=== PATIENT | female | born 1960 | race Caucasian/White ===

== ENCOUNTER 2019-06-15 11:02 | Emergency (ER) | payer MEDICARE, MEDICAID, SELFPAY ==
[2019-06-15 11:06] VITALS: BP 144/98; PULSE 116; RESP 18; TEMP 36.5; O2SAT 94
--- NOTE | 2019-06-15 11:15 | ED.GENADUL_ITS ---
Discharge Plan Disposition Patient Disposition: HOME Condition: Good Discharge Details Chief Complaint: DentalOral Clinical Impression: Abscess, dental Primary Care Provider: Kingston Salgado ED Provider: Guerita Keys Home Meds and New Rx's Prescriptions: New clindamycin HCl 150 mg capsule 150 mg PO TID 7 Days Qty: 21 RF: 0 Continued nicotine (polacrilex) 4 mg gum 4 mg BC Q2H Qty: 100 RF: 4 albuterol sulfate [ProAir HFA] 90 mcg/actuation HFA aerosol inhaler 2 puff Inhalation Q4H PRN Qty: 3 RF: 4 fluticasone propionate 50 mcg/actuation spray,suspension 2 spray NS DAILY Qty: 1 RF: 3 Symbicort 160-4.5 mcg/actuation HFA aerosol inhaler 2 puff Inhalation BID Qty: 1 RF: 3 lisinopril 40 mg tablet 40 mg PO DAILY Qty: 90 RF: 4 furosemide 40 mg tablet 40 mg PO DAILY Qty: 90 RF: 4 amlodipine 10 mg tablet 10 mg PO DAILY Qty: 90 RF: 3 multivitamin [Multi-Day] 1 EACH tablet 1 ea PO DAILY RF: 0 Bipap RF: 0 amoxicillin 500 MG tablet 2 g PO ONCE Qty: 4 RF: 4 clotrimazole-betamethasone [Lotrisone] 45 GM cream 1 gary Topical BID PRNQty: 45 RF: 1 aspirin [Aspir-81] 81 MG tablet,delayed release (DR/EC) 81 mg PO DAILY Qty: 90 RF: 3 ibuprofen 800 mg tablet 800 mg PO BID prn Qty: 180 RF: 3 nystatin (bulk) 500 million unit powder See Rx Instructions Topical QID PRNRF: 2 bupropion HCl 150 mg tablet sustained-release 12 hr 150 mg PO DAILY Qty: 90 RF: 4 pantoprazole [Protonix] 40 mg tablet,delayed release (DR/EC) 40 mg PO DAILY Qty: 90 RF: 4 zolpidem [Ambien] 10 mg tablet 10 mg PO HS PRN (Reason: insomnia) Qty: 30 RF: 1 oxycodone-acetaminophen 5-325 mg tablet 1 tab PO Q8H MDD 2 tabs PRN (Reason: pain) Qty: 60 RF: 0 Discharge Instructions Instructions: Dental Abscess (ED) Additional Instructions: Encourage hydration. Use Tylenol and/or ibuprofen as needed for discomfort. Please take the clindamycin as prescribed. Even if symptoms improve, please take the entire course. While on the antibiotic, please take a probiotic. Abscess was drained today and a dental block was performed. If you develop fever/chills, increased swelling or other new/worsening symptoms please seek care urgently once again. Otherwise, please keep your dental appointment tomorrow. Referrals: Kingston Salgado MD [Primary Care Provider] - Discharge Data Discharge Date/Time-TO BE ENTERED AT DEPARTURE: 06/15/19 12:07 Medical Decision Making Patient is a pleasant 58-year-old female presents today with chief complaint of left upper dental pain that began 1 week ago and is progressive and increasing. She awoke this morning to note swelling to the left side of her cheek. She has contacted a dentist and has appointment tomorrow for evaluation. Should contact her dentist today who advised that she come to the ER to be evaluated. She d enies any fevers or chills. There is no biotics. Patient does have a left total knee replacement and reports that she does take amoxicillin prior to her dental appointments. Denies any known trauma. Patient is noted to have pain, area of fluctuance consistent with abscess at the number 11. Tooth. She is afebrile, nontoxic-appearing. Has poor dentition throughout. States she has not seen a dentist in many years. No pain along the lingual side of the dentition or gumline. Oropharynx is otherwise without significant abnormality. Patient I discussed treatment options. In particular, we discussed I&D of the abscess followed by subsequent oral antibiotics. Patient also questioning a block. We discussed risk/benefits of these procedures in depth as well as expected procedural steps. She voices understanding and wished to proceed. Please see procedure note. Patient tolerated this well. Large amount of thick purulent discharge was expressed from the abscess. Patient was initially noted to be tachycardic at 116, it is 114 time of discharge. This is baseline for the patient on chart review. Patient is feeling much improved after block and drainage of the abscess. Will be given her first dose of clindamycin here. I did advise that she go on a probiotic while on the clindamycin. She has an appointment with her dentist tomorrow for definitive care. Patient was given return precautions. All of her questions and concerns were addressed and she is in agreement this plan. HPI General Mode of arrival: ambulatory . Date/Time Provider Initiated Documentation: 06/15/19 11:06 . Limitations to Documentation: no limitations . Information obtained by: patient and RN notes reviewed . History of Present Illness 58 year old F presents to the emergency department with the chief complaint of left upper dental pain, described as severe, with intensity rated at 8. Quality is described as burning, and is localized to the mouth. Patient reports no radiation. Patient started experiencing this week(s) (1, progressively worsening. Swelling started today) and it has been constant. No relieving factors improve symptom(s), No exacerbating factors reported . Patient notes no other symptoms.; denies fever/chills, headaches, loss of appetite, nausea/vomiting and rash. Patient did receive the following treatments prior to arrival, none Related Data Home Medications Medication Instructions Recorded Confirmed multivitamin [Multi-Day] 1 ea PO DAILY 09/02/12 06/15/19 Bipap 06/29/14 05/05/19 amoxicillin 2 g PO ONCE #4 tab 01/29/15 06/15/19 clotrimazole-betamethasone 1 gary TOPICAL BID PRN #45 gm 05/10/15 06/15/19 [Lotrisone] aspirin [Aspir-81] 81 mg PO DAILY #90 tab-cap 07/10/16 06/15/19 nicotine (polacrilex) 4 mg gum 4 mg BC Q2H #100 each 03/29/18 06/15/19 ibuprofen 800 mg tablet 800 mg PO BID prn #180 tab-cap 06/20/18 06/15/19 albuterol sulfate 90 mcg/actuation 2 puff INHALATION Q4H PRN #3 07/07/18 06/15/19 aerosol inhaler inhaler fluticasone propionate 50 2 spray NS DAILY #1 gm 07/07/18 06/15/19 mcg/actuation nasal spray,suspension furosemide 40 mg tablet 40 mg PO DAILY #90 tab-cap 10/06/18 06/15/19 amlodipine 10 mg tablet 10 mg PO DAILY #90 tab-cap 01/06/19 06/15/19 nystatin (bulk) 500 million unit See Rx Instructions TOPICAL QID 01/06/19 06/15/19 powder PRN g bupropion HCl 150 mg tablet,12 hr 150 mg PO DAILY #90 tab-cap 09/05/19 01/02/20 sustained-release budesonide-formoterol HFA 160 2 puff INHALATION BID #1 inhaler 03/31/19 06/15/19 mcg-4.5 mcg/actuation aerosol inhaler lisinopril 40 mg tablet 40 mg PO DAILY #90 tab 03/31/19 06/15/19 pantoprazole 40 mg tablet,delayed 40 mg PO DAILY #90 tab-cap 04/24/19 06/15/19 release zolpidem 10 mg tablet 10 mg PO HS PRN #30 tab 04/24/19 06/15/19 oxycodone-acetaminophen 5 mg-325 1 tab PO Q8H PRN #60 tab MDD 2 tabs 05/19/19 06/15/19 mg tablet clindamycin HCl 150 mg PO TID 7 Days #21 cap 06/15/19 Previous Rx's Medication Instructions Recorded nicotine (polacrilex) 4 mg gum 4 mg BC Q2H #100 each 03/29/18 ibuprofen 800 mg tablet 800 mg PO BID prn #180 tab-cap 06/20/18 albuterol sulfate 90 mcg/actuation 2 puff INHALATION Q4H PRN #3 07/07/18 aerosol inhaler inhaler fluticasone propionate 50 2 spray NS DAILY #1 gm 07/07/18 mcg/actuation nasal spray,suspension furosemide 40 mg tablet 40 mg PO DAILY #90 tab-cap 10/06/18 amlodipine 10 mg tablet 10 mg PO DAILY #90 tab-cap 01/06/19 bupropion HCl 150 mg tablet,12 hr 150 mg PO DAILY #90 tab-cap 02/16/19 sustained-release budesonide-formoterol HFA 160 2 puff INHALATION BID #1 inhaler 03/31/19 mcg-4.5 mcg/actuation aerosol inhaler lisinopril 40 mg tablet 40 mg PO DAILY #90 tab 03/31/19 pantoprazole 40 mg tablet,delayed 40 mg PO DAILY #90 tab-cap 04/24/19 release zolpidem 10 mg tablet 10 mg PO HS PRN #30 tab 04/24/19 oxycodone-acetaminophen 5 mg-325 1 tab PO Q8H PRN #60 tab MDD 2 tabs 05/19/19 mg tablet clindamycin HCl 150 mg PO TID 7 Days #21 cap 06/15/19 Allergies Allergy/AdvReac Type Severity Reaction Status Date / Time citalopram AdvReac INSOMNIA; Verified 06/15/19 11:13 DIZZINESS General Stated Complaint: DentalOral DAISHA: 4 Review of Systems Constitutional Constitutional: Reports as per HPI, Denies chills, Denies fatigue, Denies fever(s), Denies headache(s) and Denies poor appetite Eyes Eyes: Denies change in vision and Denies irritation ENT Ears, Nose, Mouth, and Throat: Reports as per HPI, Reports dental pain, Denies dysphagia, Denies dizziness, Denies dry mouth, Denies ear discharge, Denies otalgia, Reports facial pain, Denies headache(s), Denies hoarseness, Denies lip swelling, Denies nasal congestion, Denies odynophagia and Denies sore throat Cardiovascular Cardiovascular: Reports as per HPI and Denies chest pain Respiratory Respiratory: Reports as per HPI and Denies cough Gastrointestinal Gastrointestinal: Reports as per HPI, Denies dysphagia, Denies nausea, Denies odynophagia and Denies vomiting Integumentary/Breasts Skin/Breast: Reports as per HPI, Denies erythema, Denies rash and Denies skin pain Neurologic Neurologic: Reports as per HPI, Denies dizziness and Denies headache(s) Endocrine Endocrine: Denies fatigue Allergic/Immunologic Allergic/Immunologic: Denies lip swelling [facility] Medical History Chronic obstructive lung disease (Chronic) ongoing tobacco use Depressive disorder (Chronic) Essential hypertension (Chronic 05/10/13) Excessive bleeding in premenopausal period (Resolved 05/13/95) GERD (gastroesophageal reflux disease) (Chronic 02/02/14) Hyperlipidemia (Chronic 06/29/14) Midline low back pain without sciatica (Chronic 05/10/15) Obesity (Chronic) Obstructive sleep apnea syndrome (Chronic) BiPAP Osteoarthritis of knee (Chronic) both knees (s/p left TKR) Poor dentition (Chronic 10/26/14) Smoker (Chronic 09/29/16) 1ppd Venous insufficiency (chronic) (peripheral) (Chronic 12/29/16) Surgical History Arthroplasty of knee (~2006) left section Cholecystectomy (~1986) Endometrial Biopsy (~1995) History of bilateral ligation of fallopian tubes (Inactive) History of section (Inactive) History of open reduction and internal fixation (ORIF) procedure (Inactive) History of umbilical hernia repair (Inactive) Ligation of fallopian tube (~1993) Repair of umbilical hernia (~07/2009) Replacement of total knee joint (~2007) left Status post cholecystectomy (Inactive) Status post total knee replacement (Inactive) wrist repair (~1988) RIGHT WRIST PINS & RODS Social History Smoking/Tobacco Use Status: Current every day Tobacco Type: cigarettes Smoking packs per day: 1.5 Smoking cigarettes per day: 30.0 Alcohol Intake: current Alcohol Intake frequency: a few times a month Alcohol type: hard liquor Drug use: Never Substance use type: prescription drug Household members: none Pets and animals: No Duration: < 15 minutes/day Frequency: 1-2 times per week Jessica/Sikhism: Yarsani Agree to transfusion: No Do you feel safe at home: Yes Do you feel safe in your relationship?: Yes Exam Const General: cooperative, healthy appearing, comfortable, no acute distress, well developed and well groomed Nutritional Appearance: well nourished and obese Orientation: alert and awake [facility] Head: normal to inspection, normocephalic and atraumatic Ears: hearing grossly normal bilaterally, external ears normal and TM's normal bilaterally General nose exam: external nose normal and nares normal Face and sinus: sinuses nontender and face asymmetric (swelling left cheek) Mouth: lip normal, tongue normal, oropharynx normal, moist mucous membranes, no audible dysphonia, no trismus and No restricted motion Teeth and gingiva: caries, poor dentition and other (area of 1.5 cm abscess left upper dentition at the #11 tooth) Throat: posterior oropharynx normal, tonsils normal and uvula midline Eyes General: appearance normal, both eyes and all related structures Neck Neck: normal visual inspection, full ROM, no lymphadenopathy, supple and no anterior neck swelling Resp Effort & Inspection: normal respiratory effort, able to speak in complete sentences and no respiratory distress Auscultation: clear to auscultation bilaterally, no rales, no rhonchi and no wheezes Cardio Rate: regular rate Rhythm: regular rhythm Heart Sounds: S1 normal and S2 normal Skin General skin exam: no rashes or lesions noted Trauma: no lacerations or abrasions Neuro General: alert and awake Cognition: normal cognition Speech: speech normal Gait: normal gait Psych Appearance: grossly normal and well kempt Mental Status: mental status grossly normal Speech and Movement: speech and movement normal Course Vital Signs Vital signs: Vital Signs Temperature 36.5 C 06/15/19 11:06 Pulse 116 H 06/15/19 11:06 Respiratory Rate 18 06/15/19 11:06 Blood Pressure 144/98 H 06/15/19 11:06 Pulse Oximetry 94 L 06/15/19 11:06 Temperature 36.5 C 06/15/19 11:06 Temperature Source Temporal Artery Scan 06/15/19 11:06 Pulse 116 H 06/15/19 11:06 Respiratory Rate 18 06/15/19 11:06 Respiratory Effort Pursed Lip 06/15/19 11:12 Blood Pressure 144/98 H 06/15/19 11:06 Blood Pressure Position Sitting 06/15/19 11:06 Pulse Oximetry 94 L 06/15/19 11:06 Oxygen Delivery Method Room Air 06/15/19 11:06 Oxygen Flow Rate 0 06/15/19 11:06 Pain Level 8 06/15/19 11:14 Procedures Abscess I/D Side (if applicable): Left (upper dental) Sedation/analgesia: None Local Anesthetic: Lidocaine 1% and Bupivicaine 0.5% Amount of anesthesia used (mL): 1 Technique: Incised with #11 Blade Amount of fluid expressed (mL): 4 Irrigation: No Packing used?: None Complications: Other (none)
[2019-06-15] MEDS: Benzocaine 20% Gel 30 GM JAR MM (11:20)
[2019-06-15] MEDS: Bupivacaine 0.5% Pres-Free 30 ML VIAL IJ (11:20)
[2019-06-15] MEDS: Lidocaine 1% Multi-Dose 50 ML VIAL IJ (11:20)
[2019-06-15 12:08] VITALS: BP 144/98; PULSE 116; RESP 18; TEMP 36.5; O2SAT 94
[2019-06-15] MEDS: Clindamycin 150 MG CAP 450 MG PO (12:09)
== END 2019-06-15 12:07 | disposition home or self-care (01) ==
PROVIDERS: Emergency Provider Physician Assistant; PCP Family Medicine
DX: K04.7 Periapical abscess without sinus (principal); I10 Essential (primary) hypertension; J44.9 Chronic obstructive pulmonary disease, unspecified; F17.210 Nicotine dependence, cigarettes, uncomplicated
CPT/HCPCS: 10060; 99283

== ENCOUNTER 2020-04-12 14:11 | Outpatient (REF) | payer MEDICARE, MEDICAID, SELFPAY ==
[2020-04-12 19:42] LABS: ALT 29 U/L (14-59); AST 16 U/L (15-37); Albumin 3.9 g/dL (3.4-5.0); Alkaline Phosphatase 115 U/L (46-116); Anion Gap 10.5 mmol/L (3-11); BUN 10 mg/dL (7-18); Bilirubin, Total 0.5 mg/dL (0.2-1.0); CO2 28.5 mmol/L (21.0-32.0); CREATININE 0.75 mg/dL (0.55-1.02); Calcium 9.2 mg/dL (8.5-10.1); Calculated LDL 154 mg/dL (<100); Chloride 99 mmol/L (98-107); Cholesterol 254 mg/dL (<200); Glucose 118 mg/dL (74-106); HDL Cholesterol 53 mg/dL (40-60); Potassium 3.6 mmol/L (3.5-5.1); Sodium 138 mmol/L (136-145); Total Protein 7.8 g/dL (6.4-8.2); Triglyceride 237 mg/dL (<150)
[2020-04-12 20:35] LABS: Hemoglobin A1C 5.8 % (<5.7)
== END 2020-04-12 14:31 ==
LOC: NCHCN 14:11
PROVIDERS: PCP Nurse Practitioner Family; Visit Provider Nurse Practitioner Family
DX: E78.5 Hyperlipidemia, unspecified (principal); R73.01 Impaired fasting glucose; I10 Essential (primary) hypertension
CPT/HCPCS: 80053; 80061; 83036

== ENCOUNTER 2020-04-15 14:40 | Outpatient (CLI) | payer MEDICARE, MEDICAID, SELFPAY ==
--- NOTE | 2020-04-15 14:00 | DI.RAD_ITS ---
EXAM: XR KNEE RT 4V AP,LAT,ARIELLE,PAT CLINICAL HISTORY: f/u R knee pain, OA. TECHNIQUE: 2D digital imaging was performed. COMPARISON: CR LUMBAR SPINE AP, LAT from 07/15/2016 FINDINGS: Moderately severe degenerative changes are seen in the right knee characterized by joint space narrow ing and periarticular spurring. The findings are most marked in the medial femoral tibial joint. No acute fracture or dislocation. The soft tissues are unremarkable. No joint effusion. IMPRESSION: Moderately severe degenerative changes of the right knee. DATA REPOSITORY: RADIATION DOSE DELIVERED:
== END 2020-04-15 15:00 ==
PROVIDERS: PCP Nurse Practitioner Family; Referring Provider Nurse Practitioner Family; Visit Provider Student in an Organized Health Care Education/Training Program
DX: M17.11 Unilateral primary osteoarthritis, right knee (principal); F17.210 Nicotine dependence, cigarettes, uncomplicated; E66.9 Obesity, unspecified; I10 Essential (primary) hypertension
CPT/HCPCS: 20610; 99203; 99214; 73564; J1040

== ENCOUNTER 2020-05-08 00:16 | Outpatient (CLI) | payer MEDICARE, MEDICAID, SELFPAY ==
--- NOTE | 2020-05-08 15:15 | DI.MAMMO_ITS ---
EXAM: MG MAMMO SCREENING CLINICAL HISTORY: screening,Z12.39 TECHNIQUE: Mammograms were interpreted according to the usual protocol including computer analysis w [employer] CAD system, tomosynthesis and C-view imaging. COMPARISON: FINDINGS: The breasts are of moderate density with fairly symmetrical distribution of fibroglandular tissue. N o dominant mass or clumped microcalcification is identified in either breast. The current examinatio n is compared with previous examinations including October 2017 and there has been no gross interval castelan ge in appearance in comparison with the prior studies. IMPRESSION: No specific evidence of malignancy at this time. Routine screening examinations are suggested at yea rly intervals in this age group according to the ACS ACR guidelines. BI-RADS Category 1 - Negative Breast Density - Category B - Scattered areas of fibroglandular density
== END 2020-05-08 00:36 ==
PROVIDERS: PCP Nurse Practitioner Family; Visit Provider Nurse Practitioner Family
DX: Z12.31 Encounter for screening mammogram for malignant neoplasm of breast (principal)
CPT/HCPCS: 77063; 77067

== ENCOUNTER 2020-06-18 17:05 | Outpatient (REF) | payer MEDICARE, MEDICAID, SELFPAY ==
[2020-06-18 21:33] LABS: Bilirubin Negative (Negative); Blood Negative (Negative); Clarity Clear (Clear); Glucose Negative (Negative); Ketones Negative (Negative); Leukocyte Esterase Small (Negative); Nitrite Negative (Negative); Specific Gravity 1.025 (1.005-1.025); Urobilinogen 0.2 EU/dL (Up TO 0.2); pH 5.5 (5-8)
[2020-06-18 22:02] LABS: Bacteria Few HPF (Negative); C & S Indicated? C&S Done As Ordered; Casts Negative LPF (Negative); Crystals Negative HPF (Negative); Epithelial Cells Few HPF (Negative); Mucus Negative (Negative); RBC Negative HPF (0-2)
[2020-06-20 15:27] LABS: HSV 1 DNA Result Negative (Negative); HSV 2 DNA Result Positive (Negative)
== END 2020-06-18 17:25 ==
LOC: LBN 17:05
PROVIDERS: PCP Nurse Practitioner Family; Visit Provider Nurse Practitioner Family
DX: N39.0 Urinary tract infection, site not specified (principal); N90.89 Other specified noninflammatory disorders of vulva and perineum
CPT/HCPCS: 87529; 81003; 81015; 87086

== ENCOUNTER 2020-07-24 21:33 | Outpatient (REF) | payer MEDICARE, MEDICAID, SELFPAY ==
[2020-07-27 14:22] LABS: 2-Hydroxy Ethyl Flurazepam Not Detected ng/mL (Cutoff: 10); 6-monoacetylmorphine Not Detected ng/mL (Cutoff: 25); Alpha-Hydroxy Midazolam Not Detected ng/mL (Cutoff: 10); Alpha-Hydroxy Triazolam Not Detected ng/mL (Cutoff: 10); Alpha-Hydroxyalprazolam Not Detected ng/mL (Cutoff: 10); Alpha-OH-alprazolam Glucuronid Not Detected ng/mL (Cutoff: 50); Alprazolam Not Detected ng/mL (Cutoff: 10); Amphetamines Negative ng/mL (Cutoff: 500); Barbiturates Negative ng/mL (Cutoff: 200); Buprenorphine Not Detected ng/mL (Cutoff: 5); Chlordiazepoxide Not Detected ng/mL (Cutoff: 10); Clobazam Not Detected ng/mL (Cutoff: 10); Clonazepam Not Detected ng/mL (Cutoff: 10); Cocaine Negative ng/mL (Cutoff: 150); Codeine Not Detected ng/mL (Cutoff: 25); Comment Normal; Creatinine, U 36.6 mg/dL; Diazepam Not Detected ng/mL (Cutoff: 10); Dihydrocodeine Not Detected ng/mL (Cutoff: 25); EDDP Not Detected ng/mL (Cutoff: 25); Fentanyl Not Detected ng/mL (Cutoff: 2); Flurazepam Not Detected ng/mL (Cutoff: 10); Hydrocodone Not Detected ng/mL (Cutoff: 25); Hydromorphone Not Detected ng/mL (Cutoff: 25); Hydromorphone-3-beta-glucuroni Not Detected ng/mL (Cutoff: 100); Lorazepam Not Detected ng/mL (Cutoff: 10); Lorazepam Glucuronide Not Detected ng/mL (Cutoff: 50); Meperidine Not Detected ng/mL (Cutoff: 25); Methadone Not Detected ng/mL (Cutoff: 25); Midazolam Not Detected ng/mL (Cutoff: 10); Morphine Not Detected ng/mL (Cutoff: 25); N-Desmethylclobazam Not Detected ng/mL (Cutoff: 200); N-desmethyltapentadol Not Detected ng/mL (Cutoff: 50); Naloxone Not Detected ng/mL (Cutoff: 25); Norbuprenorphine Not Detected ng/mL (Cutoff: 5); Norfentanyl Not Detected ng/mL (Cutoff: 2); Norhydrocodone Not Detected ng/mL (Cutoff: 25); Normeperidine Not Detected ng/mL (Cutoff: 25); Noroxycodone Present ng/mL (Cutoff: 25); Noroxymorphone Not Detected ng/mL (Cutoff: 25); O-desmethyltramadol Not Detected ng/mL (Cutoff: 25); Oxazepam Glucuronide Not Detected ng/mL (Cutoff: 50); Phencyclidine Negative ng/mL (Cutoff: 25); Prazepam Not Detected ng/mL (Cutoff: 10); Propoxyphene Not Detected ng/mL (Cutoff: 25); Specific Gravity 1.011; Tapentadol Not Detected ng/mL (Cutoff: 25); Temazepam Not Detected ng/mL (Cutoff: 10); Temazepam Glucuronide Not Detected ng/mL (Cutoff: 50); Tetrahydrocannabinol Negative ng/mL (Cutoff: 50); Tramadol Not Detected ng/mL (Cutoff: 25); Triazolam Not Detected ng/mL (Cutoff: 10); Zolpidem Phenyl-4-Carboxy acid Present ng/mL (Cutoff: 10); pH 5.8
== END 2020-07-24 21:34 | disposition home or self-care (01) ==
LOC: NCHCN 21:33
PROVIDERS: PCP Nurse Practitioner Family; Visit Provider Nurse Practitioner Family
DX: M47.816 Spondylosis without myelopathy or radiculopathy, lumbar region (principal); Z79.891 Long term (current) use of opiate analgesic
CPT/HCPCS: 80307; 80347; 80364

== ENCOUNTER → 2020-08-19 13:12 | Outpatient (BNVA) | payer MEDICARE, MEDICAID, SELFPAY | PROVIDERS: PCP Nurse Practitioner Family; Referring Provider Nurse Practitioner Family; Visit Provider Physician Assistant | DX: M17.11 Unilateral primary osteoarthritis, right knee (principal) | CPT/HCPCS: 20610; J1040 ==

== ENCOUNTER 2020-10-21 13:20 | Outpatient (REF) | payer MEDICARE, MEDICAID, SELFPAY ==
[2020-10-24 12:21] LABS: 2-Hydroxy Ethyl Flurazepam Not Detected ng/mL (Cutoff: 10); 3,4-methylenedioxyamphetamine Not Detected ng/mL (Cutoff: 100); 3,4-methylenedioxyethylampheta Not Detected ng/mL (Cutoff: 100); 3,4-methylenedioxymethamphetam Not Detected ng/mL (Cutoff: 100); 6-monoacetylmorphine Not Detected ng/mL (Cutoff: 25); Alpha-Hydroxy Midazolam Not Detected ng/mL (Cutoff: 10); Alpha-Hydroxy Triazolam Not Detected ng/mL (Cutoff: 10); Alpha-Hydroxyalprazolam Not Detected ng/mL (Cutoff: 10); Alpha-OH-alprazolam Glucuronid Not Detected ng/mL (Cutoff: 50); Alprazolam Not Detected ng/mL (Cutoff: 10); Amphetamine Not Detected ng/mL (Cutoff: 100); Barbiturates Negative ng/mL (Cutoff: 200); Buprenorphine Not Detected ng/mL (Cutoff: 5); Chlordiazepoxide Not Detected ng/mL (Cutoff: 10); Clobazam Not Detected ng/mL (Cutoff: 10); Clonazepam Not Detected ng/mL (Cutoff: 10); Cocaine Negative ng/mL (Cutoff: 150); Codeine Not Detected ng/mL (Cutoff: 25); Comment Normal; Creatinine, U 20.7 mg/dL; Diazepam Not Detected ng/mL (Cutoff: 10); Dihydrocodeine Not Detected ng/mL (Cutoff: 25); EDDP Not Detected ng/mL (Cutoff: 25); Ephedrine Not Detected ng/mL (Cutoff: 100); Fentanyl Not Detected ng/mL (Cutoff: 2); Flurazepam Not Detected ng/mL (Cutoff: 10); Hydrocodone Present ng/mL (Cutoff: 25); Hydromorphone Not Detected ng/mL (Cutoff: 25); Hydromorphone-3-beta-glucuroni Not Detected ng/mL (Cutoff: 100); Lorazepam Not Detected ng/mL (Cutoff: 10); Lorazepam Glucuronide Not Detected ng/mL (Cutoff: 50); Meperidine Not Detected ng/mL (Cutoff: 25); Methadone Not Detected ng/mL (Cutoff: 25); Methamphetamine Not Detected ng/mL (Cutoff: 100); Methylphenidate Not Detected ng/mL (Cutoff: 20); Midazolam Not Detected ng/mL (Cutoff: 10); Morphine Not Detected ng/mL (Cutoff: 25); N-Desmethylclobazam Not Detected ng/mL (Cutoff: 200); N-desmethyltapentadol Not Detected ng/mL (Cutoff: 50); Naloxone Not Detected ng/mL (Cutoff: 25); Norbuprenorphine Not Detected ng/mL (Cutoff: 5); Norfentanyl Not Detected ng/mL (Cutoff: 2); Norhydrocodone Not Detected ng/mL (Cutoff: 25); Normeperidine Not Detected ng/mL (Cutoff: 25); Noroxycodone Present ng/mL (Cutoff: 25); Noroxymorphone Not Detected ng/mL (Cutoff: 25); O-desmethyltramadol Not Detected ng/mL (Cutoff: 25); Oxazepam Glucuronide Not Detected ng/mL (Cutoff: 50); Phencyclidine (PCP) Not Detected ng/mL (Cutoff: 20); Phentermine Not Detected ng/mL (Cutoff: 100); Prazepam Not Detected ng/mL (Cutoff: 10); Propoxyphene Not Detected ng/mL (Cutoff: 25); Pseudoephedrine Not Detected ng/mL (Cutoff: 100); Ritalinic Acid Not Detected ng/mL (Cutoff: 100); Tapentadol Not Detected ng/mL (Cutoff: 25); Temazepam Not Detected ng/mL (Cutoff: 10); Temazepam Glucuronide Not Detected ng/mL (Cutoff: 50); Tetrahydrocannabinol Negative ng/mL (Cutoff: 50); Tramadol Not Detected ng/mL (Cutoff: 25); Triazolam Not Detected ng/mL (Cutoff: 10); Zolpidem Phenyl-4-Carboxy acid Present ng/mL (Cutoff: 10); pH 5.7
== END 2020-10-21 13:21 | disposition home or self-care (01) ==
LOC: LBN 13:20
PROVIDERS: PCP Nurse Practitioner Family; Visit Provider Nurse Practitioner Family
DX: M47.816 Spondylosis without myelopathy or radiculopathy, lumbar region (principal); Z79.891 Long term (current) use of opiate analgesic
CPT/HCPCS: 80307; 80347; 80364

== ENCOUNTER → 2020-11-25 14:11 | Outpatient (BNVA) | payer MEDICARE, MEDICAID, SELFPAY | PROVIDERS: PCP Nurse Practitioner Family; Referring Provider Nurse Practitioner Family; Visit Provider Student in an Organized Health Care Education/Training Program | DX: M17.11 Unilateral primary osteoarthritis, right knee (principal); M25.561 Pain in right knee; G89.29 Other chronic pain; I10 Essential (primary) hypertension; J44.9 Chronic obstructive pulmonary disease, unspecified; F17.210 Nicotine dependence, cigarettes, uncomplicated; M21.161 Varus deformity, not elsewhere classified, right knee | CPT/HCPCS: 20610; J1040 ==

== ENCOUNTER 2021-06-24 17:59 | Outpatient (REF) | payer MEDICARE, MEDICAID, SELFPAY ==
[2021-06-26 15:47] LABS: COVID-19 RT-PCR UVMMC Result Positive (Negative)
== END 2021-06-24 18:00 | disposition home or self-care (01) ==
LOC: LBN 17:59
PROVIDERS: PCP Nurse Practitioner Family; Visit Provider Physician Assistant
DX: Z20.822 Contact with and (suspected) exposure to COVID-19 (principal)
CPT/HCPCS: U0003; U0005

== ENCOUNTER 2022-01-02 01:47 | Outpatient (CLI) | payer MEDICARE, MEDICAID, SELFPAY ==
[2022-01-02] MEDS: Albuterol HFA 18 GM 200 PUFF INH IH (16:13)
[2022-01-02] MEDS: Inhaler, Assist Device 1 EACH MC (16:14)
--- NOTE | 2022-01-06 14:21 | W.PFT ---
Date of service: 01/02/22 Time of Service: 15:07 Pulmonary Function Test Result Requesting Provider Cristhian Myers Indications: COPD Interpretation Spirometry: There is severe airflow limitation. There is no significant bronchodilator response. The spirometry has a restrictive pattern. Lung Volumes: Lung volumes are normal. Diffusion Capacity: The diffusion is very low. Airway Pressure: Increased airways resistance. Impression Severe airflow limitation with pseudo-restriction from obesity. A low diffusion and increased airways resistance. In the correct clinical context this may represent COPD with emphysema. Clinical Correlation therefore is recommended.
== END 2022-01-02 01:48 | disposition home or self-care (01) ==
LOC: RT 01:47
PROVIDERS: PCP Nurse Practitioner Family; Visit Provider Family Medicine
DX: J44.9 Chronic obstructive pulmonary disease, unspecified (principal); R94.2 Abnormal results of pulmonary function studies; R06.09 Other forms of dyspnea; R05.8 Other specified cough; F17.210 Nicotine dependence, cigarettes, uncomplicated; Z86.16 Personal history of COVID-19
CPT/HCPCS: 94060; 94726; 94729

== ENCOUNTER → 2022-06-03 14:16 | Outpatient (CLI) | payer MEDICARE, MEDICAID, SELFPAY ==
--- NOTE | 2022-06-03 13:45 | DI.RAD_ITS ---
Exam(s) XR FOOT RT COMPLETE EXAM: XR FOOT RT COMPLETE CLINICAL HISTORY: right foot pain, M79.671. TECHNIQUE: 2D digital imaging was performed. COMPARISON: No exams were available for comparison FINDINGS: 3 views There is no evidence of acute fracture nor diastasis of the Lisfranc joint. Bipartite medial sesamoi d is noted subjacent to the great toe metatarsal head. No obvious degenerative changes evident at th e metatarsophalangeal joint of the great toe. Large inferior calcaneal spur is noted. Also accessor y ossicle dorsal to the proximal navicular. Os trigonum noted. IMPRESSION: DATA REPOSITORY: RADIATION DOSE DELIVERED:
== END ==
PROVIDERS: PCP Nurse Practitioner Family; Visit Provider Nurse Practitioner Family
DX: M79.671 Pain in right foot (principal); M77.31 Calcaneal spur, right foot
CPT/HCPCS: 73630

== ENCOUNTER 2022-10-05 19:14 | Inpatient (IN) | payer MEDICARE, MEDICAID, SELFPAY ==
[2022-10-05] VITALS (11 sets, daily range): BP systolic 135–158; BP diastolic 80–83; PULSE 95–112; RESP 17–31; TEMP 36.3–37.3; O2SAT 78–93
--- NOTE | 2022-10-05 19:15 | RT.EKG_ITS ---
APPROVED REPORT Exam: Resting ECG Reason for Exam: Patient Location: E HR:96 bpm ECG Measurements Heart Rate 96 AXIS DE 199 P 66 QRSd 106 QRS -28 QT 368 T 44 QTc 466 Conclusion Sinus rhythm...normal P axis, V-rate 60- 99 Borderline prolonged DE interval...DE >197, V-rate 91-120. Sinus. No STEMI. I have reviewed and interpreted ECG and agree with software generated interpretation.
--- NOTE | 2022-10-05 19:30 | DI.RAD_ITS ---
Exam(s) XR PORTABLE CHEST AP EXAM: XR PORTABLE CHEST AP CLINICAL HISTORY: cough, SOB TECHNIQUE: 2D digital imaging was performed of the chest. One image was obtained. An AP view was ob tained. COMPARISON: CR CHEST 2 VIEWS PA,LAT from 05/12/2013 FINDINGS: MEDIASTINUM: Normal. HEART: Mild cardiomegaly. PULMONARY VASCULATURE: Normal. LUNGS: No focal consolidation. PLEURAL SPACE: No pleural effusion or pneumothorax. BONE:Within normal limits for the patient's age. OTHER FINDINGS:Normal. IMPRESSION: No acute pulmonary findings. DATA REPOSITORY: RADIATION DOSE DELIVERED:
--- NOTE | 2022-10-05 19:33 | W.ED.GENAD ---
Discharge Plan Disposition Patient Disposition: Admit to [facility] Discharge Details Chief Complaint: SOB Clinical Impression: Pulmonary embolism, Hypoxemia, Hypomagnesemia, Hypokalemia, COPD exacerbation Primary Care Provider: Cristhian Myers ED Provider: Guerita Keys Selden Meds and New Rx's Prescriptions: No Action clotrimazole-betamethasone 1-0.05 % cream 1 applic Topical BID PRN (Reason: rash) Qty: 45 3RF Rx Instructions: apply under breasts for itching/rash ibuprofen 600 mg tablet 600 mg PO TID PRN (Reason: pain) Qty: 180 3RF nystatin 100,000 unit/gram powder 1 applic topical TID PRN (Reason: rash) Qty: 60 4RF multivitamin [Multi-Day] 1 EACH tablet 1 ea PO DAILY aspirin [Aspir-81] 81 MG tablet,delayed release (DR/EC) 81 mg PO DAILY Qty: 90 (DME) Medial Offloader Brace See Rx Instructions .ROUTE .MEDSUPPLY Qty: 1 0RF Rx Instructions: Please apply to RIGHT knee for medial OA and valgus instability. Due to morbid obesity a custom brace is required. albuterol sulfate 2.5 mg /3 mL (0.083 %) solution for nebulization 2.5 mg inhalation QID PRN (Reason: shortness of breath or wheezing) Qty: 90 1RF lisinopril 40 mg tablet 40 mg PO DAILY Qty: 90 4RF amoxicillin 500 mg tablet 2,000 mg PO ONCE Qty: 4 0RF Rx Instructions: TAKE 4 500MG TABS 30-60 MIN. PRIOR TO DENTAL WORK zolpidem [Ambien] 10 mg tablet 10 mg PO HS PRN (Reason: insomnia) Qty: 90 2RF metoprolol succinate 50 mg tablet extended release 24 hr 50 mg PO DAILY Qty: 90 3RF pantoprazole [Protonix] 40 mg tablet,delayed release (DR/EC) 40 mg PO DAILY Qty: 90 4RF Rx Instructions: 1 TAB DAILY budesonide-formoterol [Symbicort] 160-4.5 mcg/actuation HFA aerosol inhaler 2 puff Inhalation BID Qty: 1 3RF fluticasone propionate 50 mcg/actuation spray,suspension 2 spray NS DAILY Qty: 1 3RF Rx Instructions: 2 sprays each nostril once/day simvastatin 20 mg tablet 20 mg PO DAILY Qty: 90 3RF furosemide 40 mg tablet 40 mg PO DAILY Qty: 90 4RF acetaminophen 500 mg tablet 500 mg PO BID Qty: 60 3RF amlodipine 10 mg tablet 10 mg PO DAILY Qty: 90 4RF magnesium oxide 400 mg magnesium capsule 400 mg PO DAILY Qty: 90 4RF bupropion HCl 150 mg tablet sustained-release 12 hr 150 mg PO DAILY Qty: 90 4RF Medical Decision Making Patient is a pleasant 61-year-old female with past medical history pertinent for obesity, hypertension, hyperlipidemia, ARIES, COPD, depression, GERD, active smoker, venous insufficiency, presenting today with chief complaint of cough, shortness of breath. States that she had a cough for the past few weeks and the shortness of breath is progressively been increasing. She does report that she initially had some right-sided chest discomfort COVID today with cough but this is since subsided. She denies any fevers or chills. Denies any other upper respiratory infections symptoms. Denies any GI symptoms. No recent travel. States that she smokes 1 pack/day, no change in this since the onset of her symptoms. On exam, patient appears better than expected in regard to her respiratory needs. Her initial oxygen was 78% on room air but has been speaking in full sentences. She found well to nasal cannula and oxygen is currently in the mid 90s. No crepitus. She does have wheezing, some diminished lung sounds. She does have 1+ lower extremity pitting edema bilaterally which patient reports is chronic. No calf tenderness with palpation. Abdomen is obese but nontender. 2+ distal pulses in all extremities. Concern for COPD exacerbation, possible pneumonia, possible PE, CHF exacerbation. less likely to be ACS however this sounds very much be respiratory driven she not having any symptoms to suggest aortic dissection, symptoms are not consistent with GI mediated source. Will give DuoNeb, steroids. Patient is on furosemide and we will begin her on IV dosing at the same.. Labs reviewed. No leukocytosis. H&H are stable. D-dimer is elevated at 1000, will move forward with a CTA. Potassium is slightly low, replenish this as well as magnesium here. FINDINGS: Lungs:? Question peribronchial thickening. No consolidation. Pleural spaces: Unremarkable. No pleural effusion. No pneumothorax. Heart/Mediastinum:? Mild cardiomegaly. Bones/joints: Unremarkable. IMPRESSION: Question peribronchial thickening FINDINGS: Limited due to streak and motion artifact Pulmonary arteries:? Small pulmonary emboli in the right middle and lower lobe segmental branches suspected.? No large central pulmonary emboli Aorta: No aortic aneurysm. No aortic dissection. Lungs:? Minimal subsegmental atelectasis versus scarring greater on the right No consolidation. No masses. Pleural spaces: Unremarkable. No pneumothorax. No pleural effusion. Heart:? Mild cardiomegaly with RV-LV ratio 1-1. No pericardial effusion. Lymph nodes:? Prominent right hilar lymph nodes. Bones/joints: Unremarkable. No acute fracture. Soft tissues: Unremarkable. Prior cholecystectomy. Hepatomegaly IMPRESSION: Small right pumlonary suspected. Small right-sided pulmonary infarctions can not be completely excluded.? Mild cardiomegaly/possible mild cardiac strain Discussed these findings with the patient. Discussed risk and benefits of anticoagulation. Also discussed anticoagulation choice further with hospitalist. We will begin on Lovenox and give first dose here. Hospitalist agrees to admission for pulmonary embolism and oxygen dependence. Patient has received DuoNeb, steroids, Lasix, Lovenox. Daughter has brought her CPAP machine. Patient has nicotine patch on. HPI General Date/Time Provider Initiated Documentation: 10/05/22 19:25. Limitations to Documentation: no limitations. Information obtained by: patient, family, RN/MD (called by urgent care prior to arrival) and RN notes reviewed. History of Present Illness 61 year old F presents to the emergency department with the chief complaint of cough, shortness of breath, described as moderate (O2 very low at home in the 70s, has still been smoking, normal ADLS) and similar to prior episodes, Quality is described as other (denies any pain currently), and is localized to the chest. Patient started experiencing this week(s) (daughter reports cough for weeks) and it has been constant. Immobilization improves symptom(s), Movement worsens symptoms (coughing) . Patient notes cough, malaise and shortness of breath; denies chest pain, diaphoresis, fever/chills, loss of appetite, nausea/vomiting, rash and syncope. Patient did receive the following treatments prior to arrival, other (neb at urgent care) Related Data Home Medications Medication Instructions Recorded Confirmed multivitamin (Multi-Day tablet) 1 ea PO DAILY 09/02/12 10/05/22 aspirin 81 mg tablet,delayed 81 mg PO DAILY #90 tab-caps 07/10/16 10/05/22 release (Aspir-) nystatin 100,000 unit/gram topical 1 applic topical TID PRN rash #60 04/14/20 10/05/22 powder grams clotrimazole-betamethasone 1 1 applic topical BID PRN rash #45 11/27/20 10/05/22 %-0.05 % topical cream grams Medial Offloader Brace #1 ea 12/02/20 10/05/22 albuterol sulfate 2.5 mg/3 mL 2.5 mg (3 mL) inhalation QID PRN 06/27/21 10/05/22 (0.083 %) solution for nebulization shortness of breath or wheezing #90 mL lisinopril 40 mg tablet 40 mg PO DAILY #90 tabs 08/22/21 10/05/22 amoxicillin 500 mg tablet 2,000 mg PO ONCE #4 tabs 12/11/21 10/05/22 zolpidem 10 mg tablet (Ambien) 10 mg PO HS PRN insomnia #90 tabs 01/12/22 10/05/22 metoprolol succinate 50 mg 50 mg PO DAILY #90 tabs 02/18/22 10/05/22 tablet,extended release 24 hr pantoprazole 40 mg tablet,delayed 40 mg PO DAILY #90 tab-caps 05/20/22 10/05/22 release (Protonix) budesonide-formoterol HFA 160 2 puff inhalation BID ##1 05/29/22 10/05/22 mcg-4.5 mcg/actuation aerosol inhaler (Symbicort) fluticasone propionate 50 2 spray NS DAILY #1 g 05/29/22 10/05/22 mcg/actuation nasal spray,suspension ibuprofen 600 mg tablet 600 mg PO TID PRN pain #180 tabs 06/04/22 10/05/22 simvastatin 20 mg tablet 20 mg PO DAILY #90 tabs 07/15/22 10/05/22 furosemide 40 mg tablet 40 mg PO DAILY #90 tab-caps 08/13/22 10/05/22 acetaminophen 500 mg tablet 500 mg PO BID #60 tabs 08/19/22 10/05/22 amlodipine 10 mg tablet 10 mg PO DAILY #90 tab-caps 08/26/22 10/05/22 magnesium oxide 400 mg PO DAILY #90 caps 09/24/22 10/05/22 bupropion HCl 150 mg tablet,12 hr 150 mg PO DAILY #90 tab-caps 09/30/22 10/05/22 sustained-release Previous Rx's Medication Instructions Recorded nystatin 100,000 unit/gram topical 1 applic topical TID PRN rash #60 04/14/20 powder grams clotrimazole-betamethasone 1 1 applic topical BID PRN rash #45 11/27/20 %-0.05 % topical cream grams Medial Offloader Brace #1 ea 12/02/20 albuterol sulfate 2.5 mg/3 mL 2.5 mg (3 mL) inhalation QID PRN 06/27/21 (0.083 %) solution for nebulization shortness of breath or wheezing #90 mL lisinopril 40 mg tablet 40 mg PO DAILY #90 tabs 08/22/21 amoxicillin 500 mg tablet 2,000 mg PO ONCE #4 tabs 12/11/21 zolpidem 10 mg tablet (Ambien) 10 mg PO HS PRN insomnia #90 tabs 01/12/22 metoprolol succinate 50 mg 50 mg PO DAILY #90 tabs 02/18/22 tablet,extended release 24 hr pantoprazole 40 mg tablet,delayed 40 mg PO DAILY #90 tab-caps 05/20/22 release (Protonix) budesonide-formoterol HFA 160 2 puff inhalation BID ##1 05/29/22 mcg-4.5 mcg/actuation aerosol inhaler (Symbicort) fluticasone propionate 50 2 spray NS DAILY #1 g 05/29/22 mcg/actuation nasal spray,suspension ibuprofen 600 mg tablet 600 mg PO TID PRN pain #180 tabs 06/04/22 simvastatin 20 mg tablet 20 mg PO DAILY #90 tabs 07/15/22 furosemide 40 mg tablet 40 mg PO DAILY #90 tab-caps 08/13/22 acetaminophen 500 mg tablet 500 mg PO BID #60 tabs 08/19/22 amlodipine 10 mg tablet 10 mg PO DAILY #90 tab-caps 08/26/22 magnesium oxide 400 mg PO DAILY #90 caps 09/24/22 bupropion HCl 150 mg tablet,12 hr 150 mg PO DAILY #90 tab-caps 09/30/22 sustained-release Allergies Allergy/AdvReac Type Severity Reaction Status Date / Time citalopram AdvReac INSOMNIA; Verified 10/05/22 18:00 DIZZINESS General Stated Complaint: SOB DAISHA: 2 Review of Systems Constitutional Constitutional: Reports as per HPI, Denies chills, Denies fever(s), Denies headache(s) and Denies poor appetite ENT Ears, Nose, Mouth, and Throat: Denies dizziness and Denies headache(s) Cardiovascular Cardiovascular: Reports as per HPI, Reports dyspnea and Reports dyspnea on exertion Respiratory Respiratory: Reports as per HPI, Denies chest congestion, Denies cough, Denies pain on inspiration, Denies pain with cough, Reports dyspnea, Reports dyspnea on exertion and Reports wheezing Gastrointestinal Gastrointestinal: Reports as per HPI, Denies abdominal pain, Denies diarrhea, Denies nausea and Denies vomiting Integumentary/Breasts Skin/Breast: Reports as per HPI and Denies rash Neurologic Neurologic: Reports as per HPI, Denies dizziness and Denies headache(s) Allergic/Immunologic Allergic/Immunologic: Reports wheezing 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 (Acute) Right knee pain (Acute) Chronic back pain (Chronic) Essential hypertension (Chronic) Hyperlipidemia (Chronic) Obstructive sleep apnea syndrome (Chronic) BiPAP Chronic obstructive lung disease (Chronic) Depressive disorder (Chronic) GERD (gastroesophageal reflux disease) (Chronic) Cigarette smoker (Chronic) Insomnia (Chronic) Osteoarthritis of right knee (Acute) Steroid injection: 08/19/2020; 04/15/2020 Venous insufficiency (chronic) (peripheral) (Chronic) Surgical History History of bilateral tubal ligation Hx of umbilical hernia repair S/P section S/P cholecystectomy S/P ORIF (open reduction internal fixation) fracture Right wrist Status post total knee replacement, left Family History Mother Essential hypertension Heart disease Hyperlipidemia Myocardial infarction Emphysema lung Stroke Skin cancer (melanoma) Father , 50 of [place] Essential hypertension Heart disease Hyperlipidemia Myocardial infarction Stroke Sister Essential hypertension Sister Emphysema lung Sister Hyperlipidemia Brother Essential hypertension Depression Emphysema lung Asthma Liver cancer Son , 30 from [place] Sleep apnea Myocardial infarction Daughter Sleep apnea Asthma Maternal Grandfather Lung cancer Maternal Grandmother Colon cancer Hypertension Heart disease Paternal Grandfather Parkinson's disease Paternal Grandmother Uterine cancer Social History Smoking/Tobacco Use Status: Current every day Tobacco Type: cigarettes Smoking packs per day: 1 Smoking cigarettes per day: 20.0 Years smoked: 39 Smoking pack-years: 39.00 Smoking risk assessment performed?: Yes Alcohol Intake: current Alcohol Intake frequency: a few times a month Alcohol type: hard liquor Drug use: Never Caregiver/Support person: Yes Household members: family and friend(s) Communication Needs: None Do you need help understanding health information?: Rarely Pets and animals: Yes Pets and animals: cat(s) Sexually active: Yes Do you think of yourself as: straight/heterosexual Current gender identity: female What is your relationship status?: refused to answer How often do you talk on the phone with friends or family?: twice per week How often do you get together with friends or relatives?: once per week How often do you attend presybeterian or orthodoxy services?: decline to answer Do you belong to any clubs or organized social groups?: no Panel score (0-1 are the most socially isolated patients): 1 What type of physical activity do you participate in: none Frequency: does not exercise Jessica/Rastafarian: None Agree to transfusion: No Seatbelt use: always Helmet use: Yes Helmet use: always Drive intox or ride w/intox bulk driver: No Do you feel safe at home: Yes Do you feel safe in your relationship?: Yes Exam Const General: cooperative, comfortable, no acute distress, well developed and ill appearing acutely Nutritional Appearance: well nourished and obese Orientation: alert, awake and oriented x3 HENMT Head: normal to inspection Ears: hearing grossly normal bilaterally Mouth: moist mucous membranes Chest Chest: normal inspection of the chest, normal palpation of entire chest wall and no crepitus Resp Effort & Inspection: normal respiratory effort (on 5L NC), able to speak in complete sentences and no respiratory distress Auscultation: crackles on the right at the base, diminished lung sounds bilaterally in the upper lung olvera, no rales, no rhonchi and wheezes expiratory wheezes Cardio Rate: regular rate Rhythm: regular rhythm Heart Sounds: S1 normal and S2 normal GI Inspection: normal to inspection, no edema, non-distended and obesity Palpation: soft, no hepatosplenomegaly, not firm, no guarding, not rigid and nontender Auscultation: normal bowel sounds Skin General skin exam: no rashes or lesions noted (chronic darkened skin BLE) Trauma: no lacerations or abrasions Neuro General: patient alert, patient awake and patient oriented x3 Cognition: normal cognition Speech: speech normal Gait: normal gait Extrem General: normal to inspection, capillary refill normal, no calf tenderness, normal gait and edema Laterality: bilateral (1+ pitting edema) Psych Appearance: grossly normal and well kempt Mental Status: mental status grossly normal Speech and Movement: speech and movement normal Course Vital Signs Vital signs: Vital Signs Temperature 36.3 C L 10/05/22 19:16 Pulse 100 H 10/05/22 19:16 Respiratory Rate 20 10/05/22 19:16 Blood Pressure 158/80 H 10/05/22 19:16 Pulse Oximetry 78 L 10/05/22 19:16 Temperature 36.3 C L 10/05/22 19:16 Pulse 100 H 10/05/22 19:16 Respiratory Rate 20 10/05/22 19:16 Blood Pressure 158/80 H 10/05/22 19:16 Pulse Oximetry 78 L 10/05/22 19:16 Oxygen Delivery Method Room Air 10/05/22 19:16 Oxygen Flow Rate 0 10/05/22 19:16 Pain Level 5 10/05/22 19:16
[2022-10-05] MEDS: Furosemide 40 MG/4 ML VIAL IVP (19:45)
[2022-10-05] MEDS: methylPREDNISolone SUCC 125 MG VIAL IM (19:46)
[2022-10-05] MEDS: Albuterol/Ipratropium 3 ML UPD VIAL UPD (19:46)
[2022-10-05 19:49] LABS: Abs Immature Grans 0.04 10^3/uL (0.0-0.06); Absolute Basophil Count 0.04 10^3/uL (0.0-0.2); Absolute Eosinophil Count 0.05 10^3/uL (0.0-0.7); Absolute Lymphocyte Count 2.02 10^3/uL (1.2-3.4); Absolute Monocyte Count 0.56 10^3/uL (0.1-0.8); Absolute Neutrophil Count 4.31 10^3/uL (1.2-6.7); Basophils % 0.6; Eosinophils % 0.7; HCT 47.9 % (36.0-46.0); HGB 15.5 g/dL (11.2-15.7); Immature Grans % 0.6; Lymphocytes % 28.8; MCH 31.2 pg (27.0-33.0); MCHC 32.4 % (32.0-36.0); MCV 96 fL (80-95); MPV 10.4 fL (8.0-11.0); Neutrophils % 61.3; Platelet Count 208 10^3/uL (130-400); RBC 4.97 10^6/uL (3.93-5.22); RDW 14.5 % (11.7-14.6); RDW-SD 51.1 fL; WBC 7.02 10^3/uL (4.4-10.8)
[2022-10-05 20:11] LABS: ALT 16 U/L (14-59); AST 14 U/L (15-37); Albumin 3.4 g/dL (3.4-5.0); Alkaline Phosphatase 115 U/L (46-116); Anion Gap 4.8 mmol/L (3-11); BUN 7 mg/dL (7-18); Bilirubin, Total 0.5 mg/dL (0.2-1.0); CO2 34.2 mmol/L (21.0-32.0); CREATININE 0.8 mg/dL (0.55-1.02); Calcium 8.5 mg/dL (8.5-10.1); Chloride 102 mmol/L (98-107); Estimated GFR 84.82 (mL/min/1.73m2); Glucose 139 mg/dL (74-106); Magnesium 1.3 mg/dL (1.8-2.4); NT-proBNP 287 pg/mL (<300); Potassium 3.3 mmol/L (3.5-5.1); Sodium 141 mmol/L (136-145); Total Protein 7.9 g/dL (6.4-8.2); Troponin I < 50 ng/L (<or=60)
[2022-10-05 20:20] LABS: BE (Venous) 9 mmol/L (-2-3); HCO3 (Venous) 33 mmol/L (23-28); O2 Sat (Venous) 92 %; TCO2 (Venous) 29 mmol/L (24-29); pCO2 (Venous) 49 mmHg (41-51); pH (Venous) 7.43 (7.31-7.41); pO2 (Venous) 62 mmHg
[2022-10-05 20:21] LABS: D-Dimer 1069 ng/mlFEU (<500)
[2022-10-05 20:24] LABS: COVID-19 PCR Negative (Negative); Influenza A PCR Negative (Negative); Influenza B PCR Negative (Negative); RSV PCR Negative (Negative)
--- NOTE | 2022-10-05 20:27 | DI.VRAD_ITS ---
PROCEDURE INFORMATION: Exam: XR Chest Exam date and time: 10/05/2022 7:59 PM Age: 61 years old Clinical indication: Cough and shortness of breath TECHNIQUE: Imaging protocol: Radiologic exam of the chest. Views: 1 view. COMPARISON: No relevant prior studies available. FINDINGS: Lungs: Question peribronchial thickening. No consolidation. Pleural spaces: Unremarkable. No pleural effusion. No pneumothorax. Heart/Mediastinum: Mild cardiomegaly. Bones/joints: Unremarkable. IMPRESSION: Question peribronchial thickening No focal consolidation Cardiomegaly Dictated and Authenticated by: Christian Garrett MD. Ordering:ABY Dexter MD
[2022-10-05 20:28] LABS: Source Nasopharynx
--- NOTE | 2022-10-05 20:30 | DI.CT_ITS ---
Exam(s) CT CHEST PE CTA EXAM: CT CHEST PE CTA CLINICAL HISTORY: SOB, cough, elevated dimer. TECHNIQUE: Imaging Protocol: Axial CT angiography was performed with multi-slice acquisition and mu lti-planar and/or 3D reconstructions. CONTRAST MATERIAL: Intravenous: Omnipaque 350 contrast volume:100 mL COMPARISON: CR,XR XR PORTABLE CHEST AP from 10/05/2022 FINDINGS: The examination is limited due to patient motion artifact. Tracheobronchial tree: Patent where visualized. Pulmonary parenchyma: There are small infiltrate seen in the posterior aspect of the right middle lob e in the lower lobes bilaterally. No architectural distortion. Pulmonary Arteries: Examination for the pulmonary arteries is limited by patient motion artifact. Ev aluation of the segmental and subsegmental pulmonary arteries is therefore limited. There are questi on of filling defects in branches of the subsegmental pulmonary arteries in the right middle and righ t lower lobes. No large pulmonary emboli are seen. Mediastinum and Kika: No dominant adenopathy or fluid collection. The esophagus is unremarkable. Visualized thyroid gland: Unremarkable. Pleura: No effusion or pneumothorax. Heart: Mild cardiomegaly. Mild coronary artery calcification. No pericardial effusion. The RV to L V ratio is still less than 1. Aorta: Thoracic aorta non-dilated. No evidence of dissection. Atherosclerosis. Upper abdomen: Status post cholecystectomy. Soft tissues: Unremarkable. Bones: Within normal limits for the patient's age. IMPRESSION: 1. Examination is limited by patient motion artifact. 2. Question of filling defects seen in peripheral pulmonary artery branches to the right middle and r ight lower lobes. 3. No large central pulmonary embolus. 4. Infiltrate seen in the right middle lobe and the lower lobes bilaterally. These may represent are as of atelectasis. Pulmonary infarcts cannot be entirely excluded. RADIATION DOSE DELIVERED: 849.93mGy.cm Total DLP DATA REPOSITORY: All CT scans at this facility are submitted to the National Radiology Data Registry (NRDR) Dose Index Registry (DIR) with the [employer] ([employer]). RADIATION OPTIMIZATION: All CT scans at this facility use at least one of these dose optimization te chniques: automated exposure control; mA and/or kV adjustment per patient size (includes targeted exa ms where dose is matched to clinical indication); or iterative reconstruction.
[2022-10-05] MEDS: Omnipaque 350 MG/ML 100 ML BTL IJ (20:48)
[2022-10-05] MEDS: Normal Saline Flush 10 ML SYR IVP (20:48)
[2022-10-05] MEDS: Normal Saline - Diluent 50 ML VIAL IJ (20:49)
[2022-10-05] MEDS: Nicotine 21 MG/24 HR PATCH TD (20:51)
--- NOTE | 2022-10-05 21:19 | DI.VRAD_ITS ---
Addendum created by Christian Garrett MD on 10/05/2022 9:30:09 PM EDT: THIS REPORT CONTAINS FINDINGS THAT MAY BE CRITICAL TO PATIENT CARE. The findings were verbally communicated via telephone conference with MARCIO SALOMON at 9:29 PM EDT on 10/05/2022. The findings were acknowledged and understood. Initial report created on 10/05/2022 9:19:18 PM EDT: PROCEDURE INFORMATION: Exam: CTA Chest With Contrast Exam date and time: 10/05/2022 8:52 PM Age: 61 years old Clinical indication: Abnormal findings; Abnormal diagnostic tests; Elevated d-dimer; Cough and shortness of breath; Prior surgery; Surgery date: 6+ months; Surgery type: Cholecystectomy; Patient HX: SOB, cough, elevated dimer TECHNIQUE: Imaging protocol: Computed tomographic angiography of the chest with contrast. 3D rendering (Not supervised by radiologist): MIP and/or 3D reconstructed images were created by the technologist. Radiation optimization: All CT scans at this facility use at least one of these dose optimization techniques: automated exposure control; mA and/or kV adjustment per patient size (includes targeted exams where dose is matched to clinical indication); or iterative reconstruction. Contrast material: OMNIPAQUE 350; Contrast volume: 100 ml; Contrast route: INTRAVENOUS (IV); COMPARISON: CR XR PORTABLE CHEST AP 10/05/2022 7:59 PM FINDINGS: Limited due to streak and motion artifact Pulmonary arteries: Small pulmonary emboli in the right middle and lower lobe segmental branches suspected. No large central pulmonary emboli Aorta: No aortic aneurysm. No aortic dissection. Lungs: Minimal subsegmental atelectasis versus scarring greater on the right No consolidation. No masses. Pleural spaces: Unremarkable. No pneumothorax. No pleural effusion. Heart: Mild cardiomegaly with RV-LV ratio 1-1. No pericardial effusion. Lymph nodes: Prominent right hilar lymph nodes. Bones/joints: Unremarkable. No acute fracture. Soft tissues: Unremarkable. Prior cholecystectomy. Hepatomegaly IMPRESSION: Small right pumlonary suspected. Small right-sided pulmonary infarctions can not be completely excluded. Mild cardiomegaly/possible mild cardiac strain Dictated and Authenticated by: Christian Garrett MD. Ordering:ABY Dexter MD
--- NOTE | 2022-10-05 21:54 | NUR.NOTE ---
Nursing Note: Patient desat to mid 80s while transferring to commode. Increased O2 to 6L, sats recovered to low 90's with rest. Patient in NAD.
[2022-10-05] MEDS: Acetaminophen 325 MG TAB 650 MG PO (22:05)
[2022-10-05 22:07] LABS: PTT Activated 25.8 sec (21.5-31.9); Prothrombin Time 10.3 sec (9.3-11.0)
--- NOTE | 2022-10-05 22:15 | RT.EKG_ITS ---
APPROVED REPORT Exam: Resting ECG Reason for Exam: PE Patient Location: E HR:96 bpm ECG Measurements Heart Rate 96 AXIS NC 206 P 67 QRSd 109 QRS -30 QT 366 T 32 QTc 463 Conclusion Sinus rhythm...normal P axis, V-rate 60- 99 Prolonged NC interval...NC >205, V-rate 91-120 Left axis deviation...QRS axis (-30,-90) Consider anterior infarct...Q >30mS in V2-V5. Sinus. No STEMI. I have reviewed and interpreted ECG and agree with software generated interpretation.
--- NOTE | 2022-10-05 22:22 | HPE_ITS ---
Date of service: 10/05/22 Time of Service: 22:22 Assessment and Plan Assessment and plan (1) Pulmonary embolism and infarction: Start date: 10/05/22 Status: Acute Assessment and plan: This is a 61-year-old obese lady with sleep apnea and chronic peripheral edema presenting with right middle and lower pulmonary circulation subsegmental pulmonary emboli with question of infarction. Patient does have acute hypoxemia with this acute process and has been having respiratory symptoms over the last 5 days with hypoxemia worsening. She will be pretreated with Lovenox 135 mg twice daily and converted to Eliquis if appropriate which needs to be reviewed with h er obesity and efficacy of the usual dosing. Pharmacy can review this. Venous Dopplers of the lower extremities to rule out DVT as a source and echocardiogram to follow-up possible RV strain. She is a full code. (2) Hypoxemia: Start date: 10/05/22 Status: Acute Assessment and plan: Associated with acute pulmonary emboli but also possibly secondary to worsened COPD the patient to be placed on oxygen supplementation and adjusted as needed. Doxycycline IV and patient did receive 1 dose of Solu-Medrol which could be continued if she has significant bronchospasm when reevaluated in the morning. For now I will hold on steroid treatment. Maximize respiratory treatments. Patient was not usually on home oxygen. (3) Chronic obstructive lung disease: Status: Chronic Assessment and plan: Slightly exacerbated with question of bronchitis the patient placed on IV doxycycline which can be converted to oral doxycycline prior to discharge. Consider pulse steroids but for now patient will be observed on her 1 dose of high-dose Solu-Medrol given in the ED. Maximize respiratory treatments. Qualifiers: COPD type: emphysema Emphysema type: panlobular Qualified Code(s): J43.1 - Panlobular emphysema (4) Venous insufficiency (chronic) (peripheral): Status: Chronic Assessment and plan: Chronic swelling lower extremity with possible source of DVT causing PE. Venous Dopplers in the morning. Continue furosemide and potassium/magnesium supplementation. (5) Hypokalemia: Start date: 10/05/22 Status: Acute Assessment and plan: Patient is chronically on Lasix at home as well as lisinopril and is usually not on potassium supplementation. Treat acute hypokalemia orally with magnesium supplement as well. This may need to be a long-term supplement but could be treated by PCP. (6) Hypomagnesemia: Start date: 10/05/22 Status: Acute Assessment and plan: Replete with IV magnesium sulfate with the patient chronically on oral magnesium as an outpatient. (7) Obstructive sleep apnea syndrome: Status: Chronic Assessment and plan: Slightly exacerbated with continuation of aggressive nebulizer treatments and respiratory care. Patient now is on oxygen which may not be chronic. Treat for bronchitis. (8) Essential hypertension: Status: Chronic Assessment and plan: Continue and adjust outpatient medical therapy with monitoring. History of Present Illness History of Present Illness Chief Complaint: Dyspnea with cough and new onset hypoxemia Narrative: This is a 61-year-old female patient who began to have symptoms 5 days ago with decreased oxygen by her home pulse oximeter, cough with slight production of yellow sputum and increased wheezing. She is chronically on inhalers and is a chronic smoker. She denies any pleuritic chest pain was having some difficulty with breathing with her symptoms. She had no chest pain associate with shortness of breath. She did have slight increase in her edema though is close to her baseline. Her left leg is slightly more swollen than right. She denies any calf pain. She continued having symptoms though they worsened and when she was seen by her PCP on the day of admission she was found to have pulse oximeter measurements in the low 80% range and was sent to the ED for evaluation. Evaluation did reveal right pulmonary emboli with question of infarction and a clinical picture was that of slight COPD exacerbation and bronchitis. She was initiated on Lovenox in the ED at 135 mg subcu twice daily for treatment of her acute PE with new onset hypoxemia. There was a question of RV strain and she would need further evaluation with venous Dopplers of her lower extremities and echocardiogram which will be ordered for the morning. Her troponins were negative. She is morbidly obese and is on treatment for sleep apnea. She has never been a low on oxygen. She denies any fever. She has had no GI or other cardiovascular complaints. She has no complaints. The patient is fairly sedentary at home. She is a full code. Review of Systems Narrative: 13 point review of systems otherwise unrevealing or stable. 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 (Acute) Right knee pain (Acute) Chronic back pain (Chronic) Essential hypertension (Chronic) Hyperlipidemia (Chronic) Obstructive sleep apnea syndrome (Chronic) BiPAP Chronic obstructive lung disease (Chronic) Depressive disorder (Chronic) GERD (gastroesophageal reflux disease) (Chronic) Cigarette smoker (Chronic) Insomnia (Chronic) Osteoarthritis of right knee (Acute) Steroid injection: 08/19/2020; 04/15/2020 Venous insufficiency (chronic) (peripheral) (Chronic) Surgical History History of bilateral tubal ligation Hx of umbilical hernia repair S/P section S/P cholecystectomy S/P ORIF (open reduction internal fixation) fracture Right wrist Status post total knee replacement, left Family History Mother Essential hypertension Heart disease Hyperlipidemia Myocardial infarction Emphysema lung Stroke Skin cancer (melanoma) Father , 50 of [place] Essential hypertension Heart disease Hyperlipidemia Myocardial infarction Stroke Sister Essential hypertension Sister Emphysema lung Sister Hyperlipidemia Brother Essential hypertension Depression Emphysema lung Asthma Liver cancer Son , 30 from PR Sleep apnea Myocardial infarction Daughter Sleep apnea Asthma Maternal Grandfather Lung cancer Maternal Grandmother Colon cancer Hypertension Heart disease Paternal Grandfather Parkinson's disease Paternal Grandmother Uterine cancer Social History Smoking/Tobacco Use Status: Current every day Tobacco Type: cigarettes Smoking packs per day: 1 Smoking cigarettes per day: 20.0 Years smoked: 39 Smoking pack- years: 39.00 Smoking risk assessment performed?: Yes Alcohol Intake: current Alcohol Intake frequency: a few times a month Alcohol type: hard liquor Drug use: Never Caregiver/Support person: Yes Household members: family and friend(s) Communication Needs: None Do you need help understanding health information?: Rarely Pets and animals: Yes Pets and animals: cat(s) Sexually active: Yes Do you think of yourself as: straight/heterosexual Current gender identity: female What is your relationship status?: refused to answer How often do you talk on the phone with friends or family?: twice per week How often do you get together with friends or relatives?: once per week How often do you attend zoroastrianism or jewish services?: decline to answer Do you belong to any clubs or organized social groups?: no Panel score (0-1 are the most socially isolated patients): 1 What type of physical activity do you participate in: none Frequency: does not exercise Jessica/Yazdanism: None Agree to transfusion: No Seatbelt use: always Helmet use: Yes Helmet use: always Drive intox or ride w/intox horse and wagon driver: No Do you feel safe at home: Yes Do you feel safe in your relationship?: Yes Meds Allergies and Home Medications Allergies Allergy/AdvReac Type Severity Reaction Status Date / Time citalopram AdvReac INSOMNIA; Verified 10/05/22 18:00 DIZZINESS Home Medications Medication Instructions Recorded Confirmed Type multivitamin (Multi-Day tablet) 1 ea PO DAILY 09/02/12 10/05/22 History aspirin 81 mg tablet,delayed 81 mg PO DAILY #90 tab-caps 07/10/16 10/05/22 History release (Aspir-) nystatin 100,000 unit/gram topical 1 applic topical TID PRN rash #60 04/14/20 10/05/22 Rx powder grams clotrimazole-betamethasone 1 1 applic topical BID PRN rash #45 11/27/20 10/05/22 Rx %-0.05 % topical cream grams Medial Offloader Brace #1 ea 12/02/20 10/05/22 Rx albuterol sulfate 2.5 mg/3 mL 2.5 mg (3 mL) inhalation QID PRN 06/27/21 10/05/22 Rx (0.083 %) solution for nebulization shortness of breath or wheezing #90 mL lisinopril 40 mg tablet 40 mg PO DAILY #90 tabs 08/22/21 10/05/22 Rx amoxicillin 500 mg tablet 2,000 mg PO ONCE #4 tabs 12/11/21 10/05/22 Rx zolpidem 10 mg tablet (Ambien) 10 mg PO HS PRN insomnia #90 tabs 01/12/22 10/05/22 Rx metoprolol succinate 50 mg 50 mg PO DAILY #90 tabs 02/18/22 10/05/22 Rx tablet,extended release 24 hr pantoprazole 40 mg tablet,delayed 40 mg PO DAILY #90 tab-caps 05/20/22 10/05/22 Rx release (Protonix) budesonide-formoterol HFA 160 2 puff inhalation BID ##1 05/29/22 10/05/22 Rx mcg-4.5 mcg/actuation aerosol inhaler (Symbicort) fluticasone propionate 50 2 spray NS DAILY #1 g 05/29/22 10/05/22 Rx mcg/actuation nasal spray,suspension ibuprofen 600 mg tablet 600 mg PO TID PRN pain #180 tabs 06/04/22 10/05/22 Rx simvastatin 20 mg tablet 20 mg PO DAILY #90 tabs 07/15/22 10/05/22 Rx furosemide 40 mg tablet 40 mg PO DAILY #90 tab-caps 08/13/22 10/05/22 Rx acetaminophen 500 mg tablet 500 mg PO BID #60 tabs 08/19/22 10/05/22 Rx amlodipine 10 mg tablet 10 mg PO DAILY #90 tab-caps 08/26/22 10/05/22 Rx magnesium oxide 400 mg PO DAILY #90 caps 09/24/22 10/05/22 Rx bupropion HCl 150 mg tablet,12 hr 150 mg PO DAILY #90 tab-caps 09/30/22 10/05/22 Rx sustained-release Exam Narrative Exam Narrative: General: Patient appears older than stated age, morbidly obese and short stature, abnormal movements of her face but no overt extraparametal symptoms or focal tic, in no acute distress. She is alert and oriented x3. She does have slightly pressured speech. HEENT: Normocephalic, coarsened facial features with abnormal movements as mentioned. Eyes with pupils equal and react to light symmetrically, extraocular movement intact and sclera anicteric. Oropharynx with dry mucosa and poor dentition. Neck: Supple without JVD. Back: Kyphotic without CVA tenderness. Lungs: Bronchovesicular breath sounds with coarse rhonchi diffusely especially with expiration and no focal rales but coarse crackles diffusely without focalizing. Expiratory wheeze with forced exhalation and cough. Breast: Exam deferred. Heart: Regular rate and rhythm with no murmurs gallops appreciated. Abdomen: Obese contour, with large pannus overhanging her pubic area. Soft and nontender to palpation with no palpable hepatosplenomegaly. Bowel sounds positive all quadrants. Genitalia/rectal: Exam deferred. Extremities: 2+ edema left and 1+ edema right with negative Homans' sign bilaterally. No cyanosis or clubbing. Good capillary refill. Skin: Pale, warm and dry. Neuro: Cranial nerves II through XII grossly intact, facial tic or abnormal movements as mentioned otherwise no tremor. No focal motor deficits. Psych: Slightly anxious with pressured speech, mood normal. No abnormal thought processes. Remote and recent memory intact. Results Imaging Imaging Studies: Exam: CTA Chest With Contrast Exam date and time: 10/05/2022 8:52 PM Age: 61 years old Clinical indication: Abnormal findings; Abnormal diagnostic tests; Elevated d-dimer; Cough and shortness of breath; Prior surgery; Surgery date: 6+ months; Surgery type: Cholecystectomy; Patient HX: SOB, cough, elevated dimer TECHNIQUE: Imaging protocol: Computed tomographic angiography of the chest with contrast. 3D rendering (Not supervised by radiologist): MIP and/or 3D reconstructed images were created by the technologist. Radiation optimization: All CT scans at this facility use at least one of these dose optimization techniques: automated exposure control; mA and/or kV adjustment per patient size (includes targeted exams where dose is matched to clinical indication); or iterative reconstruction. Contrast material: OMNIPAQUE 350; Contrast volume: 100 ml; Contrast route: INTRAVENOUS (IV);? COMPARISON: CR XR PORTABLE CHEST AP 10/05/2022 7:59 PM FINDINGS: Limited due to streak and motion artifact Pulmonary arteries:? Small pulmonary emboli in the right middle and lower lobe segmental branches suspected.? No large central pulmonary emboli Aorta: No aortic aneurysm. No aortic dissection. Lungs:? Minimal subsegmental atelectasis versus scarring greater on the right No consolidation. No masses. Pleural spaces: Unremarkable. No pneumothorax. No pleural effusion. Heart:? Mild cardiomegaly with RV-LV ratio 1-1. No pericardial effusion. Lymph nodes:? Prominent right hilar lymph nodes. Bones/joints: Unremarkable. No acute fracture. Soft tissues: Unremarkable. Prior cholecystectomy. Hepatomegaly IMPRESSION: Small right pumlonary emboli in the right middle and lower lobe segmental branches suspected. Small right-sided pulmonary infarctions can not be completely excluded.? Mild cardiomegaly/possible mild cardiac strain Exam: XR Chest Exam date and time: 10/05/2022 7:59 PM Age: 61 years old Clinical indication: Cough and shortness of breath TECHNIQUE: Imaging protocol: Radiologic exam of the chest. Views: 1 view. COMPARISON: No relevant prior studies available. FINDINGS: Lungs:? Question peribronchial thickening. No consolidation. Pleural spaces: Unremarkable. No pleural effusion. No pneumothorax. Heart/Mediastinum:? Mild cardiomegaly. Bones/joints: Unremarkable. IMPRESSION: Question peribronchial thickening No focal consolidation Cardiomegaly Labs 10/05/22 19:38 10/05/22 19:38 Labs: Laboratory Results - last 24 hr 10/05/22 10/05/22 10/05/22 19:24 19:38 19:38 WBC RBC Hgb Hct MCV MCH MCHC RDW Plt Count MPV Immature Gran % Neutrophils % Lymphocytes % Monocytes % Eosinophils % Basophils % Nucleated RBC % Absolute Neutrophils Absolute Lymphocytes Absolute Monocytes Absolute Eosinophils Absolute Basophils PT 10.3 INR 1.0 APTT 25.8 D-Dimer VBG pH VBG pCO2 VBG pO2 VBG HCO3 VBG Total CO2 VBG O2 Saturation VBG Base Excess Sodium 141 Potassium 3.3 L Chloride 102 Carbon Dioxide 34.2 H Anion Gap 4.8 BUN 7 Creatinine 0.8 Est GFR (CKD-EPI 2020) 84.82 Glucose 139 H Calcium 8.5 Magnesium 1.3 L Total Bilirubin 0.5 AST 14 L ALT 16 Alkaline Phosphatase 115 Troponin I < 50 NT-Pro-B Natriuret Pep 287 Total Protein 7.9 Albumin 3.4 COVID-19 Source Nasopharynx SARS-CoV-2 (PCR) Negative Influenza Type A (PCR) Negative Influenza Type B (PCR) Negative RSV (PCR) Negative 10/05/22 10/05/22 10/05/22 19:38 19:38 20:16 WBC 7.02 RBC 4.97 Hgb 15.5 Hct 47.9 H MCV 96 H MCH 31.2 MCHC 32.4 RDW 14.5 Plt Count 208 MPV 10.4 Immature Gran % 0.6 Neutrophils % 61.3 Lymphocytes % 28.8 Monocytes % 8.0 Eosinophils % 0.7 Basophils % 0.6 Nucleated RBC % 0.0 Absolute Neutrophils 4.31 Absolute Lymphocytes 2.02 Absolute Monocytes 0.56 Absolute Eosinophils 0.05 Absolute Basophils 0.04 PT INR APTT D-Dimer 1069 H VBG pH 7.43 H VBG pCO2 49 VBG pO2 62 VBG HCO3 33 H VBG Total CO2 29 VBG O2 Saturation 92 VBG Base Excess 9 H Sodium Potassium Chloride Carbon Dioxide Anion Gap BUN Creatinine Est GFR (CKD-EPI 2020) Glucose Calcium Magnesium Total Bilirubin AST ALT Alkaline Phosphatase Troponin I NT-Pro-B Natriuret Pep Total Protein Albumin COVID-19 Source SARS-CoV-2 (PCR) Influenza Type A (PCR) Influenza Type B (PCR) RSV (PCR) Last Vital Signs Temp 36.3 C L 10/05/22 19:16 Pulse 100 H 10/05/22 19:16 Resp 18 10/05/22 22:10 BP 158/80 H 10/05/22 19:16 Pulse Ox 92 10/05/22 22:10 Time Spent Time spent with Patient: >75 minutes Time was spent: preparing to see the patient(eg.review tests), obtaining and/or reviewing separately otained hiistory, ordering medications,tests, procedures, referring, communicating with other health long term care phlebotomist, indepentently interpreting results, counseling the patient and care coordination
[2022-10-05 22:49] LABS: Troponin I < 50 ng/L (<or=60)
[2022-10-06] VITALS (16 sets, daily range): BP systolic 128–167; BP diastolic 74–89; PULSE 77–99; RESP 2–22; TEMP 36.1–36.9; O2SAT 89–94
[2022-10-06] MEDS: Potassium Chloride 20 MEQ TABCR 40 MEQ PO (01:13)
[2022-10-06] MEDS: Zolpidem 10 MG TAB PO ×2 (01:14→22:01)
[2022-10-06] MEDS: MAGNESIUM SULFATE 4 GM/100 ML BAG IVPB (01:16)
[2022-10-06] MEDS: Albuterol/Ipratropium 3 ML UPD VIAL UPD ×4 (01:35→21:09)
[2022-10-06] MEDS: DOXYCYCLINE 100 MG in Normal Saline 100 ML IVPB ×2 (02:58→14:27)
[2022-10-06 06:34] LABS: HCT 44.8 % (36.0-46.0); HGB 14.7 g/dL (11.2-15.7); MCH 31.5 pg (27.0-33.0); MCHC 32.8 % (32.0-36.0); MCV 96 fL (80-95); MPV 10.2 fL (8.0-11.0); Platelet Count 183 10^3/uL (130-400); RBC 4.66 10^6/uL (3.93-5.22); RDW 14.3 % (11.7-14.6); RDW-SD 50.3 fL
--- NOTE | 2022-10-06 06:38 | NUR.NOTE ---
Pt admitted to the unit @2323 via wheel chair on 6 L O2 NC; O2 sat was 92%. Pt is AAOX4 and appear SOB, rhonchi and wheezes noted on auscultation, HRR on telemetry and VSS. Pt ambulates with walker and SBA. Weaned O2 to 4 L and pt maintained sats >88%. Pt used CPAP brought in from home during the night, report rested well. Pt is currently in bed resting, and uses call velez appropriately - please see flowchart for further details.Nursing Note:
[2022-10-06 06:50] LABS: Bilirubin Negative (Negative); Blood Negative (Negative); Clarity Clear (Clear); Glucose 100 mg/dL (Negative); Ketones 15 mg/dL (Negative); Leukocyte Esterase Negative (Negative); Nitrite Negative (Negative); pH 6.5 (5-8)
[2022-10-06 06:56] LABS: RBC 0-2 HPF (0-2); WBC 0-2 HPF (0-5)
[2022-10-06 06:57] LABS: Bacteria Few HPF (Negative); C & S Indicated? No/Sq. Contamination; Casts Negative LPF (Negative); Crystals Negative HPF (Negative); Epithelial Cells Moderate HPF (Negative); Mucus Moderate (Negative)
[2022-10-06 07:00] LABS: TSH (W/Ref FT4) 0.32 uIU/mL (0.36-3.74)
[2022-10-06 07:01] LABS: ALT 13 U/L (14-59); AST 11 U/L (15-37); Albumin 3.1 g/dL (3.4-5.0); Alkaline Phosphatase 104 U/L (46-116); Anion Gap 6.5 mmol/L (3-11); BUN 9 mg/dL (7-18); Bilirubin, Total 0.4 mg/dL (0.2-1.0); CO2 31.5 mmol/L (21.0-32.0); CREATININE 0.7 mg/dL (0.55-1.02); Calcium 8.5 mg/dL (8.5-10.1); Chloride 103 mmol/L (98-107); Estimated GFR 99.57 (mL/min/1.73m2); Glucose 227 mg/dL (74-106); Magnesium 2.4 mg/dL (1.8-2.4); Potassium 3.8 mmol/L (3.5-5.1); Sodium 141 mmol/L (136-145); Total Protein 7.3 g/dL (6.4-8.2)
[2022-10-06 07:21] LABS: FREE T4 1.12 ng/dL (0.76-1.46)
[2022-10-06] MEDS: buPROPion-CR 150 MG TABCR PO (07:40)
[2022-10-06] MEDS: Potassium Chloride 20 MEQ TABCR PO ×2 (07:40→19:26)
[2022-10-06] MEDS: Multivitamin TAB 1 TAB PO (07:40)
[2022-10-06] MEDS: Magnesium Oxide 400 MG TAB PO (07:40)
[2022-10-06] MEDS: Furosemide 40 MG TAB PO (07:40)
[2022-10-06] MEDS: Ibuprofen 600 MG TAB PO (07:40)
[2022-10-06] MEDS: amLODIPine 10 MG TAB PO (07:40)
[2022-10-06] MEDS: Pantoprazole 40 MG TABCR PO (07:41)
[2022-10-06] MEDS: Aspirin E.C. 81 MG TABEC PO (07:41)
[2022-10-06] MEDS: Metoprolol CR 50 MG TABCR PO (07:41)
[2022-10-06] MEDS: Lisinopril 20 MG TAB 40 MG PO (07:41)
--- NOTE | 2022-10-06 08:00 | DI.US_ITS ---
APPROVED REPORT EXAM: Comprehensive 2D, Doppler, and color-flow Echocardiogram Patient Location: In-Patient Room/Bed: 214 [employer] Schools: Austin Castro RDMS, RVT Indications: PE with RV strain Other Information Study Quality: Fair. Technically limited study due to body habitus. Conclusion Technically difficult study Left ventricle is grossly normal in size wall thickness and systolic function. Estimated ejection fr action is 60% Right ventricle is grossly normal in size and function Both atria are mildly dilated There is no structural or hemodynamically significant valvular disease Right ventricular systolic pressure could not be estimated Wall motion Left Ventricle The left ventricle is normal size. The overall left ventricular systolic function appears normal. Th ere is normal left ventricular wall thickness. There is normal LV segmental wall motion. There is no ventricular septal defect visualized. LVEF is 60%. Right Ventricle Right ventricle is grossly normal in size. Right ventricular systolic function is grossly normal. U nable to assess PA pressure. Atria Left atrium is mildly dilated. Right atrium is mildly dilated. The interatrial septum is intact with no evidence for an atrial septal defect. Aortic Valve The aortic valve is not well visualized due to body habitus. Number of aortic valve leaflets could no t be assessed. There is no aortic valvular stenosis. No aortic regurgitation is present. Mitral Valve The mitral valve is normal in structure. No evidence of mitral valve stenosis. Trace mitral regurgita tion. Tricuspid Valve The tricuspid valve is normal in structure. There is no tricuspid valve stenosis. Trace to mild tricu spid regurgitation. Pulmonic Valve Pulmonic valve is not well visualized. There is no pulmonic valvular stenosis. There is no pulmonic valvular regurgitation. Great Vessels The aortic root is normal in size. The pulmonary artery is normal. The ascending aorta is normal in s ize. Aortic arch is not visualized. The IVC is normal in size and collapses >50% with inspiration. Pericardium There is no pericardial effusion. 2D Dimensions IVSD d PLAX 0.77 cm F: 0.6-1.0 LV Vol A2C d MOD 114.4 mL LVPW d PLAX 0.79 cm F: 0.6 - 1.0 LV Vol A4C d MOD 96.5 mL LVID d PLAX 4.87 cm F: 3.8 - 5.2 LA vol/ BSA A4C s A-L 14.7 mL/m2 LVDs 3.05 cm F: 2.2 - 3.5 LA Area A4C s MOD 14.29 cm2 Ao Root d 2.90 cm F: 2.7 - 3.3 LV EF A4C MOD 56.0 % Ao Asc Diam d 3.08 cm F: 2.3 - 3.1 LV EF A2C MOD 58.9 % LV EF Teichholz 66.0 % LV EF Biplane MOD 57.1 % LVEF (Correa's) 57.11 % F: 54 - 74 SV 61.83 mL LV Volume 78.00 mL F: 46 - 106 SV Index 27.26 mL/m2 LV Volume Index 34.36 mL/m2 F: 29 - 61 LV Vol Biplane MOD 108.3 mL FS 36.35 % M-Mode TAPSE 2.33 cm (M/F) >1.7 LV Diastology E/A Ratio 0.8 MV E Vmax 1.04 (0.4-1.3 m/s) MV A Vmax 1.25 (0.4-1.3 m/s) MV E/A Ratio 0.81 Aortic Valve LVOT Area 3.21 cm2 AoV Area Vmax 1.89 cm2 LVOT Vmax 1.35 m/s AoV Area/ BSA (Vmax) 0.83 cm2/m2 LVOT Mean Umair. 0.95 m/s AJ Mean Umair. 1.90 cm2 LVOT Peak Grad 7.3 mmHg AJ Mean Umair. Index 0.84 cm2/m2 LVOT Mean Grad 4.2 mmHg LVOT VTI 0.328 m LVOT Diam s 2.00 cm AoV Vmax 2.30 m/s Velocity Ratio 0.59 AoV Mean Umair. 1.62 m/s AoV Peak Grad 21.1 mmHg LVOT SV 105.47 mL AoV Mean Grad 11.0 mmHg AoV VTI 0.409 m AoV Area VTI 2.58 cm2 AoV Area/ BSA (VTI) 1.14 cm/m2 Mitral Valve MV DT 198 (160-240 msec) MV PHT 57 msec MV Area PHT 3.83 cm2 MV VTI 0.339 m MV Area VTI 3.11 (4.0-6.0 cm2) Pulmonary Valve PV Vmax 1.10 (0.5-1.5 m/s) RVOT Peak Gr. 3.57 mmHg PV Peak Grad 4.8 mmHg RVOT Mean Gr. 2.05 mmHg PV Mean Grad 2.8 mmHg RVOT VTI 0.173 m PV VTI 0.206 m RVOT Vmax 0.95 m/s
--- NOTE | 2022-10-06 08:00 | DI.US_ITS ---
Exam(s) US EXTREMITY VENOUS BI EXAM: US EXTREMITY VENOUS BI CLINICAL HISTORY: PE. TECHNIQUE: Bilateral lower extremity venous ultrasound performed using grayscale, color-flow, and sp ectral Doppler analysis. COMPARISON: No exams were available for comparison FINDINGS: The right common femoral, femoral and popliteal veins demonstrate normal compressibility, augmentatio n, and color Doppler. The posterior tibial veins are patent. The saphenofemoral junctions are unremar kable. There is no evidence of a Colin's cyst. The soft tissues are unremarkable. The left common femoral, femoral and popliteal veins demonstrate normal compressibility, augmentation , and color Doppler. The posterior tibial veins are patent. The saphenofemoral junctions are unremark able. There is no evidence of a Colin's cyst. The soft tissues are unremarkable. IMPRESSION: 1. No evidence of a right lower extremity DVT. 2. No evidence of a left lower extremity DVT. DATA REPOSITORY:
[2022-10-06] MEDS: Budesonide/Formoterol 160/4.5 6 GM 60 PUFF INH IH ×2 (08:31→21:08)
[2022-10-06] MEDS: Fluticasone NASAL SPRAY 16 GM BTL NS (09:19)
[2022-10-06] MEDS: Nicotine 21 MG/24 HR PATCH TD (09:19)
[2022-10-06 09:27] LABS: Lab Add On Test DONE
[2022-10-06 10:01] LABS: Hemoglobin A1C 6.4 % (<5.7)
[2022-10-06] MEDS: Acetaminophen 325 MG TAB PO ×2 (10:29→15:53)
--- NOTE | 2022-10-06 11:56 | PDOC.CMIN ---
- If Service Date Differs Date of service: 10/06/22 Time of Service: 11:56 Care Management Initial Assess REASON FOR HOSPITALIZATION:: Right Pulmonary emboli, hypoxemia PAST MEDICAL HISTORY/PAST SURGICAL HISTORY:: All Active Problems. Pulmonary embolism (Chronic). Hypoxemia (Acute). Hypomagnesemia (Acute). Hypokalemia (Acute). COPD exacerbation (Acute). Hypomagnesemia (Acute). Hypokalemia (Acute). Pulmonary embolism and infarction (Acute). Hypoxemia (Acute). Acute dyspnea (Acute). Nail dystrophy (Acute). Right foot pain (Acute). 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 Right knee pain (Acute). Chronic back pain (Chronic). Essential hypertension (Chronic). Hyperlipidemia (Chronic). Obstructive sleep apnea syndrome (Chronic). BiPAP. Chronic obstructive lung disease (Chronic). Depressive disorder (Chronic). GERD (gastroesophageal reflux disease) (Chronic). Cigarette smoker (Chronic). Insomnia (Chronic). Osteoarthritis of right knee (Acute). Steroid injection: 08/19/2020; 04/15/2020. Venous insufficiency (chronic) (peripheral) (Chronic). Surgical History. History of bilateral tubal ligation. Hx of umbilical hernia repair. S/P section. S/P cholecystectomy. S/P ORIF (open reduction internal fixation) fracture. Right wrist. Status post total knee replacement, left PREVIOUS FUNCTIONAL STATUS/SOCIAL/FAMILY SUPPORTS:: Deepa lives in [place]. Her mother, Josie, and her daughter, Hilda, are listed as supports. She is independent at baseline. CURRENT FUNCTIONAL STATUS:: Deepa was sitting up in her bed when CM met with her. Her mother and daughter were in the room visiting. She stated that she is currently staying with her daughter, who helps to care for her. She reported that she has support through the moderate needs program, and Elenita Galloway is her classification case manager in the community. She is currently on 4LO2, and does not use O2 at baseline, only a CPAP. She stated that she is supposed to have an echo today, and already had an u/s of her lower extremities. She is receiving IV antibiotics and lovenox. CM will continue to follow. ADVANCE DIRECTIVES:: [facility] on file, daughter, Hilda, listed as agent. Has patient been provided with info about the portal/API?: Yes Did the patient sign up for the portal?: No CODE STATUS:: Full Code INSURANCE COVERAGE / FINANCIAL ISSUES:: [facility] CURRENT HOME/COMMUNITY SERVICES/EQUIPMENT:: Moderate needs, Elenita Galloway-classification case managerweb development manager PHYSICIAN:: Cristhian Myers POTENTIAL DISCHARGE NEEDS:: Evaluations for further needs, follow up appointments. PATIENT/FAMILY EDUCATION NEEDS:: Review discharge instructions and limitations, discussion of self care needs including ask me three. ANTICIPATED BARRIERS TO DISCHARGE:: None identified. TRANSPORTATION:: Via private vehicle with family. PLAN:: Anticipate Deepa will return home once medically cleared. Her family will drive her home via private vehicle. She will follow up with her PCP and discharge plan of care. CM will continue to follow.
--- NOTE | 2022-10-06 12:31 | W.PM.PROGNOT ---
Date of Service Date of service: 10/06/22 Time of Service: 12:31 Assessment and Plan Assessment and plan (1) Pulmonary embolism and infarction: Status: Acute Assessment and plan: Lovenox 135 mg twice daily and convert to Eliquis if appropriate which needs to be reviewed with her obesity and efficacy of the usual dosing. Pharmacy can review this. Venous Dopplers of the lower extremities to rule out DVT as a source are negative Echocardiogram to follow-up possible RV strain. She is a full code. (2) Hypoxemia: Status: Acute Assessment and plan: Associated with acute pulmonary emboli Possibly secondary to worsened COPD Oxygen supplementation Doxycycline IV Patient did receive 1 dose of Solu-Medrol which should be continued if she has significant bronchospasm Maximize respiratory treatments Patient was not usually on home oxygen. (3) Chronic obstructive lung disease: Status: Chronic Assessment and plan: Slightly exacerbated with question of bronchitis IV doxycycline which can be converted to oral doxycycline prior to discharge Consider pulse steroids Maximize respiratory treatments. Qualifiers: COPD type: emphysema Emphysema type: panlobular Qualified Code(s): J43.1 - Panlobular emphysema (4) Venous insufficiency (chronic) (peripheral): Status: Chronic Assessment and plan: Chronic swelling lower extremity Venous Dopplers negative Continue furosemide and potassium/magnesium supplementation. (5) Hypokalemia: Start date: 10/05/22 Status: Acute Assessment and plan: Patient is chronically on Lasix at home as well as lisinopril and is usually not on potassium supplementation. Treat acute hypokalemia orally with magnesium supplement as well. This may need to be a long-term supplement but could be treated by PCP. (6) Hypomagnesemia: Status: Acute Assessment and plan: Replete with IV magnesium sulfate with the patient chronically on oral magnesium as an outpatient. (7) Obstructive sleep apnea syndrome: Status: Chronic Assessment and plan: Slightly exacerbated with continuation of aggressive nebulizer treatments and respiratory care. Patient now is on oxygen which may not be chronic. Treat for bronchitis. (8) Essential hypertension: Status: Chronic Assessment and plan: Continue and adjust outpatient medical therapy with monitoring. (9) Discharge planning issues: Status: Acute Assessment and plan: Home when stable; no services discussed with Dr Bauer Subjective Subjective Patient reports: no new complaints, tolerating a regular diet, voiding w/o difficulty, bowel movement and afebrile; denies flatus, diarrhea, nausea or shortness of breath Interval history since last seen: Awake, alert, sitting on the side of the bed with 2 lpm oxygen via NC with SPO2 90% at rest. Speaking in full sentences. Exam Narrative Exam Narrative: General: Patient appears older than stated age, morbidly obese and short stature, abnormal movements of her face but no overt extraparametal symptoms or focal tic, in no acute distress. She is alert and oriented x3. She does have slightly pressured speech. HEENT: Normocephalic, coarsened facial features with abnormal movements as mentioned. Eyes with pupils equal and react to light symmetrically, extraocular movement intact and sclera anicteric. Oropharynx with dry mucosa and poor dentition. Neck: Supple without JVD. Back: Kyphotic without CVA tenderness. Lungs: Bronchovesicular breath sounds with coarse rhonchi diffusely especially with expiration and no focal rales but coarse crackles diffusely without focalizing. Expiratory wheeze with forced exhalation and cough. Breast: Exam deferred. Heart: Regular rate and rhythm with no murmurs gallops appreciated. Abdomen: Obese contour, with large pannus overhanging her pubic area. Soft and nontender to palpation with no palpable hepatosplenomegaly. Bowel sounds positive all quadrants. Genitalia/rectal: Exam deferred. Extremities: 2+ edema left and 1+ edema right with negative Homans' sign bilaterally. No cyanosis or clubbing. Good capillary refill. Skin: Pale, warm and dry. Neuro: Cranial nerves II through XII grossly intact, facial tic or abnormal movements as mentioned otherwise no tremor. No focal motor deficits. Psych: Slightly anxious with pressured speech, mood normal. No abnormal thought processes. Remote and recent memory intact. Objective Last Vital Signs Temp 36.5 C 10/06/22 11:24 Pulse 88 10/06/22 11:24 Resp 20 10/06/22 11:24 BP 142/84 H 10/06/22 11:24 Pulse Ox 92 10/06/22 11:24 Laboratory Results - last 24 hr 10/05/22 10/05/22 10/05/22 06:14 19:24 19:38 WBC RBC Hgb Hct MCV MCH MCHC RDW Plt Count MPV Immature Gran % Neutrophils % Lymphocytes % Monocytes % Eosinophils % Basophils % Nucleated RBC % Absolute Neutrophils Absolute Lymphocytes Absolute Monocytes Absolute Eosinophils Absolute Basophils PT 10.3 INR 1.0 APTT 25.8 D-Dimer VBG pH VBG pCO2 VBG pO2 VBG HCO3 VBG Total CO2 VBG O2 Saturation VBG Base Excess Sodium Potassium Chloride Carbon Dioxide Anion Gap BUN Creatinine Est GFR (CKD-EPI 2020) Glucose Hemoglobin A1c Calcium Magnesium Total Bilirubin AST ALT Alkaline Phosphatase Troponin I NT-Pro-B Natriuret Pep Total Protein Albumin TSH 0.32 L Free T4 1.12 Urine Color Urine Clarity Urine pH Ur Specific [place] Urine Protein Urine Ketones Urine Blood Urine Nitrite Urine Bilirubin Urine Urobilinogen Ur Leukocyte Esterase Urine RBC Urine WBC Ur Epithelial Cells Urine Crystals Urine Bacteria Urine Casts Urine Mucus Ur Culture Indicated? Urine Glucose COVID-19 Source Nasopharynx SARS-CoV-2 (PCR) Negative Influenza Type A (PCR) Negative Influenza Type B (PCR) Negative RSV (PCR) Negative Add-On Test Request 10/05/22 10/05/22 10/05/22 19:38 19:38 19:38 WBC 7.02 RBC 4.97 Hgb 15.5 Hct 47.9 H MCV 96 H MCH 31.2 MCHC 32.4 RDW 14.5 Plt Count 208 MPV 10.4 Immature Gran % 0.6 Neutrophils % 61.3 Lymphocytes % 28.8 Monocytes % 8.0 Eosinophils % 0.7 Basophils % 0.6 Nucleated RBC % 0.0 Absolute Neutrophils 4.31 Absolute Lymphocytes 2.02 Absolute Monocytes 0.56 Absolute Eosinophils 0.05 Absolute Basophils 0.04 PT INR APTT D-Dimer 1069 H VBG pH VBG pCO2 VBG pO2 VBG HCO3 VBG Total CO2 VBG O2 Saturation VBG Base Excess Sodium 141 Potassium 3.3 L Chloride 102 Carbon Dioxide 34.2 H Anion Gap 4.8 BUN 7 Creatinine 0.8 Est GFR (CKD-EPI 2020) 84.82 Glucose 139 H Hemoglobin A1c Calcium 8.5 Magnesium 1.3 L Total Bilirubin 0.5 AST 14 L ALT 16 Alkaline Phosphatase 115 Troponin I < 50 NT-Pro-B Natriuret Pep 287 Total Protein 7.9 Albumin 3.4 TSH Free T4 Urine Color Urine Clarity Urine pH Ur Specific [place] Urine Protein Urine Ketones Urine Blood Urine Nitrite Urine Bilirubin Urine Urobilinogen Ur Leukocyte Esterase Urine RBC Urine WBC Ur Epithelial Cells Urine Crystals Urine Bacteria Urine Casts Urine Mucus Ur Culture Indicated? Urine Glucose COVID-19 Source SARS-CoV-2 (PCR) Influenza Type A (PCR) Influenza Type B (PCR) RSV (PCR) Add-On Test Request 10/05/22 10/05/22 10/06/22 20:16 22:26 06:13 WBC RBC Hgb Hct MCV MCH MCHC RDW Plt Count MPV Immature Gran % Neutrophils % Lymphocytes % Monocytes % Eosinophils % Basophils % Nucleated RBC % Absolute Neutrophils Absolute Lymphocytes Absolute Monocytes Absolute Eosinophils Absolute Basophils PT INR APTT D-Dimer VBG pH 7.43 H VBG pCO2 49 VBG pO2 62 VBG HCO3 33 H VBG Total CO2 29 VBG O2 Saturation 92 VBG Base Excess 9 H Sodium Potassium Chloride Carbon Dioxide Anion Gap BUN Creatinine Est GFR (CKD-EPI 2020) Glucose Hemoglobin A1c Calcium Magnesium Total Bilirubin AST ALT Alkaline Phosphatase Troponin I < 50 NT-Pro-B Natriuret Pep Total Protein Albumin TSH Free T4 Urine Color Yellow Urine Clarity Clear Urine pH 6.5 Ur Specific [place] 1.020 Urine Protein 100 H Urine Ketones 15 H Urine Blood Negative Urine Nitrite Negative Urine Bilirubin Negative Urine Urobilinogen 1.0 H Ur Leukocyte Esterase Negative Urine RBC 0-2 Urine WBC 0-2 Ur Epithelial Cells Moderate Urine Crystals Negative Urine Bacteria Few Urine Casts Negative Urine Mucus Moderate Ur Culture Indicated? No/Sq. Contamination Urine Glucose 100 H COVID-19 Source SARS-CoV-2 (PCR) Influenza Type A (PCR) Influenza Type B (PCR) RSV (PCR) Add-On Test Request 10/06/22 10/06/22 10/06/22 06:14 06:14 06:14 WBC 6.20 RBC 4.66 Hgb 14.7 Hct 44.8 MCV 96 H MCH 31.5 MCHC 32.8 RDW 14.3 Plt Count 183 MPV 10.2 Immature Gran % Neutrophils % Lymphocytes % Monocytes % Eosinophils % Basophils % Nucleated RBC % Absolute Neutrophils Absolute Lymphocytes Absolute Monocytes Absolute Eosinophils Absolute Basophils PT INR APTT D-Dimer VBG pH VBG pCO2 VBG pO2 VBG HCO3 VBG Total CO2 VBG O2 Saturation VBG Base Excess Sodium 141 Potassium 3.8 Chloride 103 Carbon Dioxide 31.5 Anion Gap 6.5 BUN 9 Creatinine 0.7 Est GFR (CKD-EPI 2020) 99.57 Glucose 227 H Hemoglobin A1c Calcium 8.5 Magnesium 2.4 Total Bilirubin 0.4 AST 11 L ALT 13 L Alkaline Phosphatase 104 Troponin I NT-Pro-B Natriuret Pep Total Protein 7.3 Albumin 3.1 L TSH Free T4 Urine Color Urine Clarity Urine pH Ur Specific [place] Urine Protein Urine Ketones Urine Blood Urine Nitrite Urine Bilirubin Urine Urobilinogen Ur Leukocyte Esterase Urine RBC Urine WBC Ur Epithelial Cells Urine Crystals Urine Bacteria Urine Casts Urine Mucus Ur Culture Indicated? Urine Glucose COVID-19 Source SARS-CoV-2 (PCR) Influenza Type A (PCR) Influenza Type B (PCR) RSV (PCR) Add-On Test Request DONE 10/06/22 06:14 WBC RBC Hgb Hct MCV MCH MCHC RDW Plt Count MPV Immature Gran % Neutrophils % Lymphocytes % Monocytes % Eosinophils % Basophils % Nucleated RBC % Absolute Neutrophils Absolute Lymphocytes Absolute Monocytes Absolute Eosinophils Absolute Basophils PT INR APTT D-Dimer VBG pH VBG pCO2 VBG pO2 VBG HCO3 VBG Total CO2 VBG O2 Saturation VBG Base Excess Sodium Potassium Chloride Carbon Dioxide Anion Gap BUN Creatinine Est GFR (CKD-EPI 2020) Glucose Hemoglobin A1c 6.4 H Calcium Magnesium Total Bilirubin AST ALT Alkaline Phosphatase Troponin I NT-Pro-B Natriuret Pep Total Protein Albumin TSH Free T4 Urine Color Urine Clarity Urine pH Ur Specific [place] Urine Protein Urine Ketones Urine Blood Urine Nitrite Urine Bilirubin Urine Urobilinogen Ur Leukocyte Esterase Urine RBC Urine WBC Ur Epithelial Cells Urine Crystals Urine Bacteria Urine Casts Urine Mucus Ur Culture Indicated? Urine Glucose COVID-19 Source SARS-CoV-2 (PCR) Influenza Type A (PCR) Influenza Type B (PCR) RSV (PCR) Add-On Test Request Reviewed Pertinent PMH: Yes PAWSS Have you Been Recently Intoxicated or Drunk Within the Last 30 days?: No Have you Ever Experienced Previous Episodes of Alcohol Withdrawal?: No Have you ever Experienced Withdrawal Seizures?: No Have you ever Experienced Delirium Tremens(DT)s?: No Have you ever undergone Alcohol Rehabilitation Treatment (i.e, inpt ot outpatient treatment programs)?: No Have you ever Experienced Blackouts?: No Have you ever Combined Alcohol with other Downers within the last 90 days?: No Have you ever Combined Alcohol with any other Substance of Abuse during the last 90 days?: No Positive Blood Alcohol level on Presentation? [PCS.BAL]: No Evidence of Increased Autonomic Activity (i.e. HR>120, tremor, sweating, agitation, nausea)?: No Result: 0 Time Spent with Patient Time Spent with Patient: 25-34 minutes Time was spent: preparing to see the patient(eg.review tests), ordering medications,tests, procedures, referring, communicating with other health rn patient care, indepentently interpreting results, counseling the patient and care coordination
[2022-10-06] MEDS: Normal Saline 500 ML 30 ML IV (14:28)
[2022-10-06] MEDS: Normal Saline Flush 10 ML SYR IVP (14:28)
[2022-10-06] MEDS: Simvastatin 20 MG TAB PO (19:26)
[2022-10-06] MEDS: Mylanta Suspension 30 ML CUP PO (19:26)
[2022-10-07] VITALS (12 sets, daily range): BP systolic 123–155; BP diastolic 74–85; PULSE 77–114; RESP 4–24; TEMP 36.6–37.1; O2SAT 90–94
[2022-10-07] MEDS: DOXYCYCLINE 100 MG in Normal Saline 100 ML IVPB ×2 (02:53→14:19)
[2022-10-07] MEDS: Albuterol/Ipratropium 3 ML UPD VIAL UPD ×4 (02:54→20:01)
[2022-10-07 06:40] LABS: Abs Immature Grans 0.06 10^3/uL (0.0-0.06); Absolute Basophil Count 0.03 10^3/uL (0.0-0.2); Absolute Eosinophil Count 0.03 10^3/uL (0.0-0.7); Absolute Lymphocyte Count 2.66 10^3/uL (1.2-3.4); Absolute Monocyte Count 0.62 10^3/uL (0.1-0.8); Absolute Neutrophil Count 7.33 10^3/uL (1.2-6.7); Basophils % 0.3; Eosinophils % 0.3; HCT 42.7 % (36.0-46.0); HGB 13.5 g/dL (11.2-15.7); Immature Grans % 0.6; Lymphocytes % 24.8; MCH 30.8 pg (27.0-33.0); MCHC 31.6 % (32.0-36.0); MCV 97 fL (80-95); Monocytes % 5.8; Neutrophils % 68.2; Platelet Count 202 10^3/uL (130-400); RBC 4.39 10^6/uL (3.93-5.22); RDW 14.4 % (11.7-14.6); RDW-SD 51.6 fL; WBC 10.73 10^3/uL (4.4-10.8)
[2022-10-07 06:54] LABS: Anion Gap 4.8 mmol/L (3-11); BUN 10 mg/dL (7-18); CO2 35.2 mmol/L (21.0-32.0); CREATININE 0.5 mg/dL (0.55-1.02); Calcium 8.4 mg/dL (8.5-10.1); Chloride 103 mmol/L (98-107); Estimated GFR 107.98 (mL/min/1.73m2); Glucose 118 mg/dL (74-106); Magnesium 1.8 mg/dL (1.8-2.4); Potassium 3.9 mmol/L (3.5-5.1); Sodium 143 mmol/L (136-145)
[2022-10-07] MEDS: Budesonide/Formoterol 160/4.5 6 GM 60 PUFF INH IH ×2 (07:53→20:00)
[2022-10-07] MEDS: Nystatin POWDER 15 GM JAR TP (08:06)
[2022-10-07] MEDS: Fluticasone NASAL SPRAY 16 GM BTL NS (08:07)
[2022-10-07] MEDS: Magnesium Oxide 400 MG TAB PO (08:09)
[2022-10-07] MEDS: Metoprolol CR 50 MG TABCR PO (08:09)
[2022-10-07] MEDS: Furosemide 40 MG TAB PO (08:09)
[2022-10-07] MEDS: buPROPion-CR 150 MG TABCR PO (08:09)
[2022-10-07] MEDS: amLODIPine 10 MG TAB PO (08:09)
[2022-10-07] MEDS: Normal Saline Flush 10 ML SYR IVP (08:10)
[2022-10-07] MEDS: Lisinopril 20 MG TAB 40 MG PO (08:10)
[2022-10-07] MEDS: Multivitamin TAB 1 TAB PO (08:10)
[2022-10-07] MEDS: Aspirin E.C. 81 MG TABEC PO (08:10)
[2022-10-07] MEDS: Potassium Chloride 20 MEQ TABCR PO ×2 (08:10→20:00)
[2022-10-07] MEDS: Pantoprazole 40 MG TABCR PO (08:13)
[2022-10-07] MEDS: Nicotine 21 MG/24 HR PATCH TD (08:13)
--- NOTE | 2022-10-07 08:18 | RESPIRATORY ---
Patient uses a ResMed [id number] VAUTO with F [employer] P Simplus FFM size Small and settings of Imax 25/Antonio 13 PS 6. The DME is [facility] and no O2 bled in usually into device. RT spoke with patient and she stated last night O2 was bled-into device through NC underneath the FFM. RT questions morning nurse concerning this and RN reported she doesn't know what happened last night. RT to look into this more as bleeding in O2 under mask will cause a leak causing machine to not provide adequate pressures.
--- NOTE | 2022-10-07 11:00 | W.PM.PROGNOT ---
Date of Service Date of service: 10/07/22 Time of Service: 11:01 Assessment and Plan Assessment and plan (1) Pulmonary embolism and infarction: Status: Acute Assessment and plan: Lovenox 135 mg twice daily and convert to Eliquis if appropriate which needs to be reviewed with her obesity and efficacy of the usual dosing. Pharmacy can review this. Venous Dopplers of the lower extremities to rule out DVT as a source are negative Echocardiogram to follow-up possible RV strain - right ventricle is grossly normal in size and function She is a full code. (2) Hypoxemia: Status: Acute Assessment and plan: Associated with acute pulmonary emboli Possibly secondary to worsened COPD Oxygen supplementation Doxycycline IV Patient did receive 1 dose of Solu-Medrol which should be continued if she has significant bronchospasm Maximize respiratory treatments Patient was not usually on home oxygen. (3) Chronic obstructive lung disease: Status: Chronic Assessment and plan: Slightly exacerbated with question of bronchitis IV doxycycline which can be converted to oral doxycycline prior to discharge Consider pulse steroids Maximize respiratory treatments. Qualifiers: COPD type: emphysema Emphysema type: panlobular Qualified Code(s): J43.1 - Panlobular emphysema (4) Venous insufficiency (chronic) (peripheral): Status: Chronic Assessment and plan: Chronic swelling lower extremity Venous Dopplers negative Continue furosemide and potassium/magnesium supplementation. (5) Hypokalemia: Start date: 10/05/22 Status: Acute Assessment and plan: Patient is chronically on Lasix at home as well as lisinopril and is usually not on potassium supplementation. Treat acute hypokalemia orally with magnesium supplement as well. This may need to be a long-term supplement but could be treated by PCP. (6) Hypomagnesemia: Status: Acute Assessment and plan: Replete with IV magnesium sulfate with the patient chronically on oral magnesium as an outpatient. (7) Obstructive sleep apnea syndrome: Status: Chronic Assessment and plan: Slightly exacerbated with continuation of aggressive nebulizer treatments and respiratory care. Patient now is on oxygen which may not be chronic. Treat for bronchitis. (8) Essential hypertension: Status: Chronic Assessment and plan: Continue and adjust outpatient medical therapy with monitoring. (9) Discharge planning issues: Status: Acute Assessment and plan: Home when stable; no services discussed with Dr Tolliver Subjective Subjective Patient reports: no new complaints, tolerating a regular diet, voiding w/o difficulty, bowel movement, shortness of breath and afebrile; denies diarrhea, nausea or vomiting Interval history since last seen: Deepa reports feeling better today, Exam Narrative Exam Narrative: General: Patient appears older than stated age, morbidly obese and short stature, abnormal movements of her face but no overt extraparametal symptoms or focal tic, in no acute distress. She is alert and oriented x3. She does have slightly pressured speech, she looks to the right of me and not at me. HEENT: Normocephalic, coarsened facial features with abnormal movements as mentioned. Eyes with pupils equal and react to light symmetrically, extraocular movement intact and sclera anicteric. Oropharynx with dry mucosa and poor dentition. Neck: Supple without JVD. Back: Kyphotic without CVA tenderness. Lungs: Bronchovesicular breath sounds with coarse rhonchi diffusely especially with expiration and no focal rales but coarse crackles diffusely without focalizing. Expiratory wheeze with forced exhalation and cough. Breast: Exam deferred. Heart: Regular rate and rhythm with no murmurs gallops appreciated. Abdomen: Obese contour, with large pannus overhanging her pubic area. Soft and nontender to palpation with no palpable hepatosplenomegaly. Bowel sounds positive all quadrants. Genitalia/rectal: Exam deferred. Extremities: 2+ edema left and 1+ edema right with negative Homans' sign bilaterally. No cyanosis or clubbing. Good capillary refill. Skin: Pale, warm and dry. Neuro: Cranial nerves II through XII grossly intact, facial tic or abnormal movements as mentioned otherwise no tremor. No focal motor deficits. Psych: Slightly anxious with pressured speech, mood normal. No abnormal thought processes. Remote and recent memory intact. Objective Last Vital Signs Temp 36.6 C 10/07/22 07:45 Pulse 96 H 10/07/22 08:01 Resp 16 10/07/22 08:01 BP 133/85 10/07/22 07:45 Pulse Ox 91 L 10/07/22 08:17 Laboratory Results - last 24 hr 10/07/22 10/07/22 06:17 06:17 WBC 10.73 RBC 4.39 Hgb 13.5 Hct 42.7 MCV 97 H MCH 30.8 MCHC 31.6 L RDW 14.4 Plt Count 202 MPV 10.0 Immature Gran % 0.6 Neutrophils % 68.2 Lymphocytes % 24.8 Monocytes % 5.8 Eosinophils % 0.3 Basophils % 0.3 Nucleated RBC % 0.0 Absolute Neutrophils 7.33 H Absolute Lymphocytes 2.66 Absolute Monocytes 0.62 Absolute Eosinophils 0.03 Absolute Basophils 0.03 Sodium 143 Potassium 3.9 Chloride 103 Carbon Dioxide 35.2 H Anion Gap 4.8 BUN 10 Creatinine 0.5 L Est GFR (CKD-EPI 2020) 107.98 Glucose 118 H Calcium 8.4 L Magnesium 1.8 PAWSS Have you Been Recently Intoxicated or Drunk Within the Last 30 days?: No Have you Ever Experienced Previous Episodes of Alcohol Withdrawal?: No Have you ever Experienced Withdrawal Seizures?: No Have you ever Experienced Delirium Tremens(DT)s?: No Have you ever undergone Alcohol Rehabilitation Treatment (i.e, inpt ot outpatient treatment programs)?: No Have you ever Experienced Blackouts?: No Have you ever Combined Alcohol with other Downers within the last 90 days?: No Have you ever Combined Alcohol with any other Substance of Abuse during the last 90 days?: No Positive Blood Alcohol level on Presentation? [PCS.BAL]: No Evidence of Increased Autonomic Activity (i.e. HR>120, tremor, sweating, agitation, nausea)?: No Result: 0 Time Spent with Patient Time Spent with Patient: 25-34 minutes Time was spent: preparing to see the patient(eg.review tests), ordering medications,tests, procedures, referring, communicating with other health personal care service provider, indepentently interpreting results, counseling the patient and care coordination
--- NOTE | 2022-10-07 14:52 | CHAPLAIN ---
Deepa was up in the chair when I visited. She said she's feeling a bit better, and that she's had family checking in on her. I introduced myself, explained my role and offered support.
--- NOTE | 2022-10-07 14:56 | PDOC.CMPRO ---
- If Service Date Differs Date of service: 10/07/22 Time of Service: 14:56 Care Management Progress Note S/O: Deepa was sitting up in her chair when CM met with her. She stated that she is feeling good today, and is currently on 3LO2. She stated that she feels that she is improving, although she understands that the goal is for her to be weaned off the O2. She reported that the provider encouraged her to use the breathing treatments provided to her by RT. CM brought her a coloring book, colored pencils and a word search to help keep her occupied, as she is very anxious to return home. She stated that although she wants to be home, she does want to remain at [facility] until she is better, and she is motivated to engage with her treatment plan with a goal to discharge as soon as she is medically stable. CM will continue to follow. A: Deepa is a 61 year old female admitted to [facility] on 10/05/22 with right pulmonary emboli, hypoxemia. P: Anticipate Deepa will return home once medically cleared. She may benefit from RN Her family will drive her home via private vehicle. She will follow up with her PCP and discharge plan of care. CM will continue to follow.
[2022-10-07] MEDS: Acetaminophen 325 MG TAB PO ×2 (15:13→20:00)
[2022-10-07] MEDS: Simvastatin 20 MG TAB PO (20:00)
[2022-10-07] MEDS: Zolpidem 10 MG TAB PO (22:01)
[2022-10-08] VITALS (11 sets, daily range): BP systolic 106–149; BP diastolic 61–92; PULSE 76–94; RESP 4–22; TEMP 36.8–37.2; O2SAT 90–97
[2022-10-08] MEDS: Albuterol/Ipratropium 3 ML UPD VIAL UPD ×4 (01:35→19:51)
[2022-10-08] MEDS: DOXYCYCLINE 100 MG in Normal Saline 100 ML IVPB ×2 (01:35→14:31)
[2022-10-08] MEDS: Albuterol 2.5 MG/3 ML INH SOLN VIAL UPD (02:13)
[2022-10-08 07:01] LABS: Abs Immature Grans 0.05 10^3/uL (0.0-0.06); Absolute Basophil Count 0.04 10^3/uL (0.0-0.2); Absolute Eosinophil Count 0.07 10^3/uL (0.0-0.7); Absolute Lymphocyte Count 2.57 10^3/uL (1.2-3.4); Absolute Monocyte Count 0.68 10^3/uL (0.1-0.8); Absolute Neutrophil Count 5.17 10^3/uL (1.2-6.7); Basophils % 0.5; Eosinophils % 0.8; HCT 44.5 % (36.0-46.0); HGB 14.2 g/dL (11.2-15.7); Immature Grans % 0.6; MCH 30.5 pg (27.0-33.0); MCHC 31.9 % (32.0-36.0); MCV 96 fL (80-95); MPV 10.1 fL (8.0-11.0); Monocytes % 7.9; Neutrophils % 60.2; Platelet Count 219 10^3/uL (130-400); RBC 4.65 10^6/uL (3.93-5.22); RDW 14.3 % (11.7-14.6); RDW-SD 49.6 fL; WBC 8.58 10^3/uL (4.4-10.8)
[2022-10-08 07:08] LABS: BUN 9 mg/dL (7-18); CREATININE 0.7 mg/dL (0.55-1.02); Calcium 9.1 mg/dL (8.5-10.1); Chloride 101 mmol/L (98-107); Estimated GFR 99.57 (mL/min/1.73m2); Glucose 128 mg/dL (74-106); Magnesium 1.6 mg/dL (1.8-2.4); Potassium 4.1 mmol/L (3.5-5.1); Sodium 138 mmol/L (136-145)
[2022-10-08] MEDS: Budesonide/Formoterol 160/4.5 6 GM 60 PUFF INH IH ×2 (07:36→19:48)
[2022-10-08] MEDS: Normal Saline Flush 10 ML SYR IVP (08:08)
[2022-10-08] MEDS: Lisinopril 20 MG TAB 40 MG PO (08:09)
[2022-10-08] MEDS: Aspirin E.C. 81 MG TABEC PO (08:09)
[2022-10-08] MEDS: Potassium Chloride 20 MEQ TABCR PO ×2 (08:09→20:24)
[2022-10-08] MEDS: amLODIPine 10 MG TAB PO (08:09)
[2022-10-08] MEDS: Magnesium Oxide 400 MG TAB PO (08:10)
[2022-10-08] MEDS: Furosemide 40 MG TAB PO (08:10)
[2022-10-08] MEDS: Pantoprazole 40 MG TABCR PO (08:10)
[2022-10-08] MEDS: buPROPion-CR 150 MG TABCR PO (08:10)
[2022-10-08] MEDS: Multivitamin TAB 1 TAB PO (08:10)
[2022-10-08] MEDS: Metoprolol CR 50 MG TABCR PO (08:10)
[2022-10-08] MEDS: Nystatin POWDER 15 GM JAR TP (08:10)
[2022-10-08] MEDS: Fluticasone NASAL SPRAY 16 GM BTL NS (08:11)
[2022-10-08] MEDS: Nicotine 21 MG/24 HR PATCH TD (08:20)
[2022-10-08] MEDS: Acetaminophen 325 MG TAB PO ×2 (08:21→20:27)
--- NOTE | 2022-10-08 09:23 | PDOC.CMPRO ---
- If Service Date Differs Date of service: 10/08/22 Time of Service: 09:23 Care Management Progress Note S/O: Deepa was sitting up in bed when CM met with her. She was smiling and stated that she is feeling better. She informed CM that she believes she will need to stay in the hospital at least one more day because her oxygen isn't back to normal yet. Deepa does not have home oxygen at baseline. With 3L/min of nasal oxygen, she has only been able to maintain her oxygen saturation levels in the high 80s to low 90s. Otherwise, Deepa is afebrile and her vital signs are stable. She stated that she hopes to be able to discharge home tomorrow. While she would prefer not to need home oxygen she understands it may be necessary and will be in agreement. A: Deepa is a 61 year old female admitted to [facility] on 10/05/22 with right pulmonary emboli, hypoxemia. P: Anticipate Deepa will return home once medically cleared. It is possible she may need new home oxygen. Deepa may also benefit from HH RN. Her family will drive her home via private vehicle and she will follow up with her PCP and discharge plan of care. CM will continue to follow and assess for discharge planning concerns.
[2022-10-08] MEDS: MAGNESIUM SULFATE 2 GM/50 ML BAG IVPB (10:27)
--- NOTE | 2022-10-08 19:02 | NUR.NOTE ---
Nursing Note: pt and daughter were having some concerns about getting discharged tomorrow and were worried about home oxygen care. pt and daughter were both educated about basics of oxygen and lung dz processes. daughter is emotional about mothers care and both pt and daughter were requesting home health nurse mngt to assist with oxygen for home use. pt was educated on factors/steps that would help with any possible copd exacerbation.
[2022-10-08] MEDS: Simvastatin 20 MG TAB PO (20:24)
[2022-10-08] MEDS: Zolpidem 10 MG TAB PO (22:14)
[2022-10-09] VITALS (17 sets, daily range): BP systolic 113–153; BP diastolic 69–85; PULSE 70–111; RESP 1–20; TEMP 36.7–37.4; O2SAT 86–99
[2022-10-09] MEDS: Albuterol/Ipratropium 3 ML UPD VIAL UPD ×4 (01:31→19:43)
[2022-10-09] MEDS: DOXYCYCLINE 100 MG in Normal Saline 100 ML IVPB ×2 (03:07→15:01)
[2022-10-09 06:46] LABS: Abs Immature Grans 0.07 10^3/uL (0.0-0.06); Absolute Basophil Count 0.06 10^3/uL (0.0-0.2); Absolute Eosinophil Count 0.17 10^3/uL (0.0-0.7); Absolute Lymphocyte Count 2.51 10^3/uL (1.2-3.4); Absolute Monocyte Count 0.81 10^3/uL (0.1-0.8); Absolute Neutrophil Count 5.17 10^3/uL (1.2-6.7); Basophils % 0.7; Eosinophils % 1.9; HCT 44.4 % (36.0-46.0); HGB 14.4 g/dL (11.2-15.7); Immature Grans % 0.8; Lymphocytes % 28.6; MCH 31.2 pg (27.0-33.0); MCHC 32.4 % (32.0-36.0); MCV 96 fL (80-95); MPV 9.9 fL (8.0-11.0); Monocytes % 9.2; Neutrophils % 58.8; Platelet Count 209 10^3/uL (130-400); RBC 4.62 10^6/uL (3.93-5.22); RDW 14.4 % (11.7-14.6); RDW-SD 49.9 fL; WBC 8.79 10^3/uL (4.4-10.8)
[2022-10-09 07:03] LABS: Anion Gap 3.5 mmol/L (3-11); BUN 9 mg/dL (7-18); CO2 35.5 mmol/L (21.0-32.0); CREATININE 0.7 mg/dL (0.55-1.02); Calcium 9.1 mg/dL (8.5-10.1); Chloride 101 mmol/L (98-107); Estimated GFR 99.57 (mL/min/1.73m2); Glucose 119 mg/dL (74-106); Magnesium 1.8 mg/dL (1.8-2.4); Potassium 4.8 mmol/L (3.5-5.1); Sodium 140 mmol/L (136-145)
[2022-10-09] MEDS: Budesonide/Formoterol 160/4.5 6 GM 60 PUFF INH IH ×2 (07:54→19:42)
[2022-10-09] MEDS: Furosemide 40 MG TAB PO (08:45)
[2022-10-09] MEDS: Pantoprazole 40 MG TABCR PO (08:45)
[2022-10-09] MEDS: Aspirin E.C. 81 MG TABEC PO (08:45)
[2022-10-09] MEDS: Multivitamin TAB 1 TAB PO (08:45)
[2022-10-09] MEDS: Lisinopril 20 MG TAB 40 MG PO (08:45)
[2022-10-09] MEDS: Fluticasone NASAL SPRAY 16 GM BTL NS (08:46)
[2022-10-09] MEDS: Potassium Chloride 20 MEQ TABCR PO ×2 (08:46→19:59)
[2022-10-09] MEDS: amLODIPine 10 MG TAB PO (08:46)
[2022-10-09] MEDS: buPROPion-CR 150 MG TABCR PO (08:46)
[2022-10-09] MEDS: Metoprolol CR 50 MG TABCR PO (08:46)
[2022-10-09] MEDS: Magnesium Oxide 400 MG TAB PO (08:46)
[2022-10-09] MEDS: Nystatin POWDER 15 GM JAR TP (08:47)
--- NOTE | 2022-10-09 08:59 | NUR.NOTE ---
Nursing Note:Personal belonging removed from patients room during search by security, returned to med/surg and placed in floor safe.
[2022-10-09] MEDS: Nicotine 21 MG/24 HR PATCH TD (09:06)
--- NOTE | 2022-10-09 13:02 | W.PM.DS.N ---
Date of service: 10/09/22 Time of Service: 13:03 DS: Diagnosis Discharge Diagnosis (1) Pulmonary embolism and infarction: Status: Acute (2) Hypoxemia: Status: Acute (3) Chronic obstructive lung disease: Status: Chronic (4) Venous insufficiency (chronic) (peripheral): Status: Chronic (5) Hypokalemia: Status: Acute (6) Hypomagnesemia: Status: Acute (7) Obstructive sleep apnea syndrome: Status: Chronic (8) Essential hypertension: Status: Chronic Discharge Plan Disposition Patient Disposition: Home W/Home Health Services Condition: Stable Discharge Details Reason For Visit: Right Pulmonary Emboli, Hypoxemia Admit Date/Time: 10/05/22 22:30 Admit Provider: Van Damon Attending Provider: Van Damon Primary Care Provider: Cristhian Myers Hospital Course Hospital Course: This is a 61-year-old morbid obese patient with sleep apnea and chronic peripheral edema presented to the ED with shortness of breath, worsening over previous week. Work up in the ED showed right middle and lower pulmonary subsegmental pulmonary emboli with question of infarction.?She had significant oxygen requirements so was admitted to med/surg for stabilization. She is a smoker with copd and was also treated for copd exacerbation with doxycycline. she was never started on steroids. she remained with oxygen requirements, desatting to mid 80's on room air and requiring 4 liters nc to maintain sats in high 80's with ambulation. she is feeling overall improved and is requesting discharge to home. Orders placed for home oxygen, which may be required indefinitely. she is motivated to stop smoking and will be prescribed a nicotine patch with taper. she was treated with enoxaparin while hospitalized and will be discharged home on eliquis to start 10 mg po bid for 7 days, then 5 mg po bid for 3 months or as determined by outpatient team. her bilateral lower extremity ultrasounds negative for DVT, her echo showed Right ventricle is grossly normal in size. Right ventricular systolic function is grossly normal. Unable to assess PA pressure. EF 60%. She is stable for discharge to home and will follow up outpatient with her pcp. She will be discharged with new home health services in setting of new home oxygen and monitoring of illness/respiratory status, medication changes. discharge discussed with DR Tolliver. Home Meds and New Rx's Prescriptions: New Eliquis DVT-PE Treat 30D Start 5 mg (74 tabs) tablets,dose pack See Rx Instructions .ROUTE .COMPLEX Qty: 74 0RF Rx Instructions: orally per package directions nicotine 21-14-7 mg/24 hr patch, TD daily, sequential See Rx Instructions .ROUTE .COMPLEX Qty: 56 0RF Rx Instructions: apply 1-21 mg NICOTINE PATCH daily for 28 days; follow with 1-14 mg PATCH daily for 14 days, then 1-7mg PATCH daily for 14 days Continued clotrimazole-betamethasone 1-0.05 % cream 1 applic Topical BID PRN (Reason: rash) Qty: 45 3RF Rx Instructions: apply under breasts for itching/rash ibuprofen 600 mg tablet 600 mg PO TID PRN (Reason: pain) Qty: 180 3RF nystatin 100,000 unit/gram powder 1 applic topical TID PRN (Reason: rash) Qty: 60 4RF multivitamin [Multi-Day] 1 EACH tablet 1 ea PO DAILY aspirin [Aspir-81] 81 MG tablet,delayed release (DR/EC) 81 mg PO DAILY Qty: 90 albuterol sulfate 2.5 mg /3 mL (0.083 %) solution for nebulization 2.5 mg inhalation QID PRN (Reason: shortness of breath or wheezing) Qty: 90 1RF lisinopril 40 mg tablet 40 mg PO DAILY Qty: 90 4RF amoxicillin 500 mg tablet 2,000 mg PO ONCE Qty: 4 0RF Rx Instructions: TAKE 4 500MG TABS 30-60 MIN. PRIOR TO DENTAL WORK zolpidem [Ambien] 10 mg tablet 10 mg PO HS PRN (Reason: insomnia) Qty: 90 2RF metoprolol succinate 50 mg tablet extended release 24 hr 50 mg PO DAILY Qty: 90 3RF pantoprazole [Protonix] 40 mg tablet,delayed release (DR/EC) 40 mg PO DAILY Qty: 90 4RF Rx Instructions: 1 TAB DAILY budesonide-formoterol [Symbicort] 160-4.5 mcg/actuation HFA aerosol inhaler 2 puff Inhalation BID Qty: 1 3RF fluticasone propionate 50 mcg/actuation spray,suspension 2 spray NS DAILY Qty: 1 3RF Rx Instructions: 2 sprays each nostril once/day simvastatin 20 mg tablet 20 mg PO DAILY Qty: 90 3RF furosemide 40 mg tablet 40 mg PO DAILY Qty: 90 4RF acetaminophen 500 mg tablet 500 mg PO BID Qty: 60 3RF amlodipine 10 mg tablet 10 mg PO DAILY Qty: 90 4RF magnesium oxide 400 mg magnesium capsule 400 mg PO DAILY Qty: 90 4RF bupropion HCl 150 mg tablet sustained-release 12 hr 150 mg PO DAILY Qty: 90 4RF No Action (DME) Medial Offloader Brace See Rx Instructions .ROUTE .MEDSUPPLY Qty: 1 0RF Rx Instructions: Please apply to RIGHT knee for medial OA and valgus instability. Due to morbid obesity a custom brace is required. Discharge Instructions Instructions: Pulmonary Embolism (DC) Additional Instructions: wear oxygen as directed. NO smoking around oxygen equipment or you could get significantly burned or fatally injured, you could . use nicotine patches as directed. continue your coughing and deep breathing exercises and incentive spirometry and flutter valve as directed. take blood thinner as directed. since you are at increased risk for bleeding monitor for symptoms and reports immediately. Get emergency help?right away?(call )?if you: ?Have a serious accident, fall, hit your head, or get another serious injury that could cause bleeding. ?Throw up blood or something that looks like coffee grounds. ?Have a severe headache ?Have trouble talking, weakness, or loss of function of one of your arms or legs Call your doctor?right away?if you: ?Took more medicine than you were supposed to. ?Have any of these signs of abnormal bleeding: ?Feeling sick to your stomach ?Blood in your bowel movements or dark-colored bowel movements ?Headaches or dizziness ?Nosebleeds or any bleeding that does not stop ?Dark red or brown urine You should also tell your doctor if you: ?Bleed from your gums after brushing your teeth ?Have heavy menstrual periods or bleeding between periods ?Have more bruising than usual after a minor injury ?Have diarrhea, vomit, or are unable to eat for more than 24 hours ?Have a fever (temperature higher than 100.4?F or 38?C) ?Cannot take your medicine for any reason Stand Alone Forms: Nursing Discharge Form Referrals: Cristhian Myers NP [Primary Care Provider] - 10/22/22 2:20 pm Activity:: Activity as Tolerated Equipment/Supplies:: see respiratory order Diet:: As Tolerated DS: Summary Time Spent with Patient providing and/or coordinating discharge services: Greater than 30 minutes Status at Discharge Functional status at discharge: independent ambulation Overall status at discharge: patient is progressing back to baseline Mental Status: mental status grossly normal Speech and Movement: speech and movement normal Mood: congruent mood Affect: normal affect Exam Const General: cooperative, comfortable and no acute distress Nutritional Appearance: obese Orientation: alert and awake HENMT Head: normal to inspection, normocephalic and atraumatic Ears: hearing grossly normal bilaterally Mouth: moist mucous membranes Teeth and gingiva: poor dentition Eyes General: appearance normal, both eyes and all related structures Neck Neck: normal visual inspection and full ROM Resp Effort & Inspection: normal respiratory effort, able to speak in complete sentences and no respiratory distress Auscultation: diminished lung sounds, rhonchi (scattered coarse) and no wheezes Cardio Rate: regular rate Rhythm: regular rhythm Skin General skin exam: no rashes or lesions noted Neuro General: patient alert and patient awake Cognition: normal cognition Speech: speech normal Gait: normal gait Extrem General: normal to inspection and edema (bilateral, at baseline) Psych Appearance: grossly normal Mental Status: mental status grossly normal Speech and Movement: speech and movement normal Mood: congruent mood Affect: normal affect DS: Data Vitals/I&O Vitals and I&O: Vital Signs Temperature 36.8 C 10/09/22 11:06 Temperature Source Tympanic 10/09/22 11:06 Pulse 70 10/09/22 11:06 Pulse Rhythm Regular 10/08/22 15:35 Pulse 95 H 10/05/22 23:10 Respiratory Rate 16 10/09/22 11:24 Respiratory Effort Non-Labored 10/09/22 08:50 Respiratory Depth Normal 10/09/22 08:50 Respiratory Pattern Normal 10/09/22 08:50 Blood Pressure 128/82 10/09/22 11:06 Pulse Oximetry 91 L 10/09/22 12:10 Oxygen Delivery Method Nasal Cannula 10/09/22 12:10 Oxygen Flow Rate 2.5 10/09/22 12:10 Pain Level 3 10/08/22 15:40 Comment RN notified - assesing patient at this time 10/09/22 03:36 Intake & Output 10/08/22 10/09/22 10/09/22 23:59 11:59 23:59 Intake Total 780 / 1750 180 / 180 Output Total 1590 / 4040 1400 / 1400 Balance -810 / -2290 -1400 / -1220 180 / -1220 Weight 135.9 kg Intake: IV 100 / 200 Oral 680 / 1550 180 / 180 Output: Urine 1590 / 4040 1400 / 1400 Other: Urine Color Yellow Yellow Urine Appearance Clear Clear Urine Odor Normal Voiding Methods Toilet Toilet Data Completed and Pending Labs on day of discharge: Labs from last 24 hours 10/09/22 10/09/22 06:35 06:35 WBC 8.79 RBC 4.62 Hgb 14.4 Hct 44.4 MCV 96 H MCH 31.2 MCHC 32.4 RDW 14.4 Plt Count 209 MPV 9.9 Immature Gran % 0.8 Neutrophils % 58.8 Lymphocytes % 28.6 Monocytes % 9.2 Eosinophils % 1.9 Basophils % 0.7 Nucleated RBC % 0.0 Absolute Neutrophils 5.17 Absolute Lymphocytes 2.51 Absolute Monocytes 0.81 H Absolute Eosinophils 0.17 Absolute Basophils 0.06 Sodium 140 Potassium 4.8 Chloride 101 Carbon Dioxide 35.5 H Anion Gap 3.5 BUN 9 Creatinine 0.7 Est GFR (CKD-EPI 2020) 99.57 Glucose 119 H Calcium 9.1 Magnesium 1.8 PFSH All Active Problems (Updated 10/06/22 @ 13:44 by Anette Lopez NP) Discharge planning issues (Acute) Pulmonary embolism (Chronic) Hypoxemia (Acute) Hypomagnesemia (Acute) Hypokalemia (Acute) COPD exacerbation (Acute) Hypomagnesemia (Acute) Hypokalemia (Acute) Pulmonary embolism and infarction (Acute) Hypoxemia (Acute) Acute dyspnea (Acute) Nail dystrophy (Acute) Right foot pain (Acute) 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 (Acute) Right knee pain (Acute) Chronic back pain (Chronic) Essential hypertension (Chronic) Hyperlipidemia (Chronic) Obstructive sleep apnea syndrome (Chronic) BiPAP Chronic obstructive lung disease (Chronic) Depressive disorder (Chronic) GERD (gastroesophageal reflux disease) (Chronic) Cigarette smoker (Chronic) Insomnia (Chronic) Osteoarthritis of right knee (Acute) Steroid injection: 08/19/2020; 04/15/2020 Venous insufficiency (chronic) (peripheral) (Chronic) Surgical History History of bilateral tubal ligation Hx of umbilical hernia repair S/P section S/P cholecystectomy S/P ORIF (open reduction internal fixation) fracture Right wrist Status post total knee replacement, left Family History Mother Essential hypertension Heart disease Hyperlipidemia Myocardial infarction Emphysema lung Stroke Skin cancer (melanoma) Father , 50 of [place] Essential hypertension Heart disease Hyperlipidemia Myocardial infarction Stroke Sister Essential hypertension Sister Emphysema lung Sister Hyperlipidemia Brother Essential hypertension Depression Emphysema lung Asthma Liver cancer Son , 30 from [place] Sleep apnea Myocardial infarction Daughter Sleep apnea Asthma Maternal Grandfather Lung cancer Maternal Grandmother Colon cancer Hypertension Heart disease Paternal Grandfather Parkinson's disease Paternal Grandmother Uterine cancer Social History Smoking/Tobacco Use Status: Current every day Tobacco Type: cigarettes Smoking packs per day: 1 Smoking cigarettes per day: 20.0 Years smoked: 39 Smoking pack-years: 39.00 Smoking risk assessment performed?: Yes Alcohol Intake: current Alcohol Intake frequency: a few times a month Alcohol type: hard liquor Drug use: Never Caregiver/Support person: Yes Household members: family and friend(s) Communication Needs: None Do you need help understanding health information?: Rarely Pets and animals: Yes Pets and animals: cat(s) Sexually active: Yes Do you think of yourself as: straight/heterosexual Current gender identity: female What is your relationship status?: refused to answer How often do you talk on the phone with friends or family?: twice per week How often do you get together with friends or relatives?: once per week How often do you attend tenriism or yazdanism services?: decline to answer Do you belong to any clubs or organized social groups?: no Panel score (0-1 are the most socially isolated patients): 1 What type of physical activity do you participate in: none Frequency: does not exercise Jessica/Spiritism: None Agree to transfusion: No Seatbelt use: always Helmet use: Yes Helmet use: always Drive intox or ride w/intox sprinkler driver: No Do you feel safe at home: Yes Do you feel safe in your relationship?: Yes Time Spent with Patient Time Spent with Patient: 45-69 minutes Time was spent: preparing to see the patient(eg.review tests), obtaining and/or reviewing separately otained hiistory, ordering medications,tests, procedures, indepentently interpreting results, counseling the patient and care coordination
--- NOTE | 2022-10-09 14:37 | PDOC.HHF2F ---
Home Health Referral Home Health Orders Clinical synopsis of why skilled professionals are needed: new anticoagulation, new oxygen requirements. Medical diagnosis necessitation home health referral: pulmonary embolism and hypoxic respiratory failure Registered Nurse: Check all that apply Instruct on new or changed medication(s)/assess compliance: Ordered Assess for exacerbation of medical condition, instruct patient/caregivers on signs and symptoms to report for early detection: Ordered Home Bound Status Use of Special Transportation (Describe transportation and medical necessity): super morbid obesity, with exercise intolerance and high oxygen requirements with activity Describe why leaving home would require a considerable and taxing effort: Oxygen Encounter Date and Reason: I certify that a FTF encounter for this patient was performed on October 09, 2022 and that such encounter was related to the primary reason the patient requires home health services. The encounter was conducted in the following manner: By me as the certifying physician, WATERSHED ENGINEER, PA or By an inpatient physician, WATERSHED ENGINEER or PA during an inpatient stay who communicated findings to me, Certification And Authentication I certify that I composed the above information based on my clinical judgment relating to this patient's medical condition and, if applicable, clinical findings communicated to me by the NPP or inpatient physician who performed the FTF encounter. Name of Provider that will be monitoring home health services: Cristhian Myers
[2022-10-09] MEDS: Ibuprofen 600 MG TAB PO (15:02)
--- NOTE | 2022-10-09 17:17 | PDOC.CMPRO ---
- If Service Date Differs Date of service: 10/09/22 Time of Service: 17:17 Care Management Progress Note S/O: Deepa was sitting up in her bed when CM met with her. She stated that per provider, she will likely return home today with new O2. RT has been working on setting up in home O2 through [facility]. Late in the day, RT was informed that her O2 was not approved by [facility], and that it would need to be reviewed on Wednesday. CM informed the provider, and RT explained to Deepa that it is not safe for her to return home while still requiring 3-4L O2. She will remain inpatient while attempting to wean her O2, and RT will work with Emiliano on Wednesday to set up home O2, if she continues to require it. CM will continue to follow. A: Deepa is a 61 year old female admitted to [facility] on 10/05/22 with right pulmonary emboli, hypoxemia. P: Anticipate Deepa will return home once medically cleared. It is possible she may need new home oxygen. Deepa may also benefit from HH RN. Her family will drive her home via private vehicle and she will follow up with her PCP and discharge plan of care. CM will continue to follow and assess for discharge planning concerns.
[2022-10-09] MEDS: Simvastatin 20 MG TAB PO (19:59)
[2022-10-09] MEDS: Acetaminophen 325 MG TAB PO (21:16)
[2022-10-09] MEDS: Zolpidem 10 MG TAB PO (23:22)
[2022-10-10] VITALS (16 sets, daily range): BP systolic 116–146; BP diastolic 64–83; PULSE 62–85; RESP 4–20; TEMP 36.7–37.1; O2SAT 87–98
[2022-10-10] MEDS: DOXYCYCLINE 100 MG in Normal Saline 100 ML IVPB (02:02)
[2022-10-10] MEDS: Budesonide/Formoterol 160/4.5 6 GM 60 PUFF INH IH ×2 (08:19→19:42)
[2022-10-10] MEDS: Albuterol/Ipratropium 3 ML UPD VIAL UPD ×3 (08:19→19:42)
[2022-10-10] MEDS: Lisinopril 20 MG TAB 40 MG PO (08:23)
[2022-10-10] MEDS: amLODIPine 10 MG TAB PO (08:23)
[2022-10-10] MEDS: Multivitamin TAB 1 TAB PO (08:24)
[2022-10-10] MEDS: Aspirin E.C. 81 MG TABEC PO (08:24)
[2022-10-10] MEDS: buPROPion-CR 150 MG TABCR PO (08:24)
[2022-10-10] MEDS: Furosemide 40 MG TAB PO (08:24)
[2022-10-10] MEDS: Metoprolol CR 50 MG TABCR PO (08:24)
[2022-10-10] MEDS: Pantoprazole 40 MG TABCR PO (08:24)
[2022-10-10] MEDS: Magnesium Oxide 400 MG TAB PO (08:24)
[2022-10-10] MEDS: Nystatin POWDER 15 GM JAR TP (08:25)
[2022-10-10] MEDS: Potassium Chloride 20 MEQ TABCR PO ×2 (08:25→19:38)
[2022-10-10] MEDS: Nicotine 21 MG/24 HR PATCH TD (08:32)
[2022-10-10] MEDS: Ibuprofen 600 MG TAB PO (08:32)
[2022-10-10] MEDS: Fluticasone NASAL SPRAY 16 GM BTL NS (10:11)
[2022-10-10] MEDS: Doxycycline Hyclate 100 MG CAP PO ×2 (11:21→19:38)
--- NOTE | 2022-10-10 11:23 | W.PM.PROGNOT ---
Date of Service Date of service: 10/10/22 Time of Service: Assessment and Plan Assessment and plan (1) Pulmonary embolism and infarction: Status: Acute Assessment and plan: [place] at discharge, continue enoxaparin while hospitalized Venous Dopplers of the lower extremities negative Echocardiogram shows right ventricle is grossly normal in size and function She is a full code. continues to have oxygen requirements, wean as able, continue pulmonary toileting. oxygen may be needed at discharge (2) Hypoxemia: Status: Acute Assessment and plan: Associated with acute pulmonary emboli and possibly secondary to worsened COPD Oxygen supplementation, wean as able Maximize respiratory treatments Patient was not usually on home oxygen. (3) Chronic obstructive lung disease: Status: Chronic Assessment and plan: Slightly exacerbated with question of bronchitis continue doxycycline day / continue respiratory treatments. Qualifiers: COPD type: emphysema Emphysema type: panlobular Qualified Code(s): J43.1 - Panlobular emphysema (4) Venous insufficiency (chronic) (peripheral): Status: Chronic Assessment and plan: Chronic swelling lower extremity Venous Dopplers negative Continue furosemide and potassium/magnesium supplementation. (5) Hypokalemia: Start date: 10/05/22 Status: Resolved Assessment and plan: Patient is chronically on Lasix at home as well as lisinopril and is usually not on potassium supplementation. Treated acute hypokalemia orally with magnesium supplement as well. This may need to be a long-term supplement but could be treated by PCP. (6) Hypomagnesemia: Status: Resolved Assessment and plan: Repleted with IV magnesium sulfate with the patient chronically on oral magnesium as an outpatient. (7) Obstructive sleep apnea syndrome: Status: Chronic Assessment and plan: Slightly exacerbated with continuation of aggressive nebulizer treatments and respiratory care. Patient now is on oxygen which may become chronic. Treat for bronchitis. (8) Essential hypertension: Status: Chronic Assessment and plan: blood pressure stable, contineu routine monitoring. (9) Discharge planning issues: Status: Acute Assessment and plan: discharge yesterday canceled as we were unable to secure home oxygen. plan to remain here over the weekend until [facility] available on Wednesday will need home health nursing for new oxygen at discharge. case management following. discussed with Dr Tolliver Subjective Subjective Patient reports: no new complaints, tolerating liquids well, tolerating a regular diet, shortness of breath (with activity, at baseline) and afebrile Interval history since last seen: feels good, no issues overnight. Exam Const General: cooperative, comfortable and no acute distress Nutritional Appearance: obese Orientation: alert and awake [facility] Head: normal to inspection, normocephalic and atraumatic Ears: hearing grossly normal bilaterally Mouth: moist mucous membranes Teeth and gingiva: poor dentition Eyes General: appearance normal, both eyes and all related structures Neck Neck: normal visual inspection and full ROM Resp Effort & Inspection: normal respiratory effort, able to speak in complete sentences and no respiratory distress Auscultation: diminished lung sounds, rhonchi (scattered coarse) and no wheezes Cardio Rate: regular rate Rhythm: regular rhythm Skin General skin exam: no rashes or lesions noted Neuro General: patient alert and patient awake Cognition: normal cognition Speech: speech normal Gait: normal gait Extrem General: normal to inspection and edema (bilateral, at baseline) Psych Appearance: grossly normal Mental Status: mental status grossly normal Speech and Movement: speech and movement normal Mood: congruent mood Affect: normal affect Objective Last Vital Signs Temp 36.7 C 10/10/22 10:50 Pulse 75 10/10/22 10:50 Resp 18 10/10/22 10:50 BP 117/75 10/10/22 10:50 Pulse Ox 93 10/10/22 10:50 PAWSS Have you Been Recently Intoxicated or Drunk Within the Last 30 days?: No Have you Ever Experienced Previous Episodes of Alcohol Withdrawal?: No Have you ever Experienced Withdrawal Seizures?: No Have you ever Experienced Delirium Tremens(DT)s?: No Have you ever undergone Alcohol Rehabilitation Treatment (i.e, inpt ot outpatient treatment programs)?: No Have you ever Experienced Blackouts?: No Have you ever Combined Alcohol with other Downers within the last 90 days?: No Have you ever Combined Alcohol with any other Substance of Abuse during the last 90 days?: No Positive Blood Alcohol level on Presentation? [PCS.BAL]: No Evidence of Increased Autonomic Activity (i.e. HR>120, tremor, sweating, agitation, nausea)?: No Result: 0 Time Spent with Patient Time Spent with Patient: 25-34 minutes Time was spent: preparing to see the patient(eg.review tests), obtaining and/or reviewing separately otained hiistory, indepentently interpreting results and counseling the patient
[2022-10-10] MEDS: Simvastatin 20 MG TAB PO (19:38)
[2022-10-10] MEDS: Acetaminophen 325 MG TAB PO (19:38)
[2022-10-10] MEDS: Zolpidem 10 MG TAB PO (22:27)
[2022-10-11] VITALS (11 sets, daily range): BP systolic 93–143; BP diastolic 53–86; PULSE 65–82; RESP 5–22; TEMP 36.3–37; O2SAT 92–99
[2022-10-11] MEDS: Multivitamin TAB 1 TAB PO (07:25)
[2022-10-11] MEDS: buPROPion-CR 150 MG TABCR PO (07:25)
[2022-10-11] MEDS: Potassium Chloride 20 MEQ TABCR PO ×2 (07:26→19:46)
[2022-10-11] MEDS: amLODIPine 10 MG TAB PO (07:26)
[2022-10-11] MEDS: Lisinopril 20 MG TAB 40 MG PO (07:26)
[2022-10-11] MEDS: Aspirin E.C. 81 MG TABEC PO (07:26)
[2022-10-11] MEDS: Magnesium Oxide 400 MG TAB PO (07:26)
[2022-10-11] MEDS: Furosemide 40 MG TAB PO (07:26)
[2022-10-11] MEDS: Metoprolol CR 50 MG TABCR PO (07:26)
[2022-10-11] MEDS: Fluticasone NASAL SPRAY 16 GM BTL NS (07:27)
[2022-10-11] MEDS: Acetaminophen 325 MG TAB PO ×3 (07:35→19:45)
[2022-10-11] MEDS: Pantoprazole 40 MG TABCR PO (07:35)
[2022-10-11] MEDS: Albuterol/Ipratropium 3 ML UPD VIAL UPD ×3 (07:42→19:22)
[2022-10-11] MEDS: Budesonide/Formoterol 160/4.5 6 GM 60 PUFF INH IH ×2 (07:47→19:22)
--- NOTE | 2022-10-11 11:11 | W.PM.PROGNOT ---
Date of Service Date of service: 10/11/22 Time of Service: 11:11 Assessment and Plan Assessment and plan (1) Pulmonary embolism and infarction: Status: Acute Assessment and plan: eliquis at discharge, continue enoxaparin while hospitalized Venous Dopplers of the lower extremities negative Echocardiogram shows right ventricle is grossly normal in size and function She is a full code. continues to have oxygen requirements, wean as able, continue pulmonary toileting. oxygen may be needed at discharge (2) Hypoxemia: Status: Acute Assessment and plan: Associated with acute pulmonary emboli and possibly secondary to worsened COPD Oxygen supplementation, wean as able Maximize respiratory treatments Patient was not usually on home oxygen. (3) Chronic obstructive lung disease: Status: Chronic Assessment and plan: Slightly exacerbated with question of bronchitis completed doxycycline day 10/16 continue respiratory treatments. Qualifiers: COPD type: emphysema Emphysema type: panlobular Qualified Code(s): J43.1 - Panlobular emphysema (4) Venous insufficiency (chronic) (peripheral): Status: Chronic Assessment and plan: Chronic swelling lower extremity Venous Dopplers negative Continue furosemide and potassium/magnesium supplementation. (5) Obstructive sleep apnea syndrome: Status: Chronic Assessment and plan: Slightly exacerbated with continuation of aggressive nebulizer treatments and respiratory care. Patient now is on oxygen which may become chronic. Treat for bronchitis. (6) Essential hypertension: Status: Chronic Assessment and plan: blood pressure stable, contineu routine monitoring. (7) Discharge planning issues: Status: Acute Assessment and plan: discharge yesterday canceled as we were unable to secure home oxygen. plan to remain here over the weekend until [facility] available on Wednesday will need home health nursing for new oxygen at discharge. case management following. discussed with Dr Tolliver Subjective Subjective Patient reports: no new complaints, feels better, tolerating liquids well, tolerating a regular diet and afebrile; denies shortness of breath Exam Const General: cooperative, comfortable and no acute distress Nutritional Appearance: obese Orientation: alert and awake [facility] Head: normal to inspection, normocephalic and atraumatic Ears: hearing grossly normal bilaterally Mouth: moist mucous membranes Teeth and gingiva: poor dentition Eyes General: appearance normal, both eyes and all related structures Neck Neck: normal visual inspection and full ROM Resp Effort & Inspection: normal respiratory effort, able to speak in complete sentences and no respiratory distress Auscultation: diminished lung sounds, rhonchi (scattered coarse) and no wheezes Cardio Rate: regular rate Rhythm: regular rhythm Skin General skin exam: no rashes or lesions noted Neuro General: patient alert and patient awake Cognition: normal cognition Speech: speech normal Gait: normal gait Extrem General: normal to inspection and edema (bilateral, at baseline) Psych Appearance: grossly normal Mental Status: mental status grossly normal Speech and Movement: speech and movement normal Mood: congruent mood Affect: normal affect Objective Last Vital Signs Temp 36.3 C L 10/11/22 07:13 Pulse 71 10/11/22 07:53 Resp 20 10/11/22 07:53 BP 129/82 10/11/22 07:13 Pulse Ox 93 10/11/22 07:53 PAWSS Have you Been Recently Intoxicated or Drunk Within the Last 30 days?: No Have you Ever Experienced Previous Episodes of Alcohol Withdrawal?: No Have you ever Experienced Withdrawal Seizures?: No Have you ever Experienced Delirium Tremens(DT)s?: No Have you ever undergone Alcohol Rehabilitation Treatment (i.e, inpt ot outpatient treatment programs)?: No Have you ever Experienced Blackouts?: No Have you ever Combined Alcohol with other Downers within the last 90 days?: No Have you ever Combined Alcohol with any other Substance of Abuse during the last 90 days?: No Positive Blood Alcohol level on Presentation? [PCS.BAL]: No Evidence of Increased Autonomic Activity (i.e. HR>120, tremor, sweating, agitation, nausea)?: No Result: 0 Time Spent with Patient Time Spent with Patient: 25-34 minutes Time was spent: preparing to see the patient(eg.review tests), obtaining and/or reviewing separately otained hiistory and indepentently interpreting results
[2022-10-11] MEDS: Simvastatin 20 MG TAB PO (19:46)
[2022-10-11] MEDS: Ibuprofen 600 MG TAB PO (21:05)
[2022-10-11] MEDS: Nystatin POWDER 15 GM JAR TP (21:05)
[2022-10-11] MEDS: Zolpidem 10 MG TAB PO (22:28)
[2022-10-11] MEDS: Mylanta Suspension 30 ML CUP PO (22:50)
[2022-10-12] VITALS (10 sets, daily range): BP systolic 107–145; BP diastolic 70–86; PULSE 67–74; RESP 5–22; TEMP 36.6–37.1; O2SAT 86–98
[2022-10-12] MEDS: Furosemide 40 MG TAB PO (07:40)
[2022-10-12] MEDS: amLODIPine 10 MG TAB PO (07:40)
[2022-10-12] MEDS: Multivitamin TAB 1 TAB PO (07:40)
[2022-10-12] MEDS: Lisinopril 20 MG TAB 40 MG PO (07:40)
[2022-10-12] MEDS: buPROPion-CR 150 MG TABCR PO (07:40)
[2022-10-12] MEDS: Pantoprazole 40 MG TABCR PO (07:40)
[2022-10-12] MEDS: Metoprolol CR 50 MG TABCR PO (07:40)
[2022-10-12] MEDS: Magnesium Oxide 400 MG TAB PO (07:40)
[2022-10-12] MEDS: Aspirin E.C. 81 MG TABEC PO (07:40)
[2022-10-12] MEDS: Potassium Chloride 20 MEQ TABCR PO (07:41)
[2022-10-12] MEDS: Nicotine 21 MG/24 HR PATCH TD (07:45)
[2022-10-12] MEDS: Acetaminophen 325 MG TAB PO ×2 (07:52→14:14)
[2022-10-12] MEDS: Albuterol/Ipratropium 3 ML UPD VIAL UPD ×2 (07:58→14:20)
[2022-10-12] MEDS: Budesonide/Formoterol 160/4.5 6 GM 60 PUFF INH IH (07:58)
[2022-10-12] MEDS: Fluticasone NASAL SPRAY 16 GM BTL NS (08:55)
--- NOTE | 2022-10-12 10:55 | DSE_ITS ---
Date of service: 10/12/22 Time of Service: 10:55 DS: Diagnosis Discharge Diagnosis (1) Pulmonary embolism and infarction: Status: Acute (2) Hypoxemia: Status: Acute (3) Chronic obstructive lung disease: Status: Chronic (4) Venous insufficiency (chronic) (peripheral): Status: Chronic (5) Obstructive sleep apnea syndrome: Status: Chronic (6) Essential hypertension: Status: Chronic Discharge Plan Disposition Patient Disposition: Home W/Home Health Services Condition: Stable Discharge Details Reason For Visit: Right Pulmonary Emboli, Hypoxemia Admit Date/Time: 10/05/22 22:30 Admit Provider: Van Damon Attending Provider: Van Damon Primary Care Provider: Cristhian Myers Hospital Course Hospital Course: This is a 61-year-old morbid obese patient with sleep apnea and chronic peripheral edema presented to the ED with shortness of breath, worsening over previous week. Work up in the ED showed right middle and lower pulmonary subsegmental pulmonary emboli with question of infarction.?She had significant oxygen requirements so was admitted to med/surg for stabilization. She is a smoker with copd and was also treated for copd exacerbation with doxycycline. she was never started on steroids. she remained with oxygen requirements, desatting to mid 80's on room air and requiring 3 liters at rest and 4 liters nc to maintain sats at 90% with ambulation and is ambulatory in her home. she is feeling overall improved and is requesting discharge to home. Orders placed for home oxygen, which may be required indefinitely. she is motivated to stop smoking and will be prescribed a nicotine patch with taper. she was treated with enoxaparin while hospitalized and will be discharged home on eliquis to start 10 mg po bid for 7 days, then 5 mg po bid for 3 months or as determined by outpatient team. her bilateral lower extremity ultrasounds negative for DVT, her echo showed Right ventricle is grossly normal in size. Right ventricular systolic function is grossly normal. Unable to assess PA pressure. EF 60%. She is stable for discharge to home and will follow up outpatient with her pcp. She will be discharged with new home health services in setting of new home oxygen and monitoring of illness/respiratory status, medication changes. discharge discussed with DR Tolliver. Home Meds and New Rx's Prescriptions: New Eliquis DVT-PE Treat 30D Start 5 mg (74 tabs) tablets,dose pack See Rx Instructions .ROUTE .COMPLEX Qty: 74 0RF Rx Instructions: orally per package directions nicotine 21-14-7 mg/24 hr patch, TD daily, sequential See Rx Instructions .ROUTE .COMPLEX Qty: 56 0RF Rx Instructions: apply 1-21 mg NICOTINE PATCH daily for 28 days; follow with 1-14 mg PATCH daily for 14 days, then 1-7mg PATCH daily for 14 days Continued clotrimazole-betamethasone 1-0.05 % cream 1 applic Topical BID PRN (Reason: rash) Qty: 45 3RF Rx Instructions: apply under breasts for itching/rash ibuprofen 600 mg tablet 600 mg PO TID PRN (Reason: pain) Qty: 180 3RF nystatin 100,000 unit/gram powder 1 applic topical TID PRN (Reason: rash) Qty: 60 4RF multivitamin [Multi-Day] 1 EACH tablet 1 ea PO DAILY aspirin [Aspir-81] 81 MG tablet,delayed release (DR/EC) 81 mg PO DAILY Qty: 90 albuterol sulfate 2.5 mg /3 mL (0.083 %) solution for nebulization 2.5 mg inhalation QID PRN (Reason: shortness of breath or wheezing) Qty: 90 1RF lisinopril 40 mg tablet 40 mg PO DAILY Qty: 90 4RF amoxicillin 500 mg tablet 2,000 mg PO ONCE Qty: 4 0RF Rx Instructions: TAKE 4 500MG TABS 30-60 MIN. PRIOR TO DENTAL WORK zolpidem [Ambien] 10 mg tablet 10 mg PO HS PRN (Reason: insomnia) Qty: 90 2RF metoprolol succinate 50 mg tablet extended release 24 hr 50 mg PO DAILY Qty: 90 3RF pantoprazole [Protonix] 40 mg tablet,delayed release (DR/EC) 40 mg PO DAILY Qty: 90 4RF Rx Instructions: 1 TAB DAILY budesonide-formoterol [Symbicort] 160-4.5 mcg/actuation HFA aerosol inhaler 2 puff Inhalation BID Qty: 1 3RF fluticasone propionate 50 mcg/actuation spray,suspension 2 spray NS DAILY Qty: 1 3RF Rx Instructions: 2 sprays each nostril once/day simvastatin 20 mg tablet 20 mg PO DAILY Qty: 90 3RF furosemide 40 mg tablet 40 mg PO DAILY Qty: 90 4RF acetaminophen 500 mg tablet 500 mg PO BID Qty: 60 3RF amlodipine 10 mg tablet 10 mg PO DAILY Qty: 90 4RF magnesium oxide 400 mg magnesium capsule 400 mg PO DAILY Qty: 90 4RF bupropion HCl 150 mg tablet sustained-release 12 hr 150 mg PO DAILY Qty: 90 4RF No Action (DME) Medial Offloader Brace See Rx Instructions .ROUTE .MEDSUPPLY Qty: 1 0RF Rx Instructions: Please apply to RIGHT knee for medial OA and valgus instability. Due to morbid obesity a custom brace is required. Discharge Instructions Instructions: Pulmonary Embolism (DC) Additional Instructions: wear oxygen as directed. NO smoking around oxygen equipment or you could get significantly burned or fatally injured, you could . use nicotine patches as directed. continue your coughing and deep breathing exercises and incentive spirometry and flutter valve as directed. take blood thinner as directed. since you are at increased risk for bleeding monitor for symptoms and reports immediately. Get emergency help?right away?(call )?if you: ?Have a serious accident, fall, hit your head, or get another serious injury that could cause bleeding. ?Throw up blood or something that looks like coffee grounds. ?Have a severe headache ?Have trouble talking, weakness, or loss of function of one of your arms or legs Call your doctor?right away?if you: ?Took more medicine than you were supposed to. ?Have any of these signs of abnormal bleeding: ?Feeling sick to your stomach ?Blood in your bowel movements or dark-colored bowel movements ?Headaches or dizziness ?Nosebleeds or any bleeding that does not stop ?Dark red or brown urine You should also tell your doctor if you: ?Bleed from your gums after brushing your teeth ?Have heavy menstrual periods or bleeding between periods ?Have more bruising than usual after a minor injury ?Have diarrhea, vomit, or are unable to eat for more than 24 hours ?Have a fever (temperature higher than 100.4?F or 38?C) ?Cannot take your medicine for any reason Stand Alone Forms: Nursing Discharge Form Referrals: Cristhian Myers NP [Primary Care Provider] - 10/22/22 2:20 pm Activity:: Activity as Tolerated Equipment/Supplies:: see respiratory order Diet:: As Tolerated DS: Summary Time Spent with Patient providing and/or coordinating discharge services: Greater than 30 minutes Status at Discharge Functional status at discharge: independent ambulation Overall status at discharge: patient is back to baseline Mental Status: mental status grossly normal Speech and Movement: speech and movement normal Mood: congruent mood Affect: normal affect Exam Const General: cooperative, comfortable and no acute distress Nutritional Appearance: obese Orientation: alert and awake [place] Head: normal to inspection, normocephalic and atraumatic Ears: hearing grossly normal bilaterally Mouth: moist mucous membranes Teeth and gingiva: poor dentition Eyes General: appearance normal, both eyes and all related structures Neck Neck: normal visual inspection and full ROM Resp Effort & Inspection: normal respiratory effort, able to speak in complete sentences and no respiratory distress Auscultation: diminished lung sounds, rhonchi (scattered coarse) and no wheezes Cardio Rate: regular rate Rhythm: regular rhythm Skin General skin exam: no rashes or lesions noted Neuro General: patient alert and patient awake Cognition: normal cognition Speech: speech normal Gait: normal gait Extrem General: normal to inspection and edema (bilateral, at baseline) Psych Appearance: grossly normal Mental Status: mental status grossly normal Speech and Movement: speech and movement normal Mood: congruent mood Affect: normal affect DS: Data Vitals/I&O Vitals and I&O: Vital Signs Temperature 36.6 C 10/12/22 07:32 Temperature Source Tympanic 10/12/22 07:32 Pulse 74 10/12/22 07:59 Pulse Rhythm Regular 10/12/22 07:50 Pulse 95 H 10/05/22 23:10 Respiratory Rate 18 10/12/22 07:59 Respiratory Effort Normal, Non-Labored 10/12/22 07:50 Respiratory Depth Normal 10/12/22 07:50 Respiratory Pattern Normal 10/12/22 07:50 Blood Pressure 145/86 H 10/12/22 07:32 Pulse Oximetry 86 L 10/12/22 08:04 Oxygen Delivery Method Room Air 10/12/22 08:04 Oxygen Flow Rate 0 10/12/22 08:04 Pain Level 2 10/12/22 07:52 Comment RN notified - assesing patient at this time 10/09/22 03:36 Intake & Output 10/11/22 10/11/22 10/12/22 11:59 23:59 11:59 Intake Total 480 / 480 Output Total 2350 / 3300 950 / 3300 700 / 700 Balance -2350 / -2820 -470 / -2820 -700 / -700 Weight 133.6 kg 133.8 kg Intake: Oral 480 / 480 Output: Urine 2350 / 3300 950 / 3300 700 / 700 Other: Urine Color Yellow Yellow Yellow Urine Appearance Clear Cloudy Clear Urine Odor Normal Normal Normal Comment voids independently Stool Size Moderate Stool Characteristics Soft Formed Voiding Methods Toilet Toilet Toilet PFSH All Active Problems (Updated 10/10/22 @ 14:37 by Kat Lara NP) Discharge planning issues (Acute) Pulmonary embolism (Chronic) Hypoxemia (Acute) Hypomagnesemia (Acute) Hypokalemia (Acute) COPD exacerbation (Acute) Pulmonary embolism and infarction (Acute) Hypoxemia (Acute) Acute dyspnea (Acute) Nail dystrophy (Acute) Right foot pain (Acute) 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 (Acute) Right knee pain (Acute) Chronic back pain (Chronic) Essential hypertension (Chronic) Hyperlipidemia (Chronic) Obstructive sleep apnea syndrome (Chronic) BiPAP Chronic obstructive lung disease (Chronic) Depressive disorder (Chronic) GERD (gastroesophageal reflux disease) (Chronic) Cigarette smoker (Chronic) Insomnia (Chronic) Osteoarthritis of right knee (Acute) Steroid injection: 08/19/2020; 04/15/2020 Venous insufficiency (chronic) (peripheral) (Chronic) Surgical History History of bilateral tubal ligation Hx of umbilical hernia repair S/P section S/P cholecystectomy S/P ORIF (open reduction internal fixation) fracture Right wrist Status post total knee replacement, left Family History Mother Essential hypertension Heart disease Hyperlipidemia Myocardial infarction Emphysema lung Stroke Skin cancer (melanoma) Father , 50 of [place] Essential hypertension Heart disease Hyperlipidemia Myocardial infarction Stroke Sister Essential hypertension Sister Emphysema lung Sister Hyperlipidemia Brother Essential hypertension Depression Emphysema lung Asthma Liver cancer Son , 30 from [place] Sleep apnea Myocardial infarction Daughter Sleep apnea Asthma Maternal Grandfather Lung cancer Maternal Grandmother Colon cancer Hypertension Heart disease Paternal Grandfather Parkinson's disease Paternal Grandmother Uterine cancer Social History Smoking/Tobacco Use Status: Current every day Tobacco Type: cigarettes Smoking packs per day: 1 Smoking cigarettes per day: 20.0 Years smoked: 39 Smoking pack- years: 39.00 Smoking risk assessment performed?: Yes Alcohol Intake: current Alcohol Intake frequency: a few times a month Alcohol type: hard liquor Drug use: Never Caregiver/Support person: Yes Household members: family and friend(s) Communication Needs: None Do you need help understanding health information?: Rarely Pets and animals: Yes Pets and animals: cat(s) Sexually active: Yes Do you think of yourself as: straight/heterosexual Current gender identity: female What is your relationship status?: refused to answer How often do you talk on the phone with friends or family?: twice per week How often do you get together with friends or relatives?: once per week How often do you attend synagogue or anabaptist services?: decline to answer Do you belong to any clubs or organized social groups?: no Panel score (0-1 are the most socially isolated patients): 1 What type of physical activity do you participate in: none Frequency: does not exercise Jessica/Adventism: None Agree to transfusion: No Seatbelt use: always Helmet use: Yes Helmet use: always Drive intox or ride w/intox test car driver: No Do you feel safe at home: Yes Do you feel safe in your relationship?: Yes Time Spent with Patient Time Spent with Patient: 45-69 minutes Time was spent: preparing to see the patient(eg.review tests), ordering medications,tests, procedures, referring, communicating with other health long term care social worker, indepentently interpreting results, counseling the patient and care coordination
[2022-10-12] MEDS: Ibuprofen 600 MG TAB PO (11:31)
--- NOTE | 2022-10-12 16:31 | PDOC.CMDIS ---
- If Service Date Differs Date of service: 10/12/22 Time of Service: 16:31 LACE Index Scoring Tool - Questions: Length of Stay (in days): 7 - 13 Acuity (Admit via E.D.?): Yes Comorbidities: Chronic Pulmonary Disease E.D. Visits: 1 - Answers: Total Score: 11 Risk of Readmission: High Risk Care Management Discharge Reason for Hospitalization: Right Pulmonary emboli, hypoxemia Discharge Plan: Deepa returned home today with new orders for HH RN and new home O2. RT provided an oxygen concentrator from [facility] to Deepa for her to use at home until [facility] is able to get to her home and set up her home O2 system. Her daughter, Hilda, drove her home via private vehicle. She will follow up with her PCP and discharge plan of care. She is happy to be going home. Patient/Family Education Needs: Review discharge instructions and limitations, discussion of self care needs including ask me three. Services Needed at Discharge: Home Health Care Services (HH RN), Oxygen Therapy (O2, [facility])
--- NOTE | 2022-10-12 18:16 | RESPIRATORY ---
Patient discharged home with [facility] Concent[facility] Rental #[id number] with a prescription of 3L at rest and 4L with ambulation.
--- NOTE | 2022-10-23 11:00 | PGE_ITS ---
Date of Service Date of service: 10/08/22 Time of Service: 12:00 Assessment and Plan Assessment and plan (1) Pulmonary embolism and infarction: Status: Acute Assessment and plan: [place] at discharge, continue enoxaparin while hospitalized Venous Dopplers of the lower extremities negative Echocardiogram shows right ventricle is grossly normal in size and function She is a full code. continues to have oxygen requirements, wean as able, continue pulmonary toileting. oxygen may be needed at discharge (2) Hypoxemia: Status: Acute Assessment and plan: Associated with acute pulmonary emboli and possibly secondary to worsened COPD Oxygen supplementation, wean as able Maximize respiratory treatments Patient was not usually on home oxygen. (3) Chronic obstructive lung disease: Status: Chronic Assessment and plan: Slightly exacerbated with question of bronchitis continue doxycycline day 4/5 continue respiratory treatments. Qualifiers: COPD type: emphysema Emphysema type: panlobular Qualified Code(s): J43.1 - Panlobular emphysema (4) Venous insufficiency (chronic) (peripheral): Status: Chronic Assessment and plan: Chronic swelling lower extremity Venous Dopplers negative Continue furosemide and potassium/magnesium supplementation. (5) Hypokalemia: Start date: 10/05/22 Status: Resolved Assessment and plan: Patient is chronically on Lasix at home as well as lisinopril and is usually not on potassium supplementation. Treated acute hypokalemia orally with magnesium supplement as well. This may need to be a long-term supplement but could be treated by PCP. (6) Hypomagnesemia: Status: Resolved Assessment and plan: Repleted with IV magnesium sulfate with the patient chronically on oral magnesium as an outpatient. (7) Obstructive sleep apnea syndrome: Status: Chronic Assessment and plan: Slightly exacerbated with continuation of aggressive nebulizer treatments and respiratory care. Patient now is on oxygen which may become chronic. Treat for bronchitis. (8) Essential hypertension: Status: Chronic Assessment and plan: blood pressure stable, continue routine monitoring. (9) Discharge planning issues: Status: Deleted Assessment and plan: discharge canceled today as we were unable to secure home oxygen. plan to remain here over the weekend until [facility] available on Wednesday will need home health nursing for new oxygen at discharge. case management following. discussed with Dr Tolliver Subjective Subjective Patient reports: no new complaints Interval history since last seen: Awake, alert, sitting on the side of the bed with 2 lpm oxygen via NC with SPO2 90% at rest. Speaking in full sentences. Exam Const General: cooperative, comfortable and no acute distress Nutritional Appearance: obese Orientation: alert and awake [facility] Head: normal to inspection, normocephalic and atraumatic Ears: hearing grossly normal bilaterally Mouth: moist mucous membranes Teeth and gingiva: poor dentition Eyes General: appearance normal, both eyes and all related structures Neck Neck: normal visual inspection and full ROM Resp Effort & Inspection: normal respiratory effort, able to speak in complete sentences and no respiratory distress Auscultation: diminished lung sounds, rhonchi (scattered coarse) and no wheezes Cardio Rate: regular rate Rhythm: regular rhythm Skin General skin exam: no rashes or lesions noted Neuro General: patient alert and patient awake Cognition: normal cognition Speech: speech normal Gait: normal gait Extrem General: normal to inspection and edema (bilateral, at baseline) Psych Appearance: grossly normal Mental Status: mental status grossly normal Speech and Movement: speech and movement normal Mood: congruent mood Affect: normal affect Objective Last Vital Signs Temp 37.0 C 10/12/22 15:29 Pulse 73 10/12/22 15:29 Resp 18 10/12/22 15:29 BP 143/83 H 10/12/22 15:29 Pulse Ox 93 10/12/22 15:29 PAWSS Have you Been Recently Intoxicated or Drunk Within the Last 30 days?: No Have you Ever Experienced Previous Episodes of Alcohol Withdrawal?: No Have you ever Experienced Withdrawal Seizures?: No Have you ever Experienced Delirium Tremens(DT)s?: No Have you ever undergone Alcohol Rehabilitation Treatment (i.e, inpt ot outpatient treatment programs)?: No Have you ever Experienced Blackouts?: No Have you ever Combined Alcohol with other Downers within the last 90 days?: No Have you ever Combined Alcohol with any other Substance of Abuse during the last 90 days?: No Positive Blood Alcohol level on Presentation? [PCS.BAL]: No Evidence of Increased Autonomic Activity (i.e. HR>120, tremor, sweating, agitation, nausea)?: No Result: 0 Time Spent with Patient Time Spent with Patient: 35-49 minutes Time was spent: preparing to see the patient(eg.review tests), ordering medications,tests, procedures, indepentently interpreting results, counseling the patient and care coordination
== END 2022-10-12 17:54 | disposition home health service (06) | DRG 176 ==
LOC: ER 23:30 → MS 23:32
PROVIDERS: Internal Medicine; Nurse Practitioner Family; Admitting Provider Family Medicine; Emergency Provider Physician Assistant; PCP Nurse Practitioner Family; Visit Provider Family Medicine
DX: I26.99 Other pulmonary embolism without acute cor pulmonale (principal); Z68.43 Body mass index [BMI] 50.0-59.9, adult; E66.2 Morbid (severe) obesity with alveolar hypoventilation; I10 Essential (primary) hypertension; E78.5 Hyperlipidemia, unspecified; F32.A Depression, unspecified; K21.9 Gastro-esophageal reflux disease without esophagitis; F17.210 Nicotine dependence, cigarettes, uncomplicated; I87.2 Venous insufficiency (chronic) (peripheral); R09.02 Hypoxemia; E83.42 Hypomagnesemia; E87.6 Hypokalemia; G89.29 Other chronic pain; M54.9 Dorsalgia, unspecified; G47.00 Insomnia, unspecified; Z96.652 Presence of left artificial knee joint; J43.1 Panlobular emphysema; R60.0 Localized edema; J20.9 Acute bronchitis, unspecified
CPT/HCPCS: 36415; 71275; 80048; 80053; 82805; 85027; 87637; 93005; 93306; 94618; 94640; 96372; 96374; 99285; 71045; 81003; 81015; 83036; 83735; 83880; 84439; 84443; 84484; 85025; 85379; 85610; 85730; 93010; 93970; 94664; 94668; 94760; 99223; 99232; 99233; 99239; J1650; J1940; J2930; J3475; J3490; J7613; J7620

== ENCOUNTER → 2023-01-27 01:20 | Outpatient (CLI) | payer MEDICARE, MEDICAID, SELFPAY ==
--- NOTE | 2023-01-27 08:00 | DI.NM_ITS ---
Exam(s) NM LUNG SCAN VENT PERF GRP EXAM: NM LUNG SCAN VENT PERF GRP CLINICAL HISTORY: ? cteph,chronic resp failure,pe,infarction,j96.11,i26.99,z99.81. TECHNIQUE: Injected Dose: Ventilation: 34.0 mCi Tc-99m DTPA via inhalation Perfusion: 4 mCi Tc-99m MAA via IV COMPARISON: CR,XR XR PORTABLE CHEST AP from 10/05/2022 CR XR CHEST 2V PA LATERAL from 01/27/2023 FINDINGS: Chest X-Ray: Clear lungs. Perfusion: Normal. Ventilation:Normal slight clumping of the radiopharmaceutical near the dora. Otherwise normal. IMPRESSION: 1. Low probability VQ examination. . . . Modified PIOPED II criteria Probability Criteria High Two or more segments of V/Q mismatch Low Normal Perfusion, Non segmental perfusion abnormalitie s, pleural effusion in at least 1/3 of pleural cavity with no other defect Radiograph/perfusion matched defect in mid to upper lung confined to segment, one to three small segmental perfusion defects (<25% of segment) Perfusion defect smaller than corresponding radiogra phic lesion. Intermediate All other findings DATA REPOSITORY:
--- NOTE | 2023-01-27 08:00 | DI.RAD_ITS ---
Exam(s) XR CHEST 2V PA LATERAL EXAM: XR CHEST 2V PA LATERAL CLINICAL HISTORY: f/u pulmonary embolism, i26.99 TECHNIQUE: 2D digital imaging was performed. COMPARISON: CR,XR XR PORTABLE CHEST AP from 10/05/[address] CHEST PE CTA from 10/05/2022 FINDINGS: Exam is limited by poor penetration at the lung bases. HEART: Normal size. Aorta: Not dilated. PULMONARY VASCULATURE: Normal. LUNGS: Grossy clear. PLEURAL SPACE: No pleural effusion or pneumothorax. BONE:Stable severe degenerative changes and kyphosis in the lower thoracic spine mild anterior wedgin g of the T11 vertebral body. IMPRESSION: No acute abnormality. DATA REPOSITORY: RADIATION DOSE DELIVERED:
== END ==
PROVIDERS: PCP Nurse Practitioner Family; Visit Provider Physician Assistant Surgical
DX: J96.11 Chronic respiratory failure with hypoxia; Z99.81 Dependence on supplemental oxygen; I26.99 Other pulmonary embolism without acute cor pulmonale
CPT/HCPCS: 78582; 94618; 71046

== ENCOUNTER 2023-01-27 03:13 | Outpatient (CLI) | payer MEDICARE, MEDICAID, SELFPAY ==
--- NOTE | 2023-01-29 13:07 | W.6MWT ---
Date of service: 01/27/23 Time of Service: 14:17 6 Minute Walk Test Note: 6 Minute Walk Test Distance walked:350 feet Desaturations: 96% on 3LPM at rest which dropped to 88% with exertion. No increase in supplemental O2 needed. Heart rate changes: 68bpm at rest increased significantly to 130bpm at 5 min 30 seconds Recommendation: 3LPM supplementation oxygen required. Lina Pulliam MD Pulmonary & Critical Care Medicine
== END 2023-01-27 03:14 | disposition home or self-care (01) ==
PROVIDERS: PCP Nurse Practitioner Family; Visit Provider Physician Assistant Surgical
DX: J96.11 Chronic respiratory failure with hypoxia (principal); Z99.81 Dependence on supplemental oxygen
CPT/HCPCS: 94618

== ENCOUNTER 2023-02-25 11:33 | Emergency (ER) | payer MEDICARE, MEDICAID, SELFPAY ==
[2023-02-25 11:46] VITALS: BP 166/102; PULSE 108; RESP 24; TEMP 36.9; O2SAT 93
--- NOTE | 2023-02-25 12:00 | DI.RAD_ITS ---
Exam(s) XR KNEE RT 3V AP,LAT,ARIELLE EXAM: XR KNEE RT 3V AP,LAT,ARIELLE CLINICAL HISTORY: Fall, Swelling, contusion. TECHNIQUE: 2D digital imaging was performed. Three views. COMPARISON: CR XR KNEE RT 4V AP,LAT,ARIELLE,PAT from 04/15/2020 FINDINGS: BONES: No acute fracture is present. No bony destructive lesion is seen. JOINTS: Severe narrowing medial femoral tibial joint space with prominent periarticular spurring. Pe riarticular spurring also seen at the lateral tibial and patellofemoral joints. No joint effusion is seen. SOFT TISSUE: Marked anterior soft tissue swelling. IMPRESSION: Anterior soft tissue swelling. Degenerative changes. DATA REPOSITORY: RADIATION DOSE DELIVERED:
--- NOTE | 2023-02-25 12:00 | DI.RAD_ITS ---
Exam(s) XR CHEST 1V IN DI DEPT EXAM: XR CHEST 1V IN DI DEPT CLINICAL HISTORY: Fall, Rigt rib pain TECHNIQUE: 2D digital imaging was performed. COMPARISON: CR XR CHEST 2V PA LATERAL from 01/27/2023 FINDINGS: Exam extremely rib limited due to portable technique and patient body habitus. LUNGS: Upper lobes grossly clear. Lower lobes obscured. No pleural abnormality seen. HEART: Normal size. AORTA: Normal diameter. BONES: Unremarkable for age. No rib fracture identified. Shoulders are unremarkable as visualized. Spine obscured. Soft tissues: Unremarkable. IMPRESSION: Severely limited exam. No acute findings. No evidence of pneumothorax. DATA REPOSITORY: RADIATION DOSE DELIVERED:
--- NOTE | 2023-02-25 12:00 | W.ED.GENAD ---
Discharge Plan Disposition Patient Disposition: Home Condition: Stable Discharge Details Clinical Impression: Fall, Chest wall contusion, Traumatic hematoma of right knee Primary Care Provider: Cristhian Myers ED Provider: America Valdes Home Meds and New Rx's Prescriptions: Continued clotrimazole-betamethasone 1-0.05 % cream 1 applic Topical BID PRN (Reason: rash) Qty: 45 3RF Rx Instructions: apply under breasts for itching/rash ibuprofen 600 mg tablet 600 mg PO TID PRN (Reason: pain) Qty: 180 3RF albuterol sulfate 2.5 mg /3 mL (0.083 %) solution for nebulization 2.5 mg inhalation QID PRN (Reason: shortness of breath or wheezing) Qty: 90 3RF albuterol sulfate 1.25 mg/3 mL solution for nebulization 1.25 mg inhalation QID PRN (Reason: shortness of breath or wheezing) Qty: 90 3RF nystatin 100,000 unit/gram powder 1 applic topical TID PRN (Reason: rash) Qty: 60 4RF multivitamin [Multi-Day] 1 EACH tablet 1 ea PO DAILY aspirin [Aspir-81] 81 MG tablet,delayed release (DR/EC) 81 mg PO DAILY Qty: 90 (DME) Medial Offloader Brace See Rx Instructions .ROUTE .MEDSUPPLY Qty: 1 0RF Rx Instructions: Please apply to RIGHT knee for medial OA and valgus instability. Due to morbid obesity a custom brace is required. amoxicillin 500 mg tablet 2,000 mg PO ONCE Qty: 4 0RF Rx Instructions: TAKE 4 500MG TABS 30-60 MIN. PRIOR TO DENTAL WORK pantoprazole [Protonix] 40 mg tablet,delayed release (DR/EC) 40 mg PO DAILY Qty: 90 4RF Rx Instructions: 1 TAB DAILY fluticasone propionate 50 mcg/actuation spray,suspension 2 spray NS DAILY Qty: 1 3RF Rx Instructions: 2 sprays each nostril once/day simvastatin 20 mg tablet 20 mg PO DAILY Qty: 90 3RF furosemide 40 mg tablet 40 mg PO DAILY Qty: 90 4RF magnesium oxide 400 mg magnesium capsule 400 mg PO DAILY Qty: 90 4RF bupropion HCl 150 mg tablet sustained-release 12 hr 150 mg PO DAILY Qty: 90 4RF zolpidem [Ambien] 10 mg tablet 10 mg PO HS PRN (Reason: insomnia) Qty: 90 2RF albuterol sulfate 90 mcg/actuation HFA aerosol inhaler 2 puff inhalation QID PRN (Reason: shortness of breath or wheezing) Qty: 8.5 3RF diclofenac epolamine [Flector] 1.3 % patch 12 hour 1 patch topical BID Qty: 30 5RF Incruse Ellipta 62.5 mcg/actuation blister with device 1 inh inhalation DAILY Qty: 30 12RF apixaban 5 mg tablet 5 mg PO BID Qty: 180 3RF acetaminophen 500 mg tablet 1,000 mg PO BID Qty: 180 3RF amlodipine 10 mg tablet 10 mg PO DAILY Qty: 90 4RF lisinopril 40 mg tablet 40 mg PO DAILY Qty: 90 4RF budesonide-formoterol [Symbicort] 160-4.5 mcg/actuation HFA aerosol inhaler 2 puff Inhalation BID Qty: 1 3RF metoprolol succinate 50 mg tablet extended release 24 hr 50 mg PO DAILY Qty: 90 3RF nicotine 21-14-7 mg/24 hr patch, TD daily, sequential See Rx Instructions .ROUTE .COMPLEX Qty: 56 0RF Rx Instructions: apply 1-21 mg NICOTINE PATCH daily for 28 days; follow with 1-14 mg PATCH daily for 14 days, then 1-7mg PATCH daily for 14 days nicotine 21 mg/24 hr patch 24 hour 1 patch transdermal DAILY Qty: 28 0RF Discharge Instructions Instructions: Contusion in Adults (ED), Fall Prevention (ED) Additional Instructions: No evidence of rib fractures noted on your images. No fluid within the joint space of your right knee. You do have narrowing noted of the bone space to your knee. Please keep the bandage on daily. You may take it off as needed for comfort. Ice on the knee for 20 minutes for the next 2 to 3 days. Keep the knee elevated as much as possible when sitting or lying down. Please take Tylenol or Ibuprofen with food every 4-6 hours as needed for pain and swelling. You may also apply lidocaine patches which you can get [id number] to the chest wall area Follow up with primary care provider in 3-5 days. Return to ED sooner if any worsening or concerns. Increase oral fluids. Referrals: Louis,Cristhian R, COMMUNICATIONS REPRESENTATIVE [Primary Care Provider] - 5 days Medical Decision Making 62-year-old female with a past medical history of COPD on 3 L nasal cannula, hypomagnesemia, class III obesity, depression who is a cigarette smoker, insomnia and venous insufficiency who is on Eliquis presents to the ER with a chief complaint of fall which occurred at 1 AM this morning. She reports that she fell in her kitchen after tripping over her oxygen tubing she landed on her right knee and hit her the right side of her chest wall. She does complain of some right lateral rib pain denies any abdominal pain, right knee pain and swelling there is ecchymosis noted over anterior knee and moderate swelling noted. Distal CMS is intact. She did not hit her head denies any loss of consciousness denies any neck or back pain. She also notes some right shoulder pain however she is moving her right shoulder without any difficulty and no obvious deformity ecchymosis or swelling noted. 1331: Received call from [facility] who states that they are having difficulty obtaining adequate images due to patients habitus, and patient positioning, CT chest W/O ordered to eval and rule out rib fractures CT shows no evidence of rib fractures. X-ray shows spurring which appears chronic no effusion soft tissue swelling. Patient placed in Noah wrap given a lidocaine patch and oxycodone here in the department. Discussed follow-up care with PCP. This text was generated using [employer] dictation system, please disregard any oddities of phrase or misspellings. Imaging Data Radiologic Study: Imaging: CT Scan Radiologist's impression: FINDINGS: Pulmonary parenchyma: No consolidation. No dominant measurable mass. mild emphysematous changes. Tracheobronchial tree: No bronchiectasis or mucous plugging. Mediastinum and Kika: No dominant adenopathy or fluid collection. Pleura: No effusion. No pneumothorax. Heart: The heart is not dilated. Minimal coronary artery calcifications are seen. Aorta: Thoracic aorta non-dilated. Mild atherosclerotic changes. Upper abdomen: Enlarged fatty liver. Status post cholecystectomy. Bones: Severe degenerative changes in the lower thoracic and upper lumbar spine. No spine or rib fracture. Visualized portions of the shoulders are unremarkable. Sternum is intact. Soft tissues: Unremarkable. IMPRESSION: No acute abnormality. Radiologic Study #2: Imaging: X-Ray Radiologist's impression: EXAM: XR KNEE RT 3V AP,LAT,ARIELLE CLINICAL HISTORY: Fall, Swelling, contusion. TECHNIQUE: 2D digital imaging was performed. Three views. COMPARISON: CR XR KNEE RT 4V AP,LAT,ARIELLE,PAT from 04/15/2020 FINDINGS: BONES: No acute fracture is present. No bony destructive lesion is seen. JOINTS: Severe narrowing medial femoral tibial joint space with prominent periarticular spurring. Periarticular spurring also seen at the lateral tibial and patellofemoral joints. No joint effusion is seen. SOFT TISSUE: Marked anterior soft tissue swelling. IMPRESSION: Anterior soft tissue swelling. Degenerative changes. HPI General Mode of arrival: ambulatory. Date/Time Provider Initiated Documentation: 02/25/23 11:59. Limitations to Documentation: no limitations. Information obtained by: patient, RN notes reviewed and old records reviewed. HPI Narrative: 62-year-old female with a past medical history of COPD on 3 L nasal cannula, hypomagnesemia, class III obesity, depression who is a cigarette smoker, insomnia and venous insufficiency who is on Eliquis presents to the ER with a chief complaint of fall which occurred at 1 AM this morning. She reports that she fell in her kitchen after tripping over her oxygen tubing she landed on her right knee and hit her the right side of her chest wall. She does complain of some right lateral rib pain denies any abdominal pain, right knee pain and swelling there is ecchymosis noted over anterior knee and moderate swelling noted. Distal CMS is intact. She did not hit her head denies any loss of consciousness denies any neck or back pain. She also notes some right shoulder pain however she is moving her right shoulder without any difficulty and no obvious deformity ecchymosis or swelling noted. Related Data Home Medications Medication Instructions Recorded Confirmed multivitamin (Multi-Day tablet) 1 ea PO DAILY 09/02/12 02/25/23 aspirin 81 mg tablet,delayed 81 mg PO DAILY #90 tab-caps 07/10/16 02/25/23 release (Aspir-) nystatin 100,000 unit/gram topical 1 applic topical TID PRN rash #60 04/14/20 02/25/23 powder grams clotrimazole-betamethasone 1 1 applic topical BID PRN rash #45 11/27/20 02/25/23 %-0.05 % topical cream grams Medial Offloader Brace #1 ea 12/02/20 02/25/23 amoxicillin 500 mg tablet 2,000 mg PO ONCE #4 tabs 12/11/21 02/25/23 pantoprazole 40 mg tablet,delayed 40 mg PO DAILY #90 tab-caps 05/20/22 02/25/23 release (Protonix) fluticasone propionate 50 2 spray NS DAILY #1 g 05/29/22 02/25/23 mcg/actuation nasal spray,suspension ibuprofen 600 mg tablet 600 mg PO TID PRN pain #180 tabs 06/04/22 02/25/23 simvastatin 20 mg tablet 20 mg PO DAILY #90 tabs 07/15/22 02/25/23 furosemide 40 mg tablet 40 mg PO DAILY #90 tab-caps 08/13/22 02/25/23 magnesium oxide 400 mg PO DAILY #90 caps 09/24/22 02/25/23 bupropion HCl 150 mg tablet,12 hr 150 mg PO DAILY #90 tab-caps 09/30/22 02/25/23 sustained-release nicotine See Rx Instructions transdermal 10/09/22 02/25/23 21mg/24hr-14mg/24hr-7mg/24hr daily .COMPLEX #56 patches transderm patches,sequentl nicotine 21 mg/24 hr daily 1 patch transdermal DAILY #28 ea 10/12/22 02/25/23 transdermal patch zolpidem 10 mg tablet (Ambien) 10 mg PO HS PRN insomnia #90 tabs 10/14/22 02/25/23 albuterol sulfate 1.25 mg/3 mL 1.25 mg (3 mL) inhalation QID PRN 10/19/22 02/25/23 solution for nebulization shortness of breath or wheezing #90 mL albuterol sulfate 2.5 mg/3 mL 2.5 mg (3 mL) inhalation QID PRN 10/19/22 02/25/23 (0.083 %) solution for nebulization shortness of breath or wheezing #90 mL albuterol sulfate 90 mcg/actuation 2 puff inhalation QID PRN 10/26/22 02/25/23 aerosol inhaler shortness of breath or wheezing #8.5 grams diclofenac epolamine 1.3 % 1 patch topical BID #30 ea 10/30/22 02/25/23 transdermal 12 hour patch (Flector) umeclidinium 62.5 mcg/actuation 1 inh inhalation DAILY #30 ea 11/02/22 02/25/23 blister powder for inhalation (Incruse Ellipta) apixaban 5 mg tablet 5 mg PO BID #180 tabs 11/11/22 02/25/23 acetaminophen 500 mg tablet 1,000 mg PO BID #180 tabs 11/30/22 02/25/23 amlodipine 10 mg tablet 10 mg PO DAILY #90 tab-caps 11/30/22 02/25/23 lisinopril 40 mg tablet 40 mg PO DAILY #90 tabs 11/30/22 02/25/23 budesonide-formoterol HFA 160 2 puff inhalation BID ##1 12/17/22 02/25/23 mcg-4.5 mcg/actuation aerosol inhaler (Symbicort) metoprolol succinate 50 mg 50 mg PO DAILY #90 tabs 02/17/23 02/25/23 tablet,extended release 24 hr Previous Rx's Medication Instructions Recorded nystatin 100,000 unit/gram topical 1 applic topical TID PRN rash #60 04/14/20 powder grams clotrimazole-betamethasone 1 1 applic topical BID PRN rash #45 11/27/20 %-0.05 % topical cream grams Medial Offloader Brace #1 ea 12/02/20 amoxicillin 500 mg tablet 2,000 mg PO ONCE #4 tabs 12/11/21 pantoprazole 40 mg tablet,delayed 40 mg PO DAILY #90 tab-caps 05/20/22 release (Protonix) fluticasone propionate 50 2 spray NS DAILY #1 g 05/29/22 mcg/actuation nasal spray,suspension ibuprofen 600 mg tablet 600 mg PO TID PRN pain #180 tabs 06/04/22 simvastatin 20 mg tablet 20 mg PO DAILY #90 tabs 07/15/22 furosemide 40 mg tablet 40 mg PO DAILY #90 tab-caps 08/13/22 magnesium oxide 400 mg PO DAILY #90 caps 09/24/22 bupropion HCl 150 mg tablet,12 hr 150 mg PO DAILY #90 tab-caps 09/30/22 sustained-release nicotine See Rx Instructions transdermal 10/09/22 21mg/24hr-14mg/24hr-7mg/24hr daily .COMPLEX #56 patches transderm patches,sequentl nicotine 21 mg/24 hr daily 1 patch transdermal DAILY #28 ea 10/12/22 transdermal patch zolpidem 10 mg tablet (Ambien) 10 mg PO HS PRN insomnia #90 tabs 10/14/22 albuterol sulfate 1.25 mg/3 mL 1.25 mg (3 mL) inhalation QID PRN 10/19/22 solution for nebulization shortness of breath or wheezing #90 mL albuterol sulfate 2.5 mg/3 mL 2.5 mg (3 mL) inhalation QID PRN 10/19/22 (0.083 %) solution for nebulization shortness of breath or wheezing #90 mL albuterol sulfate 90 mcg/actuation 2 puff inhalation QID PRN 10/26/22 aerosol inhaler shortness of breath or wheezing #8.5 grams diclofenac epolamine 1.3 % 1 patch topical BID #30 ea 10/30/22 transdermal 12 hour patch (Flector) umeclidinium 62.5 mcg/actuation 1 inh inhalation DAILY #30 ea 11/02/22 blister powder for inhalation (Incruse Ellipta) apixaban 5 mg tablet 5 mg PO BID #180 tabs 11/11/22 acetaminophen 500 mg tablet 1,000 mg PO BID #180 tabs 11/30/22 amlodipine 10 mg tablet 10 mg PO DAILY #90 tab-caps 11/30/22 lisinopril 40 mg tablet 40 mg PO DAILY #90 tabs 11/30/22 budesonide-formoterol HFA 160 2 puff inhalation BID ##1 12/17/22 mcg-4.5 mcg/actuation aerosol inhaler (Symbicort) metoprolol succinate 50 mg 50 mg PO DAILY #90 tabs 02/17/23 tablet,extended release 24 hr Allergies Allergy/AdvReac Type Severity Reaction Status Date / Time citalopram AdvReac INSOMNIA; Verified 02/25/23 11:54 DIZZINESS General Stated Complaint: Fall/Non TraumaCriteria DAISHA: 4 Review of Systems All systems reviewed & are unremarkable except as noted in HPI and below Musculoskeletal Musculoskeletal: Reports as per HPI, Denies back pain, Reports arthralgias and Reports joint swelling PFSH All Active Problems (Updated 02/25/23 @ 14:37 by America Valdes NP) Fall (Acute) Chest wall contusion (Acute) Traumatic hematoma of right knee (Acute) Muscle pain (Acute) 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, on home O2 therapy (Acute) Pulmonary embolism (Chronic) Hypoxemia (Acute) Hypomagnesemia (Acute) Hypokalemia (Acute) COPD exacerbation (Acute) Pulmonary embolism and infarction (Acute) Hypoxemia (Acute) Acute dyspnea (Acute) Nail dystrophy (Acute) Right foot pain (Acute) 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 (Acute) Right knee pain (Acute) Chronic back pain (Chronic) Essential hypertension (Chronic) Hyperlipidemia (Chronic) Obstructive sleep apnea syndrome (Chronic) BiPAP Chronic obstructive lung disease (Chronic) Depressive disorder (Chronic) GERD (gastroesophageal reflux disease) (Chronic) Cigarette smoker (Chronic) Insomnia (Chronic) Osteoarthritis of right knee (Acute) Steroid injection: 08/19/2020; 04/15/2020 Venous insufficiency (chronic) (peripheral) (Chronic) Surgical History History of bilateral tubal ligation Hx of umbilical hernia repair S/P section S/P cholecystectomy S/P ORIF (open reduction internal fixation) fracture Right wrist Status post total knee replacement, left Family History Mother Essential hypertension Heart disease Hyperlipidemia Myocardial infarction Emphysema lung Stroke Skin cancer (melanoma) Father , 50 of [place] Essential hypertension Heart disease Hyperlipidemia Myocardial infarction Stroke Sister Essential hypertension Sister Emphysema lung Sister Hyperlipidemia Brother Essential hypertension Depression Emphysema lung Asthma Liver cancer Son , 30 from [place] Sleep apnea Myocardial infarction Daughter Sleep apnea Asthma Maternal Grandfather Lung cancer Maternal Grandmother Colon cancer Hypertension Heart disease Paternal Grandfather Parkinson's disease Paternal Grandmother Uterine cancer Social History Smoking/Tobacco Use Status: Current every day Tobacco Type: cigarettes Smoking packs per day: 1 Smoking cigarettes per day: 20.0 Years smoked: 39 Smoking pack-years: 39.00 Smoking risk assessment performed?: Yes Alcohol Intake: current Alcohol Intake frequency: a few times a month Alcohol type: hard liquor Drug use: Never Caregiver/Support person: Yes Household members: family and friend(s) Communication Needs: None Do you need help understanding health information?: Rarely Pets and animals: Yes Pets and animals: cat(s) Sexually active: Yes Do you think of yourself as: straight/heterosexual Current gender identity: female What is your relationship status?: refused to answer How often do you talk on the phone with friends or family?: twice per week How often do you get together with friends or relatives?: once per week How often do you attend hinduism or buddhist services?: decline to answer Do you belong to any clubs or organized social groups?: no Panel score (0-1 are the most socially isolated patients): 1 What type of physical activity do you participate in: none Frequency: does not exercise Jessica/Samaritan: None Agree to transfusion: No Seatbelt use: always Helmet use: Yes Helmet use: always Drive intox 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 Obese, appears chronically ill on 3 L nasal cannula sitting in wheelchair with family at bed Skin: Warm and Dry HEENT: Head: No palpable deformities, Normocephalic Eyes: Pupils PERRLA, EOM's intact. No periorbital eccymosis or step off Ears: Canal patent. Tympanic membranes are clear . No rivas's sign, no hemptympanum. Nose/Face: Atraumatic. Facial bones nontender to palpation and stable with manipulation. Mouth/Throat: No intraoral trauma. Teeth and mandible are intact. Neck: No midline tenderness, no step off, no deformity to palpation of C-spine. Trachea midline. Chest: No surface trauma. Nontender without crepitus or deformity. Lungs clear to ausculatation bilaterally. Heart: RRR, no rubs, murmurs or gallop. Abdomen: No abrasions, ecchymosis, or surface trauma. Nondistended. Nontender to palpation no guarding, rebound, or rigidity. Pelvis: Nontender to palpation and stable to compression. Femoral pulses strong and equal Extremities: no surface trauma. Sensation intact. Peripheral pulses intact and equal. Neuro: ANO x4, GCS 15, cranial nerves II through XII intact. Motor and sensory exam nonfocal. Reflexes are symmetric. Course Vital Signs Vital signs: Vital Signs Temperature 36.9 C 02/25/23 11:46 Pulse 108 H 02/25/23 11:46 Respiratory Rate 24 02/25/23 11:46 Blood Pressure 166/102 H 02/25/23 11:46 Pulse Oximetry 93 02/25/23 11:46 Temperature 36.9 C 02/25/23 11:46 Temperature Source Skin 02/25/23 11:46 Pulse 108 H 02/25/23 11:46 Respiratory Rate 24 02/25/23 11:46 Blood Pressure 166/102 H 02/25/23 11:46 Blood Pressure Position Sitting 02/25/23 11:46 Pulse Oximetry 93 02/25/23 11:46 Oxygen Delivery Method Room Air 02/25/23 11:46 Oxygen Flow Rate 0 02/25/23 11:46 Pain Level 9 02/25/23 11:46
[2023-02-25] MEDS: oxyCODONE 5 MG TAB PO (12:15)
--- NOTE | 2023-02-25 13:30 | DI.CT_ITS ---
Exam(s) CT CHEST WO EXAM: CT CHEST WO CLINICAL HISTORY: Fall, Right rib pain, r/O fracture TECHNIQUE: Imaging Protocol: Axial computed tomography images with coronal and sagittal reformatted images were created and reviewed CONTRAST MATERIAL: Intravenous: Omnipaque 350 Contrast volume:structured data ml. COMPARISON: CT CT CHEST PE CTA from 10/05/2022 FINDINGS: Pulmonary parenchyma: No consolidation. No dominant measurable mass. mild emphysematous changes. Tracheobronchial tree: No bronchiectasis or mucous plugging. Mediastinum and Kika: No dominant adenopathy or fluid collection. Pleura: No effusion. No pneumothorax. Heart: The heart is not dilated. Minimal coronary artery calcifications are seen. Aorta: Thoracic aorta non-dilated. Mild atherosclerotic changes. Upper abdomen: Enlarged fatty liver. Status post cholecystectomy. Bones: Severe degenerative changes in the lower thoracic and upper lumbar spine. No spine or rib fracture. Visualized portions of the shoulders are unremarkable. Sternum is intact. Soft tissues: Unremarkable. IMPRESSION: No acute abnormality. RADIATION DOSE DELIVERED: 1,056.52mGy.cm Total DLP DATA REPOSITORY: All CT scans at this facility are submitted to the National Radiology Data Registry (NRDR) Dose Index Registry (DIR) with the [employer] (A[employer]). RADIATION OPTIMIZATION: All CT scans at this facility use at least one of these dose optimization te chniques: automated exposure control; mA and/or kV adjustment per patient size (includes targeted exa ms where dose is matched to clinical indication); or iterative reconstruction.
[2023-02-25] MEDS: Lidocaine 5% Patch 1 PATCH TP (14:21)
== END 2023-02-25 15:02 | disposition home or self-care (01) ==
PROVIDERS: Emergency Provider Registered Nurse Emergency; PCP Nurse Practitioner Family
DX: S20.211A Contusion of right front wall of thorax, initial encounter; S80.01XA Contusion of right knee, initial encounter; W18.09XA Striking against other object with subsequent fall, initial encounter; Y92.000 Kitchen of unspecified non-institutional (private) residence as the place of occurrence of the external cause; J44.9 Chronic obstructive pulmonary disease, unspecified; F17.200 Nicotine dependence, unspecified, uncomplicated; E66.9 Obesity, unspecified
CPT/HCPCS: 71250; 73562; 99284; 71045

== ENCOUNTER 2023-03-02 20:59 | Outpatient (REF) | payer MEDICARE, MEDICAID, SELFPAY | END 2023-03-02 21:00 | disposition home or self-care (01) | LOC: LBN 20:59 | PROVIDERS: PCP Nurse Practitioner Family; Visit Provider Nurse Practitioner Family | DX: M25.561 Pain in right knee (principal); S80.01XA Contusion of right knee, initial encounter; S80.221A Blister (nonthermal), right knee, initial encounter | CPT/HCPCS: 87070; 87205 ==

== ENCOUNTER → 2023-05-26 15:24 | Outpatient (BNVA) | payer MEDICARE, MEDICAID, SELFPAY | PROVIDERS: PCP Nurse Practitioner Family; Referring Provider Nurse Practitioner Family; Visit Provider Podiatrist | DX: L84 Corns and callosities (principal); M79.675 Pain in left toe(s); M79.674 Pain in right toe(s); I73.89 Other specified peripheral vascular diseases; L85.9 Epidermal thickening, unspecified; R09.89 Other specified symptoms and signs involving the circulatory and respiratory systems; R20.8 Other disturbances of skin sensation; R60.0 Localized edema | CPT/HCPCS: 11056; 11721 ==

== ENCOUNTER 2023-08-02 19:16 | Outpatient (REF) | payer MEDICARE, MEDICAID, SELFPAY ==
[2023-08-02 21:27] LABS: Abs Immature Grans 0.09 10^3/uL (0.0-0.06); Absolute Basophil Count 0.07 10^3/uL (0.0-0.2); Absolute Eosinophil Count 0.07 10^3/uL (0.0-0.7); Absolute Monocyte Count 0.98 10^3/uL (0.1-0.8); Absolute Neutrophil Count 10.16 10^3/uL (1.2-6.7); Basophils % 0.5; Eosinophils % 0.5; HCT 40.4 % (36.0-46.0); HGB 13.1 g/dL (11.2-15.7); Immature Grans % 0.7; Lymphocytes % 14.1; MCHC 32.4 % (32.0-36.0); MCV 96 fL (80-95); MPV 11.1 fL (8.0-11.0); Monocytes % 7.4; Neutrophils % 76.8; Platelet Count 300 10^3/uL (130-400); RBC 4.23 10^6/uL (3.93-5.22); RDW 13.8 % (11.7-14.6); RDW-SD 48.4 fL; WBC 13.23 10^3/uL (4.4-10.8)
[2023-08-02 21:29] LABS: Absolute Lymphocyte Count 1.87 10^3/uL (1.2-3.4)
[2023-08-02 21:51] LABS: Anion Gap 11.4 mmol/L (3-11); BUN 11 mg/dL (7-18); CO2 30.6 mmol/L (21.0-32.0); CREATININE 0.8 mg/dL (0.55-1.02); Calcium 8.8 mg/dL (8.5-10.1); Chloride 99 mmol/L (98-107); Glucose 140 mg/dL (74-106); NT-proBNP 478 pg/mL (<300); Potassium 3.7 mmol/L (3.5-5.1); Sodium 141 mmol/L (136-145)
== END 2023-08-02 19:17 | disposition home or self-care (01) ==
LOC: LBN 19:16
PROVIDERS: PCP Nurse Practitioner Family; Visit Provider Nurse Practitioner Family
DX: J44.1 Chronic obstructive pulmonary disease with (acute) exacerbation (principal); I50.9 Heart failure, unspecified
CPT/HCPCS: 80048; 83880; 85025

== ENCOUNTER → 2023-09-01 15:01 | Outpatient (BNVA) | payer MEDICARE, MEDICAID, SELFPAY | PROVIDERS: PCP Nurse Practitioner Family; Referring Provider Nurse Practitioner Family; Visit Provider Podiatrist | DX: L60.3 Nail dystrophy (principal); I73.9 Peripheral vascular disease, unspecified; M79.674 Pain in right toe(s); M79.675 Pain in left toe(s) | CPT/HCPCS: 11721 ==

== ENCOUNTER → 2023-09-21 02:17 | Outpatient (CLI) | payer MEDICARE, MEDICAID, SELFPAY ==
--- NOTE | 2023-09-21 07:30 | DI.MAMMO_ITS ---
Exam(s) MAMMO SCREENING EXAM: MAMMO SCREENING CLINICAL HISTORY: screening,Z12.39 TECHNIQUE: Mammograms were interpreted according to the usual protocol including computer analysis w [employer] CAD system, tomosynthesis and C-view imaging. COMPARISON: 2013 through 2019 FINDINGS: The breasts are composed of mainly fatty density , Breast Density category A. No suspicious masses or suspicious microcalcifications are seen. No skin thickening or abnormal axillary lymph nodes are seen. There has been no significant change from prior exams. IMPRESSION: BI-RADS Category 1, Negative mammogram Yearly screening mammography is recommended. Breast Density - Category A, fatty density. A negative radiographic report should not delay biopsy if a dominant or clinically suspicious mass is present. Up to ten percent of cancers are not identified on mammography. A negative report may reinforce clinical impression. Adenosis and dense breasts may obscure an underlying neoplasm. False positive reports average 6 to 10%. Patient will receive a letter notifying them of these results.
--- NOTE | 2023-09-21 14:00 | DI.US_ITS ---
Exam(s) US EXTREMITY VENOUS BI EXAM: US EXTREMITY VENOUS BI CLINICAL HISTORY: ? dvt, edema,R60.9 TECHNIQUE: Grayscale, color, and doppler imaging of the deep venous system of both lower extremities was performed. COMPARISON: US US ECHOCARDIOGRAM from 10/06/2022 FINDINGS: There is no evidence of intraluminal thrombus and there is normal compression and augmentation demons trated within the common femoral veins, femoral veins, and popliteal veins of both lower extremities. In the calves the interrogated veins also exhibit normal compression/ augmentation properties. The greater saphenous veins also appear patent as do the saphenofemoral junctions bilaterally.. IMPRESSION: 1. No ultrasound evidence of DVT in either lower extremity. DATA REPOSITORY:
== END ==
PROVIDERS: PCP Nurse Practitioner Family; Visit Provider Nurse Practitioner Family
DX: Z12.31 Encounter for screening mammogram for malignant neoplasm of breast (principal); R60.0 Localized edema
CPT/HCPCS: 77063; 77067; 93970

== ENCOUNTER 2023-11-10 20:35 | Outpatient (REF) | payer MEDICARE, MEDICAID, SELFPAY ==
[2023-11-10 21:47] LABS: Abs Immature Grans 0.06 10^3/uL (0.0-0.06); Absolute Basophil Count 0.06 10^3/uL (0.0-0.2); Absolute Lymphocyte Count 2.32 10^3/uL (1.2-3.4); Absolute Monocyte Count 0.67 10^3/uL (0.1-0.8); Absolute Neutrophil Count 6.98 10^3/uL (1.2-6.7); Basophils % 0.6 %; HCT 43.9 % (36.0-46.0); HGB 14.2 g/dL (11.2-15.7); Immature Grans % 0.6 %; Lymphocytes % 22.8 %; MCH 30.9 pg (27.0-33.0); MCHC 32.3 % (32.0-36.0); MCV 95 fL (80-95); MPV 10.8 fL (8.0-11.0); Monocytes % 6.6 %; Neutrophils % 68.4 %; Platelet Count 272 10^3/uL (130-400); RDW 15.5 % (11.7-14.6); RDW-SD 53.4 fL; WBC 10.19 10^3/uL (4.4-10.8)
[2023-11-10 22:03] LABS: Anion Gap 8.1 mmol/L (3-11); BUN 12 mg/dL (7-18); CO2 33.9 mmol/L (21.0-32.0); CREATININE 0.7 mg/dL (0.55-1.02); Calcium 8.5 mg/dL (8.5-10.1); Chloride 100 mmol/L (98-107); Estimated GFR 98.95 (mL/min/1.73m2); Glucose 114 mg/dL (74-106); NT-proBNP 83 pg/mL (<300); Potassium 3.8 mmol/L (3.5-5.1); Sodium 142 mmol/L (136-145)
[2023-11-10 22:32] LABS: Calculated LDL 62 mg/dL (<100); Cholesterol 150 mg/dL (<200); HDL Cholesterol 54 mg/dL (40-60); Triglyceride 170 mg/dL (<150)
== END 2023-11-10 20:36 | disposition home or self-care (01) ==
LOC: LBN 20:35
PROVIDERS: PCP Nurse Practitioner Family; Visit Provider Nurse Practitioner Family
DX: I50.9 Heart failure, unspecified (principal); R73.09 Other abnormal glucose; E78.1 Pure hyperglyceridemia; I87.2 Venous insufficiency (chronic) (peripheral)
CPT/HCPCS: 80048; 80061; 83880; 85025

== ENCOUNTER → 2024-01-04 14:47 | Outpatient (BNVA) | payer MEDICARE, MEDICAID, SELFPAY | PROVIDERS: PCP Nurse Practitioner Family; Referring Provider Nurse Practitioner Family; Visit Provider Podiatrist | DX: L60.3 Nail dystrophy (principal); I73.89 Other specified peripheral vascular diseases; M79.674 Pain in right toe(s); M79.675 Pain in left toe(s) | CPT/HCPCS: 11721 ==

== ENCOUNTER 2024-03-30 10:46 | Emergency (ER) | payer MEDICARE, MEDICAID, SELFPAY ==
[2024-03-30] VITALS (20 sets, daily range): BP systolic 135–167; BP diastolic 36–119; PULSE 75–123; RESP 12–24; O2SAT 78–93
--- NOTE | 2024-03-30 10:30 | RT.EKG_ITS ---
APPROVED REPORT Exam: Resting ECG Reason for Exam: difficulty breathing Patient Location: E HR:96 bpm ECG Measurements Heart Rate 96 AXIS MD 202 P 58 QRSd 105 QRS -40 QT 351 T 53 QTc 444 Conclusion Sinus rhythm...normal P axis, V-rate 60- 99 Left axis deviation...QRS axis (-30,-90) Probable lateral infarct, old...Q>35mS, abnormal ST-T, V5-6 I aVL Normal sinus rhythm at a rate of 96. Left axis deviation no signs of LVH. Interventricular conducti on delay QRS of 105 ms. First-degree AV block. QTc within normal limits. Poor R wave progression. T wave flattening in aVL new compared to prior. Prior dated last year. No ST segment abnormalities . Low voltage. No acute injury pattern. Low voltage is similar.
[2024-03-30] MEDS: Albuterol/Ipratropium 3 ML UPD VIAL (11:00)
[2024-03-30 11:17] LABS: Abs Immature Grans 0.13 10^3/uL (0.0-0.06); Absolute Basophil Count 0.07 10^3/uL (0.0-0.2); Absolute Eosinophil Count 0.14 10^3/uL (0.0-0.7); Absolute Lymphocyte Count 1.52 10^3/uL (1.2-3.4); Absolute Monocyte Count 0.63 10^3/uL (0.1-0.8); BE (Venous) 17 mmol/L (-2-3); Basophils % 0.6 %; Eosinophils % 1.2 %; HCO3 (Venous) 42 mmol/L (23-28); HCT 47.4 % (36.0-46.0); HGB 14.6 g/dL (11.2-15.7); Immature Grans % 1.1 %; Lymphocytes % 13.1 %; MCH 31.3 pg (27.0-33.0); MCHC 30.8 % (32.0-36.0); MCV 102 fL (80-95); MPV 9.7 fL (8.0-11.0); Monocytes % 5.4 %; Neutrophils % 78.6 %; Nucleated RBC 0.5 % (0.0-0.3); O2 Sat (Venous) 61 %; Platelet Count 237 10^3/uL (130-400); RBC 4.66 10^6/uL (3.93-5.22); RDW 16.8 % (11.7-14.6); RDW-SD 62.2 fL; TCO2 (Venous) 38 mmol/L (24-29); WBC 11.59 10^3/uL (4.4-10.8); pH (Venous) 7.33 (7.31-7.41); pO2 (Venous) 35 mmHg
[2024-03-30 11:18] LABS: Absolute Neutrophil Count 9.11 10^3/uL (1.2-6.7)
[2024-03-30 11:21] LABS: pCO2 (Venous) 81 mmHg (41-51)
[2024-03-30 11:22] LABS: Bilirubin Negative (Negative); Blood Negative (Negative); Clarity Clear (Clear); Glucose Negative (Negative); Ketones Negative (Negative); Leukocyte Esterase Negative (Negative); Nitrite Negative (Negative); Specific Gravity 1.015 (1.005-1.025); Urobilinogen 0.2 mg/dL (Up to 0.2)
[2024-03-30] MEDS: Albuterol/Ipratropium 3 ML UPD VIAL UPD (11:22)
[2024-03-30] MEDS: methylPREDNISolone SUCC 125 MG VIAL 80 MG IVP (11:22)
[2024-03-30 11:32] LABS: Magnesium 1.3 mg/dL (1.8-2.4)
[2024-03-30 11:42] LABS: ALT 24 U/L (14-59); AST 20 U/L (15-37); Albumin 3.1 g/dL (3.4-5.0); Alkaline Phosphatase 131 U/L (46-116); Anion Gap 0.3 mmol/L (3-11); BUN 9 mg/dL (7-18); Bilirubin, Total 0.56 mg/dL (0.2-1.0); CO2 41.7 mmol/L (21.0-32.0); CREATININE 0.7 mg/dL (0.55-1.02); Calcium 9.2 mg/dL (8.5-10.1); Chloride 102 mmol/L (98-107); Estimated GFR 98.34 (mL/min/1.73m2); Glucose 164 mg/dL (74-106); NT-proBNP 272 pg/mL (<300); Potassium 3.7 mmol/L (3.5-5.1); Sodium 144 mmol/L (136-145); Total Protein 7.8 g/dL (6.4-8.2); Troponin I 19 ng/L (<or=51)
[2024-03-30 11:43] LABS: COVID-19 PCR Negative (Negative); Influenza A PCR Negative (Negative); Influenza B PCR Negative (Negative); RSV PCR Negative (Negative); Source Nasopharynx
--- NOTE | 2024-03-30 12:19 | ED.GENADUL_ITS ---
Discharge Plan Disposition Patient Disposition: Transfer-Acute Inpatient Care Specific Acute Inpt Facility: Other Condition: Fair Discharge Details Clinical Impression: Acute hypercapnic respiratory failure, Pneumonia Primary Care Provider: Cristhian Myers ED Provider: Ervin Anthony Home Meds and New Rx's Prescriptions: No Action clotrimazole-betamethasone 1-0.05 % cream 1 applic Topical BID PRN (Reason: rash) Qty: 45 3RF Rx Instructions: apply under breasts for itching/rash albuterol sulfate 2.5 mg /3 mL (0.083 %) solution for nebulization 2.5 mg inhalation QID PRN (Reason: shortness of breath or wheezing) Qty: 90 3RF fluconazole 150 mg tablet 150 mg PO ONCE Qty: 1 0RF Rx Instructions: as a single dose albuterol sulfate 90 mcg/actuation HFA aerosol inhaler 2 puff inhalation QID PRN (Reason: shortness of breath or wheezing) Qty: 8.5 3RF nystatin 100,000 unit/gram powder 1 applic topical TID PRN (Reason: rash) Qty: 60 4RF metoprolol succinate 100 mg tablet extended release 24 hr 100 mg PO DAILY Qty: 90 3RF furosemide 40 mg tablet See Rx Instructions .ROUTE .COMPLEX Qty: 112.5 4RF Rx Instructions: Take one tablet every other day and take 1 1/2 tablet on the opposite day. multivitamin [Multi-Day] 1 EACH tablet 1 ea PO DAILY aspirin [Aspir-81] 81 MG tablet,delayed release (DR/EC) 81 mg PO DAILY Qty: 90 (DME) Medial Offloader Brace See Rx Instructions .ROUTE .MEDSUPPLY Qty: 1 0RF Rx Instructions: Please apply to RIGHT knee for medial OA and valgus instability. Due to morbid obesity a custom brace is required. amoxicillin 500 mg tablet 2,000 mg PO ONCE Qty: 4 0RF Rx Instructions: TAKE 4 500MG TABS 30-60 MIN. PRIOR TO DENTAL WORK simvastatin 20 mg tablet 20 mg PO DAILY Qty: 90 3RF acetaminophen 500 mg tablet 1,000 mg PO BID Qty: 180 3RF budesonide-formoterol [Symbicort] 160-4.5 mcg/actuation HFA aerosol inhaler 2 puff Inhalation BID Qty: 1 3RF pantoprazole [Protonix] 40 mg tablet,delayed release (DR/EC) 40 mg PO DAILY Qty: 90 4RF Rx Instructions: 1 TAB DAILY ketoconazole 2 % cream 1 applic topical DAILY Qty: 60 3RF Rx Instructions: Apply to toenails, (apply at a separate time from Urea) apixaban 5 mg tablet 5 mg PO BID Qty: 180 3RF zolpidem [Ambien] 10 mg tablet 10 mg PO HS PRN (Reason: insomnia) Qty: 90 2RF nicotine 21 mg/24 hr patch 24 hour 1 patch transdermal DAILY Qty: 28 0RF albuterol sulfate 1.25 mg/3 mL solution for nebulization 1.25 mg inhalation QID PRN (Reason: shortness of breath or wheezing) Qty: 90 3RF magnesium oxide 400 mg magnesium capsule 400 mg PO DAILY Qty: 90 4RF Incruse Ellipta 62.5 mcg/actuation blister with device 1 inh inhalation DAILY Qty: 30 12RF bupropion HCl 150 mg tablet sustained-release 12 hr 150 mg PO DAILY Qty: 90 4RF amlodipine 10 mg tablet 10 mg PO DAILY Qty: 90 4RF lisinopril 40 mg tablet 40 mg PO DAILY Qty: 90 4RF nicotine 21-14-7 mg/24 hr patch, TD daily, sequential See Rx Instructions .ROUTE .COMPLEX Qty: 56 0RF Rx Instructions: apply 1-21 mg NICOTINE PATCH daily for 28 days; follow with 1-14 mg PATCH daily for 14 days, then 1-7mg PATCH daily for 14 days Discharge Data Discharge Date/Time-TO BE ENTERED AT DEPARTURE: 03/30/24 17:01 HPI General Date/Time Provider Initiated Documentation: 03/30/24 11:03 . HPI Narrative: This 63-year-old female presents with report of shortness of breath over the course the past week. Today she was significantly dyspneic and had an oxygen of 70%, so she presented for assessment. EMS administered DuoNeb and albuterol. Had improvement of oxygenation and patient is on 4 L, increased to a liter and a half from her baseline of 2.5. Her coloration improved per EMS. Patient denies any vomiting at her respiratory illnesses. Denies any new calf pain or swelling. Denies any change in medication. Has been using her MDIs as pr escribed. Related Data Home Medications ?Medication ?Instructions ?Recorded ?Confirmed multivitamin (Multi-Day tablet) 1 ea PO DAILY 09/02/12 03/30/24 aspirin 81 mg tablet,delayed 81 mg PO DAILY #90 tab-caps 07/10/16 03/30/24 release (Aspir-) nystatin 100,000 unit/gram topical 1 applic topical TID PRN rash #60 04/14/20 03/30/24 powder grams clotrimazole-betamethasone 1 1 applic topical BID PRN rash #45 11/27/20 03/30/24 %-0.05 % topical cream grams Medial Offloader Brace #1 ea 12/02/20 03/30/24 amoxicillin 500 mg tablet 2,000 mg (4 x 500 mg) PO ONCE #4 12/11/21 03/30/24 tabs nicotine See Rx Instructions transdermal 10/09/22 03/30/24 21mg/24hr-14mg/24hr-7mg/24hr daily .COMPLEX #56 patches transderm patches,sequentl albuterol sulfate 2.5 mg/3 mL 2.5 mg (3 mL) inhalation QID PRN 10/19/22 03/30/24 (0.083 %) solution for nebulization shortness of breath or wheezing #90 mL simvastatin 20 mg tablet 20 mg PO DAILY #90 tabs 07/26/23 03/30/24 acetaminophen 500 mg tablet 1,000 mg (2 x 500 mg) PO BID #180 08/19/23 03/30/24 tabs budesonide-formoterol HFA 160 2 puff inhalation BID ##1 08/19/23 03/30/24 mcg-4.5 mcg/actuation aerosol inhaler (Symbicort) pantoprazole 40 mg tablet,delayed 40 mg PO DAILY #90 tab-caps 08/19/23 03/30/24 release (Protonix) ketoconazole 2 % topical cream 1 applic topical DAILY fungal 09/15/23 03/30/24 nails #60 grams furosemide 40 mg tablet See Rx Instructions .Route 09/17/23 03/30/24 .COMPLEX #112.5 tab-caps metoprolol succinate 100 mg 100 mg PO DAILY #90 tabs 09/17/23 03/30/24 tablet,extended release 24 hr apixaban 5 mg tablet 5 mg PO BID #180 tabs 10/22/23 03/30/24 zolpidem 10 mg tablet (Ambien) 10 mg PO HS PRN insomnia #90 tabs 11/10/23 03/30/24 albuterol sulfate 90 mcg/actuation 2 puff inhalation QID PRN 11/12/23 03/30/24 aerosol inhaler shortness of breath or wheezing #8.5 grams fluconazole 150 mg tablet 150 mg PO ONCE #1 tab 11/12/23 03/30/24 albuterol sulfate 1.25 mg/3 mL 1.25 mg (3 mL) inhalation QID PRN 11/17/23 03/30/24 solution for nebulization shortness of breath or wheezing #90 mL nicotine 21 mg/24 hr daily 1 patch transdermal DAILY #28 ea 11/17/23 03/30/24 transdermal patch magnesium oxide 400 mg PO DAILY #90 caps 11/22/23 03/30/24 umeclidinium 62.5 mcg/actuation 1 inh inhalation DAILY #30 ea 12/02/23 03/30/24 blister powder for inhalation (Incruse Ellipta) bupropion HCl 150 mg tablet,12 hr 150 mg PO DAILY #90 tab-caps 12/29/23 03/30/24 sustained-release amlodipine 10 mg tablet 10 mg PO DAILY #90 tab-caps 02/23/24 03/30/24 lisinopril 40 mg tablet 40 mg PO DAILY #90 tabs 03/01/24 03/30/24 Previous Rx's ?Medication ?Instructions ?Recorded nystatin 100,000 unit/gram topical 1 applic topical TID PRN rash #60 04/14/20 powder grams clotrimazole-betamethasone 1 1 applic topical BID PRN rash #45 11/27/20 %-0.05 % topical cream grams Medial Offloader Brace #1 ea 12/02/20 amoxicillin 500 mg tablet 2,000 mg (4 x 500 mg) PO ONCE #4 12/11/21 tabs nicotine See Rx Instructions transdermal 10/09/22 21mg/24hr-14mg/24hr-7mg/24hr daily .COMPLEX #56 patches transderm patches,sequentl albuterol sulfate 2.5 mg/3 mL 2.5 mg (3 mL) inhalation QID PRN 05/08/23 (0.083 %) solution for nebulization shortness of breath or wheezing #90 mL simvastatin 20 mg tablet 20 mg PO DAILY #90 tabs 07/26/23 acetaminophen 500 mg tablet 1,000 mg (2 x 500 mg) PO BID #180 08/19/23 tabs budesonide-formoterol HFA 160 2 puff inhalation BID ##1 08/19/23 mcg-4.5 mcg/actuation aerosol inhaler (Symbicort) pantoprazole 40 mg tablet,delayed 40 mg PO DAILY #90 tab-caps 08/19/23 release (Protonix) ketoconazole 2 % topical cream 1 applic topical DAILY fungal 09/15/23 nails #60 grams furosemide 40 mg tablet See Rx Instructions .Route 09/17/23 .COMPLEX #112.5 tab-caps metoprolol succinate 100 mg 100 mg PO DAILY #90 tabs 09/17/23 tablet,extended release 24 hr apixaban 5 mg tablet 5 mg PO BID #180 tabs 10/22/23 zolpidem 10 mg tablet (Ambien) 10 mg PO HS PRN insomnia #90 tabs 11/10/23 albuterol sulfate 90 mcg/actuation 2 puff inhalation QID PRN 11/12/23 aerosol inhaler shortness of breath or wheezing #8.5 grams fluconazole 150 mg tablet 150 mg PO ONCE #1 tab 11/12/23 albuterol sulfate 1.25 mg/3 mL 1.25 mg (3 mL) inhalation QID PRN 11/17/23 solution for nebulization shortness of breath or wheezing #90 mL nicotine 21 mg/24 hr daily 1 patch transdermal DAILY #28 ea 11/17/23 transdermal patch magnesium oxide 400 mg PO DAILY #90 caps 11/22/23 umeclidinium 62.5 mcg/actuation 1 inh inhalation DAILY #30 ea 12/02/23 blister powder for inhalation (Incruse Ellipta) bupropion HCl 150 mg tablet,12 hr 150 mg PO DAILY #90 tab-caps 12/29/23 sustained-release amlodipine 10 mg tablet 10 mg PO DAILY #90 tab-caps 02/23/24 lisinopril 40 mg tablet 40 mg PO DAILY #90 tabs 03/01/24 Allergies Allergy/AdvReac Type Severity Reaction Status Date / Time citalopram AdvReac INSOMNIA; Verified 03/30/24 11:15 DIZZINESS General Stated Complaint: SOB DAISHA: 2 Exam Narrative Exam Narrative: 63-year-old female, alert and oriented, speaking in complete sentences, mildly increased work of breathing, morbidly obese, pupils equal round reactive to light and accommodation, wheezes, DM, cardiac rate rhythm regular, 2+ edema to bilateral lower extremities, distal pulses intact Course Vital Signs Vital signs: Vital Signs Pulse 97 H 03/30/24 10:49 Respiratory Rate 18 03/30/24 10:49 Pulse Oximetry 78 L 03/30/24 10:49 Pulse 87 03/30/24 11:49 Respiratory Rate 18 03/30/24 11:49 Respiratory Effort Non-Labored, Short of Breath 03/30/24 11:06 Respiratory Depth Normal 03/30/24 11:06 Respiratory Pattern Tachypnea 03/30/24 11:06 Blood Pressure 156/90 H 03/30/24 10:58 Blood Pressure Position Sitting 03/30/24 10:58 Pulse Oximetry 91 L 03/30/24 11:49 Oxygen Delivery Method Nasal Cannula 03/30/24 11:22 Oxygen Flow Rate 6 03/30/24 10:58 Fraction of Inspired Oxygen (FIO2) 45 03/30/24 11:49 End Tidal Co2 55 03/30/24 10:58 Pain Level 5 03/30/24 11:06 Comment chest pressure reported 03/30/24 10:58 Lab/Test Results Lab/Test Results: Laboratory Tests Range/Units 03/30/24 03/30/24 03/30/24 11:00 11:01 11:06 WBC (4.4-10.8) 10^3/uL 11.59 H RBC (3.93-5.22) 10^6/uL 4.66 Hgb (11.2-15.7) g/dL 14.6 Hct (36.0-46.0) % 47.4 H MCV (80-95) fL 102 H MCH (27.0-33.0) pg 31.3 MCHC (32.0-36.0) % 30.8 L RDW (11.7-14.6) % 16.8 H Plt Count (130-400) 10^3/uL 237 MPV (8.0-11.0) fL 9.7 Immature Gran % % 1.1 Neutrophils % % 78.6 Lymphocytes % % 13.1 Monocytes % % 5.4 Eosinophils % % 1.2 Basophils % % 0.6 Nucleated RBC % (0.0-0.3) % 0.5 H Absolute Neutrophils (1.2-6.7) 10^3/uL 9.11 H Absolute Lymphocytes (1.2-3.4) 10^3/uL 1.52 Absolute Monocytes (0.1-0.8) 10^3/uL 0.63 Absolute Eosinophils (0.0-0.7) 10^3/uL 0.14 Absolute Basophils (0.0-0.2) 10^3/uL 0.07 VBG pH (7.31-7.41) 7.33 VBG pCO2 (41-51) mmHg 81 H* VBG pO2 mmHg 35 VBG HCO3 (23-28) mmol/L 42 H VBG Total CO2 (24-29) mmol/L 38 H VBG O2 Saturation % 61 VBG Base Excess (-2-3) mmol/L 17 H Sodium (136-145) mmol/L 144 Potassium (3.5-5.1) mmol/L 3.7 Chloride (98-107) mmol/L 102 Carbon Dioxide (21.0-32.0) mmol/L 41.7 H Anion Gap (3-11) mmol/L 0.3 L BUN (7-18) mg/dL 9 Creatinine (0.55-1.02) mg/dL 0.7 Est GFR (CKD-EPI 2020) (mL/min/1.73m2) 98.34 Glucose (74-106) mg/dL 164 H Calcium (8.5-10.1) mg/dL 9.2 Magnesium (1.8-2.4) mg/dL 1.3 L Total Bilirubin (0.2-1.0) mg/dL 0.56 AST (15-37) U/L 20 ALT (14-59) U/L 24 Alkaline Phosphatase (46-116) U/L 131 H Troponin I (<or=51) ng/L 19 NT-Pro-B Natriuret Pep (<300) pg/mL 272 Total Protein (6.4-8.2) g/dL 7.8 Albumin (3.4-5.0) g/dL 3.1 L Urine Color (Yellow) Yellow Urine Clarity (Clear) Clear Urine pH (5-8) 6.0 Ur Specific Runn[place] (1.005-1.025) 1.015 Urine Protein (Neg-Trace) mg/dL Negative Urine Ketones (Negative) mg/dL Negative Urine Blood (Negative) Negative Urine Nitrite (Negative) Negative Urine Bilirubin (Negative) Negative Urine Urobilinogen (Up to 0.2) mg/dL 0.2 Ur Leukocyte Esterase (Negative) Negative Urine Glucose (Negative) mg/dL Negative COVID-19 Source Nasopharynx SARS-CoV-2 (PCR) (Negative) Negative Influenza Type A (PCR) (Negative) Negative Influenza Type B (PCR) (Negative) Negative RSV (PCR) (Negative) Negative Medical Decision Making This 63-year-old female with history of COPD, oxygen dependence, PE anticoagulated on Eliquis presents with report of worsening shortness of breath over the course of the past week. On arrival she is in mild respiratory distress after receiving a neb en route. Her oxygen is 80%. She is on 6 L of oxygen which was turned down. She had a VBG which showed hypercarbia, 81 and because of this in addition to her hypoxia she was placed on BiPAP. Initial settings 12/8 with FiO2 of 45%. Repeat VBG 2 hours later shows a bicarb of 79, level is increased to CPAP 16. Flu, COVID, RSV negative. CTA was ordered given history of prior PE and shows bilateral infiltrates. Community-acquired pneumonia, initiated on ceftriaxone and doxycycline. Patient will require admission to the hospital for hypercarbic respiratory failure and pneumonia. Blood cultures are pending. Lactate is within normal limits, hypomagnesemia 1.3, was given 2 g of mag. Patient received 3 DuoNebs and 1 albuterol and reports improvement in symptoms dramatically. Unfortunately we do not have any intensive care unit beds available, I spoke with the hospitalist at appro ximately 1500 and he asked that if we are able to transfer the patient it would be ideal otherwise she will need to be boarded in the emergency department pending ICU bed placement. She will require BiPAP for additional period of time given her remaining hypercarbia. She has able to drink or tolerate p.o. so I will give p.o. fluids Quality:SDOH Health Related Social Needs: No Data to Display Critical Care Time Critical Care Time Attestation: 45 minutes of critical care time secondary to hypercarbic respiratory failure, pneumonia requiring IV antibiotics, admission to the hospital, BiPAP administration secondary to hypercarbia, telemetry monitoring, recurrent lab draws for hypercarbia and BiPAP assessment, IV fluid resuscitation, respiratory support and management, diagnostic lab interpretation and review and admission to the hospital. [facility] All Active Problems (Updated 03/30/24 @ 17:04 by JAUN Lui) Pneumonia (Acute) Acute hypercapnic respiratory failure (Acute) Edema of left lower extremity (Acute) Tachycardia (Acute) Generalized weakness (Acute) Toe pain (Acute) Peripheral vascular disease, unspecified (Chronic) Muscle pain (Acute) 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, on home O2 therapy (Acute) Pulmonary embolism (Chronic) Hypoxemia (Acute) Hypomagnesemia (Acute) Hypokalemia (Acute) COPD exacerbation (Acute) Pulmonary embolism and infarction (Acute) Hypoxemia (Acute) Acute dyspnea (Acute) Nail dystrophy (Acute) Right foot pain (Acute) 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 (Acute) Right knee pain (Acute) Chronic back pain (Chronic) Essential hypertension (Chronic) Hyperlipidemia (Chronic) Obstructive sleep apnea syndrome (Chronic) BiPAP Chronic obstructive lung disease (Chronic) Depressive disorder (Chronic) GERD (gastroesophageal reflux disease) (Chronic) Cigarette smoker (Chronic) Current Insomnia (Chronic) Osteoarthritis of right knee (Acute) Steroid injection: 08/19/2020; 04/15/2020 Venous insufficiency (chronic) (peripheral) (Chronic) Surgical History S/P ORIF (open reduction internal fixation) fracture Right wrist S/P section History of bilateral tubal ligation Hx of umbilical hernia repair S/P cholecystectomy Status post total knee replacement, left Family History Mother Essential hypertension Heart disease Hyperlipidemia Myocardial infarction Emphysema lung Stroke Skin cancer (melanoma) Father , 50 of [place] Essential hypertension Heart disease Hyperlipidemia Myocardial infarction Stroke Sister Essential hypertension Sister Emphysema lung Sister Hyperlipidemia Brother Essential hypertension Depression Emphysema lung Asthma Liver cancer Son , 30 from [place] Sleep apnea Myocardial infarction Daughter Sleep apnea Asthma Maternal Grandfather Lung cancer Maternal Grandmother Colon cancer Hypertension Heart disease Paternal Grandfather Parkinson's disease Paternal Grandmother Uterine cancer Social History Smoking/Tobacco Use Status: Current-Occasional Tobacco Type: cigarettes Smoking packs per day: 1 Smoking cigarettes per day: 20.0 Years smoked: 39 Smoking pack-years: 39.00 Quit status: considering quitting Smoking risk assessment performed?: Yes Alcohol Intake: current Alcohol Intake frequency: a few times a month Alcohol type: hard liquor Drug use: Socially Adopted: No Caregiver/Support person: Yes Foster care: No Household members: none Housing: apartment Communication Needs: None Education Level: college Do you need help understanding health information?: Rarely Pets and animals: Yes Pets and animals: cat(s) Sexually active: No Do you think of yourself as: straight/heterosexual Current gender identity: female What is your relationship status?: don't know How often do you talk on the phone with friends or family?: twice per week How often do you get together with friends or relatives?: decline to answer How often do you attend quaker or cheondoism services?: decline to answer Do you belong to any clubs or organized social groups?: no Panel score (0-1 are the most socially isolated patients): 0 What type of physical activity do you participate in: none Duration: decline to answer Frequency: decline to answer Jesscia/Confucianism: Hindu Agree to transfusion: Yes Seatbelt use: always Helmet use: Yes Helmet use: always Drive intox or ride w/intox sales route driver helper: No Working smoke detector in home: Yes Carbon monox detector in home: No Firearms in home: No Do you feel safe at home: Yes Do you feel safe in your relationship?: Yes Victim of physical abuse: No Victim of emotional abuse: No Victim of sexual abuse: No Sign Out Sign Out Data: Sign Out Comment: pending transfer vs admission, needs icu bed for bipap, hypercarbic resp failure, pna Last updated by Emelina Mosquera PA at 03/30/24 15:47
[2024-03-30] MEDS: Omnipaque 350 MG/ML 100 ML BTL IJ (12:40)
[2024-03-30] MEDS: Normal Saline - Diluent 50 ML VIAL IJ (12:43)
--- NOTE | 2024-03-30 12:55 | DI.CT_ITS ---
Exam(s) CT CHEST PE CTA EXAM: CT CHEST PE CTA CLINICAL HISTORY: shortness of breath chest pain. TECHNIQUE: Imaging Protocol: Axial CT angiography was performed with multi-slice acquisition and mu lti-planar and/or 3D reconstructions. CONTRAST MATERIAL: Intravenous: Omnipaque 350 contrast volume:100 mL COMPARISON: CT CT CHEST PE CTA from 10/05/[address] CHEST WO from 02/25/2023 FINDINGS: Examination limited by patient body habitus and the IV. There is suboptimal opacification of the per ipheral pulmonary arteries. Tracheobronchial tree: Patent where visualized. No bronchiectasis. Pulmonary parenchyma: There infiltrates in the dependent portions of the right upper lobe and left lo wer lobe. There is an area of consolidation in the right lower lobe. Air bronchograms are present. No architectural distortion. Pulmonary Arteries: Within the limits of the examination, no filling defects are seen to suggest pulm onary emboli to the level of the segmental pulmonary arteries. Mediastinum and Kika: No dominant adenopathy or fluid collection. The esophagus is unremarkable. Mi ldly enlarged lymph nodes are seen in the mediastinum and hilum which may be reactive. Visualized thyroid gland: Unremarkable. Pleura: There is a small right pleural effusion. No left pleural effusion. No pneumothorax. Heart: Cardiomegaly. Coronary artery calcifications are present. No evidence of right heart strain. No pericardial effusion. Aorta: Thoracic aorta non-dilated. No evidence of dissection. Atherosclerotic calcification is presen t. Upper abdomen: Unremarkable. Soft tissues: Unremarkable. Bones: Within normal limits for the patient's age.There are old healed rib fractures. IMPRESSION: 1. Within the limits of the examination, no pulmonary emboli are seen to the level of the segmental p ulmonary arteries. 2. No evidence of a thoracic aortic aneurysm or dissection. 3. Bilateral pulmonary infiltrates and small right pleural effusion. Atelectasis versus pneumonia. Please correlate clinically. 4. Examination limited by patient body habitus and IV access. RADIATION DOSE DELIVERED: 514.55mGy.cm Total DLP DATA REPOSITORY: All CT scans at this facility are submitted to the National Radiology Data Registry (NRDR) Dose Index Registry (DIR) with the [employer] ([employer]). RADIATION OPTIMIZATION: All CT scans at this facility use at least one of these dose optimization te chniques: automated exposure control; mA and/or kV adjustment per patient size (includes targeted exa ms where dose is matched to clinical indication); or iterative reconstruction.
[2024-03-30] MEDS: MAGNESIUM SULFATE 2 GM/50 ML BAG IV_INF (13:07)
[2024-03-30 14:08] LABS: BE (Venous) 15 mmol/L (-2-3); HCO3 (Venous) 41 mmol/L (23-28); O2 Sat (Venous) 86 %; TCO2 (Venous) 37 mmol/L (24-29); pH (Venous) 7.33 (7.31-7.41); pO2 (Venous) 54 mmHg
[2024-03-30 14:13] LABS: Lactate 0.8 mmol/L (0.6-1.4); pCO2 (Venous) 79 mmHg (41-51)
[2024-03-30 14:28] LABS: Troponin I 19 ng/L (<or=51)
[2024-03-30] MEDS: DOXYCYCLINE 100 MG in Normal Saline 100 ML IVPB (14:33)
[2024-03-30 14:52] LABS: Procalcitonin < 0.1 ng/mL
[2024-03-30] MEDS: cefTRIAXone 2 GM/50 ML BAG IVPB (15:45)
--- NOTE | 2024-03-30 16:59 | ED.PROG_ITS ---
Date of service: 03/30/24 Time of Service: 16:59 Medical Decision Making Patient signed out to me from Emelina Mosquera PA-C, please see her complete note. Essentially this 63-year-old obese female was signed out to me with hypercarbic respiratory failure and pneumonia on BiPAP, accepted for transfer to medicine service at [facility] by Dr. Slaughter. Patient has been 93% on BiPAP, has pneumonia received multiple DuoNebs as well as ceftriaxone. She is receiving her third DuoNeb at signout, lab attempted to draw a repeat VBG but failed. Her VBG was trending downward and pCO2. Patient was transferred at 1700 by sound engineering technician on BiPAP. Patient was anxious prior to transfer, but I do not think anxiolytic would be good for her breathing and compliance with BiPAP. Patient requested a nicotine patch for transfer, but EMS had already arrived, states she smokes 10 cigarettes per day. Medical Records Medical records reviewed: Yes I reviewed the patient's medical records. Imaging Data Radiologic Study: Attestation: I personally reviewed and interpreted this imaging study as follows: Imaging: CT Scan Radiologist's impression: EXAM: CT CHEST PE CTA CLINICAL HISTORY: shortness of breath chest pain. TECHNIQUE: Imaging Protocol: Axial CT angiography was performed with multi- slice acquisition and multi-planar and/or 3D reconstructions. CONTRAST MATERIAL: Intravenous: Omnipaque 350 contrast volume:100 mL COMPARISON: CT CT CHEST PE CTA from 10/05/[address] CHEST WO from 02/25/2023 FINDINGS: Examination limited by patient body habitus and the IV. There is suboptimal opacification of the peripheral pulmonary arteries. Tracheobronchial tree: Patent where visualized. No bronchiectasis. Pulmonary parenchyma: There infiltrates in the dependent portions of the right upper lobe and left lower lobe. There is an area of consolidation in the right lower lobe. Air bronchograms are present. No architectural distortion. Pulmonary Arteries: Within the limits of the examination, no filling defects are seen to suggest pulmonary emboli to the level of the segmental pulmonary arteries. Mediastinum and Kika: No dominant adenopathy or fluid collection. The esophagus is unremarkable. Mildly enlarged lymph nodes are seen in the mediastinum and hi lum which may be reactive. Visualized thyroid gland: Unremarkable. Pleura: There is a small right pleural effusion. No left pleural effusion. No pneumothorax. Heart: Cardiomegaly. Coronary artery calcifications are present. No evidence of right heart strain. No pericardial effusion. Aorta: Thoracic aorta non-dilated. No evidence of dissection. Atherosclerotic calcification is present. Upper abdomen: Unremarkable. Soft tissues: Unremarkable. Bones: Within normal limits for the patient's age.There are old healed rib fractures. IMPRESSION: 1. Within the limits of the examination, no pulmonary emboli are seen to the level of the segmental pulmonary arteries. 2. No evidence of a thoracic aortic aneurysm or dissection. 3. Bilateral pulmonary infiltrates and small right pleural effusion. Atelectasis versus pneumonia. Please correlate clinically. 4. Examination limited by patient body habitus and IV access. Lab Data Lab results reviewed: Yes I reviewed the patient's lab results. Labs: 03/30/24 14:10 Blood Blood Culture - Pending 03/30/24 14:00 Blood Blood Culture - Pending Laboratory Tests Range/Units 03/30/24 03/30/24 03/30/24 11:00 11:01 11:06 WBC (4.4-10.8) 10^3/uL 11.59 H RBC (3.93-5.22) 10^6/uL 4.66 Hgb (11.2-15.7) g/dL 14.6 Hct (36.0-46.0) % 47.4 H MCV (80-95) fL 102 H MCH (27.0-33.0) pg 31.3 MCHC (32.0-36.0) % 30.8 L RDW (11.7-14.6) % 16.8 H Plt Count (130-400) 10^3/uL 237 MPV (8.0-11.0) fL 9.7 Immature Gran % % 1.1 Neutrophils % % 78.6 Lymphocytes % % 13.1 Monocytes % % 5.4 Eosinophils % % 1.2 Basophils % % 0.6 Nucleated RBC % (0.0-0.3) % 0.5 H Absolute Neutrophils (1.2-6.7) 10^3/uL 9.11 H Absolute Lymphocytes (1.2-3.4) 10^3/uL 1.52 Absolute Monocytes (0.1-0.8) 10^3/uL 0.63 Absolute Eosinophils (0.0-0.7) 10^3/uL 0.14 Absolute Basophils (0.0-0.2) 10^3/uL 0.07 VBG pH (7.31-7.41) 7.33 VBG pCO2 (41-51) mmHg 81 H* VBG pO2 mmHg 35 VBG HCO3 (23-28) mmol/L 42 H VBG Total CO2 (24-29) mmol/L 38 H VBG O2 Saturation % 61 VBG Base Excess (-2-3) mmol/L 17 H VBG Lactate (0.6-1.4) mmol/L Sodium (136-145) mmol/L 144 Potassium (3.5-5.1) mmol/L 3.7 Chloride (98-107) mmol/L 102 Carbon Dioxide (21.0-32.0) mmol/L 41.7 H Anion Gap (3-11) mmol/L 0.3 L BUN (7-18) mg/dL 9 Creatinine (0.55-1.02) mg/dL 0.7 Est GFR (CKD-EPI 2020) (mL/min/1.73m2) 98.34 Glucose (74-106) mg/dL 164 H Calcium (8.5-10.1) mg/dL 9.2 Magnesium (1.8-2.4) mg/dL 1.3 L Total Bilirubin (0.2-1.0) mg/dL 0.56 AST (15-37) U/L 20 ALT (14-59) U/L 24 Alkaline Phosphatase (46-116) U/L 131 H Troponin I (<or=51) ng/L 19 NT-Pro-B Natriuret Pep (<300) pg/mL 272 Total Protein (6.4-8.2) g/dL 7.8 Albumin (3.4-5.0) g/dL 3.1 L Procalcitonin ng/mL Urine Color (Yellow) Yellow Urine Clarity (Clear) Clear Urine pH (5-8) 6.0 Ur Specific [place] (1.005-1.025) 1.015 Urine Protein (Neg-Trace) mg/dL Negative Urine Ketones (Negative) mg/dL Negative Urine Blood (Negative) Negative Urine Nitrite (Negative) Negative Urine Bilirubin (Negative) Negative Urine Urobilinogen (Up to 0.2) mg/dL 0.2 Ur Leukocyte Esterase (Negative) Negative Urine Glucose (Negative) mg/dL Negative COVID-19 Source Nasopharynx SARS-CoV-2 (PCR) (Negative) Negative Influenza Type A (PCR) (Negative) Negative Influenza Type B (PCR) (Negative) Negative RSV (PCR) (Negative) Negative Range/Units 03/30/24 03/30/24 11:45 14:00 WBC (4.4-10.8) 10^3/uL RBC (3.93-5.22) 10^6/uL Hgb (11.2-15.7) g/dL Hct (36.0-46.0) % MCV (80-95) fL MCH (27.0-33.0) pg MCHC (32.0-36.0) % RDW (11.7-14.6) % Plt Count (130-400) 10^3/uL MPV (8.0-11.0) fL Immature Gran % % Neutrophils % % Lymphocytes % % Monocytes % % Eosinophils % % Basophils % % Nucleated RBC % (0.0-0.3) % Absolute Neutrophils (1.2-6.7) 10^3/uL Absolute Lymphocytes (1.2-3.4) 10^3/uL Absolute Monocytes (0.1-0.8) 10^3/uL Absolute Eosinophils (0.0-0.7) 10^3/uL Absolute Basophils (0.0-0.2) 10^3/uL VBG pH (7.31-7.41) 7.33 VBG pCO2 (41-51) mmHg 79 H* VBG pO2 mmHg 54 VBG HCO3 (23-28) mmol/L 41 H VBG Total CO2 (24-29) mmol/L 37 H VBG O2 Saturation % 86 VBG Base Excess (-2-3) mmol/L 15 H VBG Lactate (0.6-1.4) mmol/L 0.8 Sodium (136-145) mmol/L Potassium (3.5-5.1) mmol/L Chloride (98-107) mmol/L Carbon Dioxide (21.0-32.0) mmol/L Anion Gap (3-11) mmol/L BUN (7-18) mg/dL Creatinine (0.55-1.02) mg/dL Est GFR (CKD-EPI 2020) (mL/min/1.73m2) Glucose (74-106) mg/dL Calcium (8.5-10.1) mg/dL Magnesium (1.8-2.4) mg/dL Total Bilirubin (0.2-1.0) mg/dL AST (15-37) U/L ALT (14-59) U/L Alkaline Phosphatase (46-116) U/L Troponin I (<or=51) ng/L Cancelled 19 NT-Pro-B Natriuret Pep (<300) pg/mL Total Protein (6.4-8.2) g/dL Albumin (3.4-5.0) g/dL Procalcitonin ng/mL < 0.1 Urine Color (Yellow) Urine Clarity (Clear) Urine pH (5-8) Ur Specific [place] (1.005-1.025) Urine Protein (Neg-Trace) mg/dL Urine Ketones (Negative) mg/dL Urine Blood (Negative) Urine Nitrite (Negative) Urine Bilirubin (Negative) Urine Urobilinogen (Up to 0.2) mg/dL Ur Leukocyte Esterase (Negative) Urine Glucose (Negative) mg/dL COVID-19 Source SARS-CoV-2 (PCR) (Negative) Influenza Type A (PCR) (Negative) Influenza Type B (PCR) (Negative) RSV (PCR) (Negative) Quality:SDOH Health Related Social Needs: No Data to Display Sign Out Sign Out Data: Sign Out Comment: pending transfer vs admission, needs icu bed for bipap, h ypercarbic resp failure, pna Last updated by Emelina Mosquera PA at 03/30/24 15:47 Discharge Plan Disposition Patient Disposition: Transfer-Acute Inpatient Care Specific Acute Inpt Facility: Other Condition: Fair Discharge Details Chief Complaint: SOB Clinical Impression: Acute hypercapnic respiratory failure, Pneumonia Primary Care Provider: Cristhian Myers ED Provider: Ervin Anthony Home Meds and New Rx's Prescriptions: No Action clotrimazole-betamethasone 1-0.05 % cream 1 applic Topical BID PRN (Reason: rash) Qty: 45 3RF Rx Instructions: apply under breasts for itching/rash albuterol sulfate 2.5 mg /3 mL (0.083 %) solution for nebulization 2.5 mg inhalation QID PRN (Reason: shortness of breath or wheezing) Qty: 90 3RF fluconazole 150 mg tablet 150 mg PO ONCE Qty: 1 0RF Rx Instructions: as a single dose albuterol sulfate 90 mcg/actuation HFA aerosol inhaler 2 puff inhalation QID PRN (Reason: shortness of breath or wheezing) Qty: 8.5 3RF nystatin 100,000 unit/gram powder 1 applic topical TID PRN (Reason: rash) Qty: 60 4RF metoprolol succinate 100 mg tablet extended release 24 hr 100 mg PO DAILY Qty: 90 3RF furosemide 40 mg tablet See Rx Instructions .ROUTE .COMPLEX Qty: 112.5 4RF Rx Instructions: Take one tablet every other day and take 1 1/2 tablet on the opposite day. multivitamin [Multi-Day] 1 EACH tablet 1 ea PO DAILY aspirin [Aspir-81] 81 MG tablet,delayed release (DR/EC) 81 mg PO DAILY Qty: 90 (DME) Medial Offloader Brace See Rx Instructions .ROUTE .MEDSUPPLY Qty: 1 0RF Rx Instructions: Please apply to RIGHT knee for medial OA and valgus instability. Due to morbid obesity a custom brace is required. amoxicillin 500 mg tablet 2,000 mg PO ONCE Qty: 4 0RF Rx Instructions: TAKE 4 500MG TABS 30-60 MIN. PRIOR TO DENTAL WORK simvastatin 20 mg tablet 20 mg PO DAILY Qty: 90 3RF acetaminophen 500 mg tablet 1,000 mg PO BID Qty: 180 3RF budesonide-formoterol [Symbicort] 160-4.5 mcg/actuation HFA aerosol inhaler 2 puff Inhalation BID Qty: 1 3RF pantoprazole [Protonix] 40 mg tablet,delayed release (DR/EC) 40 mg PO DAILY Qty: 90 4RF Rx Instructions: 1 TAB DAILY ketoconazole 2 % cream 1 applic topical DAILY Qty: 60 3RF Rx Instructions: Apply to toenails, (apply at a separate time from Urea) apixaban 5 mg tablet 5 mg PO BID Qty: 180 3RF zolpidem [Ambien] 10 mg tablet 10 mg PO HS PRN (Reason: insomnia) Qty: 90 2RF nicotine 21 mg/24 hr patch 24 hour 1 patch transdermal DAILY Qty: 28 0RF albuterol sulfate 1.25 mg/3 mL solution for nebulization 1.25 mg inhalation QID PRN (Reason: shortness of breath or wheezing) Qty: 90 3RF magnesium oxide 400 mg magnesium capsule 400 mg PO DAILY Qty: 90 4RF Incruse Ellipta 62.5 mcg/actuation blister with device 1 inh inhalation DAILY Qty: 30 12RF bupropion HCl 150 mg tablet sustained-release 12 hr 150 mg PO DAILY Qty: 90 4RF amlodipine 10 mg tablet 10 mg PO DAILY Qty: 90 4RF lisinopril 40 mg tablet 40 mg PO DAILY Qty: 90 4RF nicotine 21-14-7 mg/24 hr patch, TD daily, sequential See Rx Instructions .ROUTE .COMPLEX Qty: 56 0RF Rx Instructions: apply 1-21 mg NICOTINE PATCH daily for 28 days; follow with 1-14 mg PATCH daily for 14 days, then 1-7mg PATCH daily for 14 days
[2024-03-30 17:06] LABS: BE (Venous) 15 mmol/L (-2-3); HCO3 (Venous) 42 mmol/L (23-28); O2 Sat (Venous) 70 %; TCO2 (Venous) 38 mmol/L (24-29); pO2 (Venous) 41 mmHg
[2024-03-30 17:11] LABS: pCO2 (Venous) 85 mmHg (41-51)
== END 2024-03-30 17:01 | disposition short-term general hospital (02) ==
PROVIDERS: Physician Assistant; Emergency Provider Physician Assistant; PCP Nurse Practitioner Family
DX: J96.02 Acute respiratory failure with hypercapnia (principal); J18.9 Pneumonia, unspecified organism; J44.9 Chronic obstructive pulmonary disease, unspecified; I10 Essential (primary) hypertension; E78.5 Hyperlipidemia, unspecified; F17.210 Nicotine dependence, cigarettes, uncomplicated; Z79.82 Long term (current) use of aspirin; Z79.01 Long term (current) use of anticoagulants; Z86.711 Personal history of pulmonary embolism
CPT/HCPCS: 00123; 36415; 71275; 80053; 82805; 84145; 87040; 87637; 93005; 94640; 96365; 96366; 96367; 96375; 99291; 81003; 83605; 83735; 83880; 84484; 85025; 93010; J0696; J2919; J3475; J3490; J7620

== ENCOUNTER → 2024-05-02 15:05 | Outpatient (BNVA) | payer MEDICARE, MEDICAID, SELFPAY | PROVIDERS: PCP Nurse Practitioner Family; Referring Provider Nurse Practitioner Family; Visit Provider Podiatrist | DX: L60.3 Nail dystrophy (principal); I73.89 Other specified peripheral vascular diseases; R60.0 Localized edema; R09.89 Other specified symptoms and signs involving the circulatory and respiratory systems; R20.8 Other disturbances of skin sensation; L65.9 Nonscarring hair loss, unspecified; L60.2 Onychogryphosis | CPT/HCPCS: 11721 ==

== ENCOUNTER → 2024-06-13 13:29 | Outpatient (BNVA) | payer MEDICARE, MEDICAID, SELFPAY | PROVIDERS: PCP Nurse Practitioner Family; Referring Provider Nurse Practitioner Family; Visit Provider Physician Assistant Surgical | DX: J43.1 Panlobular emphysema (principal); J96.11 Chronic respiratory failure with hypoxia; Z99.81 Dependence on supplemental oxygen; G47.33 Obstructive sleep apnea (adult) (pediatric) | CPT/HCPCS: 99214 ==

== ENCOUNTER 2024-08-06 13:53 | Emergency (ER) | payer MEDICARE, MEDICAID, SELFPAY ==
[2024-08-06] VITALS (27 sets, daily range): BP systolic 127–174; BP diastolic 78–117; PULSE 79–115; RESP 13–27; TEMP 37.4; O2SAT 83–99
[2024-08-06] MEDS: Tranexamic Acid 1,000 MG/10 ML VIAL 1000 MG (14:12)
[2024-08-06 14:14] LABS: Abs Immature Grans 0.08 10^3/uL (0.0-0.06); Absolute Basophil Count 0.08 10^3/uL (0.0-0.2); Absolute Eosinophil Count 0.26 10^3/uL (0.0-0.7); Absolute Monocyte Count 0.62 10^3/uL (0.1-0.8); Basophils % 0.8 %; Eosinophils % 2.7 %; HCT 44.9 % (36.0-46.0); HGB 14.2 g/dL (11.2-15.7); Immature Grans % 0.8 %; Lymphocytes % 15.6 %; MCH 31.3 pg (27.0-33.0); MCHC 31.6 % (32.0-36.0); MCV 99 fL (80-95); MPV 9.2 fL (8.0-11.0); Monocytes % 6.4 %; Neutrophils % 73.7 %; Platelet Count 291 10^3/uL (130-400); RBC 4.54 10^6/uL (3.93-5.22); RDW 14.3 % (11.7-14.6); RDW-SD 51.6 fL; WBC 9.64 10^3/uL (4.4-10.8)
[2024-08-06] MEDS: Oxymetazolone 0.05% SPRAY 15 ML BTL (14:22)
[2024-08-06 14:25] LABS: INR 1.2 (0.9-1.1); Prothrombin Time 11.7 sec (9.1-11.1)
[2024-08-06 14:32] LABS: ALT 36 U/L (14-59); AST 49 U/L (15-37); Albumin 2.7 g/dL (3.4-5.0); Alkaline Phosphatase 132 U/L (46-116); Anion Gap 2.1 mmol/L (3-11); BUN 9 mg/dL (7-18); Bilirubin, Total 0.43 mg/dL (0.2-1.0); CO2 36.9 mmol/L (21.0-32.0); CREATININE 0.7 mg/dL (0.55-1.02); Calcium 8.7 mg/dL (8.5-10.1); Chloride 100 mmol/L (98-107); Estimated GFR 98.34 (mL/min/1.73m2); Glucose 148 mg/dL (74-106); Magnesium 1.3 mg/dL (1.8-2.4); Potassium 4.1 mmol/L (3.5-5.1); Sodium 139 mmol/L (136-145); Total Protein 7.7 g/dL (6.4-8.2)
[2024-08-06] MEDS: MAGNESIUM SULFATE 2 GM/50 ML BAG IV_INF (14:51)
--- NOTE | 2024-08-06 14:52 | ED.GENADUL_ITS ---
Discharge Plan Disposition Patient Disposition: Home Condition: Stable Discharge Details Clinical Impression: Severe epistaxis, Essential hypertension, GERD (gastroesophageal reflux disease), Hyperlipidemia, Obstructive sleep apnea syndrome, 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, on home O2 therapy, Chronic obstructive lung disease Primary Care Provider: Cristhian Myers ED Provider: Marce Benavides Home Meds and New Rx's Prescriptions: No Action albuterol sulfate 90 mcg/actuation HFA aerosol inhaler 2 puff inhalation QID PRN (Reason: shortness of breath or wheezing) Qty: 8.5 3RF roflumilast 500 mcg tablet 500 mcg PO DAILY Qty: 90 4RF ipratropium-albuterol 0.5 mg-3 mg(2.5 mg base)/3 mL solution for nebulization 3 ml inhalation QID PRN (Reason: wheezing) Qty: 180 6RF metoprolol succinate 100 mg tablet extended release 24 hr 100 mg PO DAILY Qty: 90 3RF furosemide 40 mg tablet See Rx Instructions .ROUTE .COMPLEX Qty: 112.5 4RF Rx Instructions: Take one tablet every other day and take 1 1/2 tablet on the opposite day. multivitamin [Multi-Day] 1 EACH tablet 1 ea PO DAILY (DME) Medial Offloader Brace See Rx Instructions .ROUTE .MEDSUPPLY Qty: 1 0RF Rx Instructions: Please apply to RIGHT knee for medial OA and valgus instability. Due to morbid obesity a custom brace is required. amoxicillin 500 mg tablet 2,000 mg PO ONCE Qty: 4 0RF Rx Instructions: TAKE 4 500MG TABS 30-60 MIN. PRIOR TO DENTAL WORK acetaminophen 500 mg tablet 1,000 mg PO BID Qty: 180 3RF pantoprazole [Protonix] 40 mg tablet,delayed release (DR/EC) 40 mg PO DAILY Qty: 90 4RF Rx Instructions: 1 TAB DAILY ketoconazole 2 % cream 1 applic topical DAILY Qty: 60 3RF Rx Instructions: Apply to toenails, (apply at a separate time from Urea) apixaban 5 mg tablet 5 mg PO BID Qty: 180 3RF zolpidem [Ambien] 10 mg tablet 10 mg PO HS PRN (Reason: insomnia) Qty: 90 2RF nicotine 21 mg/24 hr patch 24 hour 1 patch transdermal DAILY Qty: 28 0RF albuterol sulfate 1.25 mg/3 mL solution for nebulization 1.25 mg inhalation QID PRN (Reason: shortness of breath or wheezing) Qty: 90 3RF magnesium oxide 400 mg magnesium capsule 400 mg PO DAILY Qty: 90 4RF Incruse Ellipta 62.5 mcg/actuation blister with device 1 inh inhalation DAILY Qty: 30 12RF bupropion HCl 150 mg tablet sustained-release 12 hr 150 mg PO DAILY Qty: 90 4RF amlodipine 10 mg tablet 10 mg PO DAILY Qty: 90 4RF lisinopril 40 mg tablet 40 mg PO DAILY Qty: 90 4RF budesonide-formoterol [Symbicort] 160-4.5 mcg/actuation HFA aerosol inhaler 2 puff Inhalation BID Qty: 1 3RF simvastatin 20 mg tablet 20 mg PO DAILY Qty: 90 3RF Discharge Instructions Instructions: Nosebleeds ED Additional Instructions: You were seen in the emergency department today for evaluation of a nosebleed. In our department you had a full physical examination performed, had laboratory studies that were reassuring, including normal red blood cell count. You did have low magnesium which was repleted while you were here in the emergency department. You have multiple interventions performed to stop the bleeding in your nose, and we were able to successfully get the bleeding to stop today. I recommend that you hold your nighttime dose of your Eliquis, but can restart it tomorrow as long as you have had no further bleeding events. I recommend that you continue to use your humidifier, bacitracin as needed insi de your nares to prevent dryness. If you have recurrence of your nosebleeds, please apply direct pressure by pinching your nose firmly for 15 minutes without stopping or checking. Avoid dabbing or blowing your nose to allow the blood to clot. If your nose is still bleeding, you can trial the Afrin medication likely used today. Blow all of the clots out of your nose and then apply a large amount of Afrin (approximately 10 pumps of medication) to the nostril that is bleeding. Then pinch your nose again and leave your fingers in place for 15 minutes straight. This can be repeated. If your bleeding is severe, compromises your breathing, you become dizzy, or have any other concerns you should return to the emergency department for reevaluation. I have referred you to be seen by an ear nose and throat doctor for evaluation, and you should keep your scheduled appointment with your primary care provider on Wednesday for reevaluation. Thank you for allowing us to be part of your care. HPI General Mode of arrival: ambulatory . Date/Time Provider Initiated Documentation: 08/06/24 14:02 . Limitations to Documentation: no limitations . Information obtained by: patient, family, EMS and old records reviewed . HPI Narrative: HPI: This is a 63-year-old male patient with a history of chronic respiratory failure on 3 L of O2, hypertension, ARIES, COPD, and apixaban use for thromboembolism, presenting for evaluation of epistaxis. The patient reports that the bleeding started about 45 minutes prior to her summoning EMS, states that she is not sure what caused it to occur, did not sustain any trauma or injury. She does wear a nasal cannula chronically, BiPAP at night. Last dose of apixaban this morning. Bleeding is occurring bilaterally, and has failed direct pressure in the outpatient environment. The patient was transition by EMS to a nonrebreather, but has had significant shortness of breath and air hunger, with intermittent desaturation events. Exam: Gen: Awake and alert, appears acutely distressed HEENT: Non-icteric sclera, patient does have some scant bleeding from her lacrimal ducts. She has bilateral profuse epistaxis, with large blood clots expressed during this provider's initial examination. Unable to visualize discrete area of bleeding. Does have significant drainage of blood in the posterior pharynx. Neck: Supple Lungs: Respiratory distress and tachypnea appreciated CV: Appears well perfused, heart with tachycardic rate, regular rhythm, strong distal pulses Abdomen: Non-distended MSK: Moves 4 extremities without apparent limitation in ROM Skin: Visualized skin without rashes, cyanosis. Neuro: Normal Gait, no obvious focal deficits or facial asymmetry. Speaks in full, clear sentences. Psych: Appropriate for situation. MDM: This is a 63-year-old female patient presenting for evaluation of nosebleed. Differential includes but is not limited to anterior epistaxis, posterior epistaxis, coagulopathy, nasal trauma. Considered anemia. On arrival the patient is in notable distress with intermittent desaturations to the mid 80s, nonrebreather with blow-by applied, manual pressure held during initial resuscitation. Laboratory studies including CBC, CMP, INR obtained. ED Course: Several mL of Afrin were instilled into the bilateral nail hours after expulsion of clots, and manual pressure was held on the nose for 20 minutes. The patient was noted to have unsuccessful hemostasis after this intervention, and given her significant work of breathing we did elect to place a 7.5 cm Rhino Rocket in the left nare (which is bleeding more heavily) as well as a gram of TXA b/l. This did cause the patient significant pain but was successfully placed, patient was noted to have oozing of blood around the Rhino Rocket. We were able to stabilize her oxygen need, and suction was utilized to prevent aspiration of blood clot products. Unfortunately, the patient coughed and expelled the Rhino Rocket and was not amenable to replacement given her discomfort. I placed a second instillation of Afrin, as well as Surgifoam bilaterally and clamped the nose, and was able to slow the bleeding, and it ceased entirely after application of the second round of Surgifoam. The patient's nose was unclamped and she was monitored for some time to ensure that the bleeding had stopped entirely. We will provide her with an oxy mask so that she can continue to wear her oxygen at home despite the Surgifoam occluding her nares. I reviewed her labs, which show no anemia, leukocytosis, thrombocytopenia, and her INR is 1.2. She does not have any significant electrolyte derangements, does have an elevated bicarb and low magnesium which was demonstrated on prior studies, but for which I did provide 2 g of magnesium IV. No evidence of liver dysfunction, and the patient's tachycardia resolved over the course of her time in the emergency department. After monitoring for approximately 1 hour after hemostasis was achieved, she has had no recurrence of bleeding, her oxygen level is appropriate and her tachycardia has resolved entirely. I shared epistaxis management tips and tricks, and provided a referral to ear nose and throat. She has a scheduled appointment with her primary care provider in the next few days already and will keep this appointment. At this time, the patient has had a full medical evaluation and is safe for discharge to home. They are hemodynamically stable, ambulatory, and tolerating PO. They are understanding of the follow-up plan and return precautions. They left our facility without incident. Marce Benavides MD Related Data Home Medications ?Medication ?Instructions ?Recorded ?Confirmed multivitamin (Multi-Day tablet) 1 ea PO DAILY 09/02/12 06/13/24 Medial Offloader Brace #1 ea 12/02/20 06/13/24 amoxicillin 500 mg tablet 2,000 mg (4 x 500 mg) PO ONCE #4 12/11/21 06/13/24 tabs acetaminophen 500 mg tablet 1,000 mg (2 x 500 mg) PO BID #180 08/19/23 06/13/24 tabs pantoprazole 40 mg tablet,delayed 40 mg PO DAILY #90 tab-caps 08/19/23 06/13/24 release (Protonix) ketoconazole 2 % topical cream 1 applic topical DAILY fungal 09/15/23 06/13/24 nails #60 grams furosemide 40 mg tablet See Rx Instructions .Route 09/17/23 06/13/24 .COMPLEX #112.5 tab-caps metoprolol succinate 100 mg 100 mg PO DAILY #90 tabs 09/17/23 06/13/24 tablet,extended release 24 hr apixaban 5 mg tablet 5 mg PO BID #180 tabs 10/22/23 06/13/24 zolpidem 10 mg tablet (Ambien) 10 mg PO HS PRN insomnia #90 tabs 11/10/23 06/13/24 albuterol sulfate 90 mcg/actuation 2 puff inhalation QID PRN 11/12/23 06/13/24 aerosol inhaler shortness of breath or wheezing #8.5 grams albuterol sulfate 1.25 mg/3 mL 1.25 mg (3 mL) inhalation QID PRN 11/17/23 06/13/24 solution for nebulization shortness of breath or wheezing #90 mL nicotine 21 mg/24 hr daily 1 patch transdermal DAILY #28 ea 11/17/23 05/03/24 transdermal patch magnesium oxide 400 mg PO DAILY #90 caps 11/22/23 06/13/24 umeclidinium 62.5 mcg/actuation 1 inh inhalation DAILY #30 ea 12/02/23 06/13/24 blister powder for inhalation (Incruse Ellipta) bupropion HCl 150 mg tablet,12 hr 150 mg PO DAILY #90 tab-caps 12/29/23 06/13/24 sustained-release amlodipine 10 mg tablet 10 mg PO DAILY #90 tab-caps 02/23/24 06/13/24 lisinopril 40 mg tablet 40 mg PO DAILY #90 tabs 03/01/24 06/13/24 budesonide-formoterol HFA 160 2 puff inhalation BID ##1 04/24/24 06/13/24 mcg-4.5 mcg/actuation aerosol inhaler (Symbicort) ipratropium 0.5 mg-albuterol 3 mg 3 ml inhalation QID PRN wheezing 06/13/24 06/13/24 (2.5 mg base)/3 mL nebulization #180 mL soln roflumilast 500 mcg tablet 500 mcg PO DAILY #90 tabs 06/13/24 06/13/24 simvastatin 20 mg tablet 20 mg PO DAILY #90 tabs 07/27/24 Previous Rx's ?Medication ?Instructions ?Recorded Medial Offloader Brace #1 ea 12/02/20 amoxicillin 500 mg tablet 2,000 mg (4 x 500 mg) PO ONCE #4 12/11/21 tabs acetaminophen 500 mg tablet 1,000 mg (2 x 500 mg) PO BID #180 08/19/23 tabs pantoprazole 40 mg tablet,delayed 40 mg PO DAILY #90 tab-caps 08/19/23 release (Protonix) ketoconazole 2 % topical cream 1 applic topical DAILY fungal 09/15/23 nails #60 grams furosemide 40 mg tablet See Rx Instructions .Route 09/17/23 .COMPLEX #112.5 tab-caps metoprolol succinate 100 mg 100 mg PO DAILY #90 tabs 09/17/23 tablet,extended release 24 hr apixaban 5 mg tablet 5 mg PO BID #180 tabs 10/22/23 zolpidem 10 mg tablet (Ambien) 10 mg PO HS PRN insomnia #90 tabs 11/10/23 albuterol sulfate 90 mcg/actuation 2 puff inhalation QID PRN 11/12/23 aerosol inhaler shortness of breath or wheezing #8.5 grams albuterol sulfate 1.25 mg/3 mL 1.25 mg (3 mL) inhalation QID PRN 11/17/23 solution for nebulization shortness of breath or wheezing #90 mL nicotine 21 mg/24 hr daily 1 patch transdermal DAILY #28 ea 11/17/23 transdermal patch magnesium oxide 400 mg PO DAILY #90 caps 11/22/23 umeclidinium 62.5 mcg/actuation 1 inh inhalation DAILY #30 ea 12/02/23 blister powder for inhalation (Incruse Ellipta) bupropion HCl 150 mg tablet,12 hr 150 mg PO DAILY #90 tab-caps 12/29/23 sustained-release amlodipine 10 mg tablet 10 mg PO DAILY #90 tab-caps 02/23/24 lisinopril 40 mg tablet 40 mg PO DAILY #90 tabs 03/01/24 budesonide-formoterol HFA 160 2 puff inhalation BID ##1 04/24/24 mcg-4.5 mcg/actuation aerosol inhaler (Symbicort) ipratropium 0.5 mg-albuterol 3 mg 3 ml inhalation QID PRN wheezing 06/13/24 (2.5 mg base)/3 mL nebulization #180 mL soln roflumilast 500 mcg tablet 500 mcg PO DAILY #90 tabs 06/13/24 simvastatin 20 mg tablet 20 mg PO DAILY #90 tabs 07/27/24 Allergies Allergy/AdvReac Type Severity Reaction Status Date / Time citalopram AdvReac INSOMNIA; Verified 06/13/24 13:39 DIZZINESS General Stated Complaint: Epistaxis DAISHA: 2 Course Vital Signs Vital signs: Vital Signs Temperature 37.4 C 08/06/24 13:57 Pulse 115 H 08/06/24 13:57 Respiratory Rate 24 08/06/24 13:57 Blood Pressure 156/100 H 08/06/24 13:57 Pulse Oximetry 92 08/06/24 13:57 Temperature 37.4 C 08/06/24 13:57 Temperature Source Tympanic 08/06/24 13:57 Pulse 110 H 08/06/24 14:30 Pulse 109 H 08/06/24 14:30 Respiratory Rate 20 08/06/24 14:30 Blood Pressure 127/92 H 08/06/24 14:30 Blood Pressure Mean 99 08/06/24 14:30 Blood Pressure Position Sitting 08/06/24 13:57 Pulse Oximetry 86 L 08/06/24 14:30 Oxygen Delivery Method Room Air 08/06/24 14:23 Oxygen Flow Rate 0 08/06/24 14:23 Comment 15l NRB 08/06/24 14:30 Lab/Test Results Lab/Test Results: Laboratory Tests Range/Units 08/06/24 14:06 WBC (4.4-10.8) 10^3/uL 9.64 RBC (3.93-5.22) 10^6/uL 4.54 Hgb (11.2-15.7) g/dL 14.2 Hct (36.0-46.0) % 44.9 MCV (80-95) fL 99 H MCH (27.0-33.0) pg 31.3 MCHC (32.0-36.0) % 31.6 L RDW (11.7-14.6) % 14.3 Plt Count (130-400) 10^3/uL 291 MPV (8.0-11.0) fL 9.2 Immature Gran % % 0.8 Neutrophils % % 73.7 Lymphocytes % % 15.6 Monocytes % % 6.4 Eosinophils % % 2.7 Basophils % % 0.8 Nucleated RBC % (0.0-0.3) % 0.0 Absolute Neutrophils (1.2-6.7) 10^3/uL 7.10 H Absolute Lymphocytes (1.2-3.4) 10^3/uL 1.50 Absolute Monocytes (0.1-0.8) 10^3/uL 0.62 Absolute Eosinophils (0.0-0.7) 10^3/uL 0.26 Absolute Basophils (0.0-0.2) 10^3/uL 0.08 PT (9.1-11.1) sec 11.7 H INR (0.9-1.1) 1.2 H Sodium (136-145) mmol/L 139 Potassium (3.5-5.1) mmol/L 4.1 Chloride (98-107) mmol/L 100 Carbon Dioxide (21.0-32.0) mmol/L 36.9 H Anion Gap (3-11) mmol/L 2.1 L BUN (7-18) mg/dL 9 Creatinine (0.55-1.02) mg/dL 0.7 Est GFR (CKD-EPI 2020) (mL/min/1.73m2) 98.34 Glucose (74-106) mg/dL 148 H Calcium (8.5-10.1) mg/dL 8.7 Magnesium (1.8-2.4) mg/dL 1.3 L Total Bilirubin (0.2-1.0) mg/dL 0.43 AST (15-37) U/L 49 H ALT (14-59) U/L 36 Alkaline Phosphatase (46-116) U/L 132 H Total Protein (6.4-8.2) g/dL 7.7 Albumin (3.4-5.0) g/dL 2.7 L Medical Decision Making Quality:SDOH Health Related Social Needs: No Data to Display PFSH All Active Problems (Updated 08/06/24 @ 16:57 by Marce Benavides MD) Severe epistaxis (Acute) Edema of left lower extremity (Acute) Tachycardia (Acute) Generalized weakness (Acute) Toe pain (Acute) Peripheral vascular disease, unspecified (Chronic) Muscle pain (Acute) 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, on home O2 therapy (Acute) Nail dystrophy (Acute) 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 (Acute) Chronic back pain (Chronic) Essential hypertension (Chronic) Hyperlipidemia (Chronic) Obstructive sleep apnea syndrome (Chronic) BiPAP Chronic obstructive lung disease (Chronic) Depressive disorder (Chronic) GERD (gastroesophageal reflux disease) (Chronic) Cigarette smoker (Chronic) Current Insomnia (Chronic) Osteoarthritis of right knee (Acute) Steroid injection: 08/19/2020; 04/15/2020 Venous insufficiency (chronic) (peripheral) (Chronic) Medical History Hypokalemia Hypomagnesemia Hypoxemia Pulmonary embolism and infarction Right foot pain Surgical History S/P ORIF (open reduction internal fixation) fracture Right wrist S/P section History of bilateral tubal ligation Hx of umbilical hernia repair S/P cholecystectomy Status post total knee replacement, left Family History Mother Essential hypertension Heart disease Hyperlipidemia Myocardial infarction Emphysema lung Stroke Skin cancer (melanoma) Father , 50 of [place] Essential hypertension Heart disease Hyperlipidemia Myocardial infarction Stroke Sister Essential hypertension Sister Emphysema lung Sister Hyperlipidemia Brother Essential hypertension Depression Emphysema lung Asthma Liver cancer Son , 30 from [place] Sleep apnea Myocardial infarction Daughter Sleep apnea Asthma Maternal Grandfather Lung cancer Maternal Grandmother Colon cancer Hypertension Heart disease Paternal Grandfather Parkinson's disease Paternal Grandmother Uterine cancer Social History Smoking/Tobacco Use Status: Former Tobacco Use Quit status: considering quitting Smoking risk assessment performed?: Yes Alcohol Intake: current Alcohol Intake frequency: a few times a week Alcohol type: hard liquor Drug use: Socially Substance use type: does not use Adopted: No Caregiver/Support person: Yes Foster care: No Household members: none Housing: apartment Communication Needs: None Education Level: college Do you need help understanding health information?: Rarely Pets and animals: Yes Pets and animals: cat(s) Sexually active: No Do you think of yourself as: straight/heterosexual Current gender identity: female What is your relationship status?: don't know How often do you talk on the phone with friends or family?: twice per week How often do you get together with friends or relatives?: decline to answer How often do you attend hoahaoism or jewish services?: decline to answer Do you belong to any clubs or organized social groups?: no Panel score (0-1 are the most socially isolated patients): 0 What type of physical activity do you participate in: none Duration: decline to answer Frequency: decline to answer Jessica/Yazidi: Yazidism Agree to transfusion: Yes Seatbelt use: always Helmet use: Yes Helmet use: always Drive intox or ride w/intox charter and tour bus driver: No Working smoke detector in home: Yes Carbon monox detector in home: No Firearms in home: No Do you feel safe at home: Yes Do you feel safe in your relationship?: Yes Victim of physical abuse: No Victim of emotional abuse: No Victim of sexual abuse: No
[2024-08-06] MEDS: Gelatin SPONGE 12-7 MM PKT 2 EACH TP (15:17)
--- NOTE | 2024-08-06 15:17 | NUR.NOTE ---
rhino rocket attempted x2, unsuccessful. gelatine sponge placed, minimal bleeding to left nostril, MD made aware. Nursing Note:
[2024-08-06] MEDS: Gelatin SPONGE 12-7 MM PKT 1 EACH TP (18:00)
== END 2024-08-06 17:17 | disposition home or self-care (01) ==
PROVIDERS: Emergency Provider Emergency Medicine; PCP Nurse Practitioner Family
DX: R04.0 Epistaxis (principal); E83.42 Hypomagnesemia; I10 Essential (primary) hypertension; E78.5 Hyperlipidemia, unspecified; J44.9 Chronic obstructive pulmonary disease, unspecified; Z86.711 Personal history of pulmonary embolism; Z99.81 Dependence on supplemental oxygen; Z87.891 Personal history of nicotine dependence
CPT/HCPCS: 36415; 80053; 96365; 99284; 83735; 85025; 85610; J3475

== ENCOUNTER 2024-08-09 16:00 | Emergency (ER) | payer MEDICARE, MEDICAID, SELFPAY ==
[2024-08-09] VITALS (34 sets, daily range): BP systolic 115–166; BP diastolic 64–95; PULSE 79–101; RESP 5–24; TEMP 36.4–37.2; O2SAT 85–96
--- NOTE | 2024-08-09 16:15 | RT.EKG_ITS ---
APPROVED REPORT Exam: Resting ECG Reason for Exam: SOB Patient Location: E HR:98 bpm ECG Measurements Heart Rate 98 AXIS MN 187 P 68 QRSd 112 QRS -33 QT 365 T 34 QTc 465 Conclusion Sinus rhythm...normal P axis, V-rate 60- 99 Ventricular premature complex...V complex w/ short R-R interval Incomplete left bundle branch block...QRSd>110mS, terminal axis(-90,-1)
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
--- NOTE | 2024-08-09 16:45 | DI.RAD_ITS ---
Exam(s) XR PORTABLE CHEST AP EXAM: XR PORTABLE CHEST AP CLINICAL HISTORY: sob TECHNIQUE: 2D digital imaging was performed of the chest. Two images were obtained. An AP view was obtained. COMPARISON: CR XR CHEST 1V IN DI DEPT from 02/25/2023 FINDINGS: Examination is limited by patient body habitus. MEDIASTINUM: Normal. HEART: Cardiomegaly. PULMONARY VASCULATURE: Normal. LUNGS: There do appear to be prominent interstitial markings in the perihilar regions bilaterally. PLEURAL SPACE: No pleural effusion or pneumothorax. BONE:Within normal limits for the patient's age. OTHER FINDINGS:Normal. IMPRESSION: Cardiomegaly. Bilateral perihilar interstitial lung markings which may reflect interstitial edema. Please correlate clinically. A pneumonitis cannot be entirely excluded. DATA REPOSITORY: RADIATION DOSE DELIVERED:
[2024-08-09] MEDS: predniSONE 20 MG TAB 60 MG PO (16:56)
[2024-08-09] MEDS: Albuterol/Ipratropium 3 ML UPD VIAL UPD ×2 (16:56→20:06)
[2024-08-09 18:29] LABS: COVID-19 PCR Negative (Negative); Influenza A PCR Negative (Negative); Influenza B PCR Negative (Negative); RSV PCR Negative (Negative)
[2024-08-09 18:30] LABS: Source Nasopharynx
== END 2024-08-09 20:49 | disposition home or self-care (01) ==
PROVIDERS: Emergency Provider Emergency Medicine Emergency Medical Services; PCP Nurse Practitioner Family
DX: J44.1 Chronic obstructive pulmonary disease with (acute) exacerbation (principal); J01.90 Acute sinusitis, unspecified; G47.33 Obstructive sleep apnea (adult) (pediatric); Z79.01 Long term (current) use of anticoagulants; Z99.81 Dependence on supplemental oxygen
CPT/HCPCS: 87637; 93005; 94640; 99283; 71045; 93010; J7512; J7620

== ENCOUNTER 2024-08-11 08:39 | Observation (INO) | payer MEDICARE, MEDICAID, SELFPAY ==
[2024-08-11] VITALS (57 sets, daily range): BP systolic 132–175; BP diastolic 69–99; PULSE 78–101; RESP 13–28; TEMP 36–36.8; O2SAT 84–96
[2024-08-11] MEDS: Tranexamic Acid 1,000 MG/10 ML VIAL 1000 MG (08:49)
[2024-08-11] MEDS: fentaNYL 100 MCG/2 ML VIAL 50 MCG IVP (09:18)
[2024-08-11 09:35] LABS: Abs Immature Grans 0.08 10^3/uL (0.0-0.06); Absolute Basophil Count 0.05 10^3/uL (0.0-0.2); Absolute Eosinophil Count 0.01 10^3/uL (0.0-0.7); Absolute Lymphocyte Count 1.62 10^3/uL (1.2-3.4); Absolute Monocyte Count 0.68 10^3/uL (0.1-0.8); Absolute Neutrophil Count 7.55 10^3/uL (1.2-6.7); Basophils % 0.5 %; Eosinophils % 0.1 %; HCT 41.5 % (36.0-46.0); HGB 13.1 g/dL (11.2-15.7); Immature Grans % 0.8 %; Lymphocytes % 16.2 %; MCH 31.5 pg (27.0-33.0); MCHC 31.6 % (32.0-36.0); MCV 100 fL (80-95); MPV 9.3 fL (8.0-11.0); Monocytes % 6.8 %; Neutrophils % 75.6 %; Platelet Count 297 10^3/uL (130-400); RBC 4.16 10^6/uL (3.93-5.22); RDW 15.6 % (11.7-14.6); RDW-SD 55.2 fL; WBC 9.99 10^3/uL (4.4-10.8)
[2024-08-11 09:48] LABS: INR 1.2 (0.9-1.1); PTT Activated 26.2 sec (20.6-30.2); Prothrombin Time 11.8 sec (9.1-11.1)
[2024-08-11 09:50] LABS: ALT 32 U/L (14-59); AST 26 U/L (15-37); Albumin 2.9 g/dL (3.4-5.0); Alkaline Phosphatase 107 U/L (46-116); Anion Gap 5.1 mmol/L (3-11); BUN 8 mg/dL (7-18); Bilirubin, Total 0.41 mg/dL (0.2-1.0); CO2 37.9 mmol/L (21.0-32.0); CREATININE 0.6 mg/dL (0.55-1.02); Calcium 9.3 mg/dL (8.5-10.1); Chloride 100 mmol/L (98-107); Estimated GFR 102.06 (mL/min/1.73m2); Glucose 142 mg/dL (74-106); Potassium 3.9 mmol/L (3.5-5.1); Sodium 143 mmol/L (136-145); Total Protein 7.5 g/dL (6.4-8.2)
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
[2024-08-11] MEDS: Cellulose,Oxidized 2X3 PKT 1 EACH MC (10:37)
[2024-08-11] MEDS: Lidocaine 1% Multi-Dose W/EPI 1/100,000 50 ML VIAL (10:37)
[2024-08-11] MEDS: Gelatin SPONGE 12-7 MM PKT 1 EACH TP (10:37)
[2024-08-11] MEDS: Lidocaine/Epinephri/Tetracaine Topical Gel 3 ML (10:38)
--- NOTE | 2024-08-11 11:26 | NUR.NOTE ---
Patient's daughter asked to bring in patient's cpap. Hilda (daughter) stated she would.
--- NOTE | 2024-08-11 11:46 | PROC.BLANK_ITS ---
Date of service: 08/11/24 Time of Service: 09:46 Procedures Epistaxis Control Time Out Performed: Yes Nostril: left Nose Prepped With: lidocaine and other (With epinephrine) Direct Inspection: unable to visualize Clots Removed by: blowing nose and suction Cautery Used: none Device Inserted: hemostatic balloon (Both posterior and anterior balloons were inflated gently, noting carefully for any resistance or pain.) Device Size: 7 Patient Tolerated Procedure: well and no complications Medical Decision Making Quality:SDOH Health Related Social Needs: Health related social needs feeling lonely/isolated (Z 60.8)
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
--- NOTE | 2024-08-11 14:36 | W.PC.ACHO ---
Registration Status: Primary Language: Preferred Language: ED Information & Data Chief Complaint Epistaxis 08/11/24 10:46 Triage Note nose intermittent nose 08/11/24 08:40 bleeds. takes eliquis. this one started ~ 0745. used nasal spray with temporary relief. Medical / Surgical History (Last Reviewed 08/09/24 @ 15:22 by Cristhian Myers NP) Hypoxemia Hypomagnesemia Hypokalemia Right foot pain Pulmonary embolism and infarction (Last Reviewed 08/09/24 @ 15:22 by Cristhian Myers NP) S/P section History of bilateral tubal ligation Hx of umbilical hernia repair S/P cholecystectomy Status post total knee replacement, left S/P ORIF (open reduction internal fixation) fracture Most Recent Vital Signs Temperature 36.8 C 08/11/24 08:40 Temperature Source Temporal Artery Scan 08/11/24 08:40 Pulse 80 08/11/24 14:20 Pulse 81 08/11/24 14:20 Respiratory Rate 18 08/11/24 14:20 Blood Pressure 160/84 H 08/11/24 14:19 Blood Pressure Mean 110 08/11/24 14:19 Blood Pressure Position Sitting 08/11/24 08:40 Pulse Oximetry 93 08/11/24 14:20 Oxygen Delivery Method Nasal Cannula 08/11/24 08:40 Oxygen Flow Rate 3 08/11/24 08:40 Comment chronic O2 use at 3 lpm mouth is currently being suctioned 08/11/24 08:40 Allergies citalopram Adverse Reaction (Verified 08/11/24 10:45) INSOMNIA; DIZZINESS Precautions Isolation Standard precaution 08/11/24 10:33 IV IV Catheter Type [Left Forearm Saline Lock ] IV Catheter Gauge [Left 20 Forearm] Diagnostics 08/11/24 Range/Units 09:25 WBC 9.99 (4.4-10.8) 10^3/uL RBC 4.16 (3.93-5.22) 10^6/uL Hgb 13.1 (11.2-15.7) g/dL Hct 41.5 (36.0-46.0) % MCV 100 H (80-95) fL MCH 31.5 (27.0-33.0) pg MCHC 31.6 L (32.0-36.0) % RDW 15.6 H (11.7-14.6) % Plt Count 297 (130-400) 10^3/uL MPV 9.3 (8.0-11.0) fL Immature Gran % 0.8 % Neutrophils % 75.6 % Lymphocytes % 16.2 % Monocytes % 6.8 % Eosinophils % 0.1 % Basophils % 0.5 % Nucleated RBC % 0.0 (0.0-0.3) % Absolute Neutrophils 7.55 H (1.2-6.7) 10^3/uL Absolute Lymphocytes 1.62 (1.2-3.4) 10^3/uL Absolute Monocytes 0.68 (0.1-0.8) 10^3/uL Absolute Eosinophils 0.01 (0.0-0.7) 10^3/uL Absolute Basophils 0.05 (0.0-0.2) 10^3/uL PT 11.8 H (9.1-11.1) sec INR 1.2 H (0.9-1.1) APTT 26.2 (20.6-30.2) sec Sodium 143 (136-145) mmol/L Potassium 3.9 (3.5-5.1) mmol/L Chloride 100 (98-107) mmol/L Carbon Dioxide 37.9 H (21.0-32.0) mmol/L Anion Gap 5.1 (3-11) mmol/L BUN 8 (7-18) mg/dL Creatinine 0.6 (0.55-1.02) mg/dL Est GFR (CKD-EPI 2020) 102.06 (mL/min/1.73m2) Glucose 142 H (74-106) mg/dL Calcium 9.3 (8.5-10.1) mg/dL Total Bilirubin 0.41 (0.2-1.0) mg/dL AST 26 (15-37) U/L ALT 32 (14-59) U/L Alkaline Phosphatase 107 (46-116) U/L Total Protein 7.5 (6.4-8.2) g/dL Albumin 2.9 L (3.4-5.0) g/dL Intake and Output - 24 Hour Total 08/11/24 08:29 thru 08/11/24 10:44 Output Total 250 Balance -250 Weight 152 kg Output: Other 250 Falls Risk Assessment History of Falls No History 08/11/24 10:33 Contributing Factors Impairments 08/11/24 10:33 Ambulatory Aids Independent 08/11/24 10:33 Tubes/Lines None 08/11/24 10:33 Gait Evaluation No gait disturbance 08/11/24 10:33 Cognition No cognitive impairment 08/11/24 10:33 Fall Total Score 3 08/11/24 10:33 Level of Risk Standard/Low Risk 08/11/24 10:33 Notes 08/11/24 11:26 Nursing Notes by Hanny Grewal Patient's daughter asked to bring in patient's cpap. Hilda (daughter) stated she would. Initialized on 08/11/24 11:26 - END OF NOTE v v v v v v v v v Sending and/or Receiving Nurses: Please use comment section below to note any information pertinent to the patient hand-off not included above. Information / Comments: Report received from: Maryam OCONNELL (ED) @ [phone]
[2024-08-11] MEDS: ACETAMINOPHEN 1,000 MG/100 ML BAG 400 MG IVPB (15:51)
[2024-08-11] MEDS: Pantoprazole 40 MG TABCR PO (17:08)
[2024-08-11] MEDS: predniSONE 20 MG TAB 40 MG PO (17:08)
[2024-08-11] MEDS: Lisinopril 20 MG TAB 40 MG PO (17:08)
[2024-08-11] MEDS: HYDROmorphone 2 MG/ML SYR 0.5 MG IVP (18:44)
[2024-08-11] MEDS: Acetaminophen 500 MG TAB 1000 MG PO (20:46)
[2024-08-11] MEDS: Simvastatin 20 MG TAB PO (20:47)
[2024-08-11] MEDS: Amoxicillin 500/Clav. 125 TAB PO (20:47)
[2024-08-11] MEDS: Budesonide/Formoterol 160/4.5 6 GM 60 PUFF INH IH (21:21)
[2024-08-12] VITALS (9 sets, daily range): BP systolic 130–176; BP diastolic 80–94; PULSE 86–94; RESP 18–20; TEMP 36–36.8; O2SAT 91–96
[2024-08-12] MEDS: Zolpidem 10 MG TAB PO (00:41)
[2024-08-12] MEDS: Mylanta Suspension 30 ML CUP PO (03:59)
[2024-08-12 06:06] LABS: Bilirubin Negative (Negative); Blood Negative (Negative); Clarity Clear (Clear); Glucose Negative (Negative); Ketones Negative (Negative); Leukocyte Esterase Negative (Negative); Nitrite Negative (Negative); Specific Gravity 1.015 (1.005-1.025); Urobilinogen 0.2 mg/dL (Up to 0.2)
[2024-08-12 07:15] LABS: Absolute Basophil Count 0.03 10^3/uL (0.0-0.2); Absolute Lymphocyte Count 1.63 10^3/uL (1.2-3.4); Absolute Monocyte Count 0.78 10^3/uL (0.1-0.8); Basophils % 0.3 %; HCT 40.4 % (36.0-46.0); HGB 13.2 g/dL (11.2-15.7); Immature Grans % 0.9 %; Lymphocytes % 14.2 %; MCH 31.8 pg (27.0-33.0); MCHC 32.7 % (32.0-36.0); MCV 97 fL (80-95); MPV 9.9 fL (8.0-11.0); Monocytes % 6.8 %; Neutrophils % 77.8 %; Platelet Count 324 10^3/uL (130-400); RBC 4.15 10^6/uL (3.93-5.22); RDW 15.1 % (11.7-14.6); RDW-SD 53.5 fL; WBC 11.51 10^3/uL (4.4-10.8)
[2024-08-12 07:26] LABS: Absolute Neutrophil Count 8.95 10^3/uL (1.2-6.7)
[2024-08-12 07:28] LABS: Anion Gap 3.6 mmol/L (3-11); BUN 6 mg/dL (7-18); CO2 35.4 mmol/L (21.0-32.0); CREATININE 0.5 mg/dL (0.55-1.02); Calcium 9.4 mg/dL (8.5-10.1); Chloride 101 mmol/L (98-107); Estimated GFR 106.64 (mL/min/1.73m2); Glucose 144 mg/dL (74-106); Potassium 3.5 mmol/L (3.5-5.1); Sodium 140 mmol/L (136-145)
[2024-08-12] MEDS: Budesonide/Formoterol 160/4.5 6 GM 60 PUFF INH IH ×2 (08:22→19:52)
[2024-08-12] MEDS: Umeclidinium 7 CAP INHALER 1 CAP IH (08:22)
[2024-08-12] MEDS: buPROPion-CR 150 MG TABCR PO (09:41)
[2024-08-12] MEDS: Acetaminophen 500 MG TAB 1000 MG PO ×2 (09:41→20:11)
[2024-08-12] MEDS: Furosemide 20 MG TAB PO (09:41)
[2024-08-12] MEDS: Furosemide 40 MG TAB PO (09:42)
[2024-08-12] MEDS: Amoxicillin 500/Clav. 125 TAB PO ×2 (09:42→20:11)
[2024-08-12] MEDS: Pantoprazole 40 MG TABCR PO (09:42)
[2024-08-12] MEDS: Metoprolol CR 100 MG TABCR PO (09:42)
[2024-08-12] MEDS: Multivitamin TAB 1 TAB PO (09:43)
[2024-08-12] MEDS: amLODIPine 10 MG TAB PO (09:43)
[2024-08-12] MEDS: Lisinopril 20 MG TAB 40 MG PO (09:43)
[2024-08-12] MEDS: Roflumilast 500 MCG TAB PO (09:43)
[2024-08-12] MEDS: Magnesium Oxide 400 MG TAB PO (09:43)
--- NOTE | 2024-08-12 10:22 | PGE_ITS ---
Date of Service Date of service: 08/12/24 Time of Service: 10:22 Assessment and Plan Assessment and plan (1) Epistaxis: Status: Acute Assessment and plan: No further epistaxis today left rhino Rocket in for at least 3 days If bleeding on the right naris apply Afrin spray with packing (2) Acute exacerbation of chronic obstructive pulmonary disease: Status: Acute Assessment and plan: Continue outpatient treatment for COPD started on 08/09/2024 with Augmentin and prednisone Will continue for 5 days (3) jail current use of anticoagulant: Status: Acute Assessment and plan: On Eliquis due to unprovoked PE diagnosed in 2022. [place] [facility] [place] was consulted:recommendation not to give Eliquis for 1 day but risk of bleeding versus risk of requiring PE should be discussed with the primary care for intermediate card tender treatment Resume HS dose with stable serial H&H and no epistaxis Will apply teds for DVT prophylaxis while Eliquis is on hold (4) Hypomagnesemia: Assessment and plan: Mg 1.5, replacement ordered K at 3.5 Mg and BMP in AM Discussed with Subjective Subjective Patient reports: no new complaints, tolerating liquids well, tolerating a regular diet, voiding w/o difficulty and bowel movement; denies blood in stool, nausea, vomiting, shortness of breath (On baseline home oxygen O2 settings) or fever Exam Narrative Exam Narrative: Alert noted x 4, no neurodeficit, right nose packing in place , left Rhino Rocket in place no fresh sanguinous/ serosanguinous drainage seen, clear upper lungs with bilaterally diminished bases 3 L of oxygen via oxi mask, S1-S2 regular, positive pulses to all 4 extremity, abdomen is large nondistended soft and nontender, bowel sounds are present, no CVA tenderness Objective Last Vital Signs Temp 36.8 C 08/12/24 08:19 Pulse 92 H 08/12/24 08:19 Resp 19 08/12/24 08:19 BP 130/93 H 08/12/24 08:19 Pulse Ox 91 L 08/12/24 08:27 Laboratory Results - last 24 hr 08/12/24 08/12/24 05:33 06:33 WBC 11.51 H RBC 4.15 Hgb 13.2 Hct 40.4 MCV 97 H MCH 31.8 MCHC 32.7 RDW 15.1 H Plt Count 324 MPV 9.9 Immature Gran % 0.9 Neutrophils % 77.8 Lymphocytes % 14.2 Monocytes % 6.8 Eosinophils % 0.0 Basophils % 0.3 Nucleated RBC % 0.0 Absolute Neutrophils 8.95 H Absolute Lymphocytes 1.63 Absolute Monocytes 0.78 Absolute Eosinophils 0.00 Absolute Basophils 0.03 Sodium 140 Potassium 3.5 Chloride 101 Carbon Dioxide 35.4 H Anion Gap 3.6 BUN 6 L Creatinine 0.5 L Est GFR (CKD-EPI 2020) 106.64 Glucose 144 H Calcium 9.4 Urine Color Yellow Urine Clarity Clear Urine pH 7.0 Ur Specific [place] 1.015 Urine Protein Negative Urine Ketones Negative Urine Blood Negative Urine Nitrite Negative Urine Bilirubin Negative Urine Urobilinogen 0.2 Ur Leukocyte Esterase Negative Urine Glucose Negative Time Spent with Patient Time Spent with Patient: >50 minutes Time was spent: preparing to see the patient(eg.review tests), obtaining and/or reviewing separately otained hiistory, ordering medications,tests, procedures, referring, communicating with other health rn critical care, indepentently interpreting results, counseling the patient and care coordination
[2024-08-12 10:37] LABS: Magnesium 1.5 mg/dL (1.8-2.4)
[2024-08-12 12:58] LABS: Abs Immature Grans 0.08 10^3/uL (0.0-0.06); Absolute Basophil Count 0.04 10^3/uL (0.0-0.2); Absolute Eosinophil Count 0.04 10^3/uL (0.0-0.7); Absolute Lymphocyte Count 2.19 10^3/uL (1.2-3.4); Absolute Monocyte Count 1.32 10^3/uL (0.1-0.8); Absolute Neutrophil Count 9.79 10^3/uL (1.2-6.7); Basophils % 0.3 %; Eosinophils % 0.3 %; HGB 13.7 g/dL (11.2-15.7); Immature Grans % 0.6 %; Lymphocytes % 16.3 %; MCH 31.4 pg (27.0-33.0); MCHC 31.9 % (32.0-36.0); MCV 99 fL (80-95); MPV 9.4 fL (8.0-11.0); Monocytes % 9.8 %; Neutrophils % 72.7 %; Platelet Count 320 10^3/uL (130-400); RBC 4.36 10^6/uL (3.93-5.22); RDW 15.2 % (11.7-14.6); RDW-SD 54.8 fL; WBC 13.46 10^3/uL (4.4-10.8)
--- NOTE | 2024-08-12 13:55 | PT.INIE ---
PT Notes Visit Reasons: epistaxis on anticoagulation Inpatient Physical Therapy Evaluation Date: August 12, 2024 Referring Doctor: Elsie BOBBY PT Orders: PT CONSULT: Safety consult for DC] Precautions: Fall risk, activities tolerance Patient Profile/Admitting Diagnosis: This is a 63-year-old female patient with a history of oxygen dependent COPD on 3 L of O2, hypertension, ARIES on NIV at night, unprovoked PE in 09/2022 on apixaban, epistaxis on 08/06/24 to the ED via EMS for evaluation of recurrent epistaxis starting at 2 AM, stopping then reoccurring. The patient denied trauma or injury, fevers, chills, headache, chest pain, hemoptysis, hematemesis, hematuria, melena, or hematochezia. Patient presented with copious amount of bleeding coming from bilateral naris but mostly from the left; was able to suction blood from her mouth and visible clots were removed. In the ED the provider attempted to stop bleeding with application of TXA and clamp application but the patient continued to have posterior/postnasal bleeding. Attempt to stop bleeding with packing and Gelfoam infused with TXA also failed to produce conclusive results. ED provider inserted bilateral Rhino Rocket's which resulted in improved bleeding control. Work up in the ED resulted in unremarkable CBC and chemistry. Hemoglobin had dropped to 1 point from her last episode of epistaxis over 5 days ago. ENT was consulted and as per reported discussion between Dr. Preciado and ED provider, there was no ENT coverage until next week and the advised for admission and monitoring. ENT recommended to keep the packing for at least 3 days and verbalized doubt in the ability to access the bleeding blood vessel until the bleeding has been stopped for long period of time. The recommended advancement of packing if needed for further bleeding as the patient and lost her right sided Rhino Rocket. The patient was admitted to the medical surgical floor by the hospitalist team for evaluation and management of epistaxis on Eliquis. 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 (Acute) Chronic back pain (Chronic) Essential hypertension (Chronic) Hyperlipidemia (Chronic) Obstructive sleep apnea syndrome (Chronic) BiPAP Chronic obstructive lung disease (Chronic) Depressive disorder (Chronic) GERD (gastroesophageal reflux disease) (Chronic) Cigarette smoker (Chronic) CurrentInsomnia (Chronic) Osteoarthritis of right knee (Acute) Steroid injection: 08/19/2020; 04/15/2020Venous insufficiency (chronic) (peripheral) (Chronic) Medical History Hypoxemia Hypomagnesemia Hypokalemia Right foot pain Pulmonary embolism and infarction Surgical History S/P section History of bilateral tubal ligation Hx of umbilical hernia repair S/P cholecystectomy Status post total knee replacement, left S/P ORIF (open reduction internal fixation) fracture Right wrist Social History/Home Situation: Lives with daughter in 1 bedroom apartment with ramp upon entry Current Functional Limitations: Front wheel walker at baseline [] Equipment Owned/DME: Supplemental oxygen 3 L home use, CPAP, front wheel walker Subjective: Deepa states she is agreeable to today's evaluation. Has some generalized complaints of discomfort in her low back and bilateral knees. Has a history of left knee replacement. States she has difficulty transitioning/moving in the hospital bed but admits at home she is independent. Uses her arm to assist with bed mobility. Objective: General Observation: 4 L supplemental oxygen via nasal port. Right sided Rhino Rocket. IV port volar left forearm Mental Status: Alert and oriented x 4 Pain: 3/10 low back pain, bilateral knee pain, 5/10 mouth and nose pain Vital Signs: O2 saturation 93% on 4 L supplemental O2. This desatted to 89% following 15 feet ambulation x 2. Resats at 93% after 2 minutes of sitting ROM: Right Upper Extremity: Within functional limits Left Upper Extremity: Within functional limits Right Lower Extremity: Within functional limits Left Lower Extremity: Within functional limits Strength: Right Upper Extremity: 4/5 glenohumeral joint flexion, abduction, elbow flexion and extension. Good social work program coordinator Left Upper Extremity: 4/5 glenohumeral joint flexion, abduction, elbow flexion and extension. Good social work program coordinator Right Lower Extremity: 4-/5 hip flexion, knee extension, 4 -/5 knee flexion. 4/5 ankle plantarflexion and dorsiflexion Left Lower Extremity: 4-/5 hip flexion, knee extension, 4 -/5 knee flexion. 4/5 ankle plantarflexion and dorsiflexion Sensation: Intact sensation light touch bilateral lower extremities Bed Mobility/Transfers: Patient sitting edge of bed with ADMISSION NURSE present in room. Sit?stand: To front wheel walker min assist x 1 Stand?sit: From front wheel walker independent Chair?commode: Contact-guard x 1 with front wheel walker Gait: 15 feet x 2 with front wheel walker contact-guard X1 Balance: negative Romberg Static Sitting: Good Dynamic Sitting: Good Static Standing: Fair Dynamic Standing: Fair Special Tests: Mobility Limitations Standardized Measure [facility] AM-PAC 6 clicks Basic Mobility Inpatient Short Form: Raw Score: 16 Standardized Score: [] CMS Score: 54% Informed Consent/Education: Patient instructed in purpose of PT consult and plan of care. Assessment: Patient is a 63year old female referred to physical therapy services with the diagnosis of epistaxis on anticoagulation. Patient presents with clinical signs and symptoms consistent with current/admitting diagnoses that have resulted to mobility limitations, gait instability, generalized weakness, and impairment of motor control as demonstrated by the following impairment level findings: 1. Decreased strength to bilateral LE major muscle groups 2. Impaired standing balance 3. Limitation of joint range of motion in left hip 4. impaired functional activity tolerance standing Impairments are contributing to the following functional limitations: 1. Inability to safely ambulate without assistive device and assistance 2. Increase completion time for mobility ADL performance 3. Increased fall risk 4. decline in bed mobility skills 5. decline in transfer skills Patient is assessed as a [] Low 02186 Moderate 48892 [] High 87095 complexity based on the following: History: 63-year-old female with impairment level findings, functional limitations, and past medical history as indicated above Examination: Demonstrable impairment in strength, balance, and mobility level with underlying impairments and functional limitations as documented above Presentation: evolving Decision Making:moderate Goals: Goals X1 week 1. Supine-Sit: I 2. Sit-Supine: I 3. Sit-Stand: I [] 4. Stand-Sit: I 5. Bed-Chair :I 6. Chair-Bed: I 7. Gait:greater than or equal to 150 feet with standby assistance Front wheel walker Plan of Care/Treatment Plan: 1-2x/day, 7 days/week x 1 week. Plan of care has been reviewed with the [facility] SPEAR providing the service under Physical Therapy direction. Initiate Physical Therapy intervention for strengthening, bed mobility, transfers, gait, stairs, balance training, use of assistive device. DISCHARGE RECOMMENDATIONS: [] [] Home with no services [] X Home with services [HHPT] [] Home with outpatient PT [] [] SNF for continued rehabilitation [] [] Custodial Care [] [] SNF versus LTC based on ability to participate and progress [] TREATMENT CODE/TIME: 03137 30 minutes 115?145 Thank you for this referral. Scot Davenport PT, DPT Disclaimer: This note was created using [employer] voice recognition software. It was reviewed for major content. However, there may be multiple small discrepancies and errors due to the voice recognition aspects of the software.
[2024-08-12] MEDS: HYDROmorphone 2 MG TAB 1 MG PO (14:13)
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
[2024-08-12] MEDS: Apixaban 5 MG TAB PO (20:11)
[2024-08-12] MEDS: Simvastatin 20 MG TAB PO (20:11)
[2024-08-13] MEDS: Zolpidem 10 MG TAB PO (00:07)
[2024-08-13] MEDS: MAGNESIUM SULFATE 4 GM/100 ML BAG IV_INF (02:52)
[2024-08-13 06:54] LABS: Abs Immature Grans 0.05 10^3/uL (0.0-0.06); Absolute Basophil Count 0.06 10^3/uL (0.0-0.2); Absolute Eosinophil Count 0.13 10^3/uL (0.0-0.7); Absolute Monocyte Count 1.04 10^3/uL (0.1-0.8); Absolute Neutrophil Count 8.41 10^3/uL (1.2-6.7); Basophils % 0.5 %; Eosinophils % 1.1 %; HCT 41.9 % (36.0-46.0); HGB 13.3 g/dL (11.2-15.7); Immature Grans % 0.4 %; MCH 31.5 pg (27.0-33.0); MCHC 31.7 % (32.0-36.0); MCV 99 fL (80-95); Monocytes % 8.8 %; Neutrophils % 71.2 %; Platelet Count 307 10^3/uL (130-400); RBC 4.22 10^6/uL (3.93-5.22); RDW 14.9 % (11.7-14.6); RDW-SD 53.9 fL; WBC 11.81 10^3/uL (4.4-10.8)
[2024-08-13 07:00] LABS: Absolute Lymphocyte Count 2.13 10^3/uL (1.2-3.4)
[2024-08-13 07:03] LABS: Anion Gap 2.1 mmol/L (3-11); BUN 6 mg/dL (7-18); CO2 37.9 mmol/L (21.0-32.0); CREATININE 0.5 mg/dL (0.55-1.02); Chloride 101 mmol/L (98-107); Estimated GFR 106.64 (mL/min/1.73m2); Glucose 128 mg/dL (74-106); Magnesium 2.6 mg/dL (1.8-2.4); Potassium 3.4 mmol/L (3.5-5.1); Sodium 141 mmol/L (136-145)
[2024-08-13 07:23] VITALS: BP 139/67; PULSE 97; RESP 20; TEMP 36.8; O2SAT 97
[2024-08-13] MEDS: Furosemide 40 MG TAB PO (07:56)
[2024-08-13] MEDS: Metoprolol CR 100 MG TABCR PO (07:56)
[2024-08-13] MEDS: Roflumilast 500 MCG TAB PO (07:56)
[2024-08-13] MEDS: Apixaban 5 MG TAB PO (07:56)
[2024-08-13] MEDS: Amoxicillin 500/Clav. 125 TAB PO (07:56)
[2024-08-13] MEDS: buPROPion-CR 150 MG TABCR PO (07:56)
[2024-08-13] MEDS: Lisinopril 20 MG TAB 40 MG PO (07:56)
[2024-08-13] MEDS: Acetaminophen 500 MG TAB 1000 MG PO (07:56)
[2024-08-13] MEDS: Pantoprazole 40 MG TABCR PO (07:56)
[2024-08-13] MEDS: amLODIPine 10 MG TAB PO (07:56)
[2024-08-13] MEDS: Multivitamin TAB 1 TAB PO (07:56)
[2024-08-13] MEDS: Budesonide/Formoterol 160/4.5 6 GM 60 PUFF INH IH (08:34)
[2024-08-13] MEDS: Umeclidinium 7 CAP INHALER 1 CAP IH (08:34)
[2024-08-13 08:35] VITALS: O2SAT 95
[2024-08-13 08:38] VITALS: O2SAT 93
--- NOTE | 2024-08-13 10:16 | PTTR_ITS ---
PT Notes Visit Reasons: epistaxis on anticoagulation Inpatient Physical Therapy Treatment Note [facility] Date: August 13, 2024 PRECAUTIONS: Standard, activity as tolerated, fall precautions SUBJECTIVE: Deepa states that she is retired. Admits she has not slept well lat laisha. Is agreeable to doing some exercise and ambulation. OBJECTIVE: ? PAIN: Generalized low back discomfort. No complaints of knee pain today. VITALS: O2 saturation 93% on 3 L supplemental oxygen at start. Desaturated to 83% on 3 L with ambulation. Upon completion she recovered to 94% at 3 L. ? BED MOBILITY/TRANSFERS? ?patient sitting in bedside chair at start of today's treatment.: ? Sit-stand: Min assist x 1 to front wheeled walker with verbal cues for hand placement and avoidance of pulling herself up with a walker? Stand-sit: Contact-guard x 1 with verbal cues to reach for chair with hands prior to sitting. ? Provided skilled cues and instruction on performance and technique throughout. Gait Training ([id number]): Direct one-on-one instruction and skilled instruction in: X employing an assistive device [] modified weight-bearing status X movement sequencing X turning and movement with proper form X Provided verbal cues for equipment management and technique [] Provided instruction in gait pattern X Patient education regarding pacing and breathing techniques to maximize activity tolerance? GAIT? Assistive Device: Front wheel walker ? Weight bearing: Fall Assist: Contact-guard ? Distance: 35 feet x 2 ? Deviation: None? STAIRS:n/t ? Therapeutic Exercises (81176h3): Direct one-on-one instruction in therapeutic exercises to develop strength, endurance, range of motion and flexibility. ? Exercises: seated hip marching x 10, seated long arc quads x 10 bilateral, bilateral hamstring isometric in sitting times ten 5-second hold each, manually resisted hip AD and abduction times ten 5-second holds each, ankle pumps 15 bilateral, seated heel raise bilateral x 10 ? ASSESSMENT:? Desaturated during ambulation at her baseline 3 L supplemental oxygen. No significant drop in O2 saturation with seated chair exercise. Patient anticipating discharge today or tomorrow. She will know more after nursing morning meeting. PLAN: Continue with global strengthening and general conditioning for improved safety, mobility and activity tolerance until pt is ready for DC. TREATMENT CODE/TIME: Morning session: [id number], [id number] Treatment time 9:55-10:20
[2024-08-13 10:59] VITALS: BP 116/66; PULSE 88; RESP 20; TEMP 36.4; O2SAT 94
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
--- NOTE | 2024-08-13 13:45 | CMDISCH_ITS ---
Date of service: 08/13/24 Time of Service: 13:45 LACE Index Scoring Tool Questions: Length of Stay (in days): 2 Was the patient admitted via the E.D.?: Yes Comorbidities: Chronic Pulmonary Disease E.D. Visits: 3 Answers: Total Score: 10 Risk of Readmission: High Risk Care Management Discharge Plan Reason for Hospitalization: epistaxis on anticoagulation Discharge Plan: Deepa returned home with no new services. Her family transported her home via private vehicle. She will follow up with her PCP and discharge plan of care. Patient/Family Education Needs: Review discharge instructions and limitations, discussion of self care needs including ask me three. SDOH Health Related Social Needs: Health related social needs problems with daily activi ties (Z73.9), education (Z55.6)
== END 2024-08-13 13:25 | disposition home or self-care (01) ==
LOC: ER 14:50 → MS 14:54
PROVIDERS: Family Medicine; Nurse Practitioner Acute Care; Admitting Provider Hospitalist; Emergency Provider Physician Assistant; PCP Nurse Practitioner Family; Responsible Provider Nurse Practitioner Acute Care; Visit Provider Hospitalist
DX: R04.0 Epistaxis (principal); J44.1 Chronic obstructive pulmonary disease with (acute) exacerbation; J96.11 Chronic respiratory failure with hypoxia; E66.2 Morbid (severe) obesity with alveolar hypoventilation; Z68.44 Body mass index [BMI] 60.0-69.9, adult; Z79.01 Long term (current) use of anticoagulants; E83.42 Hypomagnesemia; Z86.711 Personal history of pulmonary embolism; Z99.81 Dependence on supplemental oxygen; I10 Essential (primary) hypertension; I73.9 Peripheral vascular disease, unspecified; R60.0 Localized edema; R53.1 Weakness; E78.5 Hyperlipidemia, unspecified; G89.29 Other chronic pain; K21.9 Gastro-esophageal reflux disease without esophagitis; F17.210 Nicotine dependence, cigarettes, uncomplicated; I87.2 Venous insufficiency (chronic) (peripheral)
CPT/HCPCS: 00123; 30903; 30905; 30906; 36415; 80048; 80053; 94640; 94761; 96365; 96366; 96375; 97110; 97116; 97162; 99285; 81003; 83735; 85025; 85610; 85730; 94664; 94760; 99223; 99233; 99239; G0378; J0131; J1171; J2004; J3010; J3475; J7512

== ENCOUNTER 2024-08-15 15:33 | Emergency (ER) | payer MEDICARE, MEDICAID, SELFPAY ==
[2024-08-15 15:40] VITALS: BP 122/80; PULSE 82; RESP 15; O2SAT 96
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
[2024-08-15] MEDS: Oxymetazolone 0.05% SPRAY 15 ML BTL (18:16)
[2024-08-15] MEDS: Bacitracin 1 PACKET (18:16)
== END 2024-08-15 18:19 | disposition home or self-care (01) ==
PROVIDERS: Emergency Provider Nurse Practitioner Family; PCP Nurse Practitioner Family
DX: R04.0 Epistaxis (principal); I10 Essential (primary) hypertension; E78.5 Hyperlipidemia, unspecified; J44.9 Chronic obstructive pulmonary disease, unspecified; Z86.73 Personal history of transient ischemic attack (TIA), and cerebral infarction without residual deficits; Z79.01 Long term (current) use of anticoagulants; Z87.891 Personal history of nicotine dependence
CPT/HCPCS: 99282

== ENCOUNTER 2024-09-02 23:33 | Observation (INO) | payer MEDICARE, MEDICAID, SELFPAY ==
[2024-09-02] VITALS (8 sets, daily range): BP systolic 154–189; BP diastolic 80–95; PULSE 117–133; RESP 19–34; TEMP 36.6; O2SAT 88–93
--- NOTE | 2024-09-02 23:30 | RT.EKG_ITS ---
APPROVED REPORT Exam: Resting ECG Reason for Exam: low hr Patient Location: E HR:123 bpm ECG Measurements Heart Rate 123 AXIS MA 162 P 54 QRSd 103 QRS -37 QT 303 T 29 QTc 434 Conclusion Sinus tachycardia...rate> 99 Left axis deviation...QRS axis (-30,-90) No acute ST changes Artifact in V5
--- NOTE | 2024-09-02 23:45 | DI.CT_ITS ---
Exam(s) CT CHEST PE CTA EXAM: CT CHEST PE CTA CLINICAL HISTORY: SOB/tachy cardia/off Eliquis. TECHNIQUE: Imaging Protocol: Axial CT angiography was performed with multi-slice acquisition and mu lti-planar reconstructions as well as axial, coronal and sagittal MIP reconstructions. Computer aided detection (CAD) was utilized. CONTRAST MATERIAL: Intravenous: Omnipaque 350 Contrast volume:100 ml COMPARISON: CR XR CHEST 1V IN DI DEPT from 02/25/[address] CHEST PE CTA from 03/30/2024 CR XR PORTABLE CHEST AP from 08/09/2024 FINDINGS: Pulmonary Arteries: Enlarged main pulmonary artery to 3.3 cm. No evidence of filling defect to sugge st pulmonary emboli. Mediastinum and Kika: No dominant adenopathy or fluid collection. Pulmonary parenchyma: Evaluation of the lungs is limited due to expiratory changes. No consolidation or dominant measurable mass. Mild ground-glass opacities could represent expiratory changes howeve r pneumonitis is not excluded. Pleura: No effusion or pneumothorax. Heart: The heart is mildly dilated. Fatty infiltration of the intra-atrial septum. No coronary artery calcifications are seen. Aorta: Thoracic aorta non-dilated. No dissection. Upper abdomen: No acute findings. Bones: Mild anterior wedging of the T11 vertebral body, unchanged. Severe degenerative changes of th e lower thoracic spine creating and accentuated kyphosis. Old rib fractures. Tubes, Catheters, and Lines: None Soft tissues: Unremarkable. IMPRESSION: No evidence of pulmonary embolism. Suboptimal evaluation of the pulmonary parenchyma secondary to expiratory changes. Question of mild d iffuse bilateral pneumonitis. Dilated pulmonary arteries may indicate pulmonary hypertension. RADIATION DOSE DELIVERED: Total DLP DATA REPOSITORY: All CT scans at this facility are submitted to the National Radiology Data Registry (NRDR) Dose Index Registry (DIR) with the [employer] (A[employer]). RADIATION OPTIMIZATION: All CT scans at this facility use at least one of these dose optimization te chniques: automated exposure control; mA and/or kV adjustment per patient size (includes targeted exa ms where dose is matched to clinical indication); or iterative reconstruction.
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
[2024-09-03] VITALS (80 sets, daily range): BP systolic 90–164; BP diastolic 49–110; PULSE 83–120; RESP 10–24; TEMP 36.1–36.7; O2SAT 91–97
[2024-09-03 00:03] LABS: BE (Venous) 6 mmol/L (-2-3); HCO3 (Venous) 31 mmol/L (23-28); O2 Sat (Venous) 79 %; TCO2 (Venous) 28 mmol/L (24-29); pCO2 (Venous) 52 mmHg (41-51); pH (Venous) 7.39 (7.31-7.41); pO2 (Venous) 45 mmHg
[2024-09-03 00:04] LABS: Abs Immature Grans 0.04 10^3/uL (0.0-0.06); Absolute Basophil Count 0.06 10^3/uL (0.0-0.2); Absolute Eosinophil Count 0.12 10^3/uL (0.0-0.7); Absolute Lymphocyte Count 2.62 10^3/uL (1.2-3.4); Absolute Monocyte Count 0.65 10^3/uL (0.1-0.8); Absolute Neutrophil Count 6.46 10^3/uL (1.2-6.7); Basophils % 0.6 %; Eosinophils % 1.2 %; HCT 44.6 % (36.0-46.0); HGB 14.7 g/dL (11.2-15.7); Immature Grans % 0.4 %; Lymphocytes % 26.3 %; MCH 31.3 pg (27.0-33.0); MCV 95 fL (80-95); MPV 9.9 fL (8.0-11.0); Monocytes % 6.5 %; Platelet Count 308 10^3/uL (130-400); RBC 4.69 10^6/uL (3.93-5.22); RDW 14.4 % (11.7-14.6); RDW-SD 50.1 fL; WBC 9.95 10^3/uL (4.4-10.8)
[2024-09-03] MEDS: Omnipaque 350 MG/ML 100 ML BTL IJ (00:06)
[2024-09-03] MEDS: Normal Saline - Diluent 50 ML VIAL IJ (00:06)
[2024-09-03] MEDS: Normal Saline 500 ML IV ×2 (00:29→02:07)
[2024-09-03 00:34] LABS: ALT 36 U/L (14-59); AST 14 U/L (15-37); Albumin 3.1 g/dL (3.4-5.0); Alkaline Phosphatase 111 U/L (46-116); Anion Gap 9.5 mmol/L (3-11); BUN 16 mg/dL (7-18); Bilirubin, Total 0.3 mg/dL (0.2-1.0); CO2 31.5 mmol/L (21.0-32.0); CREATININE 0.9 mg/dL (0.55-1.02); Calcium 9.6 mg/dL (8.5-10.1); Chloride 99 mmol/L (98-107); Estimated GFR 72.73 (mL/min/1.73m2); Glucose 200 mg/dL (74-106); Magnesium 1.2 mg/dL (1.8-2.4); Potassium 3.6 mmol/L (3.5-5.1); Sodium 140 mmol/L (136-145); Total Protein 7.5 g/dL (6.4-8.2); Troponin I 19 ng/L (<or=51)
[2024-09-03] MEDS: MAGNESIUM SULFATE 2 GM/50 ML BAG IV_INF (00:46)
--- NOTE | 2024-09-03 01:32 | DI.VRAD_ITS ---
PROCEDURE INFORMATION: Exam: CTA Chest With Contrast Exam date and time: 09/03/2024 12:18 AM Age: 63 years old Clinical indication: Other: Sob/tachy cardia/ off eliquis TECHNIQUE: Imaging protocol: Computed tomographic angiography of the chest with contrast. Exam focused on the arteries. 3D rendering (Not supervised by radiologist): MIP and/or 3D reconstructed images were created by the technologist. Radiation optimization: All CT scans at this facility use at least one of these dose optimization techniques: automated exposure control; mA and/or kV adjustment per patient size (includes targeted exams where dose is matched to clinical indication); or iterative reconstruction. Contrast material: OMNIPAQUE 350; Contrast volume: 100 ml; Contrast route: INTRAVENOUS (IV); COMPARISON: CT CHEST PE CTA 03/30/2024 12:35 PM FINDINGS: Pulmonary arteries: No pulmonary embolism identified. Enlarged pulmonary trunk and main pulmonary arteries suggesting pulmonary hypertension. Aorta: No thoracic aortic aneurysm or dissection. Thyroid: Thyroid gland partially excluded from view but grossly unremarkable through its visualized portion. Lungs: Changes of emphysema in the mid-upper lung zones. Streaky and platelike atelectasis. Patchy peripherally distributed ground-glass opacities, nonspecific. No region of petra pulmonary consolidation. Pleural spaces: No pleural effusion or pneumothorax. Heart: Cardiomegaly with multichamber dilatation. Fatty infiltration of the interatrial septum with a maximum septal thickness of 1.9 cm. Lymph nodes: No pathologically enlarged mediastinal or hilar lymph nodes. No pathologically enlarged mediastinal or hilar lymph nodes. Bones/joints: Lower ribs partially excluded from view and incompletely evaluated. Otherwise, no acute fracture seen among the bones of the chest. Soft tissues: No gross soft tissue mass or fluid collection seen in the chest wall. IMPRESSION: 1. Cardiomegaly. 2. Enlarged pulmonary trunk and main pulmonary arteries suggesting pulmonary hypertension. 3. Changes of emphysema in the mid-upper lung zones. 4. Patchy peripherally distributed ground-glass opacities. Although nonspecific, an acute pulmonary infection could probably have this appearance. Clinical correlation is recommended. No region of petra pulmonary consolidation demonstrated. Dictated and Authenticated by: Tavares Baird MD. Orderin Jonathan Bhakta MD
[2024-09-03] MEDS: cefTRIAXone 1 GM/50 ML BAG IVPB (02:00)
[2024-09-03] MEDS: Azithromycin 250 MG TAB 500 MG PO (02:00)
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
[2024-09-03] MEDS: Metoprolol CR 100 MG TABCR PO ×2 (03:19→08:04)
--- NOTE | 2024-09-03 04:28 | W.PC.ACHO ---
Registration Status: Primary Language: Preferred Language: ED Information & Data Chief Complaint SOB 09/02/24 23:57 Triage Note Pt started feeling SOB this 09/02/24 23:38 morning, feels like heart has been racing off an on today, Hx COPD, 3LO2 at bsl. Denies cold symptoms, denies CP. 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 Hypoxemia Pulmonary embolism and infarction (Last Reviewed 09/03/24 @ 00:28 by Yony Castillo MD) S/P section History of bilateral tubal ligation Hx of umbilical hernia repair S/P cholecystectomy Status post total knee replacement, left S/P ORIF (open reduction internal fixation) fracture Most Recent Vital Signs Temperature 36.6 C 09/02/24 23:41 Temperature Source Oral 09/02/24 23:41 Pulse 111 H 09/03/24 04:10 Pulse 113 H 09/03/24 01:20 Respiratory Rate 14 09/03/24 04:10 Respiratory Effort Short of Breath 09/02/24 23:45 Respiratory Depth Shallow 09/02/24 23:45 Respiratory Pattern Tachypnea 09/02/24 23:45 Blood Pressure 137/79 09/03/24 04:00 Blood Pressure Mean 110 09/03/24 01:17 Blood Pressure Position Sitting 09/02/24 23:41 Pulse Oximetry 94 09/03/24 04:10 Oxygen Delivery Method Nasal Cannula 09/03/24 02:02 Oxygen Flow Rate 2 09/03/24 02:02 Pain Level 0 09/02/24 23:38 Allergies citalopram Adverse Reaction (Verified 09/02/24 23:41) INSOMNIA; DIZZINESS Precautions Isolation Standard precaution 09/02/24 23:41 Active Medications Generic Name Dose Route Start Last Admin Trade Name Freq PRN Reason Stop Dose Admin Iohexol 100 ml 09/03/24 00:15 09/03/24 00:06 Omnipaque 350 Mg/Ml 100 Ml Btl IJ 10/03/24 23:59 100 ml DIRECTED AMIE Administration Sodium Chloride 50 ml 09/03/24 00:15 09/03/24 00:06 Normal Saline - Diluent 50 Ml Vial IJ 50 ml .FOR DI USE AMIE Administration IV IV Catheter Type [Right Peripheral IV Antecubital] IV Catheter Gauge [Right 18 Antecubital] Diet Orders Category Date Time Status Heart Healthy Eating [DIET] Nutrition 09/03/24 Breakfast Active Diagnostics 09/03/24 09/03/24 09/02/24 Range/Units 05:35 03:36 23:49 WBC 9.95 (4.4-10.8) 10^3/uL RBC 4.69 (3.93-5.22) 10^6/uL Hgb 14.7 (11.2-15.7) g/dL Hct 44.6 (36.0-46.0) % MCV 95 (80-95) fL MCH 31.3 (27.0-33.0) pg MCHC 33.0 (32.0-36.0) % RDW 14.4 (11.7-14.6) % Plt Count 308 (130-400) 10^3/uL MPV 9.9 (8.0-11.0) fL Immature Gran % 0.4 % Neutrophils % 65.0 % Lymphocytes % 26.3 % Monocytes % 6.5 % Eosinophils % 1.2 % Basophils % 0.6 % Nucleated RBC % 0.0 (0.0-0.3) % Absolute Neutrophils 6.46 (1.2-6.7) 10^3/uL Absolute Lymphocytes 2.62 (1.2-3.4) 10^3/uL Absolute Monocytes 0.65 (0.1-0.8) 10^3/uL Absolute Eosinophils 0.12 (0.0-0.7) 10^3/uL Absolute Basophils 0.06 (0.0-0.2) 10^3/uL VBG pH 7.39 (7.31-7.41) VBG pCO2 52 H (41-51) mmHg VBG pO2 45 mmHg VBG HCO3 31 H (23-28) mmol/L VBG Total CO2 28 (24-29) mmol/L VBG O2 Saturation 79 % VBG Base Excess 6 H (-2-3) mmol/L Sodium Pending 140 (136-145) mmol/L Potassium Pending 3.6 (3.5-5.1) mmol/L Chloride Pending 99 (98-107) mmol/L Carbon Dioxide Pending 31.5 (21.0-32.0) mmol/L Anion Gap Pending 9.5 (3-11) mmol/L BUN Pending 16 (7-18) mg/dL Creatinine Pending 0.9 (0.55-1.02) mg/dL Est GFR (CKD-EPI 2020) Pending 72.73 (mL/min/1.73m2) Glucose Pending 200 H (74-106) mg/dL Calcium Pending 9.6 (8.5-10.1) mg/dL Magnesium Pending 1.2 L (1.8-2.4) mg/dL Total Bilirubin 0.3 (0.2-1.0) mg/dL AST 14 L (15-37) U/L ALT 36 (14-59) U/L Alkaline Phosphatase 111 (46-116) U/L Troponin I 19 (<or=51) ng/L Total Protein 7.5 (6.4-8.2) g/dL Albumin 3.1 L (3.4-5.0) g/dL COVID-19 Source Pending SARS-CoV-2 (PCR) Pending Influenza Type A (PCR) Pending Influenza Type B (PCR) Pending RSV (PCR) Pending Intake and Output - 24 Hour Total 09/02/24 23:33 thru 09/03/24 04:23 Intake Total 1110.00 Balance 1110.00 Weight 154.221 kg Intake: IV 1110.00 Other: Stool Size Small Stool Characteristics Formed Falls Risk Assessment History of Falls No History 09/02/24 23:45 Contributing Factors Impairments,Incontinence, 09/02/24 23:45 Medications Ambulatory Aids Uses ambulatory device + 09/02/24 23:45 Tubes/Lines With any additional score 09/02/24 23:45 Gait Evaluation W/any additional score 09/02/24 23:45 Cognition No cognitive impairment 09/02/24 23:45 Fall Total Score 79 09/02/24 23:45 Level of Risk Maximum Risk 09/02/24 23:45 Problems (Last Reviewed 09/03/24 @ 00:28 by Yony Castillo MD) Ground glass opacity present on imaging of lung (Acute) Tachycardia (Acute) v v v v v v v v v Sending and/or Receiving Nurses: Please use comment section below to note any information pertinent to the patient hand-off not included above. Information / Comments: Report received from:[place]- Patient is alert and oriented. 2l nc- baseline for patient. increased dyspnea on exertion. utilizes a walker to ambulate. Received 2gm mag in ER for a 1.2. All questions asked, answered. Care transferred. Patient to be transported to room 216.
[2024-09-03] MEDS: Acetaminophen 325 MG TAB 650 MG PO ×4 (05:13→21:00)
[2024-09-03] MEDS: Magnesium Oxide 400 MG TAB PO ×2 (05:25→08:04)
[2024-09-03 07:13] LABS: Anion Gap 8.5 mmol/L (3-11); BUN 15 mg/dL (7-18); CO2 30.5 mmol/L (21.0-32.0); CREATININE 0.7 mg/dL (0.55-1.02); Calcium 9.1 mg/dL (8.5-10.1); Chloride 102 mmol/L (98-107); Estimated GFR 98.34 (mL/min/1.73m2); Glucose 154 mg/dL (74-106); Magnesium 1.7 mg/dL (1.8-2.4); Potassium 3.8 mmol/L (3.5-5.1); Sodium 141 mmol/L (136-145)
[2024-09-03] MEDS: Lisinopril 20 MG TAB 40 MG PO (08:04)
[2024-09-03] MEDS: amLODIPine 10 MG TAB PO (08:05)
[2024-09-03] MEDS: Furosemide 40 MG TAB PO (08:05)
[2024-09-03] MEDS: Normal Saline Flush 10 ML SYR IVP ×2 (08:05→19:36)
[2024-09-03] MEDS: buPROPion-CR 150 MG TABCR PO (08:05)
[2024-09-03] MEDS: Roflumilast 500 MCG TAB PO (08:05)
[2024-09-03] MEDS: Apixaban 5 MG TAB PO ×2 (08:05→19:36)
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
[2024-09-03 10:24] LABS: COVID-19 PCR Negative (Negative); Influenza A PCR Negative (Negative); Influenza B PCR Negative (Negative); RSV PCR Negative (Negative)
[2024-09-03 10:26] LABS: Source Nasopharynx
[2024-09-03] MEDS: Tiotropium Bromide-Respimat 10 PUFF INH 2 PUFF IH ×2 (10:56→20:53)
[2024-09-03] MEDS: Budesonide/Formoterol 160/4.5 6 GM 60 PUFF INH IH ×2 (10:57→20:53)
--- NOTE | 2024-09-03 15:59 | NUR.NOTE ---
Nursing Note: RN notified that patient did not like the Humidified oxygen. RN spoke with patient who states its to much moisture and wanted it removed. RN took humidification off. Pt remains on 3L O2 via facemask as patient is a mouth breather and it is more effective than NC. AP RN
[2024-09-03] MEDS: Calcium Carbonate *TUMS* 500 MG CHEW PO (16:50)
--- NOTE | 2024-09-03 18:28 | NUR.NOTE ---
Nursing Note: Daughter at bedside, concerned that patient has cellulitis to right ankle. RN assessed ankle, mild swelling noted, warm to the touch, pink, pt states pain with weight baring, would like xray and cellulitis ruled out. AP RN
[2024-09-03] MEDS: Simvastatin 20 MG TAB PO (19:36)
[2024-09-03] MEDS: Zolpidem 10 MG TAB PO (22:14)
[2024-09-04] VITALS (9 sets, daily range): BP systolic 121–164; BP diastolic 55–85; PULSE 87–106; RESP 10–24; TEMP 36.6–37.1; O2SAT 92–96
[2024-09-04] MEDS: Acetaminophen 325 MG TAB 650 MG PO ×3 (07:58→20:15)
[2024-09-04] MEDS: buPROPion-CR 150 MG TABCR PO (07:59)
[2024-09-04] MEDS: Furosemide 40 MG TAB 60 MG PO (07:59)
[2024-09-04] MEDS: amLODIPine 10 MG TAB PO (08:00)
[2024-09-04] MEDS: Metoprolol CR 100 MG TABCR PO (08:00)
[2024-09-04] MEDS: Apixaban 5 MG TAB PO ×2 (08:01→20:11)
[2024-09-04] MEDS: Lisinopril 20 MG TAB 40 MG PO (08:01)
[2024-09-04] MEDS: Magnesium Oxide 400 MG TAB PO (08:02)
[2024-09-04] MEDS: Roflumilast 500 MCG TAB PO (08:02)
[2024-09-04] MEDS: Normal Saline Flush 10 ML SYR IVP ×2 (08:30→20:11)
[2024-09-04] MEDS: Budesonide/Formoterol 160/4.5 6 GM 60 PUFF INH IH ×2 (08:35→20:05)
[2024-09-04] MEDS: Tiotropium Bromide-Respimat 10 PUFF INH 2 PUFF IH ×2 (08:35→20:05)
--- NOTE | 2024-09-04 08:41 | PGE_ITS ---
Date of Service Date of service: 10/15/24 Time of Service: 13:43 Objective Last Vital Signs Temp 37.1 C 09/04/24 06:43 Pulse 92 H 09/04/24 06:43 Resp 22 09/04/24 06:43 BP 121/55 L 09/04/24 06:43 Pulse Ox 94 09/04/24 08:40 Laboratory Results - last 24 hr 09/03/24 09:33 COVID-19 Source Nasopharynx SARS-CoV-2 (PCR) Negative Influenza Type A (PCR) Negative Influenza Type B (PCR) Negative RSV (PCR) Negative PAWSS Have you Been Recently Intoxicated or Drunk Within the Last 30 days?: No Have you Ever Experienced Previous Episodes of Alcohol Withdrawal?: No Have you ever Experienced Withdrawal Seizures?: No Have you ever Experienced Delirium Tremens(DT)s?: No Have you ever undergone Alcohol Rehabilitation Treatment (i.e, inpt ot outpatient treatment programs)?: No Have you ever Experienced Blackouts?: No Have you ever Combined Alcohol with other Downers within the last 90 days?: No Have you ever Combined Alcohol with any other Substance of Abuse during the last 90 days?: No Positive Blood Alcohol level on Presentation? [PCS.BAL]: No Evidence of Increased Autonomic Activity (i.e. HR>120, tremor, sweating, ivette tation, nausea)?: No Result: 0 Time Spent with Patient Time Spent with Patient: 25-34 minutes Time was spent: preparing to see the patient(eg.review tests), obtaining and/or reviewing separately otained hiistory, ordering medications,tests, procedures, referring, communicating with other health critical care physician, indepentently interpreting results, counseling the patient and care coordination
--- NOTE | 2024-09-04 14:12 | PT.INIE ---
PT Notes Visit Reasons: Tachycardia Inpatient Physical Therapy Evaluation Date: 09/04/24 Referring Doctor: Anette Lopez NP PT Orders: PT CONSULT: limited ability to ambulate Precautions: fall, standard Patient Profile/Admitting Diagnosis: Deepa is a 63-year-old female patient with a history of oxygen dependent COPD, hypertension, ARIES, unprovoked PE in 09/2022 on apixaban, with recent admission for epistaxis (DC 08/13/24). She presented to the ED with concern about rapid heart rate, and was admitted for medical management. Social History/Home Situation: Deepa resides in a private apartment with her daughter. Ramp to enter. Typically walks short distances in the home, and utilizes supplemental O2. Has had issues recently with her portable oxygen unit, and has been using her home compressor at all times. Equipment Owned/DME: home O2, FWW, w/c Subjective: Deepa states that she is looking forward to walking and seeing how she does with her breathing. She reports chronic difficulty with her right knee and right ankle, but notes that she gets around safely in the home with a FWW. Objective: General Observation: Resting in bed, supplemental O2 via mask. IV in RUE. Mental Status: A&Ox2. Pleasant and cooperative throughout. Pain: denies Vital Signs: Resting vitals show SaO2 94%, HR 105 on 2LPM. Static standing SaO2 93%, HR 110. Post-ambulation, SaO2 86%, HR 115. ROM: Right Upper Extremity: WFL Left Upper Extremity: WFL Right Lower Extremity: WFL Left Lower Extremity: WFL Strength: Right Lower Extremity: Hip flexion 4/5. Quads 4/5. Ankle DF 4-/5. Left Lower Extremity: Hip flexion 4/5. Quads 4+/5. Ankle DF 4+/5. Bed Mobility/Transfers: supine-sit: independent with HOB at 30* sit-stand: supervision stand-sit: supervision Gait: Ambulates 10' with FWW, CGA. Increasing RODRIGUEZ, and oxygen desaturation as noted above. Able to statically stand x 30 seconds, limited by LE fatigue. Balance: Static Sitting: normal Dynamic Sitting: good Static Standing: fair Dynamic Standing: fair Special Tests: Mobility Limitations [facility] Basic Mobility Inpatient Short Form: Raw Score: 20 Standardized Score: 47.67 CMS Score: 36% impairment Informed Consent/Education: Patient instructed in purpose of PT consult and plan of care. Assessment: Patient is a 63 year old female referred to physical therapy services with the diagnosis of COPD. Patient presents with clinical signs and symptoms consistent with diagnosis, with acute on chronic mobility impairments. She is limited in her walking distances at baseline, but demonstrates further limitation with oxygen desaturation with short distance ambulation. Deepa has been participating in outpatient PT, but recommend HH PT upon discharge due to her severe limitations in activity tolerance. She's agreeable to this plan. She currently demonstrates the following impairment level findings: 1. decreased LE strength 2. decreased activity tolerance 3. oxygen desaturation Impairments are contributing to the following functional limitations: 1. unable to tolerate household distance ambulation 2. unable to tolerate standing >30 seconds Patient is assessed as Low 15790 complexity based on the following: History: As above Examination: as above Presentation: evolving Decision Making: low complexity Goals: Goals X1 week 1. Supine-Sit: independent 2. Sit-Supine : independent 3. Sit-Stand : independent 4. Stand-Sit : independent 5. Bed-Chair : independent with FWW 6. Chair-Bed : independent with FWW 7. Gait : supervision with FWW x 20' Plan of Care/Treatment Plan: 1-2x/day, 7 days/week x 1 week. Plan of care has been reviewed with the [employer] providing the service under Physical Therapy direction. Initiate Physical Therapy intervention for strengthening, bed mobility, transfers, gait, stairs, balance training, use of assistive device. DISCHARGE RECOMMENDATIONS: Home with PT TREATMENT CODE/TIME: 5086 [id number] ([id number]) Arianna Blanca, PT, DPT [facility] All Active Problems (Updated 09/03/24 @ 02:01 by Yony Castillo MD) Ground glass opacity present on imaging of lung (Acute) Right foot pain (Acute) Edema of left lower extremity (Acute) Tachycardia (Acute) Generalized weakness (Acute) Toe pain (Acute) Muscle pain (Acute) Nail dystrophy (Acute) Chronic back pain (Chronic) Depressive disorder (Chronic) Cigarette smoker (Chronic) Current Insomnia (Chronic) Osteoarthritis of right knee (Acute) Steroid injection: 08/19/2020; 04/15/2020 Venous insufficiency (chronic) (peripheral) (Chronic) Medical History GERD (gastroesophageal reflux disease) Chronic obstructive lung disease Obstructive sleep apnea syndrome BiPAP Hyperlipidemia 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 Essential hypertension Peripheral vascular disease, unspecified 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
--- NOTE | 2024-09-04 14:58 | PGE_ITS ---
Date of Service Date of service: 09/04/24 Time of Service: 14:58 Assessment and Plan Assessment and plan (1) Ground glass opacity present on imaging of lung: Status: Acute Assessment and plan: -afebrile, VSS and O2 at baseline with no respiratory distress -normal WBCs -CT chest with GGO -will request COVID/fluRSV testing now -was given IV rocephin and PO azithromycin in the ED, defer further AB until day provider assessment as may be able to change to PO regimen or DC 09/04/24 No fever over last 24 hours. Was able to deescalate to 2LNC. No new labs, will order for AM (2) Tachycardia: Status: Acute Assessment and plan: -sinus tachycardia of uncertain etiology -continue to monitor on telemetry -500 cc IVF bolus x 2 in ED -Mg repletion as below -will give usual dose of metoprolol succinate now, may need to increase dose and/or change to BID 09/04/24 HR is now under 100 and is on metoprolol CR 100mg daily (3) Hypomagnesemia: Status: Inactive Assessment and plan: -replaced IV in ED, will give PO dose now and continue PO supplement -DC PPI -recheck in AM 09.04.24 Improved from 1/2 to 1.7 Continue with supplementation and recheck labs in am (4) Chronic obstructive lung disease: Assessment and plan: -on 3 L NC at baseline -continue usual respiratory medications 09/04/24 C/W budesonide/formoterol Spiriva Daliresp (5) Obstructive sleep apnea syndrome: Assessment and plan: -bipap (6) 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: Assessment and plan: recommend weight loss (7) Essential hypertension: Assessment and plan: -continue usual BP medicaitons (8) Peripheral vascular disease, unspecified: (9) 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, on home O2 therapy: Subjective Subjective Interval history since last seen: Pt seen and examined in her room this am. PT anxious to go home but had significant desaturation while ambulating just 10ft to 86% on 2LNC with HR at 115. Pt states cough has improved. Exam Narrative Exam Narrative: Const: Obese female in NAD. VS per triage. HEENT: NC/AT. Normal facial exam. Neck: Supple. Trachea midline. Lungs: Normal respiratory effort. Lungs with decent air exchange, few scattered wheezes. Cor: RRR and tachy. Good radial pulses. Neuro: A+O x 3. Normal speech, mentation. Cranial nerves II - XII grossly intact. No gross motor or sensory deficit. Ext: Chronic BLE edema L>R Objective Last Vital Signs Temp 37.1 C 09/04/24 06:43 Pulse 92 H 09/04/24 06:43 Resp 22 09/04/24 06:43 BP 121/55 L 09/04/24 06:43 Pulse Ox 94 09/04/24 08:40 PAWSS Have you Been Recently Intoxicated or Drunk Within the Last 30 days?: No Have you Ever Experienced Previous Episodes of Alcohol Withdrawal?: No Have you ever Experienced Withdrawal Seizures?: No Have you ever Experienced Delirium Tremens(DT)s?: No Have you ever undergone Alcohol Rehabilitation Treatment (i.e, inpt ot outpatient treatment programs)?: No Have you ever Experienced Blackouts?: No Have you ever Combined Alcohol with other Downers within the last 90 days?: No Have you ever Combined Alcohol with any other Substance of Abuse during the last 90 days?: No Positive Blood Alcohol level on Presentation? [PCS.BAL]: No Evidence of Increased Autonomic Activity (i.e. HR>120, tremor, sweating, agitation, nausea)?: No Result: 0 Time Spent with Patient Time Spent with Patient: 25-34 minutes Time was spent: preparing to see the patient(eg.review tests), obtaining and/or reviewing separately otained hiistory, ordering medications,tests, procedures, referring, communicating with other health primary care pediatrician, indepentently interpreting results, counseling the patient and care coordination
--- NOTE | 2024-09-04 15:25 | CMPROGNOTE_ITS ---
Date of service: 09/04/24 Time of Service: 15:26 Care Management Progress Note Progress Note Text Progress Note Text: Deepa was awake in bed when CM met with her. This morning, Deepa was looking forward to going home today. Prior to discharge, Deepa was evaluated by PT to determine if Home health PT vs. Outpatient PT was appropriate, as she has an outpatient PT appointment scheduled for 09/19/24. During the evaluation, Deepa's oxygen levels desaturated to 86% on 2L O2 and her heart rate was 115. Due to this MD decided to monitor overnight and she will continue to work with PT. This afternoon, Deepa is comfortable with staying overnight. CM will continue to follow. Discharge Potential Discharge Needs: PCP F/U Appt Anticipated Barriers to Discharge: Medical Status (O2 desaturation with ambulation on 2L O2) Patient/Family Education Needs: Review discharge instructions, discuss Ask Me Three Transportation: Private vehicle (Daughter) Plan: Anticipate that Deepa will be discharged home once medical stable. Her daughter will drive her home via private vehicle. She will follow up with her PCP and discharge plan of care. CM will continue to follow. Social Determinants of Health Screening Social Determinants of Health last assessed: 09/04/24 Will the Patient Participate in the Screening?: Yes Do you worry about having a steady place to live?: no Problems where you live: no known problems In the past 12 months, have you had to go without electric, gas, oil or water in your home?: no Have you or anyone in your house had to go without enough food to eat?: no Has lack of transportation kept you from medical appointments or from doing things needed for daily living?: no Has anyone in your life made you feel unsafe or unsupported?: no How hard is it for you to pay for the very basics like food, housing, medical ca re, and heating? Would you say it is:: Not hard at all Do you want help finding or keeping work or a job?: I do not need or want help If for any reason you need help with day-to-day activities such as bathing, preparing meals, shopping, managing finances, etc., do you get the help you need?: I get all the help I need How often do you feel lonely or isolated from those around you?: Never Do you speak a language other than Korean at home?: No Does the patient want assistance with any of the above?: No
[2024-09-04] MEDS: Simvastatin 20 MG TAB PO (20:11)
[2024-09-04] MEDS: Zolpidem 10 MG TAB PO (21:39)
[2024-09-05 03:33] VITALS: BP 155/95; PULSE 118; RESP 22; TEMP 36.9; O2SAT 92
[2024-09-05] MEDS: Acetaminophen 325 MG TAB 650 MG PO ×4 (04:55→22:38)
[2024-09-05 07:20] LABS: Abs Immature Grans 0.06 10^3/uL (0.0-0.06); Absolute Basophil Count 0.05 10^3/uL (0.0-0.2); Absolute Eosinophil Count 0.17 10^3/uL (0.0-0.7); Absolute Lymphocyte Count 1.64 10^3/uL (1.2-3.4); Absolute Monocyte Count 0.96 10^3/uL (0.1-0.8); Basophils % 0.4 %; Eosinophils % 1.3 %; HCT 36.5 % (36.0-46.0); HGB 11.9 g/dL (11.2-15.7); Immature Grans % 0.5 %; Lymphocytes % 12.6 %; MCH 31.2 pg (27.0-33.0); MCHC 32.6 % (32.0-36.0); MCV 96 fL (80-95); MPV 10.1 fL (8.0-11.0); Monocytes % 7.4 %; Neutrophils % 77.8 %; Platelet Count 254 10^3/uL (130-400); RBC 3.82 10^6/uL (3.93-5.22); RDW 14.4 % (11.7-14.6); RDW-SD 50.1 fL
[2024-09-05 07:21] LABS: Absolute Neutrophil Count 10.11 10^3/uL (1.2-6.7)
[2024-09-05 07:41] VITALS: BP 140/80; PULSE 110; RESP 14; TEMP 36.4; O2SAT 94
[2024-09-05 07:42] LABS: ALT 26 U/L (14-59); AST 11 U/L (15-37); Albumin 2.7 g/dL (3.4-5.0); Alkaline Phosphatase 94 U/L (46-116); Anion Gap 5.8 mmol/L (3-11); BUN 6 mg/dL (7-18); Bilirubin, Total 0.5 mg/dL (0.2-1.0); CO2 32.2 mmol/L (21.0-32.0); CREATININE 0.6 mg/dL (0.55-1.02); Calcium 9.2 mg/dL (8.5-10.1); Chloride 99 mmol/L (98-107); Estimated GFR 102.06 (mL/min/1.73m2); Glucose 174 mg/dL (74-106); Potassium 3.7 mmol/L (3.5-5.1); Sodium 137 mmol/L (136-145); Total Protein 6.7 g/dL (6.4-8.2)
[2024-09-05] MEDS: Budesonide/Formoterol 160/4.5 6 GM 60 PUFF INH IH ×2 (08:06→20:15)
[2024-09-05] MEDS: Tiotropium Bromide-Respimat 10 PUFF INH 2 PUFF IH ×2 (08:06→20:15)
[2024-09-05] MEDS: Lisinopril 20 MG TAB 40 MG PO (08:23)
[2024-09-05] MEDS: Furosemide 40 MG TAB PO (08:24)
[2024-09-05] MEDS: Magnesium Oxide 400 MG TAB PO (08:24)
[2024-09-05] MEDS: Roflumilast 500 MCG TAB PO (08:24)
[2024-09-05] MEDS: buPROPion-CR 150 MG TABCR PO (08:24)
[2024-09-05] MEDS: Apixaban 5 MG TAB PO ×2 (08:24→20:15)
[2024-09-05] MEDS: Metoprolol CR 100 MG TABCR PO (08:24)
[2024-09-05] MEDS: amLODIPine 10 MG TAB PO (08:25)
[2024-09-05] MEDS: Normal Saline Flush 10 ML SYR IVP ×2 (08:56→20:15)
[2024-09-05] MEDS: predniSONE 20 MG TAB 40 MG PO (10:10)
[2024-09-05] MEDS: cefTRIAXone 2 GM/50 ML BAG IVPB (10:11)
[2024-09-05] MEDS: AZITHROMYCIN 500 MG in Normal Saline 250 ML 250 MG IVPB (10:43)
[2024-09-05 11:24] VITALS: BP 121/64; PULSE 99; TEMP 36.2; O2SAT 94
--- NOTE | 2024-09-05 12:23 | DI.RAD_ITS ---
Exam(s) XR ANKLE RT COMPLETE EXAM: XR ANKLE RT COMPLETE CLINICAL HISTORY: right ankle pain. TECHNIQUE: 2D digital imaging was performed. COMPARISON: No exams were available for comparison FINDINGS: 3 views There is generalized soft tissue swelling around both sides of the ankle and extending into the foot. Small calcific density at the level of the most inferior aspect of the lateral malleolus noted whic h is possibly a small avulsion injury. No evidence of fracture nor widening the ankle mortise. On the lateral view there appears to be some degenerative change in the anterior aspect of the tibiotalar joint, this at the level of the anterio r tibial plafond.. The talar dome itself appears unremarkable. IMPRESSION: Subtle calcific density immediately subjacent to the lateral malleolus possibly representing small av ulsion injury versus developmental finding. There are some degenerative changes in the anterior aspect of the tibiotalar joint. Prominent soft tissue swelling around the entire ankle evident. There is also a moderate size inferi or calcaneal spur. DATA REPOSITORY: RADIATION DOSE DELIVERED:
--- NOTE | 2024-09-05 13:24 | PT.INNT ---
PT Notes Visit Reasons: Tachycardia Deepa declined PT both am and pm sessions. States that she was supposed to go home today, but looks like she is staying another night. Apparently they are questioning gout in right LE. Too painful to move it or put weight on it.
--- NOTE | 2024-09-05 13:39 | CHAPLAIN ---
Deepa was resting in bed when I visited. She was polite and did not seem interested in further conversation. According to Care Management notes she lives at home with her daugther who works at night and takes care of Deepa during the day.
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
[2024-09-05 14:48] VITALS: BP 131/76; PULSE 98; RESP 16; TEMP 36.4; O2SAT 95
--- NOTE | 2024-09-05 15:09 | NT_ITS ---
PT Notes Visit Reasons: Tachycardia
--- NOTE | 2024-09-05 15:09 | PT.INNT ---
PT Notes Visit Reasons: Tachycardia
--- NOTE | 2024-09-05 15:42 | PDOC.CMPRO ---
Date of service: 09/05/24 Time of Service: 15:42 Care Management Progress Note Progress Note Text Progress Note Text: Deepa was awake in bed when CM met with her. She had azithromycin running and reported to CM that the infusion site was itchy and goodman, RN is notified. Deepa had been planning to discharge today however her right ankle red and swollen and the pain is preventing her from working with PT. Dr. Gómez was consulted and recommends compression and mobilize as tolerated. PT recommends home with PT. CM will follow. Discharge Potential Discharge Needs: PCP F/U Appt Anticipated Barriers to Discharge: None Identified Patient/Family Education Needs: Review discharge instructions, discuss Ask Me Three Transportation: Private vehicle (Daughter) Plan: Anticipate, Deepa will be discharged home with [facility] PT and PO ABX, when medically cleared for discharge. Her daughter will drive her home via private vehicle. She will follow up with her PCP and discharge plan of care. CM will continue to follow. Social Determinants of Health Screening Social Determinants of Health last assessed: 09/05/24 Will the Patient Participate in the Screening?: Yes Do you worry about having a steady place to live?: no Problems where you live: no known problems In the past 12 months, have you had to go without electric, gas, oil or water in your home?: no Have you or anyone in your house had to go without enough food to eat?: no Has lack of transportation kept you from medical appointments or from doing things needed for daily living?: no Has anyone in your life made you feel unsafe or unsupported?: no How hard is it for you to pay for the very basics like food, housing, medical care, and heating? Would you say it is:: Not hard at all Do you want help finding or keeping work or a job?: I do not need or want help If for any reason you need help with day-to-day activities such as bathing, preparing meals, shopping, managing finances, etc., do you get the help you need?: I get all the help I need How often do you feel lonely or isolated from those around you?: Never Do you speak a language other than Maldivian at home?: No Does the patient want assistance with any of the above?: No
--- NOTE | 2024-09-05 16:07 | W.PM.PROGNOT ---
Date of Service Date of service: 09/05/24 Time of Service: 09:15 Assessment and Plan Assessment and plan (1) Ground glass opacity present on imaging of lung: Status: Acute Assessment and plan: -She is coughing more today, SOB > baseline, and now increased WBC -will resume ceftriaxone and azithro for community acquired pneumonia. Add prednisone. Follow. (2) Tachycardia: Status: Acute Assessment and plan: -sinus tachycardia in setting of respiratory infection as above. No additional fluids. -CTA negative for PE -improving but has not normalized. Resuming treatment for pneumonia as above -back on metoprolol. (3) Arthritis of right ankle: Status: Acute Assessment and plan: I was concerned about gout as appeared focal inflammation around joint this morning. No effusion on x-ray, exam normalized later when seen by ortho. Appreciate consult. (4) Hypomagnesemia: Status: Inactive Assessment and plan: -replaced, now normal -resume PPI as she is getting steroids (5) Chronic obstructive lung disease: Assessment and plan: -on 3 L NC at baseline -wheezy today. With pneumonia/pnuemonitis, adding prednisone. -continue usual respiratory medications budesonide/formoterol Spiriva Daliresp (6) Obstructive sleep apnea syndrome: Assessment and plan: -home bipap (7) Essential hypertension: Assessment and plan: -BP a little above goal on full dose lisinopril, amlodipine, 100mg metoprolol succinate. -CCB likely making LE edema worse, requiring more furosemide. -consider adding low dose spironolactone, cutting amlodipine and furosemide. (8) DVT prophylaxis: Status: Acute Assessment and plan: h/o PE on apixaban Subjective Subjective Patient reports: tolerating a regular diet and voiding w/o difficulty; denies diarrhea, nausea, vomiting or fever Interval history since last seen: C/o right ankle pain and swelling. She didn't injure it. She is having a hard time putting weight on it. She was feeling better since admission but today still feels more SOB than normal for her, some cough. Exam Narrative Exam Narrative: Const: Obese female in NAD. A&O Lungs: Normal respiratory effort at rest. Lungs with decent air exchange, diffuse expiratory wheezes and prolonged expiration. no rales Cor: RRR and tachy. Intact PD pulses AB: soft, NT/ND Ext: Chronic BLE 2+ edema, right with redness and warmth around ankle joint more than left and tender to touch and in pain with flexion/extension Objective Last Vital Signs Temp 36.4 C L 09/05/24 14:48 Pulse 98 H 09/05/24 14:48 Resp 16 09/05/24 14:48 BP 131/76 09/05/24 14:48 Pulse Ox 95 09/05/24 14:48 Laboratory Results - last 24 hr 09/05/24 06:45 WBC 13.00 H RBC 3.82 L Hgb 11.9 D Hct 36.5 MCV 96 H MCH 31.2 MCHC 32.6 RDW 14.4 Plt Count 254 MPV 10.1 Immature Gran % 0.5 Neutrophils % 77.8 Lymphocytes % 12.6 Monocytes % 7.4 Eosinophils % 1.3 Basophils % 0.4 Nucleated RBC % 0.0 Absolute Neutrophils 10.11 H Absolute Lymphocytes 1.64 Absolute Monocytes 0.96 H Absolute Eosinophils 0.17 Absolute Basophils 0.05 Sodium 137 Potassium 3.7 Chloride 99 Carbon Dioxide 32.2 H Anion Gap 5.8 BUN 6 L Creatinine 0.6 Est GFR (CKD-EPI 2020) 102.06 Glucose 174 H Calcium 9.2 Total Bilirubin 0.5 AST 11 L ALT 26 Alkaline Phosphatase 94 Total Protein 6.7 Albumin 2.7 L PAWSS Have you Been Recently Intoxicated or Drunk Within the Last 30 days?: No Have you Ever Experienced Previous Episodes of Alcohol Withdrawal?: No Have you ever Experienced Withdrawal Seizures?: No Have you ever Experienced Delirium Tremens(DT)s?: No Have you ever undergone Alcohol Rehabilitation Treatment (i.e, inpt ot outpatient treatment programs)?: No Have you ever Experienced Blackouts?: No Have you ever Combined Alcohol with other Downers within the last 90 days?: No Have you ever Combined Alcohol with any other Substance of Abuse during the last 90 days?: No Positive Blood Alcohol level on Presentation? [PCS.BAL]: No Evidence of Increased Autonomic Activity (i.e. HR>120, tremor, sweating, agitation, nausea)?: No Result: 0 Time Spent with Patient Time Spent with Patient: 35-49 minutes Time was spent: preparing to see the patient(eg.review tests), obtaining and/or reviewing separately [facility] hiistory, ordering medications,tests, procedures, referring, communicating with other health palliative care physician, indepentently interpreting results, counseling the patient and care coordination
[2024-09-05] MEDS: Pantoprazole 40 MG TABCR PO (16:43)
[2024-09-05 19:21] VITALS: BP 148/80; PULSE 96; RESP 18; TEMP 36.8; O2SAT 92
[2024-09-05] MEDS: Simvastatin 20 MG TAB PO (20:15)
[2024-09-05] MEDS: Zolpidem 10 MG TAB PO (22:38)
[2024-09-05 23:14] VITALS: BP 123/74; PULSE 96; RESP 16; TEMP 36.7; O2SAT 92
[2024-09-06 00:10] VITALS: RESP 10; RESP 16; RESP 27
[2024-09-06] MEDS: Pantoprazole 40 MG TABCR PO (07:21)
[2024-09-06] MEDS: Apixaban 5 MG TAB PO (07:21)
[2024-09-06] MEDS: Roflumilast 500 MCG TAB PO (07:22)
[2024-09-06] MEDS: Lisinopril 20 MG TAB 40 MG PO (07:22)
[2024-09-06] MEDS: Magnesium Oxide 400 MG TAB PO (07:22)
[2024-09-06] MEDS: amLODIPine 10 MG TAB PO (07:22)
[2024-09-06] MEDS: Furosemide 40 MG TAB 60 MG PO (07:22)
[2024-09-06] MEDS: Metoprolol CR 100 MG TABCR PO (07:22)
[2024-09-06] MEDS: buPROPion-CR 150 MG TABCR PO (07:22)
[2024-09-06] MEDS: Normal Saline Flush 10 ML SYR IVP (07:23)
[2024-09-06 08:10] LABS: Abs Immature Grans 0.04 10^3/uL (0.0-0.06); Absolute Basophil Count 0.03 10^3/uL (0.0-0.2); Absolute Eosinophil Count 0.12 10^3/uL (0.0-0.7); Absolute Lymphocyte Count 2.11 10^3/uL (1.2-3.4); Absolute Monocyte Count 0.72 10^3/uL (0.1-0.8); Basophils % 0.3 %; Eosinophils % 1.3 %; HCT 34.9 % (36.0-46.0); HGB 11.5 g/dL (11.2-15.7); Immature Grans % 0.4 %; Lymphocytes % 22.6 %; MCH 31.4 pg (27.0-33.0); MCV 95 fL (80-95); MPV 10.2 fL (8.0-11.0); Monocytes % 7.7 %; Neutrophils % 67.7 %; Platelet Count 251 10^3/uL (130-400); RBC 3.66 10^6/uL (3.93-5.22); RDW 14.5 % (11.7-14.6); RDW-SD 50.1 fL; WBC 9.32 10^3/uL (4.4-10.8)
[2024-09-06] MEDS: Azithromycin 250 MG TAB PO (08:35)
[2024-09-06 08:44] VITALS: BP 141/71; PULSE 87; RESP 20; TEMP 36.4; O2SAT 91
[2024-09-06 09:02] VITALS: RESP 10; RESP 16; O2SAT 96
[2024-09-06] MEDS: Budesonide/Formoterol 160/4.5 6 GM 60 PUFF INH IH (09:02)
[2024-09-06] MEDS: Tiotropium Bromide-Respimat 10 PUFF INH 2 PUFF IH (09:02)
[2024-09-06 09:05] VITALS: O2SAT 93
[2024-09-06] MEDS: predniSONE 20 MG TAB 40 MG PO (09:41)
[2024-09-06] MEDS: cefTRIAXone 2 GM/50 ML BAG IVPB (09:41)
--- NOTE | 2024-09-06 11:49 | PT.INTREAT ---
PT Notes Visit Reasons: Tachycardia Date: 09/06/2024 PRECAUTIONS: fall, standard SUBJECTIVE: Pt in bed when approached for therapy this morning, pt agreed to participate with therapy session. OBJECTIVE: ?Oxygen mask @ 3L 02 support ? ?Pre: 94% @ 2.5L 95bpm? ?durin% @2.5L 104bpm post: 94% ?@2.5L 89bpm? PAIN: 11/21 left knee VITALS: closely monitored by nursing??? Therapeutic Activities 97349: Direct one-on-one instruction in dynamic activities to improve functional performance. ?? BED MOBILITY/TRANSFERS? Rolling L/R: supervision Supine-sit: ?SBA ? Sit-supine: ? SBA? Sit-stand: ? SBA? Stand-sit: ??SBA ? Bed-Chair:? ?SBA ? Chair-bed: SBA Provided skilled cues and instruction on performance and technique throughout. Gait Training 78138: Direct one-on-one instruction and skilled instruction in: Employing an assistive device Modified weight-bearing status Movement sequencing Turning and movement with proper form Provided verbal cues for equipment management and technique Provided instruction in gait pattern Patient education regarding pacing and breathing techniques to maximize activity tolerance? GAIT? Assistive Device: ?? ?FWW ? Weight bearing: FWB Assist: CGA ? Distance:?? ?50'x2, 100'x1? Deviation: ? antalgic, stoop forward WBOS short step length, low step height? Therapeutic Exercises 47694: Direct one-on-one instruction in therapeutic exercises to develop strength, endurance, range of motion and flexibility. Exercises Seated marching [id number] Seated SAQ [id number] Seated LAQ [id number] Seated ankle pumps [id number] Seated hip abduction/adduction [id number] ? Provided skilled instruction in proper exercise performance Provided skilled manual cues to facilitate proper muscle recruitment and/or form: ASSESSMENT:?pt tolerated activity well, SOB addressed by seated rest break and DBE. PLAN: Continue with balance training, global strengthening and general conditioning for improved safety, mobility and activity tolerance until pt is ready for DC. TREATMENT CODE/TIME: [id number], [id number], [id number] 40mins (11:15-11:55am)
[2024-09-06 11:52] VITALS: BP 127/77; PULSE 87; RESP 20; TEMP 36.3; O2SAT 93
[2024-09-06] MEDS: Nystatin POWDER 60 GM JAR TP (13:50)
[2024-09-06 14:46] VITALS: BP 148/96; PULSE 90; RESP 20; TEMP 36.6; O2SAT 94
--- NOTE | 2024-09-06 15:11 | PTTR_ITS ---
PT Notes Visit Reasons: pneumonia Inpatient Physical Therapy Treatment Note [facility] Date: 09/06/24 SUBJECTIVE: Deepa states that she is hopeful to go home today. She is requesting a bariatric walker. OBJECTIVE: []? VITALS: ?monitored by [facility] Therapeutic Activities ([id number]): Direct one-on-one instruction in dynamic activities to improve functional performance. ? BED MOBILITY/TRANSFERS? Supine-sit: SBA ? Sit-stand: SBA? Stand-sit: SBA? GAIT? Assistive Device: FWW? Weight bearing: AT Assist: SBA? Distance:? standing marching ? Deviation: low O2 sats with NC. 84%-90%, she changed out to the mask and this improved her sats to 94%.? ASSESSMENT:?pt did not feel up to ambulating once standing and sats decreased. She was able to recover, but decided she was too tired to continue. Cues t/o for proper breathing techniques and energy conservation. PLAN: d/c to home. TREATMENT CODE/TIME: 20 min. [id number] DISCHARGE RECOMMENDATION: home with HHPT
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
--- NOTE | 2024-09-06 16:22 | CMDISCH_ITS ---
Date of service: 09/06/24 Time of Service: 16:22 LACE Index Scoring Tool Questions: Length of Stay (in days): 3 Was the patient admitted via the E.D.?: Yes E.D. Visits: 5 Answers: Total Score: 10 Risk of Readmission: High Risk Care Management Discharge Plan Reason for Hospitalization: tachycardia Discharge Plan: Deepa returned home with new HH PT. Her daughter drove her home via private vehicle. She will follow up with her PCP and discharge plan of care. She was happy to be going home. Patient/Family Education Needs: Review discharge instructions and limitations, discussion of self care needs including ask me three. Services Needed at Discharge: Home Health Care Services (new HH PT) SDOH Health Related Social Needs: Health related social needs problems with daily activi ties (Z73.9), education (Z55.6)
== END 2024-09-06 15:53 | disposition home or self-care (01) ==
LOC: ER 09-03 03:09 → MS 09-03 04:26
PROVIDERS: Hospitalist; Admitting Provider Family Medicine; Emergency Provider Emergency Medicine; PCP Nurse Practitioner Family; Responsible Provider Family Medicine; Visit Provider Family Medicine
DX: J18.9 Pneumonia, unspecified organism (principal); R00.0 Tachycardia, unspecified; E83.42 Hypomagnesemia; J43.1 Panlobular emphysema; E66.2 Morbid (severe) obesity with alveolar hypoventilation; Z68.43 Body mass index [BMI] 50.0-59.9, adult; I10 Essential (primary) hypertension; R05.9 Cough, unspecified; J96.11 Chronic respiratory failure with hypoxia; Z99.81 Dependence on supplemental oxygen; R60.0 Localized edema; M19.071 Primary osteoarthritis, right ankle and foot; Z79.01 Long term (current) use of anticoagulants; Z79.899 Other long term (current) drug therapy; I89.0 Lymphedema, not elsewhere classified; I27.20 Pulmonary hypertension, unspecified; F17.210 Nicotine dependence, cigarettes, uncomplicated; G89.29 Other chronic pain; G47.00 Insomnia, unspecified; R53.1 Weakness; I87.2 Venous insufficiency (chronic) (peripheral); M17.11 Unilateral primary osteoarthritis, right knee; F32.A Depression, unspecified; Z96.652 Presence of left artificial knee joint; Z86.711 Personal history of pulmonary embolism; E78.5 Hyperlipidemia, unspecified; I73.9 Peripheral vascular disease, unspecified; D72.829 Elevated white blood cell count, unspecified
CPT/HCPCS: 00123; 36415; 71275; 80048; 80053; 82805; 87637; 93005; 94640; 94761; 96361; 96365; 96366; 96367; 96368; 97110; 97116; 97161; 97530; 99222; 99285; 73610; 83735; 84484; 85025; 93010; 94660; 94664; 94760; 99223; 99232; 99239; G0378; J0456; J0696; J3475; J3490; J7512

== ENCOUNTER → 2024-09-13 14:45 | Outpatient (BNVA) | payer MEDICARE, MEDICAID, SELFPAY | PROVIDERS: PCP Nurse Practitioner Family; Referring Provider Nurse Practitioner Family; Visit Provider Podiatrist | DX: L60.3 Nail dystrophy (principal); I73.89 Other specified peripheral vascular diseases; R60.0 Localized edema; R09.89 Other specified symptoms and signs involving the circulatory and respiratory systems; R20.8 Other disturbances of skin sensation; R21 Rash and other nonspecific skin eruption; L65.9 Nonscarring hair loss, unspecified; L60.2 Onychogryphosis | CPT/HCPCS: 11721 ==

== ENCOUNTER 2024-11-01 19:01 | Emergency (ER) | payer MEDICARE, MEDICAID, SELFPAY ==
[2024-11-01] VITALS (12 sets, daily range): BP systolic 114–149; BP diastolic 74–106; PULSE 94–110; RESP 15–22; TEMP 36.5; O2SAT 89–98
--- NOTE | 2024-11-01 19:15 | DI.RAD_ITS ---
Exam(s) XR TIB/FIB LT XR FOOT LT COMPLETE XR ANKLE LT COMPLETE XR KNEE LT 3V AP,LAT,ARIELLE EXAM: XR TIB/FIB LT CLINICAL HISTORY: knee/davila/ankle foot pain. TECHNIQUE: 2D digital imaging was performed. Two views of the tibia fibula, three views of the knee , and three views of the ankle and foot were performed.. COMPARISON: CR,XR XR FOOT LT COMPLETE from 11/01/2024 CR,XR XR ANKLE LT COMPLETE from 11/01/2024 CR,XR XR KNEE LT 3V AP,LAT,ARIELLE from 11/01/2024 FINDINGS: BONES: No acute fracture is present. No bony destructive lesion is seen. The knee prosthesis is unrem arkable. There is a plantar calcaneal spur. The ankle mortise is intact. SOFT TISSUE: Marked diffuse soft tissue edema. No abnormal gas collection or foreign body. IMPRESSION: Marked diffuse soft tissue edema from the leg through the foot. No abnormal gas collection or foreig n body. No evidence fracture. DATA REPOSITORY: RADIATION DOSE DELIVERED:
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
[2024-11-01] MEDS: Acetaminophen 500 MG TAB 1000 MG PO (20:31)
[2024-11-01] MEDS: oxyCODONE 5 MG TAB PO (20:31)
--- NOTE | 2024-11-01 21:03 | DI.VRAD_ITS ---
PROCEDURE INFORMATION: Exam: XR Left Ankle Exam date and time: 11/01/2024 8:07 PM Age: 63 years old Clinical indication: Pain; Ankle; Left TECHNIQUE: Imaging protocol: Radiologic exam of the left ankle. Views: 3 or more views. COMPARISON: CR XR FOOT LT COMPLETE 11/01/2024 8:04 PM FINDINGS: Bones/joints: Small calcaneal spurs. Probable small joint effusion. No fracture or dislocation. Soft tissues: Severe soft tissue edema/cellulitis. IMPRESSION: Severe soft tissue edema/cellulitis. Dictated and Authenticated by: Kaylee Mejia MD. Orderin Raj Mueller MD
--- NOTE | 2024-11-01 21:05 | DI.VRAD_ITS ---
PROCEDURE INFORMATION: Exam: XR Left Foot Exam date and time: 11/01/2024 8:04 PM Age: 63 years old Clinical indication: Pain; Foot; Left TECHNIQUE: Imaging protocol: Radiologic exam of the left foot. Views: 3 or more views. COMPARISON: US EXTREMITY VENOUS BI 09/21/2023 3:41 PM FINDINGS: Bones/joints: No fracture or dislocation. Small calcaneal spurs. Soft tissues: Diffuse soft tissue edema/cellulitis. IMPRESSION: Diffuse soft tissue edema/cellulitis. Dictated and Authenticated by: Kaylee Mejia MD. Orderin Raj Mueller MD
--- NOTE | 2024-11-01 21:06 | DI.VRAD_ITS ---
PROCEDURE INFORMATION: Exam: XR Left Tibia and Fibula Exam date and time: 11/01/2024 8:08 PM Age: 63 years old Clinical indication: Pain; Lower leg; Left TECHNIQUE: Imaging protocol: Radiologic exam of the left tibia and fibula. Views: 2 views. COMPARISON: CR XR ANKLE LT COMPLETE 11/01/2024 8:07 PM FINDINGS: Bones/joints: Left knee arthroplasty. No evidence of malalignment. No acute fracture. Soft tissues: Diffuse soft tissue edema/cellulitis. IMPRESSION: Diffuse soft tissue edema/cellulitis. Dictated and Authenticated by: Kaylee Mejia MD. Orderin Raj Mueller MD
--- NOTE | 2024-11-01 21:07 | DI.VRAD_ITS ---
PROCEDURE INFORMATION: Exam: XR Left Knee Exam date and time: 11/01/2024 8:09 PM Age: 63 years old Clinical indication: Pain; Knee; Left TECHNIQUE: Imaging protocol: Radiologic exam of the left knee. Views: 3 views. COMPARISON: CR XR TIB/FIB LT 11/01/2024 8:08 PM FINDINGS: Bones/joints: Left knee prosthesis noted. No evidence of malalignment. No acute fracture or dislocation. Probable small knee joint effusion. Soft tissues: Diffuse soft tissue edema/cellulitis. IMPRESSION: Diffuse soft tissue edema/cellulitis. Dictated and Authenticated by: Kaylee Mejia MD. Orderin Raj Mueller MD
[2024-11-01] MEDS: oxyCODONE 5 MG TAB 20 MG PO (21:40)
[2024-11-01] MEDS: Cephalexin 500 MG CAP, 2 CAPS/BTL PO (21:44)
== END 2024-11-01 21:48 | disposition home or self-care (01) ==
PROVIDERS: Emergency Provider Physician Assistant; PCP Nurse Practitioner Family
DX: M25.562 Pain in left knee (principal); M25.462 Effusion, left knee; J44.9 Chronic obstructive pulmonary disease, unspecified; I10 Essential (primary) hypertension; E78.5 Hyperlipidemia, unspecified; Z96.652 Presence of left artificial knee joint; Z86.711 Personal history of pulmonary embolism; Z99.81 Dependence on supplemental oxygen; Z79.01 Long term (current) use of anticoagulants
CPT/HCPCS: 73562; 99283; 73590; 73610; 73630

== ENCOUNTER 2024-11-06 19:17 | Inpatient (IN) | payer MEDICARE, MEDICAID, SELFPAY ==
[2024-11-06] VITALS (42 sets, daily range): BP systolic 126–160; BP diastolic 55–105; PULSE 85–110; RESP 12–25; TEMP 36.6; O2SAT 87–98
--- NOTE | 2024-11-06 20:00 | DI.CT_ITS ---
Exam(s) CT LOWER EXTREMITY LT W EXAM: CT LOWER EXTREMITY LT W CLINICAL HISTORY: Cellulitis failed oral abx. mid thigh to toes. TECHNIQUE: Imaging Protocol: Axial computed tomography images with coronal and sagittal reformatted images were created and reviewed. CONTRAST MATERIAL: Intravenous: Omnipaque 350 Contrast volume:100 mL COMPARISON: No exams were available for comparison FINDINGS: SOFT TISSUES: There is extensive subcutaneous edema throughout the superficial subcutaneous fat of th e left lower extremity and subcutaneous edema is also evident within the partially visualized pannicu chetna and partially right lower extremity. Probably related to generalized fluid overload and left low er extremity cellulitis. There is a prominent heterogeneous fluid collection anterior to the entire length of the knee in the prepatellar soft tissues, not exhibiting rim enhancement. This measures approximately 13.5 cm length by 7 cm wide by 3 cm thick. This has appearance of a probable hematoma. There is no radiopaque for eign body in this region. OSSEOUS: There is a left knee prosthesis no fracture. There is a knee joint effusion. No evidence of osteomy elitis. IMPRESSION: There is extensive subcutaneous edema throughout the superficial subcutaneous fat of the left lower e xtremity. There is also noted subcutaneous edema in the partially visualized panniculus and partiall y visualize right lower extremity. Findings suggest generalized fluid overload as well as left lower extremity cellulitis. Correlation with clinical findings recommended. There is a heterogeneous fluid collection within the prepatellar soft tissues measuring 13.5 length x 7 by x 3 cm thick. This does not exhibit rim enhancement. It is probably a prominent hematoma but cannot exclude phlegmon. Correlation with clinical findings and clinical history recommended. There is no radiopaque foreign body this region. No gas in the soft tissues. Virtual Radiology report reviewed RADIATION DOSE DELIVERED: 1,263.48mGy.cm Total DLP DATA REPOSITORY: All CT scans at this facility are submitted to the National Radiology Data Registry (NRDR) Dose Index Registry (DIR) with the [employer] (A[employer]). RADIATION OPTIMIZATION: All CT scans at this facility use at least one of these dose optimization te chniques: automated exposure control; mA and/or kV adjustment per patient size (includes targeted exa ms where dose is matched to clinical indication); or iterative reconstruction.
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
[2024-11-06 20:20] LABS: Abs Immature Grans 0.08 10^3/uL (0.0-0.06); Absolute Basophil Count 0.05 10^3/uL (0.0-0.2); Absolute Eosinophil Count 0.09 10^3/uL (0.0-0.7); Absolute Lymphocyte Count 2.15 10^3/uL (1.2-3.4); Absolute Neutrophil Count 5.94 10^3/uL (1.2-6.7); Basophils % 0.5 %; HCT 38.8 % (36.0-46.0); HGB 12.5 g/dL (11.2-15.7); Immature Grans % 0.9 %; Lymphocytes % 23.3 %; MCH 31.2 pg (27.0-33.0); MCHC 32.2 % (32.0-36.0); MCV 97 fL (80-95); MPV 9.2 fL (8.0-11.0); Monocytes % 9.8 %; Neutrophils % 64.5 %; Platelet Count 294 10^3/uL (130-400); RBC 4.01 10^6/uL (3.93-5.22); RDW 15.7 % (11.7-14.6); RDW-SD 55.7 fL; WBC 9.21 10^3/uL (4.4-10.8)
[2024-11-06 20:21] LABS: ESR 40 mm/hr (0-30)
[2024-11-06 20:38] LABS: ALT 31 U/L (14-59); AST 37 U/L (15-37); Albumin 3.1 g/dL (3.4-5.0); Alkaline Phosphatase 128 U/L (46-116); Anion Gap 3.7 mmol/L (3-11); BUN 9 mg/dL (7-18); Bilirubin, Total 0.4 mg/dL (0.2-1.0); C-Reactive Protein 1.95 mg/dL (<or=0.5); CO2 35.3 mmol/L (21.0-32.0); CREATININE 0.8 mg/dL (0.55-1.02); Calcium 9.2 mg/dL (8.5-10.1); Chloride 99 mmol/L (98-107); Estimated GFR 83.78 (mL/min/1.73m2); Glucose 139 mg/dL (74-106); Magnesium 1.2 mg/dL (1.8-2.4); Sodium 138 mmol/L (136-145); Total Protein 7.3 g/dL (6.4-8.2); Troponin I 21 ng/L (<or=51)
[2024-11-06] MEDS: Acetaminophen 500 MG TAB 1000 MG PO (20:42)
[2024-11-06] MEDS: Omnipaque 350 MG/ML 100 ML BTL IJ (20:47)
[2024-11-06] MEDS: Normal Saline Flush 10 ML SYR IVP (20:48)
[2024-11-06] MEDS: Normal Saline - Diluent 50 ML VIAL IJ (20:48)
[2024-11-06 20:49] LABS: Lactate 1.7 mmol/L (<or=2.0)
[2024-11-06] MEDS: cefTRIAXone 1 GM/50 ML BAG IVPB (21:20)
[2024-11-06 21:37] LABS: Troponin I 21 ng/L (<or=51)
[2024-11-06] MEDS: MAGNESIUM SULFATE 2 GM/50 ML BAG IV_INF (21:43)
[2024-11-06] MEDS: VANCOMYCIN 2,000 MG in Normal Saline 500 ML 333.3333 MG IVPB (21:43)
[2024-11-06] MEDS: HYDROmorphone 2 MG/ML SYR 0.5 MG IVP (22:05)
--- NOTE | 2024-11-06 22:13 | DI.VRAD_ITS ---
PROCEDURE INFORMATION: Exam: CT Left Lower Extremity With Contrast Exam date and time: 11/06/2024 9:00 PM Age: 63 years old Clinical indication: Lower leg and thigh; Left; Prior surgery; Surgery date: 6+ months; Surgery type: Knee replacement; Cellulitis failed oral abx. Mid thigh to toes TECHNIQUE: Imaging protocol: CT of the left lower extremity with intravenous contrast was performed. Radiation optimization: All CT scans at this facility use at least one of these dose optimization techniques: automated exposure control; mA and/or kV adjustment per patient size (includes targeted exams where dose is matched to clinical indication); or iterative reconstruction. Contrast material: OMNIPAQUE 350; Contrast volume: 100 ml; Contrast route: INTRAVENOUS (IV); COMPARISON: CR XR TIB/FIB LT 11/01/2024 8:08 PM FINDINGS: Bones/joints: There is a small low-density knee joint effusion. Left total knee arthroplasty is noted. No suspicious bony lesions. No acute fracture or dislocation. Soft tissues: Extensive subcutaneous edema is present within the subcutaneous fat of the left lower extremity. There is no edema within the deep fascial layer. A heterogeneous fluid collection is present within the prepatellar soft tissues which are markedly thickened. No definite rim enhancement to suggest organized abscess. Subcutaneous edema is noted within the visualized portions of the anterior panniculus. Subcutaneous edema is also noted within the partially visualized right lower extremity. IMPRESSION: 1. Extensive subcutaneous edema throughout the superficial subcutaneous fat of the left lower extremity. Some subcutaneous edema is also noted within the visualized panniculus and right lower extremity. Findings suggest a combination of generalized fluid overload and left lower extremity cellulitis. 2. Heterogeneous fluid collection within the prepatellar soft tissues without definite rim enhancement to suggest organized abscess. Findings are suspicious for soft tissue hematoma. Phlegmon could also be considered in the differential. If further characterization is warranted, ultrasound could be used to evaluate for percutaneous aspiration. Dictated and Authenticated by: Elly Rojo MD. Orderin [facility] Dre Zheng MD
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
[2024-11-07] VITALS (7 sets, daily range): BP systolic 125–144; BP diastolic 53–82; PULSE 76–111; RESP 16–20; TEMP 36.5–37.4; O2SAT 94–97
--- NOTE | 2024-11-07 00:08 | W.PC.ACHO ---
Registration Status: Primary Language: Preferred Language: ED Information & Data Chief Complaint Cellulitis 11/06/24 20:14 Triage Note patient presented to the ER 11/06/24 19:33 via [facility] with history of redness and pain and swelling to the left leg was seen here in the department . patient state she is unable to weight bear. Patient state she took Tylenol at 1000am and oxycodone at noon today. Medical / Surgical History (Last Reviewed 11/06/24 @ 23:33 by Van Damon) GERD (gastroesophageal reflux disease) Chronic obstructive lung disease Obstructive sleep apnea syndrome Hyperlipidemia 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 Essential hypertension Peripheral vascular disease, unspecified 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, on home O2 therapy senior living current use of anticoagulant Hypoxemia Pulmonary embolism and infarction (Last Reviewed 11/06/24 @ 23:33 by Van Damon) S/P section History of bilateral tubal ligation Hx of umbilical hernia repair S/P cholecystectomy Status post total knee replacement, left S/P ORIF (open reduction internal fixation) fracture Most Recent Vital Signs Temperature 36.6 C 11/06/24 19:41 Temperature Source Oral 11/06/24 19:41 Pulse 107 H 11/06/24 23:31 Pulse Rhythm Regular 11/06/24 22:02 Pulse Strength Normal 11/06/24 22:02 Pulse 99 H 11/06/24 23:31 Respiratory Rate 16 11/06/24 23:31 Respiratory Effort Normal, Non-Labored 11/06/24 22:02 Respiratory Depth Normal 11/06/24 22:02 Respiratory Pattern Normal 11/06/24 22:02 Blood Pressure 149/73 H 11/06/24 23:31 Blood Pressure Mean 98 11/06/24 23:31 Blood Pressure Position Sitting 11/06/24 19:41 Pulse Oximetry 93 11/06/24 23:31 Oxygen Delivery Method Nasal Cannula 11/06/24 22:02 Oxygen Flow Rate 3 11/06/24 22:02 End Tidal Co2 4 11/06/24 19:41 Pain Level 8 11/06/24 22:05 Allergies citalopram Adverse Reaction (Verified 11/06/24 19:48) INSOMNIA; DIZZINESS Active Medications Generic Name Dose Route Start Last Admin Trade Name Freq PRN Reason Stop Dose Admin Iohexol 100 ml 11/06/24 21:00 11/06/24 20:47 Omnipaque 350 Mg/Ml 100 Ml Btl IJ 12/06/24 23:59 100 ml DIRECTED AMIE Administration Sodium Chloride 0 ml 11/06/24 20:05 11/06/24 20:48 Normal Saline Flush 10 Ml Syr IVP 10 ml PRN PRN Administration Sodium Chloride 50 ml 11/06/24 21:00 11/06/24 20:48 Normal Saline - Diluent 50 Ml Vial IJ 50 ml .FOR DI USE AMIE Administration IV IV Catheter Type [] Diffusics IV Catheter Type [Right Diffusics Antecubital] IV Catheter Gauge [] 20 IV Catheter Gauge [Right 18 Antecubital] Diagnostics 11/06/24 11/06/24 11/06/24 Range/Units 23:49 23:05 21:15 WBC (4.4-10.8) 10^3/uL RBC (3.93-5.22) 10^6/uL Hgb (11.2-15.7) g/dL Hct (36.0-46.0) % MCV (80-95) fL MCH (27.0-33.0) pg MCHC (32.0-36.0) % RDW (11.7-14.6) % Plt Count (130-400) 10^3/uL MPV (8.0-11.0) fL Immature Gran % % Neutrophils % % Lymphocytes % % Monocytes % % Eosinophils % % Basophils % % Nucleated RBC % (0.0-0.3) % Absolute Neutrophils (1.2-6.7) 10^3/uL Absolute Lymphocytes (1.2-3.4) 10^3/uL Absolute Monocytes (0.1-0.8) 10^3/uL Absolute Eosinophils (0.0-0.7) 10^3/uL Absolute Basophils (0.0-0.2) 10^3/uL ESR (0-30) mm/hr VBG Lactate (<or=2.0) mmol/L Sodium (136-145) mmol/L Potassium (3.5-5.1) mmol/L Chloride (98-107) mmol/L Carbon Dioxide (21.0-32.0) mmol/L Anion Gap (3-11) mmol/L BUN (7-18) mg/dL Creatinine (0.55-1.02) mg/dL Est GFR (CKD-EPI 2020) (mL/min/1.73m2) Glucose (74-106) mg/dL Calcium (8.5-10.1) mg/dL Magnesium (1.8-2.4) mg/dL Total Bilirubin (0.2-1.0) mg/dL AST (15-37) U/L ALT (14-59) U/L Alkaline Phosphatase (46-116) U/L Troponin I Cancelled 21 (<or=51) ng/L C-Reactive Protein (<or=0.5) mg/dL Total Protein (6.4-8.2) g/dL Albumin (3.4-5.0) g/dL COVID-19 Source Pending SARS-CoV-2 (PCR) Pending Influenza Type A (PCR) Pending Influenza Type B (PCR) Pending RSV (PCR) Pending 11/06/24 11/06/24 Range/Units 20:40 20:16 WBC 9.21 (4.4-10.8) 10^3/uL RBC 4.01 (3.93-5.22) 10^6/uL Hgb 12.5 (11.2-15.7) g/dL Hct 38.8 (36.0-46.0) % MCV 97 H (80-95) fL MCH 31.2 (27.0-33.0) pg MCHC 32.2 (32.0-36.0) % RDW 15.7 H (11.7-14.6) % Plt Count 294 (130-400) 10^3/uL MPV 9.2 (8.0-11.0) fL Immature Gran % 0.9 % Neutrophils % 64.5 % Lymphocytes % 23.3 % Monocytes % 9.8 % Eosinophils % 1.0 % Basophils % 0.5 % Nucleated RBC % 0.0 (0.0-0.3) % Absolute Neutrophils 5.94 (1.2-6.7) 10^3/uL Absolute Lymphocytes 2.15 (1.2-3.4) 10^3/uL Absolute Monocytes 0.90 H (0.1-0.8) 10^3/uL Absolute Eosinophils 0.09 (0.0-0.7) 10^3/uL Absolute Basophils 0.05 (0.0-0.2) 10^3/uL ESR 40 H (0-30) mm/hr VBG Lactate 1.7 (<or=2.0) mmol/L Sodium 138 (136-145) mmol/L Potassium 4.0 (3.5-5.1) mmol/L Chloride 99 (98-107) mmol/L Carbon Dioxide 35.3 H (21.0-32.0) mmol/L Anion Gap 3.7 (3-11) mmol/L BUN 9 (7-18) mg/dL Creatinine 0.8 (0.55-1.02) mg/dL Est GFR (CKD-EPI 2020) 83.78 (mL/min/1.73m2) Glucose 139 H (74-106) mg/dL Calcium 9.2 (8.5-10.1) mg/dL Magnesium 1.2 L (1.8-2.4) mg/dL Total Bilirubin 0.4 (0.2-1.0) mg/dL AST 37 (15-37) U/L ALT 31 (14-59) U/L Alkaline Phosphatase 128 H (46-116) U/L Troponin I 21 (<or=51) ng/L C-Reactive Protein 1.95 H (<or=0.5) mg/dL Total Protein 7.3 (6.4-8.2) g/dL Albumin 3.1 L (3.4-5.0) g/dL COVID-19 Source SARS-CoV-2 (PCR) Influenza Type A (PCR) Influenza Type B (PCR) RSV (PCR) 11/06/24 20:35 Blood Culture - Pending Blood 11/06/24 20:21 Blood Culture - Pending Blood Intake and Output - 24 Hour Total 11/06/24 19:09 thru 11/06/24 21:54 Intake Total 50 Balance 50 Weight 155.129 kg Intake: IV 50 Falls Risk Assessment History of Falls Previous History 11/06/24 19:42 Contributing Factors Impairments,Incontinence 11/06/24 19:42 Ambulatory Aids Uses ambulatory device 11/06/24 19:42 Tubes/Lines W/no contributing factors 11/06/24 19:42 Gait Evaluation W/no contributing factors 11/06/24 19:42 Cognition No cognitive impairment 05/26/25 19:42 Fall Total Score 56 11/06/24 19:42 Level of Risk High Risk 11/06/24 19:42 Problems (Last Reviewed 11/06/24 @ 23:33 by Van Damon) Hematoma of left knee region (Acute) Morbid obesity (Chronic) Cellulitis (Acute) Depressive disorder (Chronic) v v v v v v v v v Sending and/or Receiving Nurses: Please use comment section below to note any information pertinent to the patient hand-off not included above. Information / Comments:Patient is A&O x3, C/O left knee pain, and was taking home antibiotics but leg got worse. Red and warm. Found to have cellulitis. Report received from: Ann in ED
[2024-11-07 00:46] LABS: COVID-19 PCR Negative (Negative); Influenza A PCR Negative (Negative); Influenza B PCR Negative (Negative); RSV PCR Negative (Negative)
[2024-11-07 00:50] LABS: Source Nasopharynx
[2024-11-07] MEDS: HYDROmorphone 2 MG/ML SYR 0.5 MG IVP ×5 (02:53→20:36)
[2024-11-07] MEDS: Zolpidem 10 MG TAB PO ×2 (02:54→22:44)
[2024-11-07] MEDS: diphenhydrAMINE 25 MG CAP PO ×3 (02:54→22:44)
[2024-11-07 06:46] LABS: HCT 34.5 % (36.0-46.0); HGB 11.1 g/dL (11.2-15.7); MCHC 32.2 % (32.0-36.0); MCV 96 fL (80-95); MPV 8.9 fL (8.0-11.0); Platelet Count 262 10^3/uL (130-400); RBC 3.58 10^6/uL (3.93-5.22); RDW 15.7 % (11.7-14.6); RDW-SD 56.1 fL; WBC 9.81 10^3/uL (4.4-10.8)
[2024-11-07 07:03] LABS: ALT 25 U/L (14-59); AST 27 U/L (15-37); Albumin 2.6 g/dL (3.4-5.0); Alkaline Phosphatase 107 U/L (46-116); Anion Gap 5.4 mmol/L (3-11); BUN 7 mg/dL (7-18); Bilirubin, Total 0.5 mg/dL (0.2-1.0); CO2 33.6 mmol/L (21.0-32.0); CREATININE 0.7 mg/dL (0.55-1.02); Chloride 100 mmol/L (98-107); Estimated GFR 98.34 (mL/min/1.73m2); Glucose 119 mg/dL (74-106); Magnesium 1.4 mg/dL (1.8-2.4); Potassium 3.6 mmol/L (3.5-5.1); Sodium 139 mmol/L (136-145); Total Protein 6.2 g/dL (6.4-8.2)
[2024-11-07] MEDS: Budesonide/Formoterol 160/4.5 6 GM 60 PUFF INH IH ×2 (08:12→21:52)
[2024-11-07] MEDS: Roflumilast 500 MCG TAB PO (08:14)
[2024-11-07] MEDS: Apixaban 5 MG TAB PO ×2 (08:14→20:35)
[2024-11-07] MEDS: amLODIPine 10 MG TAB PO (08:14)
[2024-11-07] MEDS: buPROPion-CR 150 MG TABCR PO (08:14)
[2024-11-07] MEDS: Furosemide 40 MG TAB 60 MG PO (08:14)
[2024-11-07] MEDS: Simvastatin 20 MG TAB PO (08:14)
[2024-11-07] MEDS: Pantoprazole 40 MG TABCR PO (08:15)
[2024-11-07] MEDS: Metoprolol CR 100 MG TABCR PO (08:15)
[2024-11-07] MEDS: Lisinopril 20 MG TAB 40 MG PO (08:15)
[2024-11-07] MEDS: Multivitamin TAB 1 TAB PO (08:15)
[2024-11-07] MEDS: Magnesium Oxide 400 MG TAB PO (08:15)
[2024-11-07] MEDS: Gabapentin 100 MG CAP PO (08:15)
[2024-11-07] MEDS: Nystatin POWDER 15 GM JAR TP ×2 (08:16→20:36)
[2024-11-07] MEDS: Normal Saline Flush 10 ML SYR IVP ×5 (08:17→20:37)
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
[2024-11-07 09:20] LABS: Bilirubin Negative (Negative); Blood Trace-intact (Negative); Clarity Sl Cloudy (Clear); Glucose Negative (Negative); Ketones Negative (Negative); Leukocyte Esterase Negative (Negative); Nitrite Negative (Negative); Specific Gravity 1.015 (1.005-1.025); Urobilinogen 0.2 mg/dL (Up to 0.2)
[2024-11-07 09:23] LABS: Bacteria Rare HPF (Negative); C & S Indicated? No; Casts Negative LPF (Negative); Crystals Negative HPF (Negative); Epithelial Cells Few HPF (Negative); Mucus Trace (Negative); WBC 0-2 HPF (0-5)
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
[2024-11-07] MEDS: MAGNESIUM SULFATE 2 GM/50 ML BAG IV_INF (11:25)
--- NOTE | 2024-11-07 14:59 | PGE_ITS ---
Date of Service Date of service: 11/07/24 Time of Service: 14:59 Assessment and Plan Assessment and plan (1) Cellulitis: Status: Acute Assessment and plan: white count remains normal, afebrile responding to current regimen as erythema within skin markings. continue elevation and close monitoring. continue ceftriaxone and vancomycin with plan to downstep to oral when appropr iate, still requiring IV PT and OT elevation as much as possible throughout the day (2) Hematoma of left knee region: Status: Acute Assessment and plan: Patient had fall and is on Eliquis sustaining hematoma over her left knee. (3) Chronic obstructive lung disease: Status: Chronic Assessment and plan: Continue O2 supplementation and outpatient medical therapy. This is not ex acerbated. (4) 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, on home O2 therapy: Status: Acute Assessment and plan: Patient is on chronic O2 therapy which will be continued. (5) Obstructive sleep apnea syndrome: Status: Chronic (6) Pulmonary embolism and infarction: Status: Acute Assessment and plan: on Chronic Eliquis therapy . (7) Depressive disorder: Status: Chronic Assessment and plan: Continue outpatient medical therapy. (8) Hyperlipidemia: Status: Acute Assessment and plan: Continue outpatient statin therapy. (9) Essential hypertension: Status: Chronic Assessment and plan: Continue outpatient medical therapy adjusting as needed. (10) Morbid obesity: Status: Chronic Assessment and plan: \continue weight loss discussions outpatient with pcp (11) GERD (gastroesophageal reflux disease): Status: Chronic Assessment and plan: Continue outpatient PPI treatment. Subjective Subjective Patient reports: still having pain and afebrile Interval history since last seen: continues to have pain, swelling and redness Exam Const General: cooperative, comfortable and no acute distress Nutritional Appearance: obese Orientation: alert and awake [facility] Head: normal to inspection, normocephalic and atraumatic Mouth: moist mucous membranes Teeth and gingiva: poor dentition Eyes General: appearance normal, both eyes and all related structures Neck Neck: normal visual inspection and full ROM Resp Effort & Inspection: normal respiratory effort, able to speak in complete sentences and no respiratory distress Cardio Rate: regular rate Rhythm: regular rhythm Skin Rashes: rashes noted (left lower extremity, within skin markings. dark red.) Neuro General: patient alert and patient awake Cognition: normal cognition Speech: speech normal Gait: normal gait Extrem General: normal to inspection and edema (bilateral, at baseline) Psych Appearance: grossly normal Mental Status: mental status grossly normal Speech and Movement: speech and movement normal Mood: congruent mood Affect: normal affect Objective Last Vital Signs Temp 36.6 C 11/07/24 11:21 Pulse 98 H 11/07/24 11:21 Resp 18 11/07/24 11:21 BP 144/81 H 11/07/24 11:21 Pulse Ox 97 11/07/24 11:21 Laboratory Results - last 24 hr 11/06/24 11/06/24 11/06/24 20:16 20:40 21:15 WBC 9.21 RBC 4.01 Hgb 12.5 Hct 38.8 MCV 97 H MCH 31.2 MCHC 32.2 RDW 15.7 H Plt Count 294 MPV 9.2 Immature Gran % 0.9 Neutrophils % 64.5 Lymphocytes % 23.3 Monocytes % 9.8 Eosinophils % 1.0 Basophils % 0.5 Nucleated RBC % 0.0 Absolute Neutrophils 5.94 Absolute Lymphocytes 2.15 Absolute Monocytes 0.90 H Absolute Eosinophils 0.09 Absolute Basophils 0.05 ESR 40 H VBG Lactate 1.7 Sodium 138 Potassium 4.0 Chloride 99 Carbon Dioxide 35.3 H Anion Gap 3.7 BUN 9 Creatinine 0.8 Est GFR (CKD-EPI 2020) 83.78 Glucose 139 H Calcium 9.2 Magnesium 1.2 L Total Bilirubin 0.4 AST 37 ALT 31 Alkaline Phosphatase 128 H Troponin I 21 21 C-Reactive Protein 1.95 H Total Protein 7.3 Albumin 3.1 L Urine Color Urine Clarity Urine pH Ur Specific Morganza Urine Protein Urine Ketones Urine Blood Urine Nitrite Urine Bilirubin Urine Urobilinogen Ur Leukocyte Esterase Urine RBC Urine WBC Ur Epithelial Cells Urine Crystals Urine Bacteria Urine Casts Urine Mucus Ur Culture Indicated? Urine Glucose COVID-19 Source SARS-CoV-2 (PCR) Influenza Type A (PCR) Influenza Type B (PCR) RSV (PCR) 11/06/24 11/07/24 11/07/24 23:05 00:06 06:36 WBC 9.81 RBC 3.58 L Hgb 11.1 L Hct 34.5 L MCV 96 H MCH 31.0 MCHC 32.2 RDW 15.7 H Plt Count 262 MPV 8.9 Immature Gran % Neutrophils % Lymphocytes % Monocytes % Eosinophils % Basophils % Nucleated RBC % Absolute Neutrophils Absolute Lymphocytes Absolute Monocytes Absolute Eosinophils Absolute Basophils ESR VBG Lactate Sodium 139 Potassium 3.6 Chloride 100 Carbon Dioxide 33.6 H Anion Gap 5.4 BUN 7 Creatinine 0.7 Est GFR (CKD-EPI 2020) 98.34 Glucose 119 H Calcium 9.0 Magnesium 1.4 L Total Bilirubin 0.5 AST 27 ALT 25 Alkaline Phosphatase 107 Troponin I Cancelled C-Reactive Protein Total Protein 6.2 L Albumin 2.6 L Urine Color Urine Clarity Urine pH Ur Specific Morganza Urine Protein Urine Ketones Urine Blood Urine Nitrite Urine Bilirubin Urine Urobilinogen Ur Leukocyte Esterase Urine RBC Urine WBC Ur Epithelial Cells Urine Crystals Urine Bacteria Urine Casts Urine Mucus Ur Culture Indicated? Urine Glucose COVID-19 Source Nasopharynx SARS-CoV-2 (PCR) Negative Influenza Type A (PCR) Negative Influenza Type B (PCR) Negative RSV (PCR) Negative 11/07/24 09:00 WBC RBC Hgb Hct MCV MCH MCHC RDW Plt Count MPV Immature Gran % Neutrophils % Lymphocytes % Monocytes % Eosinophils % Basophils % Nucleated RBC % Absolute Neutrophils Absolute Lymphocytes Absolute Monocytes Absolute Eosinophils Absolute Basophils ESR VBG Lactate Sodium Potassium Chloride Carbon Dioxide Anion Gap BUN Creatinine Est GFR (CKD-EPI 2020) Glucose Calcium Magnesium Total Bilirubin AST ALT Alkaline Phosphatase Troponin I C-Reactive Protein Total Protein Albumin Urine Color Yellow Urine Clarity Sl Cloudy Urine pH 6.0 Ur Specific Morganza 1.015 Urine Protein Negative Urine Ketones Negative Urine Blood Trace-intact H Urine Nitrite Negative Urine Bilirubin Negative Urine Urobilinogen 0.2 Ur Leukocyte Esterase Negative Urine RBC 3-5 H Urine WBC 0-2 Ur Epithelial Cells Few Urine Crystals Negative Urine Bacteria Rare Urine Casts Negative Urine Mucus Trace Ur Culture Indicated? No Urine Glucose Negative COVID-19 Source SARS-CoV-2 (PCR) Influenza Type A (PCR) Influenza Type B (PCR) RSV (PCR) PAWSS Have you Been Recently Intoxicated or Drunk Within the Last 30 days?: No Have you Ever Experienced Previous Episodes of Alcohol Withdrawal?: No Have you ever Experienced Withdrawal Seizures?: No Have you ever Experienced Delirium Tremens(DT)s?: No Have you ever undergone Alcohol Rehabilitation Treatment (i.e, inpt ot outpatient treatment programs)?: No Have you ever Experienced Blackouts?: No Have you ever Combined Alcohol with other Downers within the last 90 days?: No Have you ever Combined Alcohol with any other Substance of Abuse during the last 90 days?: No Positive Blood Alcohol level on Presentation? [PCS.BAL]: No Evidence of Increased Autonomic Activity (i.e. HR>120, tremor, sweating, agitation, nausea)?: No Result: 0 Time Spent with Patient Time Spent with Patient: 35-49 minutes Time was spent: preparing to see the patient(eg.review tests), obtaining and/or reviewing separately otained hiistory, ordering medications,tests, procedures, indepentently interpreting results and counseling the patient
--- NOTE | 2024-11-07 15:08 | PTTR_ITS ---
PT Notes Visit Reasons: Cellulitis left lower extremity Physical Therapy Inpatient Treatment Note Date: 11/07/2024 Precautions: Fall. Standard. Activity as tolerated. SUBJECTIVE: agreeable to trying our post-op shoes to B feet as there are no slipper socks on stock that would comfortably fit client's L leg and foot that will not hurt due to cellulitis. Motivated to walk to outside her bathroom area and back to bed but was fatigued and hurting too much after activity. Objective: General Observation: High BMI. O2 supplement via NC. Erythema, swelling, and increased warmth to L leg and foot. Hematoma to L knee from recent fall. Closed wound on L medial arch noted. Mental Status: Alert and oriented as to person, place, time, and purpose. Able to pay attention, focus, and respond appropriately. Pain: 7-8/10 through L leg and foot with weight bearing; pain in low back area during sit<>supine Vital Signs: Closely monitored by nursing staff Bed Mobility/Transfers: Minimal cueing provided for use of B hands as needed for support, movement sequence, AD management, and posture to reduce fall risk and minimize pain report Rolling contact guard assist using bed rails for support Supine to sit minimal assist with HOB at 45 degrees Sit to supine minimal assist to L LE Sit to stand minimal assist with bariatric FWW Stand to sit minimal assist with bariatric FWW Bed to bedside commode contact guard assist with bariatric FWW Bedside commode to bed contact guard assist with bariatric FWW Gait: 20 feet with bariatric walker with contact guard assist and report of increased pain through L LE and back that subsided with rest. Fatigued and dizzy after activity. TC wide. Decreased stance time through L LE. Patient needed to void uring after she was plced back in bed post walking activity and was able to perform 10 steps to the commode and another 10 steps back to the bed after she was assisted with pericare. Balance: Static Sitting: Good Dynamic Sitting: Fair Static Standing: Fair Dynamic Standing: Fair Assessment: Patient demonstrated improved stability and safety with use of bariatric front- wheeled walker as well as post-op shoes. The post-op shoes also maximizes hygiene during walking as no slipper socks would fit patient comfortably. Pain cotniues to be the main limiting factor for mobility but patient has been pre- medicated in coordination with nursing for PT to maximize mobility performance. Plan of Care/Treatment Plan: 1-2x/day, 7 days/week x 1 week. Plan of care has been reviewed with the SECURITY OFFICERS AND GUARDS providing the service under Physical Therapy direction. Initiate Physical Therapy intervention for pain management as needed, strengthening, bed mobility, transfers, gait, stairs, balance training, and use of assistive device. DISCHARGE RECOMMENDATIONS: [] Home with no services [] [] Home with services [specify] [] Home with outpatient PT [] [] SNF for continued rehabilitation [] [] [facility] [employer] Director Care [] [] SNF versus LTC based on ability to participate and progress [] [X] Short-term SNF vs PT based on progress towards above goals TREATMENT CODE/TIME: 37426 x 33 minutes for 2 units (15:08-15:40).
--- NOTE | 2024-11-07 16:17 | CHAPLAIN ---
Deepa was resting in bed when I visited. She was pleasant and entered into a conversation with me. I explained my role and offered support.
[2024-11-07] MEDS: Acetaminophen 325 MG TAB PO (20:35)
[2024-11-07] MEDS: cefTRIAXone 1 GM/50 ML BAG IVPB (21:51)
[2024-11-08] VITALS (7 sets, daily range): BP systolic 116–154; BP diastolic 61–91; PULSE 80–96; RESP 16–25; TEMP 36.3–37.1; O2SAT 90–95
[2024-11-08] MEDS: diphenhydrAMINE 25 MG CAP PO (04:10)
[2024-11-08] MEDS: Acetaminophen 325 MG TAB PO ×4 (04:10→23:50)
[2024-11-08] MEDS: Normal Saline Flush 10 ML SYR IVP ×6 (06:06→19:47)
[2024-11-08] MEDS: HYDROmorphone 2 MG/ML SYR 0.5 MG IVP ×5 (06:06→19:46)
[2024-11-08 06:27] LABS: HCT 33.8 % (36.0-46.0); MCH 31.3 pg (27.0-33.0); MCHC 32.5 % (32.0-36.0); MCV 96 fL (80-95); MPV 9.1 fL (8.0-11.0); Platelet Count 263 10^3/uL (130-400); RBC 3.51 10^6/uL (3.93-5.22); RDW 15.6 % (11.7-14.6); RDW-SD 55.4 fL; WBC 9.52 10^3/uL (4.4-10.8)
[2024-11-08 06:42] LABS: ALT 23 U/L (14-59); AST 23 U/L (15-37); Albumin 2.7 g/dL (3.4-5.0); Alkaline Phosphatase 108 U/L (46-116); Anion Gap 5.5 mmol/L (3-11); BUN 5 mg/dL (7-18); Bilirubin, Total 0.5 mg/dL (0.2-1.0); CO2 33.5 mmol/L (21.0-32.0); CREATININE 0.7 mg/dL (0.55-1.02); Calcium 8.7 mg/dL (8.5-10.1); Chloride 97 mmol/L (98-107); Estimated GFR 98.34 (mL/min/1.73m2); Glucose 151 mg/dL (74-106); Magnesium 1.4 mg/dL (1.8-2.4); Potassium 3.7 mmol/L (3.5-5.1); Sodium 136 mmol/L (136-145); Total Protein 6.5 g/dL (6.4-8.2); Vancomycin, Random 19.2 ug/mL
[2024-11-08] MEDS: Tiotropium Bromide-Respimat 10 PUFF INH 2 PUFF IH (07:32)
[2024-11-08] MEDS: Budesonide/Formoterol 160/4.5 6 GM 60 PUFF INH IH ×2 (07:32→19:39)
[2024-11-08] MEDS: buPROPion-CR 150 MG TABCR PO (09:03)
[2024-11-08] MEDS: Magnesium Oxide 400 MG TAB PO (09:03)
[2024-11-08] MEDS: Lisinopril 20 MG TAB 40 MG PO (09:03)
[2024-11-08] MEDS: Apixaban 5 MG TAB PO ×2 (09:03→19:46)
[2024-11-08] MEDS: Docusate Sodium 100 MG CAP PO (09:04)
[2024-11-08] MEDS: amLODIPine 10 MG TAB PO (09:04)
[2024-11-08] MEDS: Gabapentin 100 MG CAP PO ×3 (09:04→19:46)
[2024-11-08] MEDS: Multivitamin TAB 1 TAB PO (09:05)
[2024-11-08] MEDS: Metoprolol CR 100 MG TABCR PO (09:05)
[2024-11-08] MEDS: Roflumilast 500 MCG TAB PO (11:16)
[2024-11-08] MEDS: Simvastatin 20 MG TAB PO (11:16)
[2024-11-08] MEDS: Furosemide 40 MG TAB PO (11:18)
[2024-11-08] MEDS: Ketoconazole 2% CREAM 15 GM TUBE TP (11:20)
[2024-11-08] MEDS: Nystatin POWDER 15 GM JAR TP ×2 (11:21→19:49)
--- NOTE | 2024-11-08 11:50 | PTTR_ITS ---
PT Notes Visit Reasons: Cellulitis left lower extremity Physical Therapy Inpatient Treatment Note Date: 11/08/2024 Precautions: Fall. Standard. Activity as tolerated. SUBJECTIVE: Happy about being able to walk better with use of post-op shoes. L leg starting to look better, patient is not as cautious as she has been about her L leg/foot with movement compared to yesterday. Objective: General Observation: High BMI. O2 supplement via NC. Erythema, swelling, and and warmth beginning to diminish. Hematoma to L knee from recent fall. Closed wound on L medial arch noted. Mental Status: Alert and oriented as to person, place, time, and purpose. Able to pay attention, focus, and respond appropriately. Pain: 5/10 through L leg and foot with weight bearing; pain in low back area during sit<>supine Vital Signs: Closely monitored by nursing staff Bed Mobility/Transfers: Minimal cueing provided for use of B hands as needed for support, movement sequence, AD management, and posture to reduce fall risk and minimize pain report Rolling contact guard assist using bed rails for support Supine to sit minimal assist with HOB at 45 degrees Sit to supine minimal assist to L LE Sit to stand contact guard assist with bariatric FWW Stand to sit contact guard assist with bariatric FWW Bed to bedside commode contact guard assist with bariatric FWW Bedside commode to bed contact guard assist with bariatric FWW Gait: 40 feet with bariatric walker with contact guard assist and report of increased pain through L LE and back that subsided with rest. Fatigued and dizzy after activity. TC wide. Decreased stance time through L LE. Balance: Static Sitting: Good Dynamic Sitting: Fair Static Standing: Fair Dynamic Standing: Fair Assessment: Patient demonstrated improved stability and safety with use of bariatric front- wheeled walker as well as post-op shoes. Remains to be short of breath but with rest, patient is able to recover quickly. She was able to stay up and tolerate sitting at edge of bed for about an hour before she requested to go back to bed as the weight of her leg adds to the discomfort. Plan of Care/Treatment Plan: 1-2x/day, 7 days/week x 1 week. Plan of care has been reviewed with the ASSISTANT DESIGNER providing the service under Physical Therapy direction. Initiate Physical Therapy intervention for pain management as needed, strengthening, bed mobility, transfers, gait, stairs, balance training, and use of assistive device. DISCHARGE RECOMMENDATIONS: [] Home with no services [] [X] Home with services. Patient will benefit from home health PT services in order to progress mobility level using least restrictive assistive ambulatory device, assess home safety, identify additional equipment needs, and establish a functional maintenance program that will increase ability of patient to remain at home. [] Home with outpatient PT [] [] SNF for continued rehabilitation [] [] Intermediate Care [] [] SNF versus LTC based on ability to participate and progress [] TREATMENT CODE/TIME: 07093 x 25 minutes for 2 units (11:50-12:15).
--- NOTE | 2024-11-08 12:04 | CMPROGNOTE_ITS ---
Date of service: 11/08/24 Time of Service: 12:04 Care Management Progress Note Progress Note Text Progress Note Text: Deepa was awake and sitting up in bed when CM met with her. She is pleasant and easily engages in conversation. She feels her leg looks better and shares that she is eager to get back home. Per provider, Deepa will be closer to medical readiness when she can transition to PO ABX. Deepa acknowledges that she is in the right track and is happy to continue per this plan of care. In the meantime, she is working with PT and due to significant mobility limitations they recommend SNF for STR vs. Home with services. Deepa is not interested in discharging to a SNF, but is agreeable to new [facility] RN/PT services on discharge. CM will continue to follow and support discharge planning considerations. Discharge Potential Discharge Needs: PCP F/U Appt Anticipated Barriers to Discharge: None Identified Patient/Family Education Needs: Review discharge instructions, discuss Ask Me Three Transportation: Private vehicle Plan: PT recommends SNF for STR vs. Home with New [facility] PT. Anticipate, Deepa will return home once medically cleared with New [facility] RN/PT and resumption of acute care nurse practitioner support. Her daughter will drive her home via private vehicle (portable O2 in her room for transport.) She will follow up with her PCP and discharge plan of care. CM will continue to follow. Social Determinants of Health Screening Social Determinants of health last assessed in clinic: 11/08/24 Will the Patient Participate in the Screening?: Yes Do you worry about having a steady place to live?: no Problems where you live: no known problems In the past 12 months, have you had to go without electric, gas, oil or water in your home?: no 1. Within the past 12 months, we worried whether our food would run out before we got money to buy more.: Never true 2. Within the past 12 months, the food we bought just didn't last and we didn't have money to get more.: Never true Has lack of transportation kept you from medical appointments or from doing things needed for daily living?: no Has anyone in your life made you feel unsafe or unsupported?: no How hard is it for you to pay for the very basics like food, housing, medical care, and heating? Would you say it is:: Not hard at all Do you want help finding or keeping work or a job?: I do not need or want help If for any reason you need help with day-to-day activities such as bathing, preparing meals, shopping, managing finances, etc., do you get the help you need?: I don?t need any help How often do you feel lonely or isolated from those around you?: Never Do you speak a language other than Bengali at home?: No Does the patient want assistance with any of the above?: No
--- NOTE | 2024-11-08 12:59 | PHA.REVIEW2 ---
Pharmacy Admission Review Admission Clinical Review Admission Pharmacy Review: Hematoma of left knee region (Acute) Cellulitis (Acute) citalopram Adverse Reaction (Verified 11/06/24 19:48) INSOMNIA; DIZZINESS Resuscitation Status Full Code Height 5 ft 3 in Weight 157.1 kg Pharmacy Admission Review Renal Dosing Renal Dosing: BUN 5 mg/dL (7-18) L 11/08/24 06:10 Creatinine 0.7 mg/dL (0.55-1.02) 11/08/24 06:10 Medications needing adjustments: Reviewed (CrCl 87.92 mL/min) List of meds needing interventions: Current medications are okay Anticoagulation Anticoagulation: Hgb 11.0 g/dL (11.2-15.7) L 11/08/24 06:10 Hct 33.8 % (36.0-46.0) L 11/08/24 06:10 Plt Count 263 10^3/uL (130-400) 11/08/24 06:10 Creatinine 0.7 mg/dL (0.55-1.02) 11/08/24 06:10 DVT Prophylaxis: Reviewed Medications: Apixaban (5mg PO BID) Opiate Usage Evaluate Pain Scale/Pains Meds: Reviewed (hydromorphone 0.5mg IVP q2h PRN - 2.5mg / 24hrs) Scheduled Bowel Reg ordered if on Opiates?: No (PRN docusate/Miralax) Relevant Labs Relevant Labs: ESR 40 mm/hr (0-30) H 11/06/24 20:16 Sodium 136 mmol/L (136-145) 11/08/24 06:10 Potassium 3.7 mmol/L (3.5-5.1) 11/08/24 06:10 Chloride 97 mmol/L (98-107) L 11/08/24 06:10 Magnesium 1.4 mg/dL (1.8-2.4) L 11/08/24 06:10 C-Reactive Protein 1.95 mg/dL (<or=0.5) H 11/06/24 20:16 Electrolytes, C-Reactive P, ESR: Reviewed (Mg 1.4 - has order for PO mag ox 400mg daily, has received 2 Mg infusions (11/06 and 11/07)) Cardiac Review Cardiac Review: Troponin I Cancelled 11/06/24 23:05 BP, HR, EF%: Reviewed (BP and HR WNL, oxygen flow rate = 2.5) List meds needing interventions: Has orders for amlodipine 10mg daily, furosemide 60mg QOD alternating with 40mg QOD, lisinopril 40mg daily and metoprolol XL 100mg QTc Review QTc: Reviewed (434 from 09/02/24 - most recent EKG on file) IV to PO Switch IV Medications: Reviewed (ceftriaxone, hydromorphone and vancomycin) Home Meds Home Med List reviewed: Reviewed Relevent Home Meds Not ordered & why?: Trelegy (has orders for Symbicort and Spiriva), hydrocortisone cream (PRN) and triamcinolone cream (PRN) Current Meds Current Medication Order Review: Intervened Comments: Added 2nd PRN to diphenhydramine, hydromorphone and zolpidem orders per pharmacy protocol Changed IV ED access order Changed pantoprazole timing from 0830 to 0730 per pharmacy protocol Pharmacy Antibiotic Review Relevant Labs: WBC 9.52 10^3/uL (4.4-10.8) 11/08/24 06:10 Temperature 36.6 C Temperature 36.7 C Temperature 36.8 C Microbiology 11/06/24 20:35 Blood Culture - Preliminary Blood NO GROWTH 24 HOURS 11/06/24 20:21 Blood Culture - Preliminary Blood NO GROWTH 24 HOURS Pharmacy Antibiotic Activity: C/S review and Reviewed, no change Comments: Patient is on vancomycin and ceftriaxone, day 2, for cellulitis of left lower extremity. Vancomycin level this morning was 19.2 at 0610. Keep dose at 1750mg q12h with predicted AUC of 537 and trough of 12.8. Order was originally put in for a 250mL bag, but vancomycin should not be higher than a 5mg/mL concentration. I changed order to a 500mL bag. Will repeat level if there are any significant renal function changes or prolonged therapy is required.
--- NOTE | 2024-11-08 14:01 | W.PM.PROGNOT ---
Date of Service Date of service: 11/08/24 Time of Service: 14:01 Assessment and Plan Assessment and plan (1) Cellulitis: Status: Acute Assessment and plan: white count remains normal, afebrile, reports pain and swelling improving slightly continues responding to current regimen as erythema within skin markings. continue elevation and close monitoring. continue ceftriaxone and vancomycin with plan to downstep to oral when appropriate, still requiring IV PT and OT elevation as much as possible throughout the day (2) Hematoma of left knee region: Status: Acute Assessment and plan: Patient had fall and is on Eliquis sustaining hematoma over her left knee. (3) Chronic obstructive lung disease: Status: Chronic Assessment and plan: Continue O2 supplementation and outpatient medical therapy. This is not exacerbated. (4) 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, on home O2 therapy: Status: Acute Assessment and plan: Patient is on chronic O2 therapy which will be continued. (5) Obstructive sleep apnea syndrome: Status: Chronic (6) Pulmonary embolism and infarction: Status: Acute Assessment and plan: on Chronic Eliquis therapy . (7) Depressive disorder: Status: Chronic Assessment and plan: Continue outpatient medical therapy. (8) Hyperlipidemia: Status: Acute Assessment and plan: Continue outpatient statin therapy. (9) Essential hypertension: Status: Chronic Assessment and plan: Continue outpatient medical therapy adjusting as needed. (10) Morbid obesity: Status: Chronic Assessment and plan: \continue weight loss discussions outpatient with pcp (11) GERD (gastroesophageal reflux disease): Status: Chronic Assessment and plan: Continue outpatient PPI treatment. (12) Discharge planning issues: Status: Acute Assessment and plan: Case management following for discharge planning Anticipate a discharge to home with new home health services physical therapy discussed with DR Bills Subjective Subjective Patient reports: no new complaints, feels better, tolerating liquids well, tolerating a regular diet, no bowel movement and afebrile; denies shortness of breath Interval history since last seen: feels slight improvement in pain and swelling. continues to be within skin markings. hemodynamically stable. voiding well, no BM, no nausea or abd pain. Exam Const General: cooperative, comfortable and no acute distress Nutritional Appearance: obese Orientation: alert and awake [facility] Head: normal to inspection, normocephalic and atraumatic Mouth: moist mucous membranes Teeth and gingiva: poor dentition Eyes General: appearance normal, both eyes and all related structures Neck Neck: normal visual inspection and full ROM Resp Effort & Inspection: normal respiratory effort, able to speak in complete sentences and no respiratory distress Cardio Rate: regular rate Rhythm: regular rhythm Skin Rashes: rashes noted (left lower extremity, within skin markings. dark red.) Neuro General: patient alert and patient awake Cognition: normal cognition Speech: speech normal Gait: normal gait Extrem General: normal to inspection and edema (bilateral, at baseline) Psych Appearance: grossly normal Mental Status: mental status grossly normal Speech and Movement: speech and movement normal Mood: congruent mood Affect: normal affect Objective Last Vital Signs Temp 36.6 C 11/08/24 11:47 Pulse 84 11/08/24 11:47 Resp 18 11/08/24 11:47 BP 122/65 11/08/24 11:47 Pulse Ox 93 11/08/24 11:47 Laboratory Results - last 24 hr 11/08/24 06:10 WBC 9.52 RBC 3.51 L Hgb 11.0 L Hct 33.8 L MCV 96 H MCH 31.3 MCHC 32.5 RDW 15.6 H Plt Count 263 MPV 9.1 Sodium 136 Potassium 3.7 Chloride 97 L Carbon Dioxide 33.5 H Anion Gap 5.5 BUN 5 L Creatinine 0.7 Est GFR (CKD-EPI 2020) 98.34 Glucose 151 H Calcium 8.7 Magnesium 1.4 L Total Bilirubin 0.5 AST 23 ALT 23 Alkaline Phosphatase 108 Total Protein 6.5 Albumin 2.7 L Random Vancomycin 19.2 PAWSS Have you Been Recently Intoxicated or Drunk Within the Last 30 days?: No Have you Ever Experienced Previous Episodes of Alcohol Withdrawal?: No Have you ever Experienced Withdrawal Seizures?: No Have you ever Experienced Delirium Tremens(DT)s?: No Have you ever undergone Alcohol Rehabilitation Treatment (i.e, inpt ot outpatient treatment programs)?: No Have you ever Experienced Blackouts?: No Have you ever Combined Alcohol with other Downers within the last 90 days?: No Have you ever Combined Alcohol with any other Substance of Abuse during the last 90 days?: No Positive Blood Alcohol level on Presentation? [PCS.BAL]: No Evidence of Increased Autonomic Activity (i.e. HR>120, tremor, sweating, agitation, nausea)?: No Result: 0 Time Spent with Patient Time Spent with Patient: 35-49 minutes Time was spent: preparing to see the patient(eg.review tests), obtaining and/or reviewing separately otained hiistory, ordering medications,tests, procedures, referring, communicating with other health urgent care, indepentently interpreting results and counseling the patient
[2024-11-08] MEDS: cefTRIAXone 1 GM/50 ML BAG IVPB (22:43)
[2024-11-08] MEDS: Zolpidem 10 MG TAB PO (22:44)
[2024-11-09] VITALS (9 sets, daily range): BP systolic 100–141; BP diastolic 48–82; PULSE 83–93; RESP 16–22; TEMP 36.2–36.7; O2SAT 89–95
[2024-11-09] MEDS: Acetaminophen 325 MG TAB PO ×3 (04:48→15:09)
[2024-11-09] MEDS: HYDROmorphone 2 MG/ML SYR 0.5 MG IVP ×3 (04:49→21:19)
[2024-11-09 06:14] LABS: HCT 33.7 % (36.0-46.0); MCH 31.7 pg (27.0-33.0); MCHC 32.6 % (32.0-36.0); MCV 97 fL (80-95); MPV 9.1 fL (8.0-11.0); Platelet Count 248 10^3/uL (130-400); RBC 3.47 10^6/uL (3.93-5.22); RDW 15.6 % (11.7-14.6); RDW-SD 55.7 fL; WBC 10.07 10^3/uL (4.4-10.8)
[2024-11-09 06:36] LABS: ALT 21 U/L (14-59); AST 21 U/L (15-37); Albumin 2.6 g/dL (3.4-5.0); Alkaline Phosphatase 102 U/L (46-116); Anion Gap 5.1 mmol/L (3-11); BUN 5 mg/dL (7-18); Bilirubin, Total 0.4 mg/dL (0.2-1.0); CO2 34.9 mmol/L (21.0-32.0); CREATININE 0.7 mg/dL (0.55-1.02); Chloride 100 mmol/L (98-107); Estimated GFR 98.34 (mL/min/1.73m2); Glucose 114 mg/dL (74-106); Magnesium 1.4 mg/dL (1.8-2.4); Potassium 3.8 mmol/L (3.5-5.1); Sodium 140 mmol/L (136-145); Total Protein 6.2 g/dL (6.4-8.2)
--- NOTE | 2024-11-09 06:52 | W.PM.PROGNOT ---
Date of Service Date of service: 11/09/24 Time of Service: 16:31 Assessment and Plan Assessment and plan (1) Cellulitis: Status: Acute Assessment and plan: white count remains normal, afebrile, reports pain and swelling improving slightly continues responding to current regimen as erythema within skin markings. continue elevation and close monitoring. transition from ceftriaxone and vancomycin to oral antibiotics - Blood Cx negative X 48 hours Start oral Amoxicillin and doxycycline and continue outpatient - IV access lost Ongoing PT and OT Keep LLE elevated as much as possible throughout the day (2) Hematoma of left knee region: Status: Acute Assessment and plan: Patient had fall and is on Eliquis sustaining hematoma over her left knee. No increased swelling H&H stable (3) Chronic obstructive lung disease: Status: Chronic Assessment and plan: ongoing O2 supplementation and outpatient medical therapy; not exacerbated. (4) 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, on home O2 therapy: Status: Acute Assessment and plan: as above (5) Obstructive sleep apnea syndrome: Status: Chronic Assessment and plan: outpatient management (6) Pulmonary embolism and infarction: Status: Acute Assessment and plan: on Chronic Eliquis therapy . (7) Depressive disorder: Status: Chronic Assessment and plan: on outpatient medical therapy. (8) Hyperlipidemia: Status: Acute Assessment and plan: Ongoing outpatient statin therapy. (9) Essential hypertension: Status: Chronic Assessment and plan: Ongoing outpatient medical therapy adjusting PRN (10) Morbid obesity: Status: Chronic Assessment and plan: Giuded to continue weight loss discussions outpatient with pcp (11) GERD (gastroesophageal reflux disease): Status: Chronic Assessment and plan: ongoing outpatient PPI treatment. (12) Discharge planning issues: Status: Acute Assessment and plan: Case management following for discharge planning Anticipate a discharge to home with new home health services physical therapy- today patient would have been readytop be d/c later in the day but felt unsafe and as per discussion with CM - will adjust pain medicine regimen and will transition to oral antibiotics discussed with DR Bills Subjective Subjective Patient reports: no new complaints, still having pain, pain is less, tolerating liquids well, tolerating a regular diet, voiding w/o difficulty, flatus, bowel movement and afebrile; denies diarrhea, blood in stool, nausea, vomiting or shortness of breath Exam Const General: cooperative, comfortable and no acute distress Nutritional Appearance: obese Orientation: alert and awake Resp Effort & Inspection: normal respiratory effort, able to speak in complete sentences and no respiratory distress Cardio Rate: regular rate Rhythm: regular rhythm Skin Rashes: rashes noted (left lower extremity, within skin markings. dark red.) Neuro General: patient alert and patient awake Cognition: normal cognition Speech: speech normal Extrem Left lower extremity: edema, knee (no increase), lower leg, ankle and foot Psych Appearance: grossly normal Mental Status: mental status grossly normal Speech and Movement: speech and movement normal Mood: congruent mood Affect: normal affect Objective Last Vital Signs Temp 36.2 C L 11/09/24 02:46 Pulse 93 H 11/09/24 02:46 Resp 19 11/09/24 02:46 BP 141/82 H 11/09/24 02:46 Pulse Ox 89 L 11/09/24 02:46 Laboratory Results - last 24 hr 11/09/24 05:58 WBC 10.07 RBC 3.47 L Hgb 11.0 L Hct 33.7 L MCV 97 H MCH 31.7 MCHC 32.6 RDW 15.6 H Plt Count 248 MPV 9.1 Sodium 140 Potassium 3.8 Chloride 100 Carbon Dioxide 34.9 H Anion Gap 5.1 BUN 5 L Creatinine 0.7 Est GFR (CKD-EPI 2020) 98.34 Glucose 114 H Calcium 9.0 Magnesium 1.4 L Total Bilirubin 0.4 AST 21 ALT 21 Alkaline Phosphatase 102 Total Protein 6.2 L Albumin 2.6 L PAWSS Have you Been Recently Intoxicated or Drunk Within the Last 30 days?: No Have you Ever Experienced Previous Episodes of Alcohol Withdrawal?: No Have you ever Experienced Withdrawal Seizures?: No Have you ever Experienced Delirium Tremens(DT)s?: No Have you ever undergone Alcohol Rehabilitation Treatment (i.e, inpt ot outpatient treatment programs)?: No Have you ever Experienced Blackouts?: No Have you ever Combined Alcohol with other Downers within the last 90 days?: No Have you ever Combined Alcohol with any other Substance of Abuse during the last 90 days?: No Positive Blood Alcohol level on Presentation? [PCS.BAL]: No Evidence of Increased Autonomic Activity (i.e. HR>120, tremor, sweating, agitation, nausea)?: No Result: 0 Time Spent with Patient Time Spent with Patient: >50 minutes Time was spent: preparing to see the patient(eg.review tests), obtaining and/or reviewing separately [facility] hiistory, ordering medications,tests, procedures, referring, communicating with other health patient care secretary, indepentently interpreting results, counseling the patient and care coordination
[2024-11-09] MEDS: Tiotropium Bromide-Respimat 10 PUFF INH 2 PUFF IH (07:39)
[2024-11-09] MEDS: Budesonide/Formoterol 160/4.5 6 GM 60 PUFF INH IH ×2 (07:39→21:10)
[2024-11-09] MEDS: Ketoconazole 2% CREAM 15 GM TUBE TP (07:58)
[2024-11-09] MEDS: Nystatin POWDER 15 GM JAR TP ×2 (07:58→14:14)
[2024-11-09] MEDS: Magnesium Oxide 400 MG TAB PO (07:59)
[2024-11-09] MEDS: Pantoprazole 40 MG TABCR PO (07:59)
[2024-11-09] MEDS: amLODIPine 10 MG TAB PO (07:59)
[2024-11-09] MEDS: Multivitamin TAB 1 TAB PO (07:59)
[2024-11-09] MEDS: buPROPion-CR 150 MG TABCR PO (07:59)
[2024-11-09] MEDS: Metoprolol CR 100 MG TABCR PO (07:59)
[2024-11-09] MEDS: Simvastatin 20 MG TAB PO (07:59)
[2024-11-09] MEDS: Lisinopril 20 MG TAB 40 MG PO (07:59)
[2024-11-09] MEDS: Gabapentin 100 MG CAP PO ×3 (07:59→19:49)
[2024-11-09] MEDS: Apixaban 5 MG TAB PO ×2 (07:59→19:49)
[2024-11-09] MEDS: Roflumilast 500 MCG TAB PO (07:59)
[2024-11-09] MEDS: Normal Saline Flush 10 ML SYR IVP ×3 (08:00→19:48)
[2024-11-09] MEDS: Furosemide 40 MG TAB 60 MG PO (08:01)
--- NOTE | 2024-11-09 08:14 | PTTR_ITS ---
PT Notes Visit Reasons: Cellulitis left lower extremity Physical Therapy Inpatient Treatment Note Date: 11/09/2024 Precautions: Fall. Standard. Activity as tolerated. SUBJECTIVE: Motivated to walk farther today. Happy about considerable improvement in her L leg and foot today. Hoping that she could go home soon. Not agreeable to going to a snf facility as she will have her daughter's support at home. Objective: General Observation: High BMI. O2 supplement via NC. Erythema, swelling, and and warmth beginning to diminish. Hematoma to L knee from recent fall. Closed wound on L medial arch noted. Mental Status: Alert and oriented as to person, place, time, and purpose. Able to pay attention, focus, and respond appropriately. Pain: 3-4/10 through L leg and foot with weight bearing; pain in low back area during sit<>supine Vital Signs: Closely monitored by nursing staff Bed Mobility/Transfers: Minimal cueing provided for use of B hands as needed for support, movement sequence, AD management, and posture to reduce fall risk and minimize pain report Rolling contact guard assist using bed rails for support Supine to sit minimal assist with HOB at 45 degrees Sit to stand contact guard assist with bariatric FWW Stand to sit contact guard assist with bariatric FWW Bed to bedside commode stand by assist with bariatric FWW Bedside commode to bed stand by assist with bariatric FWW Gait: 40 feet + 30 feet + 70 feet with bariatric walker with stand by assist and wheelchair follow. TC wide. Pain report in L leg 5-6/10. Fatigued after activity with minimal SOB. Balance: Static Sitting: Good Dynamic Sitting: Fair Static Standing: Fair Dynamic Standing: Fair THERA EX: Direct one-on-one instruction on correct and safe performance of exercises below to optimize joint flexibility and effective containment of L LE cellulitis: Abdominal drawing-in maneuver 5 sh, 10 reps Supine hip abduction R/L 10 reps Ankle knee to chest R/L 10 reps Quads sets 5 sh x 10 reps Assessment: Improving activity tolerance. Cellulitis symmptoms continuing to herberth. Patient demonstrated improved stability and safety with use of bariatric front-wheeled walker as well as post-op shoes. Remains to be short of breath but with rest, patient is able to recover quickly. She was able to stay up and tolerate sitting at edge of bed for about an hour before she requested to go back to bed as the weight of her leg adds to the discomfort. Plan of Care/Treatment Plan: 1-2x/day, 7 days/week x 1 week. Plan of care has been reviewed with the DIRECT SUPPORT PROFESSIONAL CAREGIVER providing the service under Physical Therapy direction. Initiate Physical Therapy intervention for pain management as needed, strengthening, bed mobility, transfers, gait, stairs, balance training, and use of assistive device. DISCHARGE RECOMMENDATIONS: [] Home with no services [] [X] Home with services. Patient will benefit from home health PT services in order to progress mobility level using least restrictive assistive ambulatory device, assess home safety, identify additional equipment needs, and establish a functional maintenance program that will increase ability of patient to remain at home. [] Home with outpatient PT [] [] SNF for continued rehabilitation [] [] [facility] [] [] SNF versus LTC based on ability to participate and progress [] TREATMENT CODE/TIME: Session 1--04309 x 15 minutes for 1 unit, 37107 x 10 minutes for 1 unit (8:14- 8:39). Session 2-- 57738 x 12 minutes for 1 unit, 48592 x 20 minutes for 1 unit (14:42-15:14).
--- NOTE | 2024-11-09 09:41 | PDOC.CMPRO ---
Date of service: 11/09/24 Time of Service: 09:41 Care Management Progress Note Progress Note Text Progress Note Text: Deepa was lying in bed when CM met with her. She had just met with the provider, and was tearful, talking about possibly discharging home today. She stated that she does not feel ready for discharge, as she is still having a lot of pain in her knee, foot and ankle. She reported that she is working with PT, and feels she is doing well. Per PT SNF vs HH was recommended. CM discussed this with her again, and she stated that she does not want to go to rehab, but she is happy to have HH services. CM met with her RN and EXPLOSIVE ORDNANCE DISPOSAL TECHNICIAN, and informed them of Deepa's concerns. Per RN, Deepa is still receiving IV pain medication. EXPLOSIVE ORDNANCE DISPOSAL TECHNICIAN stated that she would transition her to oral pain medication and oral antibiotics today, and then she will likely be ready for discharge tomorrow. CM discussed this with Deepa, who was very grateful, and expressed understanding that she will likely still have some pain, and that she will likely be ready for discharge tomorrow. CM will continue to follow. Discharge Potential Discharge Needs: PCP F/U Appt Anticipated Barriers to Discharge: None Identified Patient/Family Education Needs: Review discharge instructions, discuss Ask Me Three Transportation: Private vehicle Plan: Anticipate Deepa will return home once medically cleared with new orders for HH RN, PT, and a resumption of caregiver support through [facility] highest needs. Her daughter will drive her home via private vehicle (portable O2 in her room for transport). She will follow up with her PCP and discharge plan of care. CM will continue to follow. Social Determinants of Health Screening Social Determinants of health last assessed in clinic: 11/09/24 Will the Patient Participate in the Screening?: Yes Do you worry about having a steady place to live?: no Problems where you live: no known problems In the past 12 months, have you had to go without electric, gas, oil or water in your home?: no 1. Within the past 12 months, we worried whether our food would run out before we got money to buy more.: Don't know/refused 2. Within the past 12 months, the food we bought just didn't last and we didn't have money to get more.: Don't know/refused Has lack of transportation kept you from medical appointments or from doing things needed for daily living?: no Has anyone in your life made you feel unsafe or unsupported?: no How hard is it for you to pay for the very basics like food, housing, medical care, and heating? Would you say it is:: Not hard at all Do you want help finding or keeping work or a job?: I do not need or want help If for any reason you need help with day-to-day activities such as bathing, preparing meals, shopping, managing finances, etc., do you get the help you need?: I don?t need any help How often do you feel lonely or isolated from those around you?: Never Do you speak a language other than Lao at home?: No Does the patient want assistance with any of the above?: No
--- NOTE | 2024-11-09 13:25 | OTIE_ITS ---
Occupational Therapy Notes Inpatient Occupational Therapy Evaluation Date: 11/09/24 Referring Doctor: Van Damon MD OT Orders: (L) leg/foot cellulitis Precautions: Fall, Standard, Full PATIENT PROFILE/ADMITTING DIAGNOSIS: Pt is a 63 year old female who was admitted to Med Surg for cellulitis of the (L) foot. Past Medical History: All Active Problems (Updated 11/06/24 @ 23:40 by Van Damon) Hematoma of left knee region (Acute) Morbid obesity (Chronic) Cellulitis of left lower leg (Acute) Cellulitis (Acute) Effusion of left knee (Acute) Foot pain, bilateral (Acute) Bilateral lower extremity edema (Acute) Arthritis of right ankle (Acute) Ground glass opacity present on imaging of lung (Acute) Right foot pain (Acute) Edema of left lower extremity (Acute) Generalized weakness (Acute) Toe pain (Acute) Muscle pain (Acute) Nail dystrophy (Acute) Chronic back pain (Chronic) Depressive disorder (Chronic) Cigarette smoker (Chronic) CurrentInsomnia (Chronic) Osteoarthritis of right knee (Acute) Steroid injection: 08/19/2020; 04/15/2020Venous insufficiency (chronic) (peripheral) (Chronic) Medical History GERD (gastroesophageal reflux disease) Chronic obstructive lung disease Obstructive sleep apnea syndrome BiPAP Hyperlipidemia 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 She reports that her daughter (A) her with LE dressing, bathing, grocery shopping, cooking and smaller tasks that require the LE. She is receptive to being as (I) as possible and notes that if she was home right now she feels that she would be able to perform her ADLs like her baseline level of function. She reports that she does not drive and that she relies on her daughter for community mobility. Equipment owned/DME: Cane, FWW, CPAP SUBJECTIVE: Pt was sitting in bed when OT arrived and notes that she does believe she is returning home tomorrow. She states that her leg is still sore but her antibiotics she reports seem to be working. OBJECTIVE: General Observation: Pleasant, IV in (R) UE Mental Status: A&Ox4 Pain: c/o pain in (L) LE d/t infection ROM: RUE AROM WFL L UE AROM WFL STRENGTH: RUE 5/5 throughout globally LUE 5/5 throughout globally FUNCTIONAL MOBILITY/ADLS: BATHING Not performed with OT but with nursing prior Bathing UE Pt is able to demonstrate AROM WFL to be able to perform without (A) Bathing LE Pt notes that she requires max (A) DRESSING seated Dressing UE (I) with don and [place], [place] gown Dressing LE max (A) GROOMING (I) with oral hygiene with ideal ROM of UE TOILETING Pt is (I) with her toileting routine but notes she has difficulty with wiping post bowel movement. OT educated and trained pt in adaptive equipment for (A) with this. EATING (I) in seated position BALANCE: Static sitting Normal Dynamic Sitting Normal SPECIAL TESTS: Daily Activity Limitations Standardized Measure [facility] AM -PAC ?6 clicks? Daily Activity Inpatient Short Form: Raw score: 18 Standardized score: 38.66 CMS score: 46.65% INFORMED CONSENT/EDUCATION: Pt instructed in purpose of OT Consult and plan of care. ASSESSMENT: Patient is a 63-year-old female referred to occupational therapy services with diagnosis of cellulitis of (L) foot. Patient presents with clinical signs and symptoms consistent with dx, as demonstrated by the following impairment level findings/functional limitations: Impairments in ADL/IADL and leisure activities, decreased functional activity tolerance, pain in (L) LE, decreased functional weight bearing into the (L) LE AMPA score 18 Patient is assessed as a Moderate 31262 complexity based on the following: History: see above Examination: see functional limitations as noted above Presentation: Evolving Decision Making: AMPA score 18 GOALS Goals x1 week 1. Transfers (I) 2. Dressing mod (I) LE with sock aid and dressing stick 3. Bathing Mod (I) LE with long handled sponge 4. Toileting (I) with use of Bowel movement wiper 5. Eating (I) PLAN OF CARE/TREATMENT PLAN: 1x/day, 3-5 days/ week x 1week Initiate Occupational Therapy Services for bathing, dressing, grooming, toileting, eating, transfer training. DISCHARGE RECOMMENDATIONS OT recommends that pt return home with HH OT consult for assessment of ADLs in the home setting and need for further adaptive equipment that could benefit pts (I) TREATMENT TIME/MINUTES/CODES 11453, 88200, 20 minutes Christa Ritchie OTR/L [facility] [place], [place]
[2024-11-09] MEDS: Amoxicillin 875 MG TAB PO ×2 (17:18→19:49)
[2024-11-09] MEDS: Doxycycline Hyclate 100 MG CAP PO (17:18)
[2024-11-09] MEDS: traMADol 50 MG TAB PO (17:19)
[2024-11-09] MEDS: Mylanta Suspension 30 ML CUP PO (19:49)
[2024-11-09] MEDS: diphenhydrAMINE 25 MG CAP PO (19:49)
[2024-11-09] MEDS: Acetaminophen 500 MG TAB 1000 MG PO (21:11)
[2024-11-09] MEDS: Zolpidem 10 MG TAB PO (23:19)
[2024-11-10] MEDS: Doxycycline Hyclate 100 MG CAP PO (04:02)
[2024-11-10] MEDS: Acetaminophen 500 MG TAB 1000 MG PO ×2 (04:02→10:36)
[2024-11-10 04:05] VITALS: BP 121/59; PULSE 90; RESP 16; TEMP 36.2; O2SAT 91
[2024-11-10] MEDS: traMADol 50 MG TAB PO (05:25)
[2024-11-10] MEDS: HYDROmorphone 2 MG/ML SYR 0.5 MG IVP (06:33)
[2024-11-10 07:15] LABS: HCT 33.9 % (36.0-46.0); HGB 10.9 g/dL (11.2-15.7); MCH 31.1 pg (27.0-33.0); MCHC 32.2 % (32.0-36.0); MCV 97 fL (80-95); MPV 9.1 fL (8.0-11.0); Platelet Count 274 10^3/uL (130-400); RBC 3.51 10^6/uL (3.93-5.22); RDW 15.4 % (11.7-14.6); RDW-SD 54.1 fL; WBC 10.52 10^3/uL (4.4-10.8)
[2024-11-10 07:41] VITALS: BP 145/78; PULSE 93; RESP 18; TEMP 36.8; O2SAT 3
[2024-11-10 07:44] LABS: ALT 19 U/L (14-59); AST 20 U/L (15-37); Albumin 2.7 g/dL (3.4-5.0); Alkaline Phosphatase 108 U/L (46-116); Anion Gap 5.3 mmol/L (3-11); BUN 5 mg/dL (7-18); Bilirubin, Total 0.5 mg/dL (0.2-1.0); CO2 32.7 mmol/L (21.0-32.0); CREATININE 0.6 mg/dL (0.55-1.02); Calcium 9.3 mg/dL (8.5-10.1); Chloride 98 mmol/L (98-107); Estimated GFR 102.06 (mL/min/1.73m2); Glucose 118 mg/dL (74-106); Magnesium 1.6 mg/dL (1.8-2.4); Potassium 3.9 mmol/L (3.5-5.1); Sodium 136 mmol/L (136-145); Total Protein 6.6 g/dL (6.4-8.2)
[2024-11-10] MEDS: Tiotropium Bromide-Respimat 10 PUFF INH 2 PUFF IH (08:43)
[2024-11-10] MEDS: Budesonide/Formoterol 160/4.5 6 GM 60 PUFF INH IH (08:43)
[2024-11-10] MEDS: amLODIPine 10 MG TAB PO (09:27)
[2024-11-10] MEDS: Multivitamin TAB 1 TAB PO (09:27)
[2024-11-10] MEDS: Pantoprazole 40 MG TABCR PO (09:27)
[2024-11-10] MEDS: Gabapentin 100 MG CAP PO (09:27)
[2024-11-10] MEDS: Apixaban 5 MG TAB PO (09:27)
[2024-11-10] MEDS: Amoxicillin 875 MG TAB PO (09:27)
[2024-11-10] MEDS: Magnesium Oxide 400 MG TAB PO (09:27)
[2024-11-10] MEDS: Lisinopril 20 MG TAB 40 MG PO (09:27)
[2024-11-10] MEDS: buPROPion-CR 150 MG TABCR PO (09:27)
[2024-11-10] MEDS: Metoprolol CR 100 MG TABCR PO (09:27)
[2024-11-10] MEDS: Furosemide 40 MG TAB PO (09:28)
[2024-11-10] MEDS: Simvastatin 20 MG TAB PO (09:28)
[2024-11-10] MEDS: Normal Saline Flush 10 ML SYR IVP (09:28)
[2024-11-10] MEDS: Roflumilast 500 MCG TAB PO (09:28)
[2024-11-10 11:33] VITALS: BP 145/78; PULSE 88; RESP 18; TEMP 36.6; O2SAT 96
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
--- NOTE | 2024-11-10 12:21 | PDOC.HHF2F ---
Home Health Referral Home Health Orders Clinical synopsis of why skilled professionals are needed: Hospital Course Hospital Course: This is a 63-year-old morbidly obese , looking older than stated age female patient with a history of ARIES, COPD on chronic home O2, history of hypertension, pulmonary embolism on long-term anticoagulation, and a recent ER visit after a fall with evidence of left lower extremity cellulitis, presented to the ED on 11/06/24 s/p fall for evaluation of worsening pain and swelling to the right lower extremity despite antibiotic use . CT of the LLE was positive for left knee heterogeneous fluid collection within the prepatellar soft tissues measuring 13.5 length x 7 by x 3 cm thick , most consistent with an hematoma as well as findins consitent with generalized fluid overload and left lower extremity cellulitis. Blood work was unremarkable w/o leukocytosis with Mg at 1.2 with IV repletion, ESR 40 and CRP 1.95, lactate was negative. The patient was to the hospitalist service for evaluation and management of LLE cellulitis, left knee hematoma. Blood C&S were negative, H&H remained stable, magnesium replete. LLE cellulitis improving with PT recommendation for home health physical therapy on discharge. The patient will benefit from home health RN for worsening of condition and new medicine management. The patient will be discharged on oral antibiotics, probiotics to be taken 3 hours apart from anti microbial agents, short course of scheduled acetaminophen and as needed ultram. Follow- up with PCP within 7 days of discharge please. Resume outpatient PT s/p home health PT or as per PCP. Recommendations for PCP follow-up: Weight management and GLP-1 Serum Electrolytes orthopedic follow-up if knee hematoma his not improving discussed with Dr. Bills Registered Nurse: Check all that apply Instruct on new or changed medication(s)/assess compliance: Ordered Assess for exacerbation of medical condition, instruct patient/caregivers on signs and symptoms to report for early detection: Ordered Physical Therapist: Check all that apply Increase strength & endurance for safe mobility at home: Ordered To design/establish home maintenance program: Ordered Fall reduction therapy program for patient with history of frequent falls: Ordered Home safety evaluation and teaching/gait training including stair management (if applicable): Ordered Better Breathing Program: Ordered Home Bound Status Requires the aid of supportive device (check all that apply): Wheelchair Describe why leaving home would require a considerable and taxing effort: Requires frequent rest periods Encounter Date and Reason: I certify that a FTF encounter for this patient was performed on November 10, 2024 and that such encounter was related to the primary reason the patient requires home health services. The encounter was conducted in the following manner: By me as the certifying physician, SENIOR RESEARCH CONSULTANT, PA or By an inpatient physician, SENIOR RESEARCH CONSULTANT or PA during an inpatient stay who communicated findings to me, Certification And Authentication I certify that I composed the above information based on my clinical judgment relating to this patient's medical condition and, if applicable, clinical findings communicated to me by the NPP or inpatient physician who performed the FTF encounter. Name of Provider that will be monitoring home health services: Cristhian Myers
[2024-11-10 12:22] LABS: C-Reactive Protein 2.28 mg/dL (<or=0.5)
[2024-11-10] MEDS: Magnesium Oxide 400 MG TAB 800 MG PO (12:34)
--- NOTE | 2024-11-10 12:51 | PT.INTREAT ---
PT Notes Visit Reasons: Cellulitis left lower extremity Inpatient Physical Therapy Treatment Note [facility] Date: 11/10/2024 PRECAUTIONS: oxygen supplemental, fall risk, standard SUBJECTIVE:Pt reports she was having tingling in her leg while seated in chair with legs elevated so she went back to bed OBJECTIVE: supine in bed with HOB elevated [address] ? PAIN: 4/10 with tingling/ BLE when sitting or reclined in chair. Symptoms reduce when able to lay in bed with less hip flexion Therapeutic Activities (42547: Direct one-on-one instruction in dynamic activities to improve functional performance. ? BED MOBILITY/TRANSFERS? Rolling L/R: supervision Supine-sit: independent ? Sit-supine: CGA for LLE ? Sit-stand: Supervision? Stand-sit:supervision? Bed-commode: supervision with Bariatric FWW ? Commode-bed: Sup with Bariatric FWW Provided skilled cues and instruction on performance and technique throughout. ASSESSMENT:?Pt maude treatment well. Pt able to perform transfers with bariatric FWW and supervision. Pt required CGA to get LLE into bed. Pt anticipated to be discharged to home this pm. She has been issued Bariatric FWW . PLAN: cont per POC TREATMENT CODE/TIME: 14752/ [id number] DISCHARGE RECOMMENDATION: Home with HHPT
--- NOTE | 2024-11-10 14:30 | PDOC.CMDIS ---
Date of service: 11/10/24 Time of Service: 14:31 LACE Index Scoring Tool Questions: Length of Stay (in days): 4 - 6 Was the patient admitted via the E.D.?: Yes Comorbidities: Chronic Pulmonary Disease E.D. Visits: 6 Answers: Total Score: 13 Risk of Readmission: High Risk Care Management Discharge Plan Reason for Hospitalization: cellulitis left lower extremity Discharge Plan: Deepa returned home today with new MOR RN, PT. Her daughter drove her home via private vehicle. Deepa was a little nervous about discharge, but had declined going to rehab. She agreed, prior to discharge, to sending referrals to the [facility], in case she does not do well at home. CM notified [facility], where she receives case management, of this potential plan, in case she needs support in the community. Deepa felt much better about returning home, knowing that the process has been started to get her into rehab, if needed. She will follow up with her PCP and discharge plan of care. Patient/Family Education Needs: Review discharge instructions and limitations, discussion of self care needs including ask me three. Services Needed at Discharge: Home Health Care Services (new [facility] RN, PT) and [facility] (referrals sent to the ) SDOH Health Related Social Needs: Health related social needs problems with daily activities (Z73.9), education (Z55.6)
--- NOTE | 2024-11-10 15:24 | RESPIRATORY ---
11/10/2024 Patient stated her concerns that her home BIPAP machine wasn't working correctly. This RT looked at patient's machine and had patient try it on and use it for a few minutes so we could figure out what was wrong with it. Patient states she feels like it is working correctly now. I recommended to patient to change out the filter when she gets home (it was visibly dirty) and to call her DME to have someone come out and look at her machine and assess it.
== END 2024-11-10 13:56 | disposition home health service (06) | DRG 603 ==
LOC: ER 23:58 → MS 11-07 00:19
PROVIDERS: Admitting Provider Family Medicine; Emergency Provider Emergency Medicine; PCP Nurse Practitioner Family; Responsible Provider Nurse Practitioner Acute Care; Visit Provider Family Medicine
DX: L03.116 Cellulitis of left lower limb (principal); J96.11 Chronic respiratory failure with hypoxia; Z68.44 Body mass index [BMI] 60.0-69.9, adult; Z99.81 Dependence on supplemental oxygen; G47.33 Obstructive sleep apnea (adult) (pediatric); E78.2 Mixed hyperlipidemia; I10 Essential (primary) hypertension; Z96.652 Presence of left artificial knee joint; J44.9 Chronic obstructive pulmonary disease, unspecified; Z86.711 Personal history of pulmonary embolism; Z79.01 Long term (current) use of anticoagulants; W19.XXXA Unspecified fall, initial encounter; S80.02XA Contusion of left knee, initial encounter; Z79.899 Other long term (current) drug therapy; M19.071 Primary osteoarthritis, right ankle and foot; R60.0 Localized edema; R53.1 Weakness; G89.29 Other chronic pain; F32.A Depression, unspecified; F17.210 Nicotine dependence, cigarettes, uncomplicated; G47.00 Insomnia, unspecified; L60.3 Nail dystrophy; M17.11 Unilateral primary osteoarthritis, right knee; I87.2 Venous insufficiency (chronic) (peripheral); I73.9 Peripheral vascular disease, unspecified; E66.813 Obesity, class 3; E78.5 Hyperlipidemia, unspecified; K21.9 Gastro-esophageal reflux disease without esophagitis
CPT/HCPCS: 00123; 36415; 80053; 85027; 85652; 87040; 87637; 94640; 96365; 96366; 96367; 96375; 97110; 97162; 97166; 97530; 97535; 99285; 73701; 80202; 81003; 81015; 83605; 83735; 84484; 85025; 86140; 94664; 94760; 99223; 99232; 99233; 99239; J0696; J1171; J3370; J3475; J3490

== ENCOUNTER 2024-11-21 17:38 | Emergency (ER) | payer MEDICARE, MEDICAID, SELFPAY ==
--- NOTE | 2024-11-21 17:45 | DI.RAD_ITS ---
Exam(s) XR ANKLE LT COMPLETE EXAM: XR ANKLE LT COMPLETE CLINICAL HISTORY: recent cellulitis, worsening pain, no injury TECHNIQUE: 2D digital imaging was performed of the left ankle. Three images were obtained. AP, lat eral and oblique views were obtained. COMPARISON: CR,XR XR ANKLE LT COMPLETE from 11/01/2024 FINDINGS: BONES: No acute fracture is present. No bony destructive lesion is seen. There is a small enthesophyt e at the posterior calcaneus. There is a plantar calcaneal spur. JOINTS:The ankle mortise is normally aligned. SOFT TISSUE: There is generalized soft tissue swelling around the ankle. No soft tissue gas or forei gn body is identified. IMPRESSION: 1. Generalized soft tissue swelling around the ankle. No soft tissue gas or foreign body. 2. No radiographic evidence to suggest osteomyelitis. DATA REPOSITORY: RADIATION DOSE DELIVERED:
--- NOTE | 2024-11-21 17:45 | DI.RAD_ITS ---
Exam(s) XR KNEE LT 3V AP,LAT,ARIELLE EXAM: XR KNEE LT 3V AP,LAT,ARIELLE CLINICAL HISTORY: recent cellulitis, hematoma, worsening pain. TECHNIQUE: 2D digital imaging was performed. Three images were obtained. AP, AP tunnel and lateral views were obtained. COMPARISON: CR,XR XR KNEE LT 3V AP,LAT,ARIELLE from 11/01/2024 FINDINGS: BONES: There are stable post operative changes of a left total knee arthroplasty present. No fractur e or dislocation. JOINTS: The orthopedic hardware is in good position. No evidence of hardware loosening. SOFT TISSUE: There is diffuse soft tissue edema. No soft tissue gas or radiopaque foreign body is se en. Dystrophic calcifications are again seen adjacent to the medial knee. IMPRESSION: 1. Generalized soft tissue swelling around the knee suggesting cellulitis. No soft tissue gas or rad iopaque foreign body. 2. Stable left total knee arthroplasty. DATA REPOSITORY: RADIATION DOSE DELIVERED:
[2024-11-21 17:46] VITALS: BP 170/69; PULSE 81; RESP 19; TEMP 36.4; O2SAT 93
[2024-11-21 17:49] VITALS: BP 170/69; PULSE 81; RESP 19; TEMP 36.4; O2SAT 93
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
[2024-11-21] MEDS: MORPHine 4 MG/ML SYR IVP (18:02)
[2024-11-21 18:11] LABS: Abs Immature Grans 0.04 10^3/uL (0.0-0.06); Absolute Basophil Count 0.08 10^3/uL (0.0-0.2); Absolute Monocyte Count 0.94 10^3/uL (0.1-0.8); Absolute Neutrophil Count 8.31 10^3/uL (1.2-6.7); Basophils % 0.7 %; Eosinophils % 0.8 %; HCT 39.9 % (36.0-46.0); Immature Grans % 0.3 %; Lymphocytes % 20.6 %; MCH 31.5 pg (27.0-33.0); MCHC 32.6 % (32.0-36.0); MCV 97 fL (80-95); MPV 9.5 fL (8.0-11.0); Monocytes % 7.9 %; Neutrophils % 69.7 %; Platelet Count 404 10^3/uL (130-400); RBC 4.13 10^6/uL (3.93-5.22); RDW 14.7 % (11.7-14.6); RDW-SD 52.4 fL; WBC 11.92 10^3/uL (4.4-10.8)
[2024-11-21 18:12] LABS: Absolute Lymphocyte Count 2.46 10^3/uL (1.2-3.4); ESR 49 mm/hr (0-30)
[2024-11-21 18:27] LABS: ALT 32 U/L (14-59); AST 29 U/L (15-37); Albumin 3.6 g/dL (3.4-5.0); Alkaline Phosphatase 109 U/L (46-116); Anion Gap 8.3 mmol/L (3-11); BUN 14 mg/dL (7-18); Bilirubin, Total 0.4 mg/dL (0.2-1.0); C-Reactive Protein < 0.50 mg/dL (<or=0.5); CO2 30.7 mmol/L (21.0-32.0); CREATININE 0.6 mg/dL (0.55-1.02); Calcium 9.5 mg/dL (8.5-10.1); Chloride 99 mmol/L (98-107); Estimated GFR 102.06 (mL/min/1.73m2); Glucose 132 mg/dL (74-106); Magnesium 1.7 mg/dL (1.8-2.4); Potassium 4.3 mmol/L (3.5-5.1); Sodium 138 mmol/L (136-145); Total Protein 7.9 g/dL (6.4-8.2)
[2024-11-21] MEDS: Doxycycline Hyclate 100 MG, 2 CAPS/BTL PO (18:58)
[2024-11-21] MEDS: Amox. 875/Clav. 125, 2 TABS/BTL 1 TAB PO (18:59)
[2024-11-21] MEDS: MORPHine IR 15 MG TAB, 4 TABS/BTL PO (18:59)
[2024-11-21] MEDS: Amoxicillin 875/Clav. 125 TAB PO (18:59)
[2024-11-21] MEDS: Doxycycline Hyclate 100 MG CAP PO (18:59)
[2024-11-21 19:10] VITALS: BP 116/56; PULSE 79; RESP 20; O2SAT 96
== END 2024-11-21 19:18 | disposition home or self-care (01) ==
PROVIDERS: Emergency Provider Emergency Medicine; PCP Nurse Practitioner Family
DX: L03.116 Cellulitis of left lower limb (principal); I10 Essential (primary) hypertension; E78.5 Hyperlipidemia, unspecified; J44.9 Chronic obstructive pulmonary disease, unspecified; Z86.711 Personal history of pulmonary embolism; Z79.01 Long term (current) use of anticoagulants; Z99.81 Dependence on supplemental oxygen; Z87.891 Personal history of nicotine dependence
CPT/HCPCS: 73562; 80053; 85652; 99283; 73610; 83735; 85025; 86140; J2270

== ENCOUNTER 2024-12-01 17:21 | Outpatient (REF) | payer MEDICARE, MEDICAID, SELFPAY ==
[2024-12-01 21:02] LABS: Abs Immature Grans 0.07 10^3/uL (0.0-0.06); Absolute Basophil Count 0.07 10^3/uL (0.0-0.2); Absolute Eosinophil Count 0.09 10^3/uL (0.0-0.7); Absolute Lymphocyte Count 2.73 10^3/uL (1.2-3.4); Absolute Monocyte Count 1.07 10^3/uL (0.1-0.8); Basophils % 0.5 %; Eosinophils % 0.6 %; HCT 42.7 % (36.0-46.0); HGB 13.6 g/dL (11.2-15.7); Immature Grans % 0.5 %; Lymphocytes % 19.2 %; MCH 30.4 pg (27.0-33.0); MCHC 31.9 % (32.0-36.0); MCV 95 fL (80-95); MPV 9.7 fL (8.0-11.0); Monocytes % 7.5 %; Neutrophils % 71.7 %; Platelet Count 514 10^3/uL (130-400); RBC 4.48 10^6/uL (3.93-5.22); RDW-SD 49.2 fL; WBC 14.23 10^3/uL (4.4-10.8)
[2024-12-01 21:22] LABS: ALT 34 U/L (14-59); AST 29 U/L (15-37); Albumin 3.6 g/dL (3.4-5.0); Alkaline Phosphatase 122 U/L (46-116); BUN 14 mg/dL (7-18); Bilirubin, Total 0.3 mg/dL (0.2-1.0); C-Reactive Protein 1.23 mg/dL (<or=0.5); CREATININE 0.9 mg/dL (0.55-1.02); Chloride 97 mmol/L (98-107); Estimated GFR 72.73 (mL/min/1.73m2); Glucose 136 mg/dL (74-106); Potassium 4.9 mmol/L (3.5-5.1); Sodium 137 mmol/L (136-145); Total Protein 7.9 g/dL (6.4-8.2)
== END 2024-12-01 17:22 | disposition home or self-care (01) ==
LOC: LBN 17:21
PROVIDERS: PCP Nurse Practitioner Family; Visit Provider Nurse Practitioner Family
DX: R60.0 Localized edema (principal); M79.89 Other specified soft tissue disorders
CPT/HCPCS: 80053; 85025; 86140

== ENCOUNTER 2024-12-08 00:29 | Outpatient (CLI) | payer MEDICARE, MEDICAID, SELFPAY ==
--- NOTE | 2024-12-08 08:00 | DI.US_ITS ---
Exam(s) US LOWER EXTREMITY VENOUS LT EXAM: US LOWER EXTREMITY VENOUS LT CLINICAL HISTORY: evaluate DVT, leg swelling, m79.89. TECHNIQUE: Lower extremity venous ultrasound performed using grayscale, color- flow, and spectral Doppler analysis. COMPARISON: No exams were available for comparison FINDINGS: The common femoral, femoral and popliteal veins demonstrate normal compressibility, augmentation, and color Doppler. The posterior tibial and peroneal veins are patent. No saphenous vein thrombosis or other superficial venous thrombosis is seen. No hematoma or Colin's cyst is seen. There is edema in the subcutaneous fat of the lower leg. IMPRESSION: Lower leg edema. No evidence of DVT. DATA REPOSITORY:
== END 2024-12-08 00:49 ==
LOC: DI 00:29
PROVIDERS: PCP Nurse Practitioner Family; Visit Provider Nurse Practitioner Family
DX: M79.89 Other specified soft tissue disorders (principal)
CPT/HCPCS: 93971

== ENCOUNTER 2024-12-25 09:17 | Observation (INO) | payer MEDICARE, MEDICAID, SELFPAY ==
[2024-12-25] VITALS (90 sets, daily range): BP systolic 105–174; BP diastolic 70–133; PULSE 90–134; RESP 15–30; TEMP 36.4–37.7; O2SAT 87–98
--- NOTE | 2024-12-25 09:00 | RT.EKG_ITS ---
APPROVED REPORT Exam: Resting ECG Reason for Exam: dyspnea Patient Location: E HR:114 bpm ECG Measurements Heart Rate 114 AXIS NV 177 P 51 QRSd 99 QRS -60 QT 343 T 27 QTc 472 Conclusion Sinus tachycardia...rate> 99 Left anterior fascicular block...axis(240,-40), init forces inf Low voltage, precordial leads...precordial leads <1.0mV Consider anterior infarct...Q >30mS in V2-V5 No Occlusion SD
[2024-12-25 09:44] LABS: BE (Venous) 7 mmol/L (-2-3); HCO3 (Venous) 32 mmol/L (23-28); O2 Sat (Venous) 88 %; TCO2 (Venous) 28 mmol/L (24-29); pCO2 (Venous) 51 mmHg (41-51); pO2 (Venous) 52 mmHg
[2024-12-25 09:45] LABS: Abs Immature Grans 0.03 10^3/uL (0.0-0.06); HCT 40.3 % (36.0-46.0); HGB 13.0 g/dL (11.2-15.7); Immature Grans % 0.4 %; MCH 30.4 pg (27.0-33.0); MCHC 32.3 % (32.0-36.0); MCV 94 fL (80-95); MPV 9.9 fL (8.0-11.0); Platelet Count 262 10^3/uL (130-400); RBC 4.27 10^6/uL (3.93-5.22); RDW 13.9 % (11.7-14.6); RDW-SD 48.0 fL; WBC 8.57 10^3/uL (4.4-10.8)
[2024-12-25] MEDS: methylPREDNISolone SUCC 125 MG VIAL 80 MG IVP (10:12)
[2024-12-25 10:13] LABS: ALT 27 U/L (14-59); AST 33 U/L (15-37); Albumin 3.4 g/dL (3.4-5.0); Alkaline Phosphatase 109 U/L (46-116); Anion Gap 8.5 mmol/L (3-11); BUN 9 mg/dL (7-18); Bilirubin, Total 0.4 mg/dL (0.2-1.0); CO2 31.5 mmol/L (21.0-32.0); Calcium 9.1 mg/dL (8.5-10.1); Chloride 99 mmol/L (98-107); Estimated GFR 105.98 (mL/min/1.73m2); Glucose 153 mg/dL (74-106); Potassium 4.4 mmol/L (3.5-5.1); Sodium 139 mmol/L (136-145); Total Protein 7.7 g/dL (6.4-8.2); Troponin I 26 ng/L (<or=51)
[2024-12-25] MEDS: PIPERACILLIN/TAZO 4.5 GM in Normal Saline 100 ML IVPB (10:17)
[2024-12-25] MEDS: Albuterol/Ipratropium 3 ML UPD VIAL UPD ×2 (10:19→13:45)
[2024-12-25 10:32] LABS: COVID-19 PCR Negative (Negative); RSV PCR Negative (Negative)
[2024-12-25 11:41] LABS: Troponin I 29 ng/L (<or=51)
[2024-12-25] MEDS: Normal Saline 1,000 ML 500 ML IV (11:48)
[2024-12-25] MEDS: Normal Saline - Diluent 50 ML VIAL IJ (12:32)
[2024-12-25] MEDS: Omnipaque 350 MG/ML 500 ML BTL-Imaging package IJ (12:33)
--- NOTE | 2024-12-25 12:55 | DI.CT_ITS ---
Exam(s) CT CHEST PE CTA EXAM: CT CHEST PE CTA CLINICAL HISTORY: fever, hx of pe, dyspnea, hypoxia. TECHNIQUE: Imaging Protocol: Axial CT angiography was performed with multi- slice acquisition and multi-planar and/or 3D reconstructions. Lung Computer Aided Detection (CAD) was utilized. CONTRAST MATERIAL: Intravenous: Omnipaque 350 contrast volume:100 mL COMPARISON: CT CT CHEST PE CTA from 09/03/2024 FINDINGS: Tracheobronchial tree: Patent where visualized. No bronchiectasis. Pulmonary parenchyma: No consolidation or dominant measurable mass. There is atelectasis seen in the lung bases. Pulmonary Arteries: No filling defects are seen to suggest pulmonary emboli. There is limited visualization of the peripheral pulmonary arteries. Mediastinum and Kika: No dominant adenopathy or fluid collection. The esophagus is unremarkable. Visualized thyroid gland: Unremarkable. Pleura: No effusion or pneumothorax. Heart: The heart is not dilated. No coronary artery calcifications are seen. No pericardial effusion. Aorta: Thoracic aorta non-dilated. No evidence of dissection. Atherosclerotic calcification is present. Upper abdomen: Status post cholecystectomy. There is diverticulosis of the colon without evidence of acute diverticulitis. Soft tissues: Unremarkable. Bones: Within normal limits for the patient's age.There are old healed rib fractures seen bilaterally. IMPRESSION: 1. Within the limits of the examination, there is no evidence of a pulmonary embolism. 2. No evidence of a thoracic aortic aneurysm or dissection. RADIATION DOSE DELIVERED: 279.8mGy.cm Total DLP DATA REPOSITORY: All CT scans at this facility are submitted to the National Radiology Data Registry (NRDR) Dose Index Registry (DIR) with the [employer] (ACR). RADIATION OPTIMIZATION: All CT scans at this facility use at least one of these dose optimization techniques: automated exposure control; mA and/or kV adjustment per patient size (includes targeted exams where dose is matched to clinical indication); or iterative reconstruction.
[2024-12-25] MEDS: DOXYCYCLINE 100 MG in Normal Saline 100 ML IVPB (13:45)
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
--- NOTE | 2024-12-25 17:36 | W.PC.ACHO ---
Registration Status: REG ER Primary Language: Preferred Language: Occitan ED Information & Data Chief Complaint SOB 12/25/24 15:43 Triage Note increasing SOB since wednesday12/25/24 09:03 home O2 @ 3 lpm Medical / Surgical History (Last Reviewed 11/06/24 @ 23:33 by Van Damon) 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 Peripheral vascular disease, unspecified Hypoxemia (Last Reviewed 11/06/24 @ 23:33 by Van Damon) S/P section History of bilateral tubal ligation Hx of umbilical hernia repair S/P cholecystectomy Status post total knee replacement, left S/P ORIF (open reduction internal fixation) fracture Most Recent Vital Signs Temperature 37.1 C 12/25/24 15:52 Temperature Source Oral 12/25/24 15:52 Pulse 119 H 12/25/24 17:01 Pulse 121 H 12/25/24 17:01 Respiratory Rate 21 12/25/24 17:01 Respiratory Effort Normal 12/25/24 09:05 Respiratory Depth Shallow 12/25/24 09:05 Respiratory Pattern Tachypnea 12/25/24 09:05 Blood Pressure 144/81 H 12/25/24 17:01 Blood Pressure Mean 87 12/25/24 17:01 Blood Pressure Position Sitting 12/25/24 13:11 Pulse Oximetry 93 12/25/24 17:01 Respiratory End-tidal CO2 35 12/25/24 17:01 Oxygen Delivery Method Nasal Cannula 12/25/24 15:19 Oxygen Flow Rate 3 12/25/24 15:19 Fraction of Inspired Oxygen (FIO2) 100 12/25/24 10:19 End Tidal Co2 51 12/25/24 09:03 Pain Level 2 12/25/24 10:33 Allergies citalopram Adverse Reaction (Verified 12/25/24 14:49) INSOMNIA; DIZZINESS Precautions Isolation Standard precaution 12/25/24 10:33 Active Medications Generic Name Dose Route Start Last Admin Trade Name Freq PRN Reason Stop Dose Admin Iohexol 500 ml 12/25/24 12:45 12/25/24 12:33 Omnipaque 350 Mg/Ml 500 Ml Btl-Imaging Package IJ 01/24/25 23:59 100 ml DIRECTED AMIE Administration Sodium Chloride 50 ml 12/25/24 12:45 12/25/24 12:32 Normal Saline - Diluent 50 Ml Vial IJ 50 ml .FOR DI USE AMIE Administration IV IV Catheter Type [Right Diffusics Antecubital] IV Catheter Type [Left Hand] Saline Lock IV Catheter Gauge [Right 20 Antecubital] IV Catheter Gauge [Left Hand] 22 Diagnostics 12/25/24 12/25/24 12/25/24 Range/Units 10:50 09:40 09:35 WBC 8.57 (4.4-10.8) 10^3/uL RBC 4.27 (3.93-5.22) 10^6/uL Hgb 13.0 (11.2-15.7) g/dL Hct 40.3 (36.0-46.0) % MCV 94 (80-95) fL MCH 30.4 (27.0-33.0) pg MCHC 32.3 (32.0-36.0) % RDW 13.9 (11.7-14.6) % Plt Count 262 (130-400) 10^3/uL MPV 9.9 (8.0-11.0) fL Immature Gran % 0.4 % Neutrophils % 68.3 % Lymphocytes % 21.1 % Monocytes % 7.1 % Eosinophils % 2.3 % Basophils % 0.8 % Nucleated RBC % 0.0 (0.0-0.3) % Absolute Neutrophils 5.85 (1.2-6.7) 10^3/uL Absolute Lymphocytes 1.81 (1.2-3.4) 10^3/uL Absolute Monocytes 0.61 (0.1-0.8) 10^3/uL Absolute Eosinophils 0.20 (0.0-0.7) 10^3/uL Absolute Basophils 0.07 (0.0-0.2) 10^3/uL VBG pH 7.40 (7.31-7.41) VBG pCO2 51 (41-51) mmHg VBG pO2 52 mmHg VBG HCO3 32 H (23-28) mmol/L VBG Total CO2 28 (24-29) mmol/L VBG O2 Saturation 88 % VBG Base Excess 7 H (-2-3) mmol/L VBG Lactate 1.5 (<or=2.0) mmol/L Sodium 139 (136-145) mmol/L Potassium 4.4 (3.5-5.1) mmol/L Chloride 99 (98-107) mmol/L Carbon Dioxide 31.5 (21.0-32.0) mmol/L Anion Gap 8.5 (3-11) mmol/L BUN 9 (7-18) mg/dL Creatinine 0.5 L (0.55-1.02) mg/dL Est GFR (CKD-EPI 2020) 105.98 (mL/min/1.73m2) Glucose 153 H (74-106) mg/dL Calcium 9.1 (8.5-10.1) mg/dL Total Bilirubin 0.4 (0.2-1.0) mg/dL AST 33 (15-37) U/L ALT 27 (14-59) U/L Alkaline Phosphatase 109 (46-116) U/L Troponin I 29 26 (<or=51) ng/L Total Protein 7.7 (6.4-8.2) g/dL Albumin 3.4 (3.4-5.0) g/dL COVID-19 Source Nasopharynx SARS-CoV-2 (PCR) Negative (Negative) Influenza Type A (PCR) Negative (Negative) Influenza Type B (PCR) Negative (Negative) RSV (PCR) Negative (Negative) 12/25/24 12:00 Blood Culture - Pending Blood 12/25/24 11:52 Blood Culture - Pending Blood Intake and Output - 24 Hour Total 12/25/24 08:57 thru 12/25/24 14:45 Intake Total 1210 Balance 1210 Weight 140.614 kg Intake: IV 1210 Falls Risk Assessment History of Falls No History 12/25/24 10:44 Contributing Factors Incontinence 12/25/24 10:44 Tubes/Lines W/no contributing factors 12/25/24 10:44 Gait Evaluation W/no contributing factors 12/25/24 10:44 Cognition No cognitive impairment 12/25/24 10:44 Fall Total Score 23 12/25/24 10:44 Level of Risk Standard/Low Risk 12/25/24 10:44 v v v v v v v v v Sending and/or Receiving Nurses: Please use comment section below to note any information pertinent to the patient hand-off not included above. Information / Comments: Report received from:[email or web address]
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
[2024-12-25] MEDS: Albuterol 2.5 MG/3 ML INH SOLN VIAL UPD (19:51)
[2024-12-25] MEDS: Gabapentin 100 MG CAP 200 MG PO (20:31)
[2024-12-25] MEDS: Apixaban 5 MG TAB PO (20:31)
[2024-12-25] MEDS: Acetaminophen 500 MG TAB 1000 MG PO (20:31)
[2024-12-25] MEDS: Simvastatin 20 MG TAB PO (20:31)
[2024-12-25] MEDS: PIPERACILLIN/TAZO 3.375 GM in Normal Saline 50 ML IVPB (20:32)
[2024-12-25] MEDS: LORazepam 0.5 MG TAB PO (22:03)
[2024-12-26] VITALS (10 sets, daily range): BP systolic 127–155; BP diastolic 69–98; PULSE 103–144; RESP 18–22; TEMP 36.1–36.8; O2SAT 88–96
[2024-12-26] MEDS: Zolpidem 10 MG TAB PO (00:10)
[2024-12-26] MEDS: Sodium Chloride-Nasal SPRAY-ADULT 44 ML BTL NS (00:25)
[2024-12-26] MEDS: Acetaminophen 500 MG TAB 1000 MG PO ×4 (01:29→20:13)
[2024-12-26] MEDS: DOXYCYCLINE 100 MG in Normal Saline 100 ML IVPB ×2 (01:30→11:48)
[2024-12-26] MEDS: Albuterol 2.5 MG/3 ML INH SOLN VIAL UPD (01:38)
[2024-12-26] MEDS: PIPERACILLIN/TAZO 3.375 GM in Normal Saline 50 ML IVPB ×3 (03:39→20:11)
[2024-12-26] MEDS: LORazepam 0.5 MG TAB PO ×2 (03:51→22:38)
[2024-12-26] MEDS: Albuterol/Ipratropium 3 ML UPD VIAL UPD ×4 (03:53→19:51)
[2024-12-26 06:45] LABS: Abs Immature Grans 0.08 10^3/uL (0.0-0.06); HCT 38.4 % (36.0-46.0); HGB 12.3 g/dL (11.2-15.7); Immature Grans % 0.9 %; MCH 30.2 pg (27.0-33.0); MCHC 32.0 % (32.0-36.0); MCV 94 fL (80-95); MPV 10.2 fL (8.0-11.0); Platelet Count 270 10^3/uL (130-400); RBC 4.07 10^6/uL (3.93-5.22); RDW 13.9 % (11.7-14.6); RDW-SD 48.5 fL; WBC 8.48 10^3/uL (4.4-10.8)
[2024-12-26 06:57] LABS: Anion Gap 9.8 mmol/L (3-11); BUN 6 mg/dL (7-18); CO2 31.2 mmol/L (21.0-32.0); Calcium 8.8 mg/dL (8.5-10.1); Chloride 102 mmol/L (98-107); Estimated GFR 101.42 (mL/min/1.73m2); Glucose 157 mg/dL (74-106); Magnesium 1.3 mg/dL (1.8-2.4); Potassium 3.4 mmol/L (3.5-5.1); Sodium 143 mmol/L (136-145)
[2024-12-26] MEDS: Tiotropium Bromide-Respimat 10 PUFF INH 2 PUFF IH (08:44)
[2024-12-26] MEDS: Budesonide/Formoterol 160/4.5 6 GM 60 PUFF INH IH ×2 (08:45→19:51)
[2024-12-26] MEDS: Ketoconazole 2% CREAM 15 GM TUBE TP (09:03)
[2024-12-26] MEDS: Nystatin POWDER 15 GM JAR TP ×3 (09:03→20:13)
[2024-12-26] MEDS: Lisinopril 20 MG TAB 40 MG PO (09:04)
[2024-12-26] MEDS: Multivitamin TAB 1 TAB PO (09:04)
[2024-12-26] MEDS: Gabapentin 100 MG CAP 200 MG PO ×3 (09:04→20:13)
[2024-12-26] MEDS: buPROPion-CR 150 MG TABCR PO (09:04)
[2024-12-26] MEDS: Roflumilast 500 MCG TAB PO (09:04)
[2024-12-26] MEDS: predniSONE 20 MG TAB 40 MG PO (09:04)
[2024-12-26] MEDS: Lactobacillus Acidophilus CAP 1 CAP PO (09:05)
[2024-12-26] MEDS: Metoprolol CR 100 MG TABCR PO (09:05)
[2024-12-26] MEDS: Furosemide 40 MG TAB 60 MG PO (09:05)
[2024-12-26] MEDS: amLODIPine 10 MG TAB PO (09:06)
[2024-12-26] MEDS: Magnesium Oxide 400 MG TAB PO (09:06)
[2024-12-26] MEDS: Pantoprazole 40 MG TABCR PO (09:06)
[2024-12-26] MEDS: Apixaban 5 MG TAB PO ×2 (09:06→20:13)
--- NOTE | 2024-12-26 14:06 | RESPIRATORY ---
RT Initial Evalutation/Assessment Start: 12/25/24 19:10 Freq: .q shift and prn Status: Active Protocol: Document 12/26/24 08:46 (Rec: 12/26/24 09:02 [id number]) RT Assessment Pulmonary History Pulmonary History COPD Smoking History Smoking/Tobacco Use Former Tobacco Use Status Tobacco: How many 40 years used Quit Date 03/30/24 Tobacco Type cigarettes Packs per Day 1 Cigarettes per Day 30 Years smoked 40 Smoking packs per 60 day OXYGEN HISTORY: Supplemental O2 At Rest 3 With Exertion 3 CPAP Can use home machine N/A BIPAP Settings ResMed [id number] Auto BiPAP. Max IPAP 25 / Min EPAP 13 / PS 6 Can you home machine Yes: DME: [employer] [facility]. 3L O2 bleed in at baseline. Trilogy/AVAPS Can use home machine N/A DME/Compliance DME [employer] [facility] for both O2 and BiPAP Compliance 100% with O2. On and off with BiPAP per patient. Current Respiratory Symptoms Current Respiratory Cough,Shortness of breath,Wheezing Symptoms Activity Activity Level Not active. Pt has been on bed rest. Not able to perform ADLs on her own. Respiratory Breath Sounds Breath Sounds Michael wheezing Response Mild response,subjective improvement Pulse Rate >100 Respiratory Rate 18-25 Shortness of Breath At rest Respiratory Therapy 8 Score Total Assessment and Plan RT Treatment Bronchodilator Aerosol Therapy Protocol,Lung Expansion Protocol Therapy Protocol,Bronchial Hygiene Therapy Protocol Note Pt scored Moderate score of 8. Patient given and instructed on IS, Vibra-PEP acapella devices as well at deep breathing and coughing. Pt is currently on her baseline O2 requirement of 3L maintaining well with SpO2 93%. Pt states she has not been able to perform ADLs or housework on her own for some time now, and her daughter is her primary md do resident urgent care. Pt states she uses her O2 at home all the time and her BiPAP most of the time. Pt uses Trelegy inhaler at home, which is not available here. We have substituted it for Symbicort and Spiriva . Pt is receiving Duonebs Q6H at this time. Pt able to hold conversation and seems in good spirits at this time.
[2024-12-26] MEDS: Potassium Chloride 20 MEQ TABCR 40 MEQ PO (14:13)
[2024-12-26] MEDS: MAGNESIUM SULFATE 2 GM/50 ML BAG IV_INF (14:14)
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
--- NOTE | 2024-12-26 18:04 | PGE_ITS ---
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 Working well with respiratory. Exam Narrative Exam Narrative: General: Alert, oriented, in mild respiratory distress. Responding appropriately to questions. HEENT: Pupils equal, round, reactive to light and accommodation. No mention of oropharyngeal erythema or drainage. Cardiovascular: Sinus tachycardia noted. No murmur appreciated. Respiratory: Wheezing and diminished breath sounds bilaterally. Tachypnea with shallow breathing. Hypoxia on exertion. Improved with nebulized treatments. Abdomen: No tenderness noted. No distension or guarding reported. Extremities: 1+ pitting edema in bilateral lower extremities. No new calf swel ling or erythema. No signs of acute DVT. Neurologic: Alert and oriented x3. No focal neurological deficits noted. Skin: No acute rash noted. Recent cellulitis of the left lower extremity reported; no findings detailed on this exam. Objective Last Vital Signs Temp 36.1 C L 12/26/24 15:02 Pulse 106 H 12/26/24 15:02 Resp 19 12/26/24 15:02 BP 127/69 12/26/24 15:02 Pulse Ox 90 L 12/26/24 15:02 Laboratory Results - last 24 hr 12/26/24 05:50 WBC 8.48 RBC 4.07 Hgb 12.3 Hct 38.4 MCV 94 MCH 30.2 MCHC 32.0 RDW 13.9 Plt Count 270 MPV 10.2 Immature Gran % 0.9 Neutrophils % 78.9 Lymphocytes % 12.0 Monocytes % 8.1 Eosinophils % 0.0 Basophils % 0.1 Nucleated RBC % 0.0 Absolute Neutrophils 6.68 Absolute Lymphocytes 1.02 L Absolute Monocytes 0.69 Absolute Eosinophils 0.00 Absolute Basophils 0.01 Sodium 143 Potassium 3.4 L D Chloride 102 Carbon Dioxide 31.2 Anion Gap 9.8 BUN 6 L Creatinine 0.6 Est GFR (CKD-EPI 2020) 101.42 Glucose 157 H Calcium 8.8 Magnesium 1.3 L Time Spent with Patient Time Spent with Patient: 25-34 minutes Time was spent: preparing to see the patient(eg.review tests), ordering medications,tests, procedures, referring, communicating with other health manager long term care, indepentently interpreting results, counseling the patient and care coordination
[2024-12-26] MEDS: Simvastatin 20 MG TAB PO (20:13)
[2024-12-27 00:09] VITALS: BP 158/90; PULSE 100; RESP 20; TEMP 36.4; O2SAT 92
[2024-12-27] MEDS: DOXYCYCLINE 100 MG in Normal Saline 100 ML IVPB ×2 (00:39→11:38)
[2024-12-27] MEDS: Normal Saline Flush 10 ML SYR (00:52)
[2024-12-27] MEDS: Zolpidem 10 MG TAB PO (00:58)
[2024-12-27] MEDS: Normal Saline Flush 10 ML SYR IVP ×2 (05:00→08:31)
[2024-12-27] MEDS: PIPERACILLIN/TAZO 3.375 GM in Normal Saline 50 ML IVPB ×2 (05:00→13:03)
[2024-12-27] MEDS: Albuterol/Ipratropium 3 ML UPD VIAL UPD ×2 (06:13→13:51)
[2024-12-27] MEDS: LORazepam 0.5 MG TAB PO (06:36)
[2024-12-27] MEDS: Albuterol 2.5 MG/3 ML INH SOLN VIAL UPD (06:39)
[2024-12-27 07:15] LABS: Abs Immature Grans 0.06 10^3/uL (0.0-0.06); HCT 40.9 % (36.0-46.0); HGB 13.1 g/dL (11.2-15.7); Immature Grans % 0.6 %; MCH 30.7 pg (27.0-33.0); MCHC 32.0 % (32.0-36.0); MCV 96 fL (80-95); MPV 9.9 fL (8.0-11.0); Platelet Count 275 10^3/uL (130-400); RBC 4.27 10^6/uL (3.93-5.22); RDW 14.0 % (11.7-14.6); RDW-SD 49.6 fL; WBC 9.67 10^3/uL (4.4-10.8)
[2024-12-27 07:29] VITALS: BP 127/64; PULSE 87; RESP 22; TEMP 36.5; O2SAT 94
[2024-12-27 07:30] LABS: Anion Gap 9.8 mmol/L (3-11); BUN 11 mg/dL (7-18); CO2 33.2 mmol/L (21.0-32.0); Calcium 9.1 mg/dL (8.5-10.1); Chloride 100 mmol/L (98-107); Estimated GFR 105.98 (mL/min/1.73m2); Glucose 123 mg/dL (74-106); Magnesium 1.5 mg/dL (1.8-2.4); Potassium 3.8 mmol/L (3.5-5.1); Sodium 143 mmol/L (136-145)
[2024-12-27 07:59] LABS: RBC Morphology Normal
[2024-12-27] MEDS: Budesonide/Formoterol 160/4.5 6 GM 60 PUFF INH IH (08:26)
[2024-12-27] MEDS: Tiotropium Bromide-Respimat 10 PUFF INH 2 PUFF IH (08:27)
[2024-12-27 08:29] VITALS: O2SAT 93
[2024-12-27] MEDS: Metoprolol CR 100 MG TABCR PO (08:31)
[2024-12-27] MEDS: Acetaminophen 500 MG TAB 1000 MG PO (08:31)
[2024-12-27] MEDS: Roflumilast 500 MCG TAB PO (08:32)
[2024-12-27] MEDS: Gabapentin 100 MG CAP 200 MG PO (08:32)
[2024-12-27] MEDS: Lactobacillus Acidophilus CAP 1 CAP PO (08:32)
[2024-12-27] MEDS: Lisinopril 20 MG TAB 40 MG PO (08:32)
[2024-12-27] MEDS: predniSONE 20 MG TAB 40 MG PO (08:32)
[2024-12-27] MEDS: amLODIPine 10 MG TAB PO (08:32)
[2024-12-27] MEDS: buPROPion-CR 150 MG TABCR PO (08:32)
[2024-12-27] MEDS: Magnesium Oxide 400 MG TAB PO (08:33)
[2024-12-27] MEDS: Furosemide 40 MG TAB PO (08:33)
[2024-12-27] MEDS: Apixaban 5 MG TAB PO (08:33)
[2024-12-27] MEDS: Pantoprazole 40 MG TABCR PO (08:33)
[2024-12-27] MEDS: Multivitamin TAB 1 TAB PO (08:33)
[2024-12-27] MEDS: Nystatin POWDER 15 GM JAR TP (08:41)
[2024-12-27] MEDS: Sodium Chloride-Nasal SPRAY-ADULT 44 ML BTL NS (08:41)
[2024-12-27] MEDS: Ketoconazole 2% CREAM 15 GM TUBE TP (08:41)
[2024-12-27] MEDS: MAGNESIUM SULFATE 2 GM/50 ML BAG IV_INF (09:32)
--- NOTE | 2024-12-27 10:51 | PDOC.CMDIS ---
Date of service: 12/27/24 Time of Service: 10:52 LACE Index Scoring Tool Questions: Length of Stay (in days): 2 Was the patient admitted via the E.D.?: Yes E.D. Visits: 9 Answers: Total Score: 9 Risk of Readmission: Low Risk Care Management Discharge Plan Reason for Hospitalization: COPD exacerbation Discharge Plan: PT consult not needed, per hospitalist. Deepa will return home with resumption of [facility] RN/PT and complex care nurse practitioner support. Her daughter will drive her home via private vehicle (portable O2 in her room for transport.) She will follow up with her PCP and discharge plan of care. Patient/Family Education Needs: Review of discharge instructions, activity, limitations, and plan of care. Discuss Ask Me Three. Services Needed at Discharge: Home Health Care Services (Res. PT/RN) SDOH Health Related Social Needs: Health related social needs daily activities education Health related social needs details none identified Health related social needs details: none identified
[2024-12-27 11:15] VITALS: BP 138/72; PULSE 98; RESP 20; TEMP 37; O2SAT 91
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
--- NOTE | 2024-12-27 13:32 | CHAPLAIN ---
Deepa was sitting up at the edge of the bed when I visited this morning. She said she'd had a rough morning and was feeling dizzy. She lives at home with her daughter, Hilda, who is her caregiver through [facility]. I explained my role and offered support.
== END 2024-12-27 14:17 | disposition home health service (06) ==
LOC: ER 15:44 → MS 17:49
PROVIDERS: Admitting Provider Hospitalist; Emergency Provider Physician Assistant; PCP Nurse Practitioner Family; Responsible Provider Nurse Practitioner Family; Visit Provider Hospitalist
DX: J44.1 Chronic obstructive pulmonary disease with (acute) exacerbation (principal); E66.2 Morbid (severe) obesity with alveolar hypoventilation; Z68.43 Body mass index [BMI] 50.0-59.9, adult; I10 Essential (primary) hypertension; J96.11 Chronic respiratory failure with hypoxia; Z99.81 Dependence on supplemental oxygen; K21.9 Gastro-esophageal reflux disease without esophagitis; E78.5 Hyperlipidemia, unspecified; G89.29 Other chronic pain; Z79.01 Long term (current) use of anticoagulants; Z86.711 Personal history of pulmonary embolism; R53.1 Weakness; I87.2 Venous insufficiency (chronic) (peripheral); G47.00 Insomnia, unspecified; F32.A Depression, unspecified; R60.0 Localized edema; Z87.891 Personal history of nicotine dependence
CPT/HCPCS: 00123; 36415; 71275; 80048; 80053; 82805; 87040; 87637; 93005; 94640; 94761; 96361; 96365; 96366; 96367; 96375; 99291; 83605; 83735; 84484; 85025; 93010; 94664; 94667; 94668; 94760; 99222; 99232; 99239; G0378; J2543; J2919; J3475; J3490; J7512; J7613; J7620

== ENCOUNTER → 2025-01-03 14:37 | Outpatient (BNVA) | payer MEDICARE, MEDICAID, SELFPAY | PROVIDERS: PCP Nurse Practitioner Family; Referring Provider Nurse Practitioner Family; Visit Provider Physician Assistant Surgical | DX: G47.33 Obstructive sleep apnea (adult) (pediatric) (principal); J43.1 Panlobular emphysema; J96.11 Chronic respiratory failure with hypoxia; Z99.81 Dependence on supplemental oxygen; F17.211 Nicotine dependence, cigarettes, in remission | CPT/HCPCS: 99214 ==

== ENCOUNTER → 2025-02-27 14:04 | Outpatient (BNVA) | payer MEDICARE, MEDICAID, SELFPAY | PROVIDERS: PCP Nurse Practitioner Family; Referring Provider Nurse Practitioner Family; Visit Provider Podiatrist | DX: L60.3 Nail dystrophy (principal); I73.89 Other specified peripheral vascular diseases; R60.0 Localized edema; R09.89 Other specified symptoms and signs involving the circulatory and respiratory systems; R20.8 Other disturbances of skin sensation; R23.4 Changes in skin texture; L65.9 Nonscarring hair loss, unspecified; L60.2 Onychogryphosis; L85.8 Other specified epidermal thickening | CPT/HCPCS: 11721 ==

== ENCOUNTER → 2025-02-28 13:56 | Outpatient (BNVA) | payer MEDICARE, MEDICAID, SELFPAY | PROVIDERS: PCP Nurse Practitioner Family; Referring Provider Nurse Practitioner Family; Visit Provider Psychiatry & Neurology Neurology | DX: G62.9 Polyneuropathy, unspecified (principal); M54.16 Radiculopathy, lumbar region; G89.29 Other chronic pain; I10 Essential (primary) hypertension; J44.9 Chronic obstructive pulmonary disease, unspecified; R73.9 Hyperglycemia, unspecified; E05.90 Thyrotoxicosis, unspecified without thyrotoxic crisis or storm | CPT/HCPCS: 99215; G2212 ==

== ENCOUNTER 2025-03-07 04:14 | Outpatient (CLI) | payer MEDICARE, MEDICAID, SELFPAY ==
[2025-03-07 16:32] LABS: Hemoglobin A1C 6.2 % (<5.7)
[2025-03-07 16:49] LABS: TSH (W/Ref FT4) 0.71 uIU/mL (0.36-3.74); Vitamin B12 274 pg/mL (193-986)
[2025-03-09 14:57] LABS: Albumin 56.4 % (55.8-66.1); Albumin g/dL 4.1 g/dL (3.6-5.2); Alpha 1 g/dL 0.30 g/dL (0.15-0.40); Alpha 2 g/dL 0.90 g/dL (0.50-1.00); Beta g/dL 1.10 g/dL (0.60-1.20); Gamma g/dL 0.90 g/dL (0.60-1.60); Total Protein 7.2 g/dL (6.3-8.2)
== END 2025-03-07 04:15 | disposition home or self-care (01) ==
LOC: LOS 04:14
PROVIDERS: PCP Nurse Practitioner Family; Visit Provider Psychiatry & Neurology Neurology
DX: R73.9 Hyperglycemia, unspecified (principal); G62.9 Polyneuropathy, unspecified; E05.90 Thyrotoxicosis, unspecified without thyrotoxic crisis or storm
CPT/HCPCS: 36415; 82607; 83036; 84165; 84443; 86320

== ENCOUNTER → 2025-04-17 14:07 | Outpatient (BNVA) | payer MEDICARE, MEDICAID, SELFPAY | PROVIDERS: PCP Nurse Practitioner Family; Referring Provider Nurse Practitioner Family; Visit Provider Physician Assistant Surgical | DX: G47.33 Obstructive sleep apnea (adult) (pediatric) (principal); J43.1 Panlobular emphysema; J96.11 Chronic respiratory failure with hypoxia; Z99.81 Dependence on supplemental oxygen; Z87.891 Personal history of nicotine dependence | CPT/HCPCS: 99214 ==

== ENCOUNTER → 2025-05-29 15:35 | Outpatient (BNVA) | payer MEDICARE, MEDICAID, SELFPAY | PROVIDERS: PCP Nurse Practitioner Family; Referring Provider Nurse Practitioner Family; Visit Provider Podiatrist | DX: L60.3 Nail dystrophy (principal); R60.0 Localized edema; I73.89 Other specified peripheral vascular diseases; M25.571 Pain in right ankle and joints of right foot; M25.572 Pain in left ankle and joints of left foot; R09.89 Other specified symptoms and signs involving the circulatory and respiratory systems; R20.8 Other disturbances of skin sensation; R23.4 Changes in skin texture; L65.9 Nonscarring hair loss, unspecified; L60.2 Onychogryphosis; L85.8 Other specified epidermal thickening; R26.2 Difficulty in walking, not elsewhere classified | CPT/HCPCS: 11721 ==